=== PATIENT | male | born 1940 | race Caucasian/White ===

== ENCOUNTER 2019-03-25 17:59 | Inpatient (IN) | payer MEDICARE, SELFPAY ==
--- NOTE | ~2019-03-25 | XR_ITS ---
EXAMINATION: XR chest 2V DATE: 03/25/2019 19:14 INDICATION: Fever TECHNIQUE: PA and lateral views of the chest were obtained. COMPARISON: Chest radiograph dated 02/04/[address] dated 12/13/2018 FINDINGS: Right internal jugular central venous port catheter with distal tip at the caudal superior vena cava. Unchanged coarse peripheral reticular opacities at the lung bases consistent with chronic interstiti al lung disease with usual interstitial pneumonia UIP pattern on prior CT. Calcified nodule at the le ft lung base consistent with old granulomatous disease. No new airspace opacities, pleural effusion o r pneumothorax. The cardiomediastinal silhouette is normal. There are bridging osteophytes at multipl e levels in the spine, consistent with diffuse idiopathic skeletal hyperostosis (DISH). IMPRESSION: 1. Unchanged chronic interstitial fibrosis at the lung bases. Reviewed, dictated and finalized at location A. RAL MANAGER IN TRAINING
--- NOTE | ~2019-03-25 | CT_ITS ---
EXAMINATION: CT abdomen pelvis wo con DATE: 03/25/2019 20:29 INDICATION: Fever TECHNIQUE: Computed tomography (CT) of the abdomen and pelvis was performed without intravenous contr ast. Automated exposure control and iterative reconstruction technique were employed. The dose-length product was 498.65 mGy-cm. COMPARISON: 12/13/2018 FINDINGS: Peripheral reticular opacities with honeycombing at the bilateral lung bases consistent with usual in terstitial pneumonia (UIP) pattern chronic interstitial lung disease. Calcified nodule in the left lo wer lobe along with a few hepatic and splenic calcination is consistent with old granulomatous diseas e. Heart size is normal. Atherosclerotic coronary artery calcification. No pericardial or pleural eff usion. Small sliding-type hiatal hernia. Gallbladder, pancreas and bilateral adrenal glands are jose m l. Minimal change in mild to moderate bilateral perinephric stranding. 9 mm low-attenuation right john al cyst. Bilateral ureters extend to a right abdominal ileocolic conduit. No inflammatory stranding i n the fat at the bilateral renal falguni to suggest ascending urinary tract infection. Interval cystecto my and prostatectomy. There is mild scattered colonic diverticulosis without adjacent inflammatory ch kristopher to suggest diverticulitis. Air-fluid levels throughout the colon consistent with diarrhea. No jane wel obstruction. Postoperative scarring versus trace amount of ascites in the deep pelvis. No free in traperitoneal gas. There is calcified atherosclerosis of the aorta and many of the other arteries. No pathologically enlarged abdominal or pelvic lymphadenopathy. There are bridging osteophytes at multi ple levels in the spine, consistent with diffuse idiopathic skeletal hyperostosis (DISH). IMPRESSION: 1. Fluid throughout the colon consistent with diarrhea. Correlate clinically for gastroenteritis. 2. Status post cystectomy and prostatectomy with right abdominal ileal conduit. 3. Chronic UIP pattern interstitial lung disease at the lung bases. Reviewed, dictated and finalized at location A. E DRESSER IMPRESSION: 1. Fluid throughout the colon consistent with diarrhea. Correlate clinically fo r gastroenteritis. 2. Status post cystectomy and prostatectomy with right abdominal ileal conduit. 3. Chronic UIP pattern interstitial lung disease at the lung bases.
[2019-03-25 18:06] VITALS: BP 101/58; PULSE 124; RESP 18; TEMP 37.2; O2SAT 99
--- NOTE | 2019-03-25 18:10 | ED.FEVER ---
HPI - Fever General Chief Complaint: Fever Stated Complaint: fever Time Seen by Provider: 03/25/19 18:05 Source: patient Mode of arrival: ambulatory Limitations: no limitations History of Present Illness HPI Narrative: A 78 y/o male presents to the ED with c/o fever. Pt states that the fever started 3 days ago and has been constant since. He notes that the highest the fever has been at home was 102F. Pt adds that Tylenol alleviates the fever for awhile, but the fever quickly returns. His last does of Tylenol was at 1530 today. He reports chills, sweats, and trouble sleeping, but denies wheezing, N/V/D, SOB, CHRISTINA, weakness, changes in food and liquid intake, CP, ABD pain, back pain, and hematuria. Pt states that he had his bladder and prostate removed on 02/09/[address] Palomo. He has a PMHx of HTN and is currently on a beta wilder. Pt had his flu shot this year and Dr. Jung is his PCP. MD elicited complaint: fever Onset (ago): day(s) (3) Context: recent procedure (Bladder and prostate removal 02/09/19) Relieving factors: acetaminophen Associated symptoms: chills and other (Trouble sleeping, sweats) Treatments prior to arrival fever: acetaminophen Related Data Home Medications Medication Instructions Recorded Confirmed quinapril [Accupril] 20 mg PO DAILY 01/31/19 02/09/19 allopurinol 300 mg tablet 300 mg PO DAILY 03/13/19 Allergies Allergy/AdvReac Type Severity Reaction Status Date / Time No Known Allergies Allergy Unverified 02/09/19 07:33 Review of Systems Review of Systems: All systems reviewed & are unremarkable except as noted in HPI and below Constitutional: Constitutional: Reports chills, Reports difficulty sleeping, Reports fever(s) and Denies other (Changes in food and liquid intake) Cardiovascular: Cardiovascular: Denies chest pain and Reports other (Sweats) Respiratory: Respiratory: Denies dyspnea and Denies wheezing Gastrointestinal: Gastrointestinal: Denies abdominal pain, Denies diarrhea, Denies nausea and Denies vomiting Genitourinary: Genitourinary: Denies hematuria Musculoskeletal: Musculoskeletal: Denies back pain Neurologic: Denies headache(s) and Denies weakness REPLACED BY [facility] Family History Family History Father Family history of lung cancer Other Family history of cardiovascular disease Social History Social History Social History: Patient quit smoking in 1979. He smoked about a pack a cigarettes a day for 20 years. Patient occasionally drinks a beer. He has 2 children. A boy and a girl. Power of knife cutter is Carla Lam. He is a full code. He lives alone. He is retired from [employer]. Smoking packs per day: 1 Smoking cigarettes per day: 20.0 Years smoked: 10 Smoking pack-years: 10.00 Smoking status: Former smoker Tobacco type: cigarettes Alcohol intake: current Drinks per week: 5 Substance use: never Gender identity (if verbalized by the patient): Male Spiritual care concerns: No Agree to blood products: Yes Exam Const: General: healthy appearing and no acute distress Nutritional Appearance: well nourished HENMT: Mouth: Yes lip normal and Yes moist mucous membranes Eyes: Conjunctivae: conjunctivae normal Pupils: Equal, round and reactive pupils present Resp: Effort & Inspection: normal respiratory effort Auscultation: crackles (Velcro-like) bilateral at the base Cardio: Rate: tachycardic Rhythm: regular rhythm Heart sounds: no murmurs GI: GI Palp: Yes Soft to palpation and No Tenderness to palpation present (GI) Auscultation: normal bowel sounds Back/Spine/Pelvis: Back: other (Full ROM) Skin: General skin exam: normal color, dry skin and other (Warm) Neuro: General: patient oriented x3 (Alert) Speech: normal speech Extrem: Right upper extremity: full ROM Psych: Mental Status: mental status grossly normal Affect: normal affect Course Con
[2019-03-25 18:14] VITALS: BP 99/60; PULSE 115; RESP 29; O2SAT 98
--- NOTE | 2019-03-25 18:35 | ECG_ITS ---
Measurements Intervals [place] Rate: 103 P: 35 [place]: 151 QRS: -23 QRSD: 122 T: 7 QT: 344 QTc: 451 Interpretive Statements SINUS TACHYCARDIA RIGHT BUNDLE BRANCH BLOCK VOLTAGE CRITERIA FOR LVH ABNORMAL ECG Electronically Signed On 03-25-2019 19:54:16 PRODUCTION CORRUGATOR by Rajendra Parker D.O.
[2019-03-25 18:46] VITALS: BP 108/58; PULSE 103; RESP 30; O2SAT 98
[2019-03-25] MEDS: SODIUM CHLORIDE 0.9% IV 1,000 ML 999 ML IV CONT ×2 (19:00→20:04)
[2019-03-25 19:04] LABS: Hematocrit 32.9 % (42.0-52.0); Hemoglobin 11.4 g/dL (14.0-18.0); Mean Corpuscular HGB Conc 34.7 g/dl (32-36); Mean Corpuscular Hemoglobin 33.7 pg (26-34); Mean Corpuscular Volume 97.3 fl (80-100); Platelet Count Result 256 k/mm3 (150-375); Red Blood Count 3.38 M/mm3 (4.6-6.20); Red Cell Distribution Width 13.7 % (11.5-14.5); White Blood Count 25.6 K/mm3 (4.5-10.0)
--- NOTE | 2019-03-25 19:15 | PC.NURSE ---
Report taken from Pio MERRITT
[2019-03-25 19:18] LABS: Lactic Acid Reflex 1.1 mmol/L (0.7-2.1)
[2019-03-25 19:20] LABS: INR 1.1; Prothrombin Time 13.4 Seconds (11.1-14.7)
[2019-03-25 19:21] LABS: Partial Thromboplastin Time 34.7 SECONDS (22.3-36.8)
[2019-03-25 19:33] LABS: Band Neutrophils Percent 8 % (0-6); Lymphocytes Absolute Manual 1.28 K/mm3 (1.1-4.5); Monocytes Absolute Manual 1.28 K/mm3 (0.1-0.90); Monocytes Percent Manual 5 % (3-9); Neutrophils Absolute Manual 23.04 K/mm3 (1.3-6.7); Neutrophils Percent Manual 82 % (46-73); Platelet Estimate Adequate (Adequate); Total Cells Counted 100
[2019-03-25 19:34] LABS: Anisocytosis 1+ (NORMAL); Hypochromasia 1+ (NORMAL)
[2019-03-25 19:41] LABS: Alanine Aminotransferase 16 U/L (4-50); Alkaline Phosphatase 84 U/L (38-126); Aspartate Amino Transferase 22 U/L (17-59); Bilirubin,Total 0.6 mg/dL (0.2-1.3); Blood Urea Nitrogen 43 mg/dL (9-20); Calcium 9.2 mg/dL (8.4-10.2); Carbon Dioxide 17 mmol/L (22-30); Chloride 95 mmol/L (98-107); Estimated CRCL calculation 20 ml/min; Estimated Glomerular Filt Rate 25; Glucose 137 mg/dL (75-110); Potassium 3.9 mmol/L (3.4-5.0); Sodium 127 mmol/L (137-145)
[2019-03-25 19:49] LABS: Add Urine Microscopic? YES; Appearance Urine Cloudy (Clear); Bacteria Urine 2+ /hpf; Bilirubin Urine Negative (Negative); Blood Urine 1+ (Negative); Color Urine Yellow (Yellow); Glucose Urine UA Negative (Negative); Ketones Urine Negative (Negative); Leukocyte Esterase Ur 3+ LEU/UL (Negative); Mucus Urine Rare /lpf; Nitrate Urine Negative (Negative); Protein Urine 2+ mg/dL (Negative); Specific Grav Ur 1.015 (1.001-1.035); Squamous Epithelial Cell Urine Rare /hpf (Few); Urobilinogen Urine Negative mg/dL (<2.0); WBC Clumps Urine Present /HPF; WBC Urine 21-30 /hpf
[2019-03-25 20:05] LABS: CRP 26.1 mg/dL (<1.0)
[2019-03-25 21:46] VITALS: BP 111/60; PULSE 102; RESP 18; O2SAT 97
--- NOTE | 2019-03-25 21:48 | PM.IMHP ---
H&P: HPI History of Present Illness Chief complaint: Fever for 3 days Narrative: This is a pleasant 78-year-old male with known past medical history of bladder cancer status post radical cystoprostatectomy with pelvic lymphadenectomy and ileal-loop urinary diversion on February 10, 2019 who presented to the [facility] with a complaint of fever for the past 3 days. He reports a T-max of 102? F this afternoon. The patient has not noticed that his urine is darker in color or foul smelling. He has been taking acetaminophen for his fever. Associated symptoms include diaphoresis and generalized weakness. He denies any headache, neck stiffness, chest pain, cough, palpitations, sore throat, abdominal pain, back pain, hematuria, or open wounds. The patient is known to have had chronic diarrhea off and on since he started taking MiraLax about a month ago. He reports that his last dose of chemotherapy for his bladder cancer was back in May of this past year. He does have a right chest port in place which has not been bothering him. He is known to follow up with Dr. Dumont for his cancer and planning to start radiation therapy soon. Patient was evaluated emergency room this evening and [place] [id number], tachycardic, and tachypneic. Patient also was found to be in acute renal failure. We been asked to admit the patient to the hospital for his sepsis and likely urinary tract infection. He has no other complaints at this time. Review of Systems Review of Systems: All systems reviewed & are unremarkable except as noted in HPI and below PMFSH Past Medical History Medical History Atrial tachycardia Bladder cancer Cancer of overlapping sites of bladder Cellulitis Chronic renal failure, stage 3 (moderate) Contact dermatitis Essential (primary) hypertension Gout, unspecified Hypertension Malignant neoplasm of dome of urinary bladder Mixed hyperlipidemia Shingles Surgical History Surgical History History of cataract extraction History of ileal conduit History of inguinal hernia repair History of prostatectomy History of tonsillectomy History of transurethral resection of prostate Family History Family History Father Family history of lung cancer Other Family history of cardiovascular disease Social History Social History Social History: Patient quit smoking in 1979. He smoked about a pack a cigarettes a day for 20 years. Patient occasionally drinks a beer. He has 2 children. A boy and a girl. Power of civil rights attorney is Carla Lam. He is a full code. He lives alone. He is retired from [employer]. Smoking packs per day: 1 Smoking cigarettes per day: 20.0 Years smoked: 10 Smoking pack-years: 10.00 Smoking status: Former smoker Tobacco type: cigarettes Alcohol intake: unknown Drinks per week: 0 Substance use: current Substance use type: does not use Gender identity (if verbalized by the patient): Male Spiritual care concerns: No Agree to blood products: Yes Meds Home Medications and Allergies Home Medications Medication Instructions Recorded Confirmed Type quinapril [Accupril] 20 mg PO DAILY 01/31/19 03/25/19 History hydrochlorothiazide 25 mg tablet 25 mg PO DAILY #90 tablet 02/21/19 03/25/19 Rx metoprolol succinate 25 mg 25 mg PO DAILY #90 tablet 03/13/19 03/25/19 Rx tablet,extended release 24 hr Allergies Allergy/AdvReac Type Severity Reaction Status Date / Time No Known Allergies Allergy Unverified 02/09/19 07:33 Vital Signs Vital Signs - 24 hr 03/25/19 18:06 03/25/19 18:14 03/25/19 18:46 Temperature 37.2 C Pulse Rate 124 H 115 H 103 H Respiratory Rate 18 29 H 30 H Blood Pressure 101/58 L 99/60 L 108/58 L Pulse Oximetry 99
--- NOTE | 2019-03-25 21:59 | ADMGEN ---
This patient, Stu Raphael Jr., was admitted to Medical Room 253-01. Patient/family oriented to hospital policies and general routines including ID bracelet, bed and alarms, visiting hours, pain management, procedures, bathroom and other care routines, personal items, smoking policy, room service/diet, and visiting hours. Valuables list has been completed. Information on how to activate the Rapid Response Team has been discussed. Patient/Family are encouraged to report perceived risks to care and to ask questions if they do not understand what they are told or what they should do.
[2019-03-25 22:04] VITALS: PULSE 99
[2019-03-25 22:27] VITALS: BP 121/62; PULSE 99; RESP 18; TEMP 36.8; O2SAT 100; BMI 27.2
[2019-03-25] MEDS: LACTATED RINGERS 1,000 ML 125 ML IV CONT (23:14)
[2019-03-25 23:30] LABS: Sodium Urine Random 39 meq/L
[2019-03-26] VITALS (15 sets, daily range): BP systolic 129–145; BP diastolic 50–75; PULSE 94–125; RESP 16–20; TEMP 36.6–38.9; O2SAT 97–100
[2019-03-26] MEDS: LACTATED RINGERS 1,000 ML 125 ML IV CONT ×2 (06:03→13:47)
[2019-03-26 08:42] LABS: Hematocrit 28.2 % (42.0-52.0); Hemoglobin 9.7 g/dL (14.0-18.0); Mean Corpuscular HGB Conc 34.4 g/dl (32-36); Mean Corpuscular Hemoglobin 33.1 pg (26-34); Mean Corpuscular Volume 96.2 fl (80-100); Platelet Count Result 211 k/mm3 (150-375); Red Blood Count 2.93 M/mm3 (4.6-6.20); Red Cell Distribution Width 13.7 % (11.5-14.5); White Blood Count 16.6 K/mm3 (4.5-10.0)
[2019-03-26 08:55] LABS: Blood Urea Nitrogen 37 mg/dL (9-20); Calcium 8.6 mg/dL (8.4-10.2); Carbon Dioxide 19 mmol/L (22-30); Chloride 101 mmol/L (98-107); Estimated CRCL calculation 24 ml/min; Estimated Glomerular Filt Rate 31; Glucose 108 mg/dL (75-110); Potassium 3.9 mmol/L (3.4-5.0); Sodium 132 mmol/L (137-145)
--- NOTE | 2019-03-26 11:14 | PM.IMPN ---
Progress Note: A&P Assessment and Plan (1) Sepsis: Qualifiers: Acute renal failure type: unspecified Sepsis acute organ dysfunction status: with acute organ dysfunction Sepsis type: sepsis due to unspecified organism Severe sepsis acute organ dysfunction type: acute renal failure Severe sepsis shock status: without septic shock Qualified Code(s): A41.9 - Sepsis, unspecified organism; R65.20 - Severe sepsis without septic shock; N17.9 - Acute kidney failure, unspecified Code(s): A41.9 - Sepsis, unspecified organism Status: Acute Assessment and Plan: Criteria met on admission. Suspect urinary source. Blood cultures x2 now growing gram-negative bacilli. Urine culture still pending. Will continue IV fluids but decrease rate. Continue IV ceftriaxone while awaiting final culture results. Will adjust antibiotics as needed. Continue to monitor. WBC has decreased to 16.6 today. (2) Acute UTI: Code(s): N39.0 - Urinary tract infection, site not specified Status: Acute Assessment and Plan: UA very suspicious on admission. Blood cultures now positive urine culture still pending. Continue IV ceftriaxone now as noted. (3) Acute renal failure superimposed on stage 3 chronic kidney disease: Qualifiers: Acute renal failure type: unspecified Qualified Code(s): N17.9 - Acute kidney failure, unspecified; N18.3 - Chronic kidney disease, stage 3 (moderate) Code(s): N17.9 - Acute kidney failure, unspecified; N18.3 - Chronic kidney disease, stage 3 (moderate) Status: Acute Assessment and Plan: Baseline creatinine 1.50-1.70. Creatinine is improved to 2.10 today from 2.50 on admission. Continue to monitor. IV fluids remain in place. (4) Hyponatremia: Code(s): E87.1 - Hypo-osmolality and hyponatremia Status: Acute Assessment and Plan: May be secondary to hydrochlorothiazide use. HCTZ now on hold. Sodium is increased to 132 today. Will monitor. (5) Diarrhea: Qualifiers: Diarrhea type: unspecified type Qualified Code(s): R19.7 - Diarrhea, unspecified Code(s): R19.7 - Diarrhea, unspecified Status: Acute Assessment and Plan: CT abdomen/pelvis fluid throughout colon consistent with diarrhea. Still has loose stools today. Will monitor for now. (6) Essential (primary) hypertension: Code(s): I10 - Essential (primary) hypertension Status: Chronic Assessment and Plan: Blood pressure reviewed on 03/26/2019. Blood pressure was low normal on admission. Has improved today. Telemetry reviewed on 03/26/2019 with heart rate starting to increase. Will continue home metoprolol. Home HCTZ and quinapril held. Will continue to monitor. (7) Bladder cancer: Qualifiers: Bladder location: unspecified site Qualified Code(s): C67.9 - Malignant neoplasm of bladder, unspecified Code(s): C67.9 - Malignant neoplasm of bladder, unspecified Status: Chronic Assessment and Plan: Surgery in February 2019 consisting of robotic assisted, radical cystoprostatectomy with extended bilateral pelvic lymphadenectomy and ileal conduit urinary diversion. Continue to follow-up with urology as outpatient. (8) Chronic anemia: Code(s): D64.9 - Anemia, unspecified Status: Chronic Assessment and Plan: Likely anemia of chronic disease. No signs of acute blood loss. Hemoglobin 9.7 today which is within his normal range. Will continue to monitor H&H. (9) DVT prophylaxis: Code(s): Z29.9 - Encounter for prophylactic measures, unspecified Status: Acute Assessment and Plan: SCDs. Time Spent With Patient Time with patient: 15 - 25 minutes Subjective Date/time seen: 03/26/19 11:14 Interval history: Date of Service: 03/26/2019. Admitted with sepsis, acute renal failure, possible UTI. Feeling better today. Feels urine is clear. No headache or dizziness. No ches
[2019-03-26] MEDS: METOPROLOL SUCCINATE EXT REL 25 MG TABCR PO (12:28)
--- NOTE | 2019-03-26 14:33 | WPDURCON ---
Assessment and Plan Assessment and plan (1) Diarrhea: Qualifiers: Diarrhea type: unspecified type Qualified Code(s): R19.7 - Diarrhea, unspecified Code(s): R19.7 - Diarrhea, unspecified Status: Acute (2) Abnormal urinalysis: Code(s): R82.90 - Unspecified abnormal findings in urine Status: Acute (3) Acute renal failure: Qualifiers: Acute renal failure type: unspecified Qualified Code(s): N17.9 - Acute kidney failure, unspecified Code(s): N17.9 - Acute kidney failure, unspecified Status: Acute (4) Cancer of overlapping sites of bladder: Code(s): C67.8 - Malignant neoplasm of overlapping sites of bladder Status: Acute (5) History of ileal conduit: Code(s): Z98.890 - Other specified postprocedural states Status: Acute Assessment and Plan: From a perspective, everything appears normal Suggest waiting on cultures obtained Elevated creatinine appeared to be suggestive of prerenal azotemia (dehydration secondary to diarrhea) Continue with IVF and regular diet Urology Consult Note HPI Date Seen: 03/26/19 Requesting Physician: Ming Spain MD Primary Care Provider: Jeremy Jung MD Consult Narrative Narrative: Stu Raphael Jr. is a 78 year old male admitted thru ER with diarrhea and fever/chills. Patient underwent a radical cystoprostatectomy and ileal conduit formation with Dr Palomo on 02/2019. Patient denies any issues with conduit or urine output. WBC in ER was 26 but down to [address] of abdomen and pelvis noted no evidence of stones, abscess, or issues of obstruction in either kidney. Bowels had evidence of diverticulosis and diarrhea signs. Creatinine was elevated on admission at 2.5 but down to 2.1 by am. Review of Systems Review of Systems: All systems reviewed & are unremarkable except as noted in HPI and below (HPI) PMFSH Past Medical History Medical History Atrial tachycardia Bladder cancer Cancer of overlapping sites of bladder Cellulitis Chronic renal failure, stage 3 (moderate) Contact dermatitis Essential (primary) hypertension Gout, unspecified Hypertension Malignant neoplasm of dome of urinary bladder Mixed hyperlipidemia Shingles Surgical History Surgical History History of cataract extraction History of ileal conduit History of inguinal hernia repair History of prostatectomy History of tonsillectomy History of transurethral resection of prostate Family History Family History Father Family history of lung cancer Other Family history of cardiovascular disease Social History Social History Social History: Patient quit smoking in 1979. He smoked about a pack a cigarettes a day for 20 years. Patient occasionally drinks a beer. He has 2 children. A boy and a girl. Power of litigation attorney associate is Carla Lam. He is a full code. He lives alone. He is retired from [employer]. Smoking packs per day: 1 Smoking cigarettes per day: 20.0 Years smoked: 10 Smoking pack-years: 10.00 Smoking status: Former smoker Tobacco type: cigarettes Alcohol intake: unknown Drinks per week: 0 Substance use: current Substance use type: does not use Gender identity (if verbalized by the patient): Male Spiritual care concerns: No Agree to blood products: Yes Meds Home Medications and Allergies Home Medications Medication Instructions Recorded Confirmed Type quinapril [Accupril] 20 mg PO DAILY 01/31/19 03/25/19 History hydrochlorothiazide 25 mg tablet 25 mg PO DAILY #90 tablet 02/21/19 03/25/19 Rx metoprolol succinate 25 mg 25 mg PO DAILY #90 tablet 03/13/19 03/25/19 Rx tablet,extended release 24 hr Allergies Allergy/AdvR
--- NOTE | 2019-03-26 18:16 | PC.NURSE ---
Dr. Gerard notified of sepsis risk screening.
[2019-03-27] VITALS (7 sets, daily range): BP systolic 135–164; BP diastolic 66–75; PULSE 90–136; RESP 16–20; TEMP 36.4–39.3; O2SAT 98–100
[2019-03-27] MEDS: LACTATED RINGERS 1,000 ML 75 ML IV CONT
[2019-03-27 05:43] LABS: Hematocrit 31.2 % (42.0-52.0); Hemoglobin 10.5 g/dL (14.0-18.0); Mean Corpuscular HGB Conc 33.7 g/dl (32-36); Mean Corpuscular Hemoglobin 32.6 pg (26-34); Mean Corpuscular Volume 96.9 fl (80-100); Mean Platelet Volume 10.7 fl (7.4-10.4); Platelet Count Result 202 k/mm3 (150-375); Red Blood Count 3.22 M/mm3 (4.6-6.20); Red Cell Distribution Width 13.6 % (11.5-14.5); White Blood Count 8.3 K/mm3 (4.5-10.0)
[2019-03-27 05:52] LABS: Blood Urea Nitrogen 27 mg/dL (9-20); Carbon Dioxide 20 mmol/L (22-30); Chloride 101 mmol/L (98-107); Estimated CRCL calculation 34 ml/min; Estimated Glomerular Filt Rate 45; Glucose 125 mg/dL (75-110); Magnesium 1.5 mg/dL (1.6-2.3); Potassium 3.6 mmol/L (3.4-5.0); Sodium 132 mmol/L (137-145)
--- NOTE | 2019-03-27 08:34 | WPDUROPN2 ---
Progress Note: A&P Assessment and Plan (1) Diarrhea: Qualifiers: Diarrhea type: unspecified type Qualified Code(s): R19.7 - Diarrhea, unspecified Code(s): R19.7 - Diarrhea, unspecified Status: Acute (2) Abnormal urinalysis: Code(s): R82.90 - Unspecified abnormal findings in urine Status: Acute Assessment and Plan: Cultures are pending. It should be kept in mind that this patient is chronically colonized due to his ileal conduit. (3) Cancer of overlapping sites of bladder: Code(s): C67.8 - Malignant neoplasm of overlapping sites of bladder Status: Acute Subjective Subjective Date/Time Seen: 03/27/19 08:34 Feeling better. Labs are improved. Exam GI: Inspection: normal to inspection Other: Ostomy is pink and viable. Objective Data Vital Signs Vital Signs: Vital Signs - 24 hr 03/26/19 12:00 03/26/19 12:25 03/26/19 12:28 Temperature Pulse Rate 94 102 H 102 H Respiratory Rate Blood Pressure 132/61 Pulse Oximetry 03/26/19 13:46 03/26/19 14:00 03/26/19 14:16 Temperature 99.1 F 99.0 F 97.8 F Pulse Rate 111 H Respiratory Rate 16 Blood Pressure 145/75 H Pulse Oximetry 100 03/26/19 16:00 03/26/19 20:00 03/26/19 20:34 Temperature 102.1 F H 102.1 F H Pulse Rate 97 100 Respiratory Rate Blood Pressure Pulse Oximetry 03/26/19 21:00 03/26/19 21:53 03/27/19 00:00 Temperature 98.4 F 98.6 F Pulse Rate 100 93 Respiratory Rate 20 Blood Pressure 129/60 Pulse Oximetry 97 03/27/19 05:52 03/27/19 06:18 Temperature 102.7 F H Pulse Rate 115 H 104 H Respiratory Rate 20 Blood Pressure 164/72 H Pulse Oximetry 100 Intake/Output Intake/Output: Intake & Output 03/24/19 03/25/19 03/26/19 03/27/19 23:59 23:59 23:59 23:59 Intake Total 2150 5150 550 Output Total 1050 2200 Balance 2150 4100 -1650 Meds/Results Medications: Active Medications Generic Name Dose Route Start Last Admin Trade Name Freq PRN Reason Stop Dose Admin Acetaminophen 650 mg 03/27/19 03:22 Tylenol Tablet PO Q4H PRN Mild Pain (1-3) or Fever Lactated Ringer's 1,000 mls @ 75 mls/hr 03/25/19 21:00 03/27/19 00:00 Lr - Lactated Ringers Iv IV CONT 75 mls/hr .[id number] TANYA Administration Ceftriaxone Sodium/Dextrose 1 gm in 50 mls @ 100 mls/hr 03/27/19 20:00 Rocephin 1 Gm/D5w 50 Ml IVPB DAILY@1999 TANYA Metoprolol Succinate 25 mg 03/26/19 11:20 03/26/19 12:28 Toprol Xl PO 25 mg DAILY TANYA Administration Ondansetron HCl 4 mg 03/25/19 20:57 Zofran Inj IV PUSH Q4H PRN Nausea Radiology Results: ITS Impressions Chest X-Ray 03/25/19 19:29 IMPRESSION: 1. Unchanged chronic interstitial fibrosis at the lung bases. Abdomen/Pelvis CT 03/25/19 20:43 IMPRESSION: 1. Fluid throughout the colon consistent with diarrhea. Correlate clinically for gastroenteritis. 2. Status post cystectomy and prostatectomy with right abdominal ileal conduit. 3. Chronic UIP pattern interstitial lung disease at the lung bases. Labs Labs: Laboratory Results - last 24 hr 03/25/19 03/26/19 03/26/19 18:56 08:10 08:10 WBC 16.6 H RBC 2.93 L Hgb 9.7 L Hct 28.2 L MCV 96.2 MCH 33.1 MCHC 34.4 RDW 13.7 Plt Count 211 MPV 10.0 Sodium 127 L 132 L Potassium 3.9 3.9 Chloride 95 L 101 Carbon Dioxide 17 L 19 L BUN 43 H D 37 H Creatinine 2.50 H 2.10 H Estim Creat Clear Calc 20 24 Estimated GFR 25 L 31 L Glucose 137 H 108 Calcium 9.2 8.6 Magnesium Total Bilirubin 0.6 AST 22 ALT 16 Alkaline Phosphatase 84 C-Reactive Protein 26.1 H Total Protein 8.0 Albumin 4.0 03/27/19 03/27/19 05:13 05:13 WBC 8.3 RBC 3.22 L Hgb 10.5 L Hct 31.2 L MCV 96.9 MCH 32.6 MCHC 33.7 RDW 13.6 Plt Count 202 MPV 10.7 H Sodium 132 L Potassium 3.6 Chloride 101 Carbon Dioxide 20
[2019-03-27] MEDS: METOPROLOL SUCCINATE EXT REL 25 MG TABCR PO (09:10)
[2019-03-27] MEDS: MAGNESIUM SULF 2 GM/WATER 50ML 2 GM/50 ML BAG IVPB (09:11)
--- NOTE | 2019-03-27 11:21 | PM.IMPN ---
Progress Note: A&P Assessment and Plan (1) Sepsis: Qualifiers: Acute renal failure type: unspecified Sepsis acute organ dysfunction status: with acute organ dysfunction Sepsis type: sepsis due to unspecified organism Severe sepsis acute organ dysfunction type: acute renal failure Severe sepsis shock status: without septic shock Qualified Code(s): A41.9 - Sepsis, unspecified organism; R65.20 - Severe sepsis without septic shock; N17.9 - Acute kidney failure, unspecified Code(s): A41.9 - Sepsis, unspecified organism Status: Acute Assessment and Plan: Criteria met on admission. Result of UTI. Blood cultures x2 and urine culture now all growing Klebsiella pneumoniae. Will continue IV ceftriaxone while awaiting sensitivities. Clinically has been improving. WBC normal at 8.3 today. Will discontinue IV fluids. Telemetry reviewed on 03/27/2019 with sinus rhythm and will discontinue. Advised patient will need 5-7 days IV antibiotics with blood cultures now positive. (2) Acute UTI: Code(s): N39.0 - Urinary tract infection, site not specified Status: Acute Assessment and Plan: UA very suspicious on admission. Urine culture as noted above now growing Klebsiella pneumoniae. Continue IV ceftriaxone while awaiting sensitivities. (3) Acute renal failure superimposed on stage 3 chronic kidney disease: Qualifiers: Acute renal failure type: unspecified Qualified Code(s): N17.9 - Acute kidney failure, unspecified; N18.3 - Chronic kidney disease, stage 3 (moderate) Code(s): N17.9 - Acute kidney failure, unspecified; N18.3 - Chronic kidney disease, stage 3 (moderate) Status: Acute Assessment and Plan: Baseline creatinine 1.50-1.70. Creatinine back to baseline at 1.50 today. Discontinue IV fluids. Will monitor. (4) Hyponatremia: Code(s): E87.1 - Hypo-osmolality and hyponatremia Status: Acute Assessment and Plan: May be secondary to hydrochlorothiazide use. Continue to hold HCTZ. Sodium now stable at 132. Will monitor. (5) Diarrhea: Qualifiers: Diarrhea type: unspecified type Qualified Code(s): R19.7 - Diarrhea, unspecified Code(s): R19.7 - Diarrhea, unspecified Status: Acute Assessment and Plan: CT abdomen/pelvis fluid throughout colon consistent with diarrhea. Patient reports stools loose but not watery. Will continue to monitor. (6) Essential (primary) hypertension: Code(s): I10 - Essential (primary) hypertension Status: Chronic Assessment and Plan: Blood pressure reviewed on 03/27/2019. Blood pressure was low normal on admission but now with some elevated readings. Continue home metoprolol. Will continue to hold home quinapril and HCTZ today. May be able to restart home quinapril if kidney function remains stable and blood pressure consistently elevated. Could also use amlodipine if needed. (7) Bladder cancer: Qualifiers: Bladder location: unspecified site Qualified Code(s): C67.9 - Malignant neoplasm of bladder, unspecified Code(s): C67.9 - Malignant neoplasm of bladder, unspecified Status: Chronic Assessment and Plan: Surgery in February 2019 consisting of robotic assisted, radical cystoprostatectomy with extended bilateral pelvic lymphadenectomy and ileal conduit urinary diversion. Continue to follow-up with urology as an outpatient. (8) Chronic anemia: Code(s): D64.9 - Anemia, unspecified Status: Chronic Assessment and Plan: Likely anemia of chronic disease. No signs of acute blood loss. Hemoglobin 10.5 today and stable. Continue to monitor. (9) DVT prophylaxis: Code(s): Z29.9 - Encounter for prophylactic measures, unspecified Status: Acute Assessment and Plan: SCDs. Time Spent With Patient Time with patient: 15 - 25 minutes Subjective Date/time seen: 03/27/19 11:21 Interval history: Date
[2019-03-28] VITALS (7 sets, daily range): BP systolic 139–150; BP diastolic 65–91; PULSE 91–100; RESP 16–20; TEMP 36.5–38.2; O2SAT 99–100
[2019-03-28 08:38] LABS: Hematocrit 30.4 % (42.0-52.0); Hemoglobin 10.4 g/dL (14.0-18.0); Mean Corpuscular HGB Conc 34.2 g/dl (32-36); Mean Corpuscular Hemoglobin 32.9 pg (26-34); Mean Corpuscular Volume 96.2 fl (80-100); Mean Platelet Volume 10.3 fl (7.4-10.4); Platelet Count Result 194 k/mm3 (150-375); Red Blood Count 3.16 M/mm3 (4.6-6.20); Red Cell Distribution Width 13.5 % (11.5-14.5)
[2019-03-28 09:00] LABS: Blood Urea Nitrogen 20 mg/dL (9-20); Carbon Dioxide 21 mmol/L (22-30); Chloride 98 mmol/L (98-107); Estimated CRCL calculation 36 ml/min; Estimated Glomerular Filt Rate 49; Glucose 118 mg/dL (75-110); Magnesium 1.7 mg/dL (1.6-2.3); Potassium 3.3 mmol/L (3.4-5.0); Sodium 131 mmol/L (137-145)
[2019-03-28] MEDS: METOPROLOL SUCCINATE EXT REL 25 MG TABCR PO (09:18)
--- NOTE | 2019-03-28 11:11 | WPDUROPN2 ---
Progress Note: A&P Assessment and Plan (1) Acute UTI: Code(s): N39.0 - Urinary tract infection, site not specified Status: Acute Assessment and Plan: WBC is 5.0 down from 16.6, blood and urine cultures are positive growing Klebsiella, however sensitivities are pending. Although it seems that the antibiotics are responding to the infection well as he is clinically improved. Tailor antibiotics to culture sensitivity if needed. Creatinine has improved greatly as well. No further evaluation needed at this time. (2) Sepsis: Qualifiers: Sepsis type: sepsis due to unspecified organism Sepsis acute organ dysfunction status: with acute organ dysfunction Severe sepsis acute organ dysfunction type: acute renal failure Acute renal failure type: unspecified Severe sepsis shock status: without septic shock Qualified Code(s): A41.9 - Sepsis, unspecified organism; R65.20 - Severe sepsis without septic shock; N17.9 - Acute kidney failure, unspecified Code(s): A41.9 - Sepsis, unspecified organism Status: Acute (3) Diarrhea: Qualifiers: Diarrhea type: unspecified type Qualified Code(s): R19.7 - Diarrhea, unspecified Code(s): R19.7 - Diarrhea, unspecified Status: Acute Subjective Subjective Date/Time Seen: 03/28/19 11:11 Feeling better. Labs are improved. Review of Systems Cardiovascular: Cardiovascular: Denies chest pain Respiratory: Respiratory: Reports no additional respiratory complaints Gastrointestinal: Gastrointestinal: Denies abdominal pain, Denies nausea and Denies vomiting Genitourinary: Genitourinary: Denies hematuria and Reports other (has urostomy bag) Exam Resp: Effort & Inspection: normal respiratory effort Cardio: Rate: regular rate GI: GI Palp: No Tenderness to palpation present (GI) Rectal Exam: other (stoma is pink, clear yellow urine is draining into urostomy bag ) Urinary Catheter: Urinary Catheter: patent and draining and urine clear Objective Data Vital Signs Vital Signs: Vital Signs - 24 hr 03/27/19 14:00 03/27/19 21:49 03/28/19 02:50 Temperature 97.5 F L 100.4 F H 97.7 F Pulse Rate 98 93 Respiratory Rate 16 20 Blood Pressure 135/75 138/66 Pulse Oximetry 100 98 03/28/19 05:45 03/28/19 09:18 Temperature 100.8 F H Pulse Rate 91 100 Respiratory Rate 20 Blood Pressure 139/65 Pulse Oximetry 100 Intake/Output Intake/Output: Intake & Output 03/25/19 03/26/19 03/27/19 03/28/19 23:59 23:59 23:59 23:59 Intake Total 2150 5150 2895 440 Output Total 1050 3625 900 Balance 2150 6752 -663 -290 Meds/Results Medications: Active Medications Generic Name Dose Route Start Last Admin Trade Name Freq PRN Reason Stop Dose Admin Acetaminophen 650 mg 03/27/19 03:22 Tylenol Tablet PO Q4H PRN Mild Pain (1-3) or Fever Ceftriaxone Sodium/Dextrose 1 gm in 50 mls @ 100 mls/hr 03/27/19 20:00 03/28/19 00:12 Rocephin 1 Gm/D5w 50 Ml IVPB Infused DAILY@1999 TANYA Infusion Metoprolol Succinate 25 mg 03/26/19 11:20 03/28/19 09:18 Toprol Xl PO 25 mg DAILY TANYA Administration Ondansetron HCl 4 mg 03/25/19 20:57 Zofran Inj IV PUSH Q4H PRN Nausea Radiology Results: ITS Impressions Chest X-Ray 03/25/19 19:29 IMPRESSION: 1. Unchanged chronic interstitial fibrosis at the lung bases. Abdomen/Pelvis CT 03/25/19 20:43 IMPRESSION: 1. Fluid throughout the colon consistent with diarrhea. Correlate clinically for gastroenteritis. 2. Status post cystectomy and prostatectomy with right abdominal ileal conduit. 3. Chronic UIP pattern interstitial lung disease at the lung bases. Labs Labs: Laboratory Results - last 24 hr 03/28/19 03/28/19 08:24 08:24 WBC 5.0 RBC 3.16 L Hgb 10.4 L Hct 30.4 L MCV 96.2 MCH 32.9 MCHC 34.2 RDW 13.5 Plt Count 194 MPV 10.3 Sodium 131 L Potassium 3.3 L Chloride 98 Carbon Dioxide 21 L BU
--- NOTE | 2019-03-28 15:37 | PM.IMPN ---
Progress Note: A&P Assessment and Plan (1) Sepsis: Qualifiers: Acute renal failure type: unspecified Sepsis acute organ dysfunction status: with acute organ dysfunction Sepsis type: sepsis due to unspecified organism Severe sepsis acute organ dysfunction type: acute renal failure Severe sepsis shock status: without septic shock Qualified Code(s): A41.9 - Sepsis, unspecified organism; R65.20 - Severe sepsis without septic shock; N17.9 - Acute kidney failure, unspecified Code(s): A41.9 - Sepsis, unspecified organism Status: Acute Assessment and Plan: Criteria met on admission. Result of UTI and bacteremia. Blood cultures x2 and urine culture now all growing Klebsiella pneumoniae. Urine cx sensitive to Rocephin but BCx sensitivities pending. Clinically improving. WBC remains normal. Will continue IV ceftriaxone. (2) Acute UTI: Code(s): N39.0 - Urinary tract infection, site not specified Status: Acute Assessment and Plan: UA suspicious for UTI. Urine culture growing Klebsiella pneumoniae sensitive to Rocephin. Continue IV ceftriaxone. (3) Acute renal failure superimposed on stage 3 chronic kidney disease: Qualifiers: Acute renal failure type: unspecified Qualified Code(s): N17.9 - Acute kidney failure, unspecified; N18.3 - Chronic kidney disease, stage 3 (moderate) Code(s): N17.9 - Acute kidney failure, unspecified; N18.3 - Chronic kidney disease, stage 3 (moderate) Status: Acute Assessment and Plan: Acute on chronic stage III renal failure which appears to be pre renal. Baseline creatinine 1.50-1.70. Cr 1.4 today. Renally dose medications. Avoid nephrotoxic medications. Continue to monitor. (4) Hyponatremia: Code(s): E87.1 - Hypo-osmolality and hyponatremia Status: Acute Assessment and Plan: May be secondary to hydrochlorothiazide use. HCTZ on hold. Sodium low but stable. Continue to monitor. (5) Diarrhea: Qualifiers: Diarrhea type: unspecified type Qualified Code(s): R19.7 - Diarrhea, unspecified Code(s): R19.7 - Diarrhea, unspecified Status: Acute Assessment and Plan: Patient has ongoing diarrhea which he states he has had on and off for the past month. He was on stool softeners. CT abdomen/pelvis showing fluid throughout the colon consistent with diarrhea. No excessive number of BMs documented. Continue supportive care. (6) Essential (primary) hypertension: Code(s): I10 - Essential (primary) hypertension Status: Chronic Assessment and Plan: Blood pressure reviewed on 03/28/19. BP elevated at times but overall okay. Continue home metoprolol. HCTZ and Quinapril on hold. Resume when appropriate. (7) Bladder cancer: Qualifiers: Bladder location: unspecified site Qualified Code(s): C67.9 - Malignant neoplasm of bladder, unspecified Code(s): C67.9 - Malignant neoplasm of bladder, unspecified Status: Chronic Assessment and Plan: Surgery in February 2019 consisting of robotic assisted, radical cystoprostatectomy with extended bilateral pelvic lymphadenectomy and ileal conduit urinary diversion. Continue to follow-up with urology as an outpatient. Continue Heme/Onc recommendations. (8) Chronic anemia: Code(s): D64.9 - Anemia, unspecified Status: Chronic Assessment and Plan: Likely anemia of chronic disease. No signs of acute blood loss. HH stable. Continue to monitor and transfuse p.r.n.. Subjective Date/time seen: 03/28/19 15:37 Interval history: 78yo male admitted with sepsis, acute renal failure from UTI. Assuming care. Chart reviewed. Diarrhea better. No CP. No SOB. No n/v. Has been up walking bathroom. Still having fevers. Exam Narrative: Exam Narrative: Gen - NARD Chest - CTA bilaterally, nml RR CV - RRR S1/S2 Abd - Soft, NT/ND, Positive BS. Urostomy to
[2019-03-28] MEDS: ACETAMINOPHEN 325 MG TABLET 650 MG PO (20:35)
[2019-03-29] MEDS: ACETAMINOPHEN 325 MG TABLET 650 MG PO (04:54)
[2019-03-29 05:37] LABS: Hematocrit 31.6 % (42.0-52.0); Hemoglobin 10.6 g/dL (14.0-18.0); Mean Corpuscular HGB Conc 33.5 g/dl (32-36); Mean Corpuscular Hemoglobin 32.2 pg (26-34); Mean Platelet Volume 10.1 fl (7.4-10.4); Platelet Count Result 220 k/mm3 (150-375); Red Blood Count 3.29 M/mm3 (4.6-6.20); Red Cell Distribution Width 13.7 % (11.5-14.5); White Blood Count 6.5 K/mm3 (4.5-10.0)
[2019-03-29 05:56] LABS: Blood Urea Nitrogen 19 mg/dL (9-20); Calcium 9.4 mg/dL (8.4-10.2); Carbon Dioxide 26 mmol/L (22-30); Chloride 102 mmol/L (98-107); Estimated CRCL calculation 36 ml/min; Estimated Glomerular Filt Rate 49; Glucose 103 mg/dL (75-110); Magnesium 1.8 mg/dL (1.6-2.3); Potassium 3.4 mmol/L (3.4-5.0); Sodium 138 mmol/L (137-145)
[2019-03-29 06:06] VITALS: BP 144/71; PULSE 68; RESP 16; TEMP 36.8; O2SAT 99
[2019-03-29 06:39] LABS: Osmolality, Urine 294 mOsm/kg (50-1200)
[2019-03-29 09:04] VITALS: PULSE 84
[2019-03-29] MEDS: METOPROLOL SUCCINATE EXT REL 25 MG TABCR PO (09:04)
--- NOTE | 2019-03-29 10:58 | PM.IMPN ---
Progress Note: A&P Assessment and Plan (1) Sepsis: Qualifiers: Acute renal failure type: unspecified Sepsis acute organ dysfunction status: with acute organ dysfunction Sepsis type: sepsis due to unspecified organism Severe sepsis acute organ dysfunction type: acute renal failure Severe sepsis shock status: without septic shock Qualified Code(s): A41.9 - Sepsis, unspecified organism; R65.20 - Severe sepsis without septic shock; N17.9 - Acute kidney failure, unspecified Code(s): A41.9 - Sepsis, unspecified organism Status: Acute Assessment and Plan: Criteria met on admission. Result of UTI and bacteremia. Blood cultures x2 and urine culture now all growing Klebsiella pneumoniae sensitive to Rocephin. Urine culture now growing Enterococcus. Clinically improving. WBC remains normal. Will continue IV ceftriaxone. Add Ampicillin. (2) Acute UTI: Code(s): N39.0 - Urinary tract infection, site not specified Status: Acute Assessment and Plan: UA suspicious for UTI. Urine culture growing Klebsiella pneumoniae sensitive to Rocephin. Continue IV ceftriaxone. Enterocccus growing from Ucx today which could be a contaminate given that his WBC is normal and fever resolved. We will cover with Ampicillin. (3) Acute renal failure superimposed on stage 3 chronic kidney disease: Qualifiers: Acute renal failure type: unspecified Qualified Code(s): N17.9 - Acute kidney failure, unspecified; N18.3 - Chronic kidney disease, stage 3 (moderate) Code(s): N17.9 - Acute kidney failure, unspecified; N18.3 - Chronic kidney disease, stage 3 (moderate) Status: Acute Assessment and Plan: Acute on chronic stage III renal failure which appears to be pre renal. Baseline creatinine 1.50-1.70. Cr stable at 1.4 today. Renally dose medications. Avoid nephrotoxic medications. Continue to monitor. . (4) Hyponatremia: Code(s): E87.1 - Hypo-osmolality and hyponatremia Status: Acute Assessment and Plan: May be secondary to hydrochlorothiazide use. HCTZ on hold. Sodium normal now. Continue to monitor. (5) Diarrhea: Qualifiers: Diarrhea type: unspecified type Qualified Code(s): R19.7 - Diarrhea, unspecified Code(s): R19.7 - Diarrhea, unspecified Status: Acute Assessment and Plan: Patient was having ongoing diarrhea on and off for the past month. He was on stool softeners. CT abdomen/pelvis here showing fluid throughout the colon consistent with diarrhea. No excessive number of BMs documented and symptoms better. Continue to monitor. (6) Essential (primary) hypertension: Code(s): I10 - Essential (primary) hypertension Status: Chronic Assessment and Plan: Blood pressure reviewed on 03/29/19. BP reasonable. Continue home metoprolol. HCTZ and Quinapril remain on hold. Cr better. Will add Norvasc. (7) Bladder cancer: Qualifiers: Bladder location: unspecified site Qualified Code(s): C67.9 - Malignant neoplasm of bladder, unspecified Code(s): C67.9 - Malignant neoplasm of bladder, unspecified Status: Chronic Assessment and Plan: Surgery in February 2019 consisting of robotic assisted, radical cystoprostatectomy with extended bilateral pelvic lymphadenectomy and ileal conduit urinary diversion. Continue to follow-up with urology as an outpatient. Continue Heme/Onc recommendations. (8) Chronic anemia: Code(s): D64.9 - Anemia, unspecified Status: Chronic Assessment and Plan: Likely anemia of chronic disease. No signs of acute blood loss. HH stable at 10. Continue to monitor and transfuse p.r.n.. Subjective Date/time seen: 03/29/19 10:58 Interval history: 78yo male admitted with sepsis, acute renal failure from UTI. Still with night sweats. No fevers overnight. Up walking in the halls. Eating normally. Exam Tian
[2019-03-29] MEDS: AMLODIPINE BESYLATE 5 MG TABLET PO (11:54)
[2019-03-29] MEDS: AMPICILLIN TRIHYDRATE 500 MG CAPSULE PO ×3 (11:54→20:20)
[2019-03-29 14:00] VITALS: BP 120/70; PULSE 95; RESP 22; TEMP 36.6; O2SAT 100
[2019-03-29 20:00] VITALS: PULSE 95; RESP 22; O2SAT 100
[2019-03-29 21:56] VITALS: BP 131/69; PULSE 90; RESP 20; TEMP 36.6; O2SAT 99
[2019-03-30 06:00] VITALS: BP 132/70; PULSE 97; RESP 20; TEMP 36.6; O2SAT 96
[2019-03-30] MEDS: AMPICILLIN TRIHYDRATE 500 MG CAPSULE PO (06:07)
[2019-03-30 08:26] VITALS: PULSE 88
[2019-03-30] MEDS: METOPROLOL SUCCINATE EXT REL 25 MG TABCR PO (08:26)
[2019-03-30] MEDS: AMLODIPINE BESYLATE 5 MG TABLET PO (08:26)
--- NOTE | 2019-03-30 10:10 | PM.DS ---
DS: Diagnosis Admitting Diagnosis Admitting Diagnosis: Diarrhea, unspecified Discharge Diagnosis (1) Sepsis: Qualifiers: Sepsis type: sepsis due to unspecified organism Sepsis acute organ dysfunction status: with acute organ dysfunction Severe sepsis acute organ dysfunction type: acute renal failure Acute renal failure type: unspecified Severe sepsis shock status: without septic shock Qualified Code(s): A41.9 - Sepsis, unspecified organism; R65.20 - Severe sepsis without septic shock; N17.9 - Acute kidney failure, unspecified Code(s): A41.9 - Sepsis, unspecified organism Status: Acute Assessment and Plan: Criteria met on admission. Result of UTI and bacteremia. Blood cultures x2 and urine culture now all growing Klebsiella pneumoniae. Urine cx and BCx sensitive to Rocephin. Urine culture also growing Enterococcus. Clinically improving. WBC remains normal. Ampicillin added. (2) Acute UTI: Code(s): N39.0 - Urinary tract infection, site not specified Status: Acute Assessment and Plan: UA suspicious for UTI. Urine culture growing Klebsiella pneumoniae sensitive to Rocephin. We continued IV ceftriaxone. Enterocccus growing from Ucx which could be a contaminate given that his WBC is normal and fever resolved. Ampicillin however was started. (3) Acute renal failure superimposed on stage 3 chronic kidney disease: Qualifiers: Acute renal failure type: unspecified Qualified Code(s): N17.9 - Acute kidney failure, unspecified; N18.3 - Chronic kidney disease, stage 3 (moderate) Code(s): N17.9 - Acute kidney failure, unspecified; N18.3 - Chronic kidney disease, stage 3 (moderate) Status: Acute Assessment and Plan: Acute on chronic stage III renal failure which appears to be pre renal. Baseline creatinine 1.50-1.70. Cr dropped to 1.4. (4) Hyponatremia: Code(s): E87.1 - Hypo-osmolality and hyponatremia Status: Acute Assessment and Plan: May be secondary to hydrochlorothiazide use. HCTZ stopped. Sodium normal yesterday (5) Diarrhea: Qualifiers: Diarrhea type: unspecified type Qualified Code(s): R19.7 - Diarrhea, unspecified Code(s): R19.7 - Diarrhea, unspecified Status: Acute Assessment and Plan: Patient has ongoing diarrhea which he states he has had on and off for the past month. He was on stool softeners. CT abdomen/pelvis showing fluid throughout the colon consistent with diarrhea. Symptoms better. (6) Essential (primary) hypertension: Code(s): I10 - Essential (primary) hypertension Status: Chronic Assessment and Plan: Blood pressure reviewed. BP elevated at times but overall okay. Continue home metoprolol and Norvasc added. HCTZ and Quinapril on hold. (7) Bladder cancer: Qualifiers: Bladder location: unspecified site Qualified Code(s): C67.9 - Malignant neoplasm of bladder, unspecified Code(s): C67.9 - Malignant neoplasm of bladder, unspecified Status: Chronic Assessment and Plan: Surgery in February 2019 consisting of robotic assisted, radical cystoprostatectomy with extended bilateral pelvic lymphadenectomy and ileal conduit urinary diversion. Continue to follow-up with urology as an outpatient. Continue Heme/Onc recommendations. (8) Chronic anemia: Code(s): D64.9 - Anemia, unspecified Status: Chronic Assessment and Plan: Likely anemia of chronic disease. No signs of acute blood loss. HH stable. DS: Summary Hospital Course Reason for hospitalization: 78yo male here for sepsis from a urinary source. Please see H&P for details. Hospital Course: As above Status at Discharge Functional status at discharge: independent ambulation Overall status at discharge: patient is back to baseline Time Spent with Patient Time attestation: Total time spent providing and/or coordinating
== END 2019-03-30 11:23 | disposition home or self-care (01) | DRG 690 ==
LOC: ANHED 21:16 → ANH2MED 21:55
PROVIDERS: Hospitalist; Internal Medicine; Admitting Provider Family Medicine; Emergency Provider Emergency Medicine; PCP Internal Medicine; Visit Provider Family Medicine
DX: N39.0 Urinary tract infection, site not specified (principal); N17.9 Acute kidney failure, unspecified; E87.1 Hypo-osmolality and hyponatremia; Z93.6 Other artificial openings of urinary tract status; I12.9 Hypertensive chronic kidney disease with stage 1 through stage 4 chronic kidney disease, or unspecified chronic kidney disease; Z85.51 Personal history of malignant neoplasm of bladder; Z90.6 Acquired absence of other parts of urinary tract; Z90.79 Acquired absence of other genital organ(s); Z92.21 Personal history of antineoplastic chemotherapy; N18.3 Chronic kidney disease, stage 3 (moderate); E78.2 Mixed hyperlipidemia; Z98.49 Cataract extraction status, unspecified eye; Z87.891 Personal history of nicotine dependence; T50.2X5A Adverse effect of carbonic-anhydrase inhibitors, benzothiadiazides and other diuretics, initial encounter; R19.7 Diarrhea, unspecified; M1A.9XX0 Chronic gout, unspecified, without tophus (tophi); D63.8 Anemia in other chronic diseases classified elsewhere; E86.0 Dehydration
CPT/HCPCS: 36415; 71046; 74176; 80048; 80053; 81001; 83605; 83735; 83935; 84300; 85025; 85027; 85610; 85730; 86140; 87040; 87077; 87086; 87088; 87186; 87804; 93005; 96361; 96365; 99285; A9270; J0131; J0696; J3475; J7030; J7120

== ENCOUNTER 2019-07-04 20:20 | Inpatient (IN) | payer MEDICARE, SELFPAY ==
--- NOTE | ~2019-07-04 | XR_ITS ---
EXAMINATION: XR chest 2V EXAM DATE: 07/04/2019 21:01 INDICATION: Fever, weakness, UTI, history of hypertension. TECHNIQUE: Frontal and lateral projections of the chest obtained and reviewed. Comparison is made to prior examination from 03/25/2019. FINDINGS: Again there is prominent basilar reticulation, chronic fibrotic change. Right-sided Chemo- Port. The lungs are otherwise clear. There are no pleural effusions. The cardiomediastinal silhouet te is within normal limits. There is no pneumothorax suspected. Patient has diffuse idiopathic skel etal hyperostosis (DISH). There is no significant interval change. IMPRESSION: 1. No acute cardiopulmonary findings. 2. Chronic basilar fibrotic changes. Reviewed, dictated and finalized at location A.
[2019-07-04 20:25] VITALS: BP 111/54; PULSE 101; RESP 16; TEMP 38.1; O2SAT 99
[2019-07-04 20:27] VITALS: BP 120/71; PULSE 101; RESP 30; TEMP 38.1; O2SAT 99
[2019-07-04 20:30] VITALS: RESP 27
[2019-07-04 20:57] LABS: Basophils Absolute Auto 0.1 K/mm3 (0.0-0.1); Basophils Percent Auto 0.4 % (0.2-1.2); Eosinophils Percent Auto 0.1 % (0-4.4); Hematocrit 35.2 % (42.0-52.0); Hemoglobin 12.3 g/dL (14.0-18.0); Immature Granulocyte Absolute 0.15 K/mm3 (0.00-0.031); Immature Granulocyte Percent A 1.1 % (0-0.5); Lymphocytes Absolute Auto 0.38 K/mm3 (0.9-3.2); Lymphocytes Percent Auto 2.7 % (18.3-44.2); Mean Corpuscular HGB Conc 34.9 g/dl (32-36); Mean Corpuscular Hemoglobin 32.8 pg (26-34); Mean Corpuscular Volume 93.9 fl (80-100); Mean Platelet Volume 10.1 fl (7.4-10.4); Monocytes Absolute Auto 1.7 K/mm3 (0.1-0.6); Monocytes Percent Auto 12.2 % (2.6-8.5); Neutrophils Absolute Auto 11.8 K/mm3 (1.3-6.7); Neutrophils Percent Auto 83.5 % (45.5-73.1); Platelet Count Result 183 k/mm3 (150-375); Red Blood Count 3.75 M/mm3 (4.6-6.20); Red Cell Distribution Width 15.2 % (11.5-14.5); White Blood Count 14.1 K/mm3 (4.5-10.0)
--- NOTE | 2019-07-04 20:58 | ED.FEVER ---
HPI - Fever General Chief Complaint: Fever Stated Complaint: fever Time Seen by Provider: 07/04/19 20:23 Source: patient Mode of arrival: ambulatory Limitations: no limitations History of Present Illness HPI Narrative: Pt c/o fever, started 3 days ago, had a urinalysis done today by his pcp and was told he had a UTI. Pt has a h/o bladder CA and just finished radiation treatment 2 weeks ago. elicited complaint: fever Exacerbating factors: nothing Relieving factors: nothing Associated symptoms: denies other symptoms Treatments prior to arrival fever: none Related Data Home Medications Medication Instructions Recorded Confirmed allopurinol 300 mg PO DAILY 04/12/19 07/04/19 Allergies Allergy/AdvReac Type Severity Reaction Status Date / Time No Known Allergies Allergy Verified 07/04/19 20:32 Review of Systems Review of Systems: All systems reviewed & are unremarkable except as noted in HPI and below Constitutional: Constitutional: Denies body ache(s), Denies chills, Denies excessive sweating, Denies fatigue, Denies headache(s), Denies lethargy, Denies malaise, Denies weakness and Denies weight loss Eyes: Eyes: Denies blurry vision, Denies change in vision and Denies loss of vision ENT: Denies dizziness, Denies ear discharge, Denies headache(s), Denies lip swelling, Denies epistaxis, Denies nasal congestion, Denies neck pain, Denies throat swelling and Denies tongue swelling Cardiovascular: Cardiovascular: Denies chest pain, Denies chest pain at rest, Denies chest pain with activity, Denies diaphoresis, Denies rapid heart rate, Denies edema, Denies irregular heart rhythm, Denies lightheadedness, Denies palpitations, Denies dyspnea and Denies dyspnea on exertion Respiratory: Respiratory: Denies chest congestion, Denies cough, Denies hemoptysis, Denies dyspnea and Denies dyspnea on exertion Gastrointestinal: Gastrointestinal: Denies abdominal pain, Denies melena, Denies hematochezia, Denies diarrhea, Denies nausea, Denies vomiting and Denies hematemesis Musculoskeletal: Musculoskeletal: Denies abnormal gait, Denies deformity, Denies joint swelling, Denies limited range of motion, Denies neck pain and Denies numbness Neurologic: Denies Abnormal speech present, Denies abnormal gait, Denies confusion, Denies dizziness, Denies headache(s), Denies focal weakness, Denies loss of vision, Denies numbness, Denies Other visual disturbances, Denies Sensory deficit (Neuro) and Denies weakness Psychiatric: Psychiatric: Denies confusion, Denies depression, Denies auditory hallucinations, Denies homicidal ideation and Denies suicidal ideation Endocrine: Endocrine: Denies cold intolerance, Denies excessive sweating, Denies fatigue, Denies heat intolerance and Denies palpitations Hematologic/Lymphatic: Hematologic/Lymphatic: Denies easy bleeding and Denies easy bruising Allergic/Immunologic: Allergic/Immunologic: Denies lip swelling, Denies throat swelling and Denies tongue swelling PMFSH Past Medical History Medical History Atrial tachycardia Bladder cancer Cancer of overlapping sites of bladder Cellulitis Chronic renal failure, stage 3 (moderate) Contact dermatitis Essential (primary) hypertension Gout, unspecified Hypertension Malignant neoplasm of dome of urinary bladder Mixed hyperlipidemia Shingles Surgical History Surgical History History of cataract extraction History of ileal conduit History of inguinal hernia repair History of prostatectomy History of tonsillectomy History of transurethral resection of prostate Family History Family History Father Family history of lung cancer Other Family history of cardiovascular disease Social History Social History Social History: Patient quit smoking in 1979. He sm
[2019-07-04] MEDS: LACTATED RINGERS 1,000 ML 999 ML IV CONT (21:03)
[2019-07-04 21:05] LABS: Platelet Estimate Adequate (Adequate)
[2019-07-04] MEDS: ACETAMINOPHEN 325 MG TABLET 650 MG PO (21:05)
[2019-07-04 21:06] LABS: Ovalocytes 1+ (NORMAL)
[2019-07-04 21:08] LABS: INR 0.9
[2019-07-04 21:09] LABS: Partial Thromboplastin Time 35.3 SECONDS (22.3-36.8)
[2019-07-04 21:14] LABS: Add Urine Microscopic? YES; Appearance Urine Clear (Clear); Bacteria Urine Trace /hpf; Bilirubin Urine Negative (Negative); Blood Urine 1+ (Negative); Color Urine Yellow (Yellow); Glucose Urine UA Negative (Negative); Ketones Urine Negative (Negative); Leukocyte Esterase Ur 3+ LEU/UL (Negative); Mucus Urine Rare /lpf; Nitrate Urine Negative (Negative); Protein Urine 1+ mg/dL (Negative); RBC Urine 0-2 /hpf (0-2); Specific Grav Ur 1.009 (1.001-1.035); Squamous Epithelial Cell Urine Rare /hpf (Few); Urobilinogen Urine Negative mg/dL (<2.0)
[2019-07-04 21:15] VITALS: BP 105/59; PULSE 87; RESP 20; O2SAT 97
[2019-07-04 21:32] LABS: Lactic Acid Reflex 1.8 mmol/L (0.7-2.1)
[2019-07-04 21:50] LABS: Alanine Aminotransferase 11 U/L (4-50); Albumin Level 3.3 g/dL (3.5-5.1); Alkaline Phosphatase 67 U/L (38-126); Aspartate Amino Transferase 19 U/L (17-59); Bilirubin,Total 0.6 mg/dL (0.2-1.3); Blood Urea Nitrogen 24 mg/dL (9-20); Calcium 7.9 mg/dL (8.4-10.2); Carbon Dioxide 18 mmol/L (22-30); Chloride 92 mmol/L (98-107); Estimated CRCL calculation 32 ml/min; Estimated Glomerular Filt Rate 42; Glucose 178 mg/dL (75-110); Potassium 3.4 mmol/L (3.4-5.0); Sodium 120 mmol/L (137-145)
[2019-07-04 22:03] LABS: CRP 24.7 mg/dL (<1.0)
[2019-07-04 22:15] VITALS: BP 117/65; PULSE 84; RESP 28; O2SAT 94
--- NOTE | 2019-07-04 23:32 | ADMGEN ---
This patient, Stu Raphael Jr., was admitted to Medical Room 242-01. Patient/family oriented to hospital policies and general routines including ID bracelet, bed and alarms, visiting hours, pain management, procedures, bathroom and other care routines, personal items, smoking policy, room service/diet, and visiting hours. Valuables list has been completed. Information on how to activate the Rapid Response Team has been discussed. Patient/Family are encouraged to report perceived risks to care and to ask questions if they do not understand what they are told or what they should do.
[2019-07-05] VITALS (10 sets, daily range): BP systolic 109–129; BP diastolic 56–85; PULSE 81–99; RESP 15–20; TEMP 36–39.3; O2SAT 97–100; BMI 28.8
--- NOTE | 2019-07-05 00:57 | PM.IMHP ---
H&P: HPI History of Present Illness Chief complaint: Hyponatermia, Fever Narrative: This is a pleasant 78-year-old male with known past medical history of bladder cancer status post radical cystoprostatectomy with pelvic lymphadenectomy and ileal-loop urinary diversion on February 10, 2019 who just completed radiation therapy and presented to the hospital with a complaint of fever and diaphoresis over the past three days. The patient had a urinalysis done by his PCP who told him he had a UTI. The patient was evaluated in the ER [facility] and found to have a serum sodium of 120 mEq/dl. The patient had hyponatremia in the past when he was on HCTz but he currently is not on any diuretics. He does report that he has been drinking about 8 large glasses of water daily since he started to develop fever. The patient was also found to have a WBC of 14,100. Urinalysis today was unremarkable. He denies any abdominal discomfort, blood in his urine, chest pain, cough, shortness of breath, sore throat, headache, LE swelling or focal neurological symptoms. Review of Systems Review of Systems: All systems reviewed & are unremarkable except as noted in HPI and below PMFSH Past Medical History Medical History Atrial tachycardia Bladder cancer Cancer of overlapping sites of bladder Cellulitis Chronic renal failure, stage 3 (moderate) Contact dermatitis Essential (primary) hypertension Gout, unspecified Hypertension Malignant neoplasm of dome of urinary bladder Mixed hyperlipidemia Shingles Surgical History Surgical History History of cataract extraction History of ileal conduit History of inguinal hernia repair History of prostatectomy History of tonsillectomy History of transurethral resection of prostate Family History Family History Father Family history of lung cancer Other Family history of cardiovascular disease Social History Social History Social History: Patient quit smoking in 1979. He smoked about a pack a cigarettes a day for 20 years. Patient occasionally drinks a beer. He has 2 children. A boy and a girl. Power of traffic law attorney is Carla Lam. He is a full code. He lives alone. He is retired from [employer]. Smoking packs per day: 1 Smoking cigarettes per day: 20.0 Years smoked: 20 Smoking pack-years: 20.00 Smoking status: Former smoker Tobacco type: cigarettes Alcohol intake: never Drinks per week: 0 Substance use: never Substance use type: does not use Gender identity (if verbalized by the patient): Male Spiritual care concerns: No Agree to blood products: Yes Meds Home Medications and Allergies Home Medications Medication Instructions Recorded Confirmed Type allopurinol 300 mg PO DAILY 04/12/19 07/04/19 History amlodipine 5 mg tablet 5 mg PO QAM #90 tablet 04/13/19 07/04/19 Rx metoprolol succinate 100 mg 100 mg PO DAILY #90 tablet 06/05/19 07/04/19 Rx tablet,extended release 24 hr Allergies Allergy/AdvReac Type Severity Reaction Status Date / Time No Known Allergies Allergy Verified 07/04/19 20:32 Vital Signs Vital Signs - 24 hr 07/04/19 20:25 07/04/19 20:27 07/04/19 20:30 Temperature 38.1 C H 38.1 C H Pulse Rate 101 H 101 H Respiratory Rate 16 30 H 27 H Blood Pressure 111/54 L 120/71 Pulse Oximetry 99 99 07/04/19 21:15 07/04/19 22:15 07/05/19 00:08 Temperature 36.0 C L Pulse Rate 87 84 81 Respiratory Rate 20 28 H 16 Blood Pressure 105/59 L 117/65 109/56 L Pulse Oximetry 97 94 99 Exam Const: General: cooperative, alert, awake and other (diaphoretic++ ) Nutritional Appearance: well nourished Orientation/consciousness: patient oriented x3 HENMT: Head: normal to inspection General nose exam: Normal external nose present Fa
[2019-07-05 01:54] LABS: Blood Urea Nitrogen 25 mg/dL (9-20); Calcium 8.4 mg/dL (8.4-10.2); Carbon Dioxide 22 mmol/L (22-30); Chloride 95 mmol/L (98-107); Estimated CRCL calculation 30 ml/min; Estimated Glomerular Filt Rate 39; Glucose 126 mg/dL (75-110); Potassium 3.6 mmol/L (3.4-5.0); Sodium 125 mmol/L (137-145)
[2019-07-05 03:59] LABS: Sodium Urine Random 8 meq/L
--- NOTE | 2019-07-05 04:51 | PC.NURSE ---
patient has had hard chills x 30 minutes with no spike in temp. attempted to call dr. javier, but he is with a critical patient. will cont to monitor.
[2019-07-05] MEDS: ACETAMINOPHEN 325 MG TABLET 650 MG PO ×3 (05:12→23:32)
[2019-07-05 05:23] LABS: Blood Urea Nitrogen 23 mg/dL (9-20); Calcium 9.1 mg/dL (8.4-10.2); Carbon Dioxide 22 mmol/L (22-30); Chloride 95 mmol/L (98-107); Estimated CRCL calculation 30 ml/min; Estimated Glomerular Filt Rate 39; Glucose 111 mg/dL (75-110); Potassium 3.6 mmol/L (3.4-5.0); Sodium 128 mmol/L (137-145)
[2019-07-05 05:41] LABS: Basophils Percent Auto 0.3 % (0.2-1.2); Eosinophils Percent Auto 0.1 % (0-4.4); Hematocrit 33.4 % (42.0-52.0); Hemoglobin 11.5 g/dL (14.0-18.0); Immature Granulocyte Absolute 0.08 K/mm3 (0.00-0.031); Immature Granulocyte Percent A 0.6 % (0-0.5); Lymphocytes Absolute Auto 0.79 K/mm3 (0.9-3.2); Lymphocytes Percent Auto 6.2 % (18.3-44.2); Mean Corpuscular HGB Conc 34.4 g/dl (32-36); Mean Corpuscular Hemoglobin 32.6 pg (26-34); Mean Corpuscular Volume 94.6 fl (80-100); Mean Platelet Volume 10.6 fl (7.4-10.4); Monocytes Absolute Auto 1.4 K/mm3 (0.1-0.6); Monocytes Percent Auto 10.8 % (2.6-8.5); Neutrophils Absolute Auto 10.4 K/mm3 (1.3-6.7); Platelet Count Result 186 k/mm3 (150-375); Red Blood Count 3.53 M/mm3 (4.6-6.20); Red Cell Distribution Width 15.4 % (11.5-14.5); White Blood Count 12.7 K/mm3 (4.5-10.0)
[2019-07-05] MEDS: allopurinoL 300 MG TABLET PO (08:35)
[2019-07-05] MEDS: METOPROLOL SUCCINATE EXT REL 100 MG TABCR PO (08:35)
[2019-07-05] MEDS: AMLODIPINE BESYLATE 5 MG TABLET PO (08:35)
[2019-07-05 08:57] LABS: Blood Urea Nitrogen 23 mg/dL (9-20); Calcium 8.5 mg/dL (8.4-10.2); Carbon Dioxide 22 mmol/L (22-30); Chloride 97 mmol/L (98-107); Estimated CRCL calculation 32 ml/min; Estimated Glomerular Filt Rate 42; Glucose 150 mg/dL (75-110); Potassium 3.3 mmol/L (3.4-5.0); Sodium 128 mmol/L (137-145)
[2019-07-05] MEDS: POTASSIUM CHLORIDE 20 MEQ TABLET 40 MEQ PO (11:30)
--- NOTE | 2019-07-05 12:51 | PM.IMPN ---
Progress Note: A&P Assessment and Plan (1) Acute hyponatremia: Code(s): E87.1 - Hypo-osmolality and hyponatremia Status: Acute Assessment and Plan: Urine sodium was 8 with osmolality pending TSH WNL This appears to be acute and may be a combination volume depletion and SIADH due to acute illness Sodium improved from 07/03 [id number] with 1 L IV lactated Ringer's and fluid restriction As he is now eating adequately will continue with fluid restriction and follow-up serum sodium Add PO NaCl vs IV NS if he does not continue improving (2) Urinary tract infection: Qualifiers: Hematuria presence: without hematuria Urinary tract infection type: acute cystitis Qualified Code(s): N30.00 - Acute cystitis without hematuria Code(s): N39.0 - Urinary tract infection, site not specified Status: Acute Assessment and Plan: Cefepime day 1 (3) Sepsis: Qualifiers: Sepsis type: sepsis due to unspecified organism Sepsis acute organ dysfunction status: with acute organ dysfunction Severe sepsis acute organ dysfunction type: acute renal failure Acute renal failure type: unspecified Severe sepsis shock status: without septic shock Qualified Code(s): A41.9 - Sepsis, unspecified organism; R65.20 - Severe sepsis without septic shock; N17.9 - Acute kidney failure, unspecified Code(s): A41.9 - Sepsis, unspecified organism Status: Acute Assessment and Plan: w/ fever, leukocytosis, tachypnea Source of sepsis is likely urinary Urine culture, blood cultures pending. (4) Chronic renal failure, stage 3 (moderate): Code(s): N18.3 - Chronic kidney disease, stage 3 (moderate) Status: Chronic Assessment and Plan: Renal function appears to be close to baseline. Monitor renal function. Avoid nephrotoxic agents (5) History of ileal conduit: Code(s): Z98.890 - Other specified postprocedural states Status: Chronic Assessment and Plan: stable. (6) Hypertension: Qualifiers: Hypertension type: unspecified Qualified Code(s): I10 - Essential (primary) hypertension Code(s): I10 - Essential (primary) hypertension Status: Chronic Assessment and Plan: Stable. Monitor blood pressure. Continue amlodipine and metoprolol. (7) Chronic anemia: Code(s): D64.9 - Anemia, unspecified Status: Chronic Assessment and Plan: No signs of acute blood loss. Monitor H/H Subjective Date/time seen: 07/05/19 12:51 Interval history: 07/03. Admitted with fevers and chills. Urinary infection. Was seen at primary care office and appropriately diagnosed with antibiotic order. Culture obtained. Patient did not start antibiotic due to feeling progressively worse. He came to the emergency department prior to the antibiotic being delivered to his home. 07/04 complained of severe chills during the night. Generalized body aches. Denied chest pain or shortness of breath. Denied abdominal pain nausea vomiting. Denied abnormal bleeding. Urostomy functioning well. No diarrhea or constipation. Review of Systems Review of Systems: All systems reviewed & are unremarkable except as noted in HPI and below Exam Narrative: Exam Narrative: HEENT: EOMI, PERRL, sclera nonicteric, pharyngeal mucosa pink and intact NECK: No JVD CHEST: Clear to auscultation. Normal effort. HEART: NL S1/S2, regular, no murmur ABDOMEN: BS+, soft, nontender, no mass, no bruits. Urostomy bag right flank is functioning. EXTREMITIES: No cyanosis, edema, or clubbing NEUROLOGIC: CN intact and symmetric to inspection. MUSCULOSKELETAL: Tone and strength symmetric. PSYCH: Alert. Oriented to person, place, and time. Objective Data Vital Signs Vital Signs: Vital Signs - 24 hr 07/04/19 20:25 07/04/19 20:27 07/04/19 20:30 Temperature 100.6 F H 100.6 F H Pulse Rate 101 H 101 H Respiratory Rate 16 30 H 27 H Blood Pressure 111/54 L 120/
[2019-07-05 13:25] LABS: Blood Urea Nitrogen 24 mg/dL (9-20); Calcium 8.7 mg/dL (8.4-10.2); Carbon Dioxide 24 mmol/L (22-30); Chloride 96 mmol/L (98-107); Estimated CRCL calculation 32 ml/min; Estimated Glomerular Filt Rate 42; Glucose 118 mg/dL (75-110); Potassium 3.5 mmol/L (3.4-5.0); Sodium 129 mmol/L (137-145)
[2019-07-05 17:03] LABS: Blood Urea Nitrogen 24 mg/dL (9-20); Carbon Dioxide 23 mmol/L (22-30); Chloride 100 mmol/L (98-107); Estimated CRCL calculation 30 ml/min; Estimated Glomerular Filt Rate 39; Glucose 115 mg/dL (75-110); Magnesium 1.4 mg/dL (1.6-2.3); Sodium 131 mmol/L (137-145)
[2019-07-05 21:31] LABS: Blood Urea Nitrogen 26 mg/dL (9-20); Calcium 9.1 mg/dL (8.4-10.2); Carbon Dioxide 25 mmol/L (22-30); Chloride 100 mmol/L (98-107); Estimated CRCL calculation 34 ml/min; Estimated Glomerular Filt Rate 45; Glucose 103 mg/dL (75-110); Potassium 4.1 mmol/L (3.4-5.0); Sodium 133 mmol/L (137-145)
[2019-07-06] VITALS (8 sets, daily range): BP systolic 107–122; BP diastolic 60–67; PULSE 81–105; RESP 14–19; TEMP 36.3–37; O2SAT 98–100
[2019-07-06 05:26] LABS: Blood Urea Nitrogen 25 mg/dL (9-20); Calcium 9.2 mg/dL (8.4-10.2); Carbon Dioxide 23 mmol/L (22-30); Chloride 102 mmol/L (98-107); Estimated CRCL calculation 34 ml/min; Estimated Glomerular Filt Rate 45; Glucose 105 mg/dL (75-110); Potassium 3.8 mmol/L (3.4-5.0); Sodium 133 mmol/L (137-145)
[2019-07-06] MEDS: METOPROLOL SUCCINATE EXT REL 100 MG TABCR PO (09:02)
[2019-07-06] MEDS: allopurinoL 300 MG TABLET PO (09:03)
[2019-07-06] MEDS: AMLODIPINE BESYLATE 5 MG TABLET PO (09:03)
--- NOTE | 2019-07-06 11:53 | PM.IMPN ---
Progress Note: A&P Assessment and Plan (1) Urinary tract infection: Qualifiers: Hematuria presence: without hematuria Urinary tract infection type: acute cystitis Qualified Code(s): N30.00 - Acute cystitis without hematuria Code(s): N39.0 - Urinary tract infection, site not specified Status: Acute Assessment and Plan: 07/05 Day 2 Cefepime 07/05 Added Vancomycin due to enterococcus bacteremia 07/05 Urine C/s still pending Consider adding methenamine hippurate for prophylaxis (2) Acute hyponatremia: Code(s): E87.1 - Hypo-osmolality and hyponatremia Status: Acute Assessment and Plan: Urine sodium was 8 with osmolality pending TSH WNL This appears to be acute and may be a combination volume depletion and SIADH due to acute illness Sodium improved from 07/03 120 to 07/05 133 with 1 L IV lactated Ringer's and fluid restriction 07/05 liberalized fluids to 2000 ml/day F/u lab (3) Sepsis: Qualifiers: Sepsis type: sepsis due to unspecified organism Sepsis acute organ dysfunction status: with acute organ dysfunction Severe sepsis acute organ dysfunction type: acute renal failure Acute renal failure type: unspecified Severe sepsis shock status: without septic shock Qualified Code(s): A41.9 - Sepsis, unspecified organism; R65.20 - Severe sepsis without septic shock; N17.9 - Acute kidney failure, unspecified Code(s): A41.9 - Sepsis, unspecified organism Status: Acute Assessment and Plan: w/ fever, leukocytosis, tachypnea Source of sepsis is likely urinary Urine culture pending Blood cultures 1/2 POSITIVE for enterococcus (4) Chronic renal failure, stage 3 (moderate): Code(s): N18.3 - Chronic kidney disease, stage 3 (moderate) Status: Chronic Assessment and Plan: Renal function appears to be close to baseline. Monitor renal function. Avoid nephrotoxic agents (5) History of ileal conduit: Code(s): Z98.890 - Other specified postprocedural states Status: Chronic Assessment and Plan: stable. (6) Hypertension: Qualifiers: Hypertension type: unspecified Qualified Code(s): I10 - Essential (primary) hypertension Code(s): I10 - Essential (primary) hypertension Status: Chronic Assessment and Plan: Stable. Monitor blood pressure. Continue amlodipine and metoprolol. (7) Chronic anemia: Code(s): D64.9 - Anemia, unspecified Status: Chronic Assessment and Plan: No signs of acute blood loss. Monitor H/H Subjective Date/time seen: 07/06/19 11:53 Interval history: 07/03. Admitted with fevers and chills. Urinary infection. Was seen at primary care office and appropriately diagnosed with antibiotic order. Culture obtained. Patient did not start antibiotic due to feeling progressively worse. He came to the emergency department prior to the antibiotic being delivered to his home. 07/05: Feeling a little better. But had temp to 103 overnight. Denied chest pain or shortness of breath. Denied abdominal pain nausea vomiting. Denied abnormal bleeding. Urostomy functioning well. No diarrhea or constipation. Review of Systems Review of Systems: All systems reviewed & are unremarkable except as noted in HPI and below Exam Narrative: Exam Narrative: HEENT: EOMI, PERRL, sclera nonicteric, pharyngeal mucosa pink and intact NECK: No JVD CHEST: Clear to auscultation. Normal effort. HEART: NL S1/S2, regular, no murmur ABDOMEN: BS+, soft, nontender, no mass, no bruits. Urostomy bag right flank is functioning. EXTREMITIES: No cyanosis, edema, or clubbing NEUROLOGIC: CN intact and symmetric to inspection. MUSCULOSKELETAL: Tone and strength symmetric. PSYCH: Alert. Oriented to person, place, and time. Objective Data Vital Signs Vital Signs: Vital Signs - 24 hr 07/05/19 14:00 07/05/19 14:10 07/05/19 14:11 Temperature 102.7 F H 102.7 F H Pulse Rate 99 Res
[2019-07-06] MEDS: CENTRAL LINE FLUSH 10 ML IV PUSH (20:21)
[2019-07-07 05:31] VITALS: BP 114/70; PULSE 93; RESP 16; TEMP 37; O2SAT 97
[2019-07-07 06:04] LABS: Hematocrit 30.8 % (42.0-52.0); Hemoglobin 10.8 g/dL (14.0-18.0); Mean Corpuscular HGB Conc 35.1 g/dl (32-36); Mean Corpuscular Hemoglobin 33.1 pg (26-34); Mean Corpuscular Volume 94.5 fl (80-100); Mean Platelet Volume 9.4 fl (7.4-10.4); Platelet Count Result 182 k/mm3 (150-375); Red Blood Count 3.26 M/mm3 (4.6-6.20); Red Cell Distribution Width 15.6 % (11.5-14.5); White Blood Count 7.9 K/mm3 (4.5-10.0)
[2019-07-07 06:20] LABS: Blood Urea Nitrogen 19 mg/dL (9-20); Calcium 9.1 mg/dL (8.4-10.2); Carbon Dioxide 24 mmol/L (22-30); Chloride 104 mmol/L (98-107); Estimated CRCL calculation 36 ml/min; Estimated Glomerular Filt Rate 49; Glucose 110 mg/dL (75-110); Potassium 3.7 mmol/L (3.4-5.0); Sodium 134 mmol/L (137-145)
[2019-07-07 08:15] VITALS: PULSE 88
[2019-07-07] MEDS: METOPROLOL SUCCINATE EXT REL 100 MG TABCR PO (08:15)
[2019-07-07] MEDS: AMPICILLIN 1 GM/NS 50 ML 1 GM/50 ML BAG IVPB ×2 (08:15→13:22)
[2019-07-07] MEDS: allopurinoL 300 MG TABLET PO (08:15)
[2019-07-07] MEDS: AMLODIPINE BESYLATE 5 MG TABLET PO (08:15)
[2019-07-07] MEDS: MAGNESIUM SULF 1 GM/D5W 100 ML 1 GM/100 ML BAG IVPB (08:54)
--- NOTE | 2019-07-07 09:31 | PM.DS ---
DS: Diagnosis Admitting Diagnosis Admitting Diagnosis: Hypo-osmolality and hyponatremia Discharge Diagnosis (1) Urinary tract infection: Qualifiers: Hematuria presence: without hematuria Urinary tract infection type: acute cystitis Qualified Code(s): N30.00 - Acute cystitis without hematuria Code(s): N39.0 - Urinary tract infection, site not specified Status: Acute Assessment and Plan: 07/05 Day 2 Cefepime (d/c'ed) 07/05 Added Vancomycin due to enterococcus bacteremia, stopped 07/06 and began ampicillin 07/05 PM Urine C/s with enterococcus sensitive to ampicillin 07/06 blood C/s enterococcus sensitive to ampicillin 07/06 IV Ampicillin 1 gm q 6h for 50 additional doses after discharge (14 days total antibiotics) for enterococcus faecalils bacteremia due to UTI Consider after completion of ampicillin adding methenamine hippurate for prophylaxis 07/[address] Jung's office re: discharge plans (2) Acute hyponatremia: Code(s): E87.1 - Hypo-osmolality and hyponatremia Status: Acute Assessment and Plan: Urine sodium was 8 with osmolality pending TSH WNL This appears to be acute and may be a combination volume depletion and SIADH due to acute illness Sodium improved from 07/03 120 to 07/05 133 with 1 L IV lactated Ringer's and fluid restriction 07/05 liberalized fluids to 2000 ml/day 07/06 Na 134, so liberalized to 2500 ml/day at discharge (3) Sepsis: Qualifiers: Acute renal failure type: unspecified Sepsis acute organ dysfunction status: with acute organ dysfunction Sepsis type: sepsis due to unspecified organism Severe sepsis acute organ dysfunction type: acute renal failure Severe sepsis shock status: without septic shock Qualified Code(s): A41.9 - Sepsis, unspecified organism; R65.20 - Severe sepsis without septic shock; N17.9 - Acute kidney failure, unspecified Code(s): A41.9 - Sepsis, unspecified organism Status: Acute Assessment and Plan: w/ fever, leukocytosis, tachypnea Source of sepsis is likely urinary Urine culture positive for entercoccus Blood cultures 1/2 POSITIVE for enterococcus (4) Chronic renal failure, stage 3 (moderate): Code(s): N18.3 - Chronic kidney disease, stage 3 (moderate) Status: Chronic Assessment and Plan: Renal function appears to be close to baseline. Monitor renal function. Avoid nephrotoxic agents (5) History of ileal conduit: Code(s): Z98.890 - Other specified postprocedural states Status: Chronic Assessment and Plan: stable. (6) Hypertension: Qualifiers: Hypertension type: unspecified Qualified Code(s): I10 - Essential (primary) hypertension Code(s): I10 - Essential (primary) hypertension Status: Chronic Assessment and Plan: Stable. Monitor blood pressure. Continue amlodipine and metoprolol. (7) Chronic anemia: Code(s): D64.9 - Anemia, unspecified Status: Chronic Assessment and Plan: No signs of acute blood loss. (8) Port-A-Cath in place: Code(s): Z95.828 - Presence of other vascular implants and grafts Status: Acute Assessment and Plan: Low probability that this was seeded during the bacteremia Utilizing for IV Ampicillin DS: Summary Hospital Course Reason for hospitalization: Urinary tract infection Hospital Course: This gentleman who is post cystectomy with ileal conduit and urostomy has a history of recurrent UTIs. Previously had Klebsiella UTI. Was admitted and placed on cefepime for current UTI with fever and weakness and sepsis. However he grew enterococcus 1/2 blood cultures and in his urine. Sensitive to ampicillin. Day prior to discharge was switched to vancomycin IV. Then when sensitivities known to ampicillin IV on day of discharge. He was to complete 50 additional doses of IV ampicillin. He was afebrile for over 24 hours prior to discharge. Up and about
[2019-07-07 14:00] VITALS: BP 116/64; PULSE 86; RESP 18; TEMP 36.3; O2SAT 99
== END 2019-07-07 14:39 | disposition home health service (06) | DRG 872 ==
LOC: ANHED 22:38 → ANH2MED 22:55
PROVIDERS: Admitting Provider Family Medicine; Emergency Provider Emergency Medicine; PCP Internal Medicine; Visit Provider Internal Medicine
DX: A41.9 Sepsis, unspecified organism (principal); N39.0 Urinary tract infection, site not specified; N17.9 Acute kidney failure, unspecified; E87.1 Hypo-osmolality and hyponatremia; R65.20 Severe sepsis without septic shock; B95.2 Enterococcus as the cause of diseases classified elsewhere; I12.9 Hypertensive chronic kidney disease with stage 1 through stage 4 chronic kidney disease, or unspecified chronic kidney disease; N18.3 Chronic kidney disease, stage 3 (moderate); D64.9 Anemia, unspecified; E78.2 Mixed hyperlipidemia; Z85.51 Personal history of malignant neoplasm of bladder; Z98.42 Cataract extraction status, left eye; Z98.41 Cataract extraction status, right eye; Z87.891 Personal history of nicotine dependence
CPT/HCPCS: 36415; 71046; 80048; 80053; 81001; 83605; 83735; 83935; 84300; 84443; 85025; 85027; 85610; 85730; 86140; 87040; 87077; 87186; 87804; 96361; 96365; 99285; A9270; G0378; J0290; J0692; J1642; J3370; J3475; J7120

== ENCOUNTER 2019-08-10 08:38 | Outpatient (CLI) | payer MEDICARE, SELFPAY ==
--- NOTE | ~2019-08-10 | CT_ITS ---
EXAMINATION: CT abdomen pelvis wo con DATE: 08/10/2019 10:29 INDICATION: Malignant neoplasm of anterior wall of the urinary bladder TECHNIQUE: Computed tomography (CT) of the abdomen and pelvis was performed without intravenous contr ast. Automated exposure control and iterative reconstruction technique were employed. Exam dose: 465 .07 mGy-cm total exam DLP. COMPARISON: None. FINDINGS: Bilateral peripheral honeycombing and/or bronchiectasis. No pulmonary consolidation. Borderline heart size. No pericardial or pleural effusion. There are calcified hepatic and splenic granulomas. No hepatic, splenic, pancreatic, adrenal or renal space-occupying mass lesion is evident on this limited noncontrast examination. There is extensive calcification of the abdominal aorta and iliac and femoral arteries but no evidenc e of abdominal aortic aneurysm. No intraperitoneal or retroperitoneal or pelvic mass lesion or adenop athy or ascites. Normal appendix. There is diverticulosis of the colon; no CT evidence of diverticulitis. No bowel obstruction or intra peritoneal free air. There is a midline supraumbilical incisional ventral abdominal wall hernia containing nonobstructed n on strangulated small bowel. Status post cystectomy and ileostomy. Mild to moderate bilateral hydroureteronephrosis. There is a supraumbilical approximately 5 cm wide midline incisional ventral abdominal wall hernia co ntaining unobstructed small bowel. Diffuse idiopathic skeletal hyperostosis of the thoracic and lumbar spine. Prominent degenerative geo nge at the apophyseal joints of the lumbar and lumbosacral spine. No suspicious osteolytic or osteoblastic lesions are noted. IMPRESSION: Status post cystectomy and ileostomy Mild to moderate bilateral hydroureteronephrosis Diverticulosis of the colon; no CT evidence of diverticulitis Midline supraumbilical incisional ventral abdominal wall hernia containing nonobstructed none strangu late and small bowel Reviewed, dictated and finalized at [facility] Reviewed, dictated and finalized at [facility] IMPRESSION: Status post cystectomy and ileostomy Mild to moderate bilateral hydroureteronephrosis Diverticulosis of the colon; no CT evidence of diverticulitis Midline supraumbilical incisional ventral abdominal wall hernia containing nono bstructed none strangulate and small bowel
[2019-08-10 09:15] LABS: Estimated Glomerular Filt Rate 25
== END 2019-08-10 08:39 | disposition home or self-care (01) ==
PROVIDERS: PCP Internal Medicine; Visit Provider Internal Medicine Hematology & Oncology
DX: C67.3 Malignant neoplasm of anterior wall of bladder (principal); Z79.899 Other long term (current) drug therapy; N13.30 Unspecified hydronephrosis; K57.90 Diverticulosis of intestine, part unspecified, without perforation or abscess without bleeding; K43.9 Ventral hernia without obstruction or gangrene
CPT/HCPCS: 36415; 74176

== ENCOUNTER 2019-08-24 12:37 | Outpatient (CLI) | payer MEDICARE, SELFPAY ==
[2019-08-24 12:58] LABS: Hematocrit 35.1 % (42.0-52.0); Hemoglobin 11.3 g/dL (14.0-18.0); Mean Corpuscular HGB Conc 32.2 g/dl (32-36); Mean Corpuscular Hemoglobin 32.5 pg (26-34); Mean Corpuscular Volume 100.9 fl (80-100); Mean Platelet Volume 9.9 fl (7.4-10.4); Platelet Count Result 324 k/mm3 (150-375); Red Blood Count 3.48 M/mm3 (4.6-6.20); Red Cell Distribution Width 14.6 % (11.5-14.5); White Blood Count 8.2 K/mm3 (4.5-10.0)
[2019-08-24 16:31] LABS: Add Urine Microscopic? NO; Appearance Urine Clear (Clear); Bilirubin Urine Negative (Negative); Blood Urine Negative (Negative); Color Urine Straw (Yellow); Glucose Urine UA Negative (Negative); Ketones Urine Negative (Negative); Leukocyte Esterase Ur Negative LEU/UL (NEGATIVE); Nitrate Urine Negative (Negative); Protein Urine Negative (Negative); Urobilinogen Urine Negative mg/dL (<2.0)
[2019-08-24 16:50] LABS: Complement C3 141 mg/dL (88-165); Erythrocyte Sedimentation Rate 114 mm/hr (0-20)
[2019-08-24 17:33] LABS: Vitamin D 25 Hydroxy 43.3 ng/mL
[2019-08-24 18:21] LABS: Albumin Level 4.1 g/dL (3.5-5.1); Blood Urea Nitrogen 54 mg/dL (9-20); Calcium 9.3 mg/dL (8.4-10.2); Carbon Dioxide 18 mmol/L (22-30); Chloride 111 mmol/L (98-107); Estimated Glomerular Filt Rate 11; Glucose 114 mg/dL (75-110); Phosphorus 5.7 mg/dL (2.5-4.5); Potassium 5.2 mmol/L (3.4-5.0); Sodium 139 mmol/L (137-145)
[2019-08-24 18:33] LABS: Parathyroid Intact 102.4 pg/mL (7.5-53.5)
[2019-08-28 23:27] LABS: Kappa\\Lambda Light Chains 1.47 (0.26-1.65); Lambda Light Chain 47.7 mg/L (5.7-26.3)
== END 2019-08-24 12:38 | disposition home or self-care (01) ==
PROVIDERS: Internal Medicine Nephrology; PCP Internal Medicine; Visit Provider Internal Medicine Hematology & Oncology
DX: N18.4 Chronic kidney disease, stage 4 (severe) (principal)
CPT/HCPCS: 36415; 80069; 81003; 82306; 83883; 83970; 85027; 85652; 86038; 86160; 86334; 86335

== ENCOUNTER 2019-08-29 08:35 | Outpatient (CLI) | payer MEDICARE, SELFPAY ==
--- NOTE | ~2019-08-29 | XR_ITS ---
EXAMINATION: XR loopogram retrograde urogra DATE: 08/29/2019 09:45 INDICATION: Bladder cancer. Bilateral hydronephrosis post cystectomy and ileal conduit formation. TECHNIQUE: A catheter was inserted into the ostomy orifice of the patient's right lower quadrant ile al conduit. Omnipaque 240 contrast was injected into the catheter with a 60 mL syringe. 12 fluoroscop ic spot images were obtained. Fluoroscopy exposure time was 1.0 minutes. COMPARISON: CT dated 08/10/2019 FINDINGS: There is good contrast opacification of the ileal conduit. A small amount of contrast extends into an d appears diluted by urine within the mildly dilated left ureter. No definitive opacification of the right ureter. 5 repeat attempts were made at contrast injection without evident opacification of the right ureter or significant advancement of the contrast within the left ureter with leakage of contra st at the entrance to the ostomy with increasing injection pressures. There is a very small irregular linear extension of contrast near the expected anastomosis with the distal right ureter however the irregular contours and lack of dilution for the hydroureter evident on the prior CT suggests this may represent small amount of extraluminal extravasation. IMPRESSION: 1. Likely stricture/stenosis at the anastomosis of the bilateral ureters with the right lower quadran t ileal conduit which is more severe on the right where no definitive contrast is seen refluxing into the right ureter. 2. Tiny irregular linear extension of contrast near the expected location of the anastomosis with the distal right ureter which lacks the smooth contours and dilution toe be expected based upon the hydr oureter evident on the prior CT this may represent minimal extraluminal extravasation Reviewed, dictated and finalized at [facility] IMPRESSION: 1. Likely stricture/stenosis at the anastomosis of the bilateral ureters with t he right lower quadrant ileal conduit which is more severe on the right where n o definitive contrast is seen refluxing into the right ureter. 2. Tiny irregular linear extension of contrast near the expected location of th e anastomosis with the distal right ureter which lacks the smooth contours and dilution toe be expected based upon the hydroureter evident on the prior CT thi s may represent minimal extraluminal extravasation
== END 2019-08-29 08:36 | disposition home or self-care (01) ==
PROVIDERS: PCP Internal Medicine; Visit Provider Urology
DX: C67.9 Malignant neoplasm of bladder, unspecified (principal); R93.41 Abnormal radiologic findings on diagnostic imaging of renal pelvis, ureter, or bladder
CPT/HCPCS: 74420; Q9966

== ENCOUNTER 2019-09-05 00:14 | Outpatient (CLI) | payer MEDICARE, SELFPAY ==
[2019-09-05 19:45] LABS: SARS-CoV-2 RNA PCR Negative
== END 2019-09-05 00:15 | disposition home or self-care (01) ==
PROVIDERS: PCP Internal Medicine; Visit Provider Urology
DX: Z01.818 Encounter for other preprocedural examination (principal); Z11.59 Encounter for screening for other viral diseases
CPT/HCPCS: 87635; C9803; U0003

== ENCOUNTER 2019-09-07 03:31 | Day surgery (SDC) | payer MEDICARE, SELFPAY ==
[2019-09-01 13:46] VITALS: BMI 27.3
--- NOTE | 2019-09-06 08:31 | PM.HPGS ---
History of Present Illness History of Present Illness Consent: Risks, benefits, and alternatives have been discussed and questions answered. Patient agrees to proceed with procedure. Chief complaint: Ted Hydronephrosis Narrative: Stu Raphael is a 78 year old male s/p radical cystectomy 02/2019 with recent regression in renal function. Imaging reveals moderate bilateral hydronephrosis and loopogram fails to show reflux. Review of Systems Cardiovascular: Cardiovascular: Denies chest pain, Denies lightheadedness, Denies palpitations and Denies dyspnea Respiratory: Respiratory: Denies dyspnea Gastrointestinal: Gastrointestinal: Denies diarrhea, Denies nausea and Denies vomiting Genitourinary: Genitourinary: Denies hematuria and Denies dysuria Endocrine: Endocrine: Denies palpitations [facility] Past Medical History Medical History Atrial tachycardia Bladder cancer Cancer of overlapping sites of bladder Cellulitis Chronic renal failure, stage 3 (moderate) Contact dermatitis Essential (primary) hypertension Gout, unspecified Hypertension Malignant neoplasm of dome of urinary bladder Mixed hyperlipidemia Port-A-Cath in place Shingles Surgical History Surgical History History of cataract extraction History of ileal conduit History of inguinal hernia repair History of prostatectomy History of tonsillectomy History of transurethral resection of prostate Social History Social History Social History: Patient quit smoking in 1979. He smoked about a pack a cigarettes a day for 20 years. Patient occasionally drinks a beer. He has 2 children. A boy and a girl. Power of state attorney is Carla Lam. He is a full code. He lives alone. He is retired from [employer]. Smoking packs per day: 1 Smoking cigarettes per day: 20.0 Years smoked: 20 Smoking pack-years: 20.00 Smoking status: Former smoker Tobacco type: cigarettes Alcohol intake: never Drinks per week: 0 Substance use: never Substance use type: does not use Gender identity (if verbalized by the patient): Male Spiritual care concerns: No Agree to blood products: Yes Meds Home Medications and Allergies Home Medications Medication Instructions Recorded Confirmed Type allopurinol 300 mg PO DAILY 04/12/19 09/01/19 History amlodipine 5 mg tablet 5 mg PO QAM #90 tablet 04/13/19 09/01/19 Rx metoprolol succinate 100 mg 100 mg PO DAILY #90 tablet 06/05/19 09/01/19 Rx tablet,extended release 24 hr cephalexin 500 mg PO DAILY 09/01/19 09/01/19 History Allergies Allergy/AdvReac Type Severity Reaction Status Date / Time No Known Allergies Allergy Verified 09/01/19 13:42 Exam Const: General: no acute distress Resp: Effort & Inspection: normal respiratory effort GI: Inspection: non-distended GI Palp: No abdominal tenderness and No Guarding due to palpation present (GI) Auscultation: normal bowel sounds Assessment and Plan Assessment and plan (1) Acute renal failure superimposed on stage 3 chronic kidney disease: Qualifiers: Acute renal failure type: unspecified Qualified Code(s): N17.9 - Acute kidney failure, unspecified; N18.3 - Chronic kidney disease, stage 3 (moderate) Code(s): N17.9 - Acute kidney failure, unspecified; N18.3 - Chronic kidney disease, stage 3 (moderate) Status: Acute (2) Bladder cancer: Qualifiers: Bladder location: unspecified site Qualified Code(s): C67.9 - Malignant neoplasm of bladder, unspecified Code(s): C67.9 - Malignant neoplasm of bladder, unspecified Status: Chronic (3) Hydronephrosis: Code(s): N13.30 - Unspecified hydronephrosis Status: Acute Assessment and Plan: Cystoscopy with bilateral retrograde pyelogram and stent placement. Pt. aware we may not
[2019-09-07] VITALS (8 sets, daily range): BP systolic 124–144; BP diastolic 69–79; PULSE 70–83; RESP 12–20; TEMP 36–36.3; O2SAT 97–100
--- NOTE | ~2019-09-07 | XR_ITS ---
EXAMINATION: XR retrograde pyelo w/stent LT DATE: 09/07/2019 13:01 INDICATION: Left ureteral stent placement. TECHNIQUE: Fluoroscopic images from a left ureteral stent placement are submitted for review. 213 sec onds of fluoroscopy time. 5 fluoroscopic images. FINDINGS: There is a left double-J internal ureteral stent projecting in expected position, with proximal [place] loop at the level of the renal pelvis and distal loop in the neobladder in the right mid abdomen. Pat ient is status post cystectomy. IMPRESSION: 1. Left internal ureteral stent placement. Please refer to real-time procedural findings for detail s. Reviewed, dictated and finalized at location A. IMPRESSION: 1. Left internal ureteral stent placement. Please refer to real-time procedur al findings for details.
--- NOTE | 2019-09-07 07:00 | WPDHPUPDATE1 ---
History and Physical Update Update Date/Time: 09/07/19 07:00 History and Physical has been reviewed, including an updated exam of the patient. There are NO changes in the patient's condition. Risks, benefits, and alternatives have been discussed and questions answered. Patient agrees to proceed with procedure.
[2019-09-07] MEDS: LACTATED RINGERS 1,000 ML 30 ML IV CONT ×2 (09:45→13:05)
--- NOTE | 2019-09-07 10:27 | P.PNAN_ITS ---
Anes - Initial Pre Proc Eval Procedure: Operation Date: 09/07/19 11:00 Proposed Procedures p Cystoscopy, Ileal Looposcopy, Bilateral Retrograde Pyelogram, Bilateral Stent Placement - Khanh Palomo MD Date/Time: 09/07/19 10:27 Surgeon: Khanh Palomo MD Pre Op Diagnosis: Ted Hydronephrosis Patient Data Age: 78 Gender: M Height: 5 ft 6 in Weight: 76.8 kg Last Vital Signs Temp 97.3 F L 09/07/19 09:38 Pulse 76 09/07/19 09:38 Resp 18 09/07/19 09:38 BP 141/78 H 09/07/19 09:38 Pulse Ox 100 09/07/19 09:38 Allergies Allergy/AdvReac Type Severity Reaction Status Date / Time No Known Allergies Allergy Verified 09/07/19 09:49 Home Medications Medication Instructions Recorded Confirmed Type allopurinol 300 mg PO DAILY 04/12/19 09/07/19 History amlodipine 5 mg tablet 5 mg PO QAM #90 tablet 04/13/19 09/07/19 Rx metoprolol succinate 100 mg 100 mg PO DAILY #90 tablet 06/05/19 09/07/19 Rx tablet,extended release 24 hr cephalexin 500 mg PO DAILY 09/01/19 09/07/19 History Patient hx anesthesia problems: none Family hx anesthesia problems: none PMFSH Past Medical History Medical History Atrial tachycardia Bladder cancer Cancer of overlapping sites of bladder Cellulitis Chronic renal failure, stage 3 (moderate) Contact dermatitis Essential (primary) hypertension Gout, unspecified Hypertension Malignant neoplasm of dome of urinary bladder Mixed hyperlipidemia Port-A-Cath in place Shingles Surgical History Surgical History History of cataract extraction History of ileal conduit History of inguinal hernia repair History of prostatectomy History of tonsillectomy History of transurethral resection of prostate Social History Social History Social History: Patient quit smoking in 1979. He smoked about a pack a ci garettes a day for 20 years. Patient occasionally drinks a beer. He has 2 children. A boy and a girl. Power of restaurant front manager is Carla Lam. He is a full code. He lives alone. He is retired from [employer]. Smoking packs per day: 1 Smoking cigarettes per day: 20.0 Years smoked: 20 Smoking pack-years: 20.00 Smoking status: Former smoker Tobacco type: cigarettes Alcohol intake: never Drinks per week: 0 Substance use: never Substance use type: does not use Gender identity (if verbalized by the patient): Male Spiritual care concerns: No Agree to blood products: Yes Anes - Eval Final PreProcedure Day of Procedure 09/07/19 10:27 Patient weight: normal Heart: regular rate and rhythm Lungs: clear to auscultation Airway: Mallampati scale class II Neurological: alert and oriented Last oral intake: >/= 8 hours ASA classification: III Emergent: no Anesthetic plan: proceed Anesthesia type and monitoring: general LMA and standard monitoring Informed Consent: The patient's anesthetic plan and its attendant risks and benefits were discussed with the patient/family/POA. Questions were solicited and answers provided to the satisfaction of the patient/family/POA.
[2019-09-07] MEDS: ceFAZolin 2 GM/D5W 50 ML 2 GM/50 ML BAG IVPB (11:24)
--- NOTE | 2019-09-07 12:58 | PM.PROC ---
Procedure Note - Detailed Date of procedure: 09/07/19 Pre-op diagnosis: Ted Hydronephrosis Post-op diagnosis: same Procedure performed: 1. Fluoroscopy with left retrograde pyelography, left ureteral dilatation and left ureteral stent placement 2. Attempted right retrograde pyelography Description of procedure: patient is brought to the operative suite where he has prepped and draped in routine sterile fashion while in a supine position. Fluoroscopy was undertaken with a 16 F flexible cystoscope and a digital ureteral scope. With some considerable effort I was able to identify the left ureteral orifice. Retrograde pyelography showed hydronephrosis to the anastomosis of the left ureter to the ileal conduit. Dilated that with the 10 cm balloon for approximately 10 minutes at 16 atmospheres. I then placed a 7 F double-J ureteral stent with the proximal coil in the renal pelvis and distal coil and ileal conduit. Again with considerable effort I was able to identify the right ureteral orifice but, unfortunately, despite exhaustive efforts could not get a wire across what appeared to be a narrowing at the ureterovesical junction. Patient tolerated this procedure well was taken recovery in good con Surgeon: Khanh Palomo MD Estimated blood loss (mL): 0 Drains: Yes (7F left ureteral stent) Packing: No Pathology: none sent Complications: No immediate complications Condition: stable Disposition: PACU
== END 2019-09-07 15:08 | disposition home or self-care (01) ==
PROVIDERS: PCP Internal Medicine; Visit Provider Urology
PROC: (CPT 52352; principal; 2019-09-07 11:00)
DX: N13.30 Unspecified hydronephrosis (principal); I12.9 Hypertensive chronic kidney disease with stage 1 through stage 4 chronic kidney disease, or unspecified chronic kidney disease; N18.3 Chronic kidney disease, stage 3 (moderate); E78.2 Mixed hyperlipidemia; M10.9 Gout, unspecified; Z85.51 Personal history of malignant neoplasm of bladder; Z87.891 Personal history of nicotine dependence
CPT/HCPCS: 52332; 74420; 87635; A9270; C1726; C1769; C1887; C2617; C9803; J0690; J2370; J2405; J2704; J3010; J7120; Q9966; U0003

== ENCOUNTER 2019-09-12 00:46 | Outpatient (CLI) | payer MEDICARE, SELFPAY ==
[2019-09-12 19:16] LABS: SARS-CoV-2 RNA PCR Negative
== END 2019-09-12 00:47 | disposition home or self-care (01) ==
LOC: ANHCOVIDDT 00:47
PROVIDERS: PCP Internal Medicine; Visit Provider Urology
DX: Z01.812 Encounter for preprocedural laboratory examination (principal); Z11.59 Encounter for screening for other viral diseases
CPT/HCPCS: 87635; C9803; U0003

== ENCOUNTER 2019-09-14 05:38 | Day surgery (SDC) | payer MEDICARE, SELFPAY ==
[2019-09-12 14:56] VITALS: BMI 27.2
[2019-09-14] VITALS (9 sets, daily range): BP systolic 93–146; BP diastolic 51–84; PULSE 77–92; RESP 14–20; TEMP 36.1–36.4; O2SAT 99–100
--- NOTE | ~2019-09-14 | XR_ITS ---
EXAMINATION: XR retrograde pyelo w/stent RT DATE: 09/14/2019 14:32 INDICATION: Right ureteral stent placement TECHNIQUE: Fluoroscopic images from a right ureteral stent placement are submitted for review. 674 se conds of fluoroscopy time. 4 fluoroscopic images. FINDINGS: There is a right double-J internal ureteral stent projecting in expected position, with proximal [place] loop at the level of the renal pelvis and distal loop in the the left mid abdomen, presumably an ile al diversion. Clinically correlate. IMPRESSION: 1. Right internal ureteral stent placement. Please refer to real-time procedural findings for detai ls. Reviewed, dictated and finalized at location A. IMPRESSION: 1. Right internal ureteral stent placement. Please refer to real-time procedu ral findings for details.
--- NOTE | ~2019-09-14 | CT_ITS ---
EXAMINATION: CT guide nephro tube pl RT DATE: 09/14/2019 12:19 INDICATION: Right hydronephrosis. TECHNIQUE: The procedure including the risks, benefits, and alternatives was discussed with the patie nt. Risks discussed included bleeding and infection. The patient understood the risks and benefits an d agreed to proceed. The patient received 2 g Ancef IV. The skin overlying the right kidney was prep ped and draped in usual sterile fashion. Anesthetic was administered with 1% lidocaine subcutaneousl y. An 18 gauge trochar needle was inserted into a calyx of the kidney under CT guidance. The needle w as exchanged over a wire for 6 Icelandic, 8 Icelandic, and 9 Icelandic dilators and then for an 8.5 Icelandic pig tail catheter under CT guidance. The catheter was stitched to the skin. A dressing was applied. The m A was adjusted according to patient size. Iterative reconstruction technique was employed. The dose-l ength product was 249.03 mGy-cm. There were no immediate complications. FINDINGS: CT images demonstrate the nephrostomy tube in the renal pelvis. IMPRESSION: 1. Successful CT-guided right nephrostomy tube placement]. Reviewed, dictated and finalized at location A.
--- NOTE | 2019-09-14 07:07 | WPDHPUPDATE1 ---
History and Physical Update Update Date/Time: 09/14/19 07:07 History and Physical has been reviewed, including an updated exam of the patient. There are NO changes in the patient's condition. Risks, benefits, and alternatives have been discussed and questions answered. Patient agrees to proceed with procedure.
[2019-09-14] MEDS: LACTATED RINGERS 1,000 ML 30 ML IV CONT ×3 (09:45→14:34)
[2019-09-14 10:08] LABS: INR 1.1; Prothrombin Time 13.7 Seconds (11.1-14.7)
--- NOTE | 2019-09-14 12:18 | WPDANESEPPF ---
Anes - Initial Pre Proc Eval Procedure: Operation Date: 09/14/19 13:00 Proposed Procedures p Looposcopy With Stent Placement - Khanh Palomo MD Date/Time: 09/14/19 12:18 Surgeon: Khanh Palomo MD Pre Op Diagnosis: bladder cancer Patient Data Age: 78 Gender: M Height: 5 ft 6 in Weight: 72.2 kg Last Vital Signs Temp 36.4 C 09/14/19 09:30 Pulse 77 09/14/19 09:30 Resp 16 09/14/19 09:30 BP 129/68 09/14/19 09:30 Pulse Ox 100 09/14/19 09:30 Allergies Allergy/AdvReac Type Severity Reaction Status Date / Time No Known Allergies Allergy Verified 09/14/19 10:46 Home Medications Medication Instructions Recorded Confirmed Type allopurinol 300 mg PO DAILY 04/12/19 09/14/19 History amlodipine 5 mg tablet 5 mg PO QAM #90 tablet 04/13/19 09/14/19 Rx metoprolol succinate 100 mg 100 mg PO DAILY #90 tablet 06/05/19 09/14/19 Rx tablet,extended release 24 hr cephalexin 500 mg PO BID #10 cap 09/07/19 09/14/19 Rx hydrocodone-acetaminophen 1 tablet PO Q6H PRN #20 tablet 09/07/19 09/14/19 Rx Laboratory Tests 09/14/19 09:34 PT 13.7 Seconds Seconds (11.1-14.7) INR 1.1 Patient hx anesthesia problems: none Family hx anesthesia problems: none PMFSH Past Medical History Medical History Atrial tachycardia Bladder cancer Cancer of overlapping sites of bladder Cellulitis Chronic renal failure, stage 3 (moderate) Contact dermatitis Essential (primary) hypertension Gout, unspecified Hypertension Malignant neoplasm of dome of urinary bladder Mixed hyperlipidemia Port-A-Cath in place Shingles Surgical History Surgical History History of cataract extraction History of ileal conduit History of inguinal hernia repair History of prostatectomy History of tonsillectomy History of transurethral resection of prostate Family History Family History Father Family history of lung cancer Other Family history of cardiovascular disease Social History Social History Social History: Patient quit smoking in 1979. He smoked about a pack a cigarettes a day for 20 years. Patient occasionally drinks a beer. He has 2 children. A boy and a girl. Power of admitted attorneys is Carla Lam. He is a full code. He lives alone. He is retired from [employer]. Smoking packs per day: 1 Smoking cigarettes per day: 20.0 Years smoked: 15 Smoking pack-years: 15.00 Smoking status: Former smoker Tobacco type: cigarettes Additional smoking assessment comments: 1979 Alcohol intake: never Drinks per week: 0 Substance use: never Substance use type: does not use Gender identity (if verbalized by the patient): Male Spiritual care concerns: No Agree to blood products: Yes Anes - Eval Final PreProcedure Day of Procedure 09/14/19 12:18 Patient weight: overweight Heart: regular rate and rhythm Lungs: clear to auscultation Airway: Mallampati scale class II Neurological: alert and oriented Last oral intake: >/= 8 hours ASA classification: III Emergent: no Anesthetic plan: proceed Anesthesia type and monitoring: general GIVS and standard monitoring Informed Consent: The patient's anesthetic plan and its attendant risks and benefits were discussed with the patient/family/POA. Questions were solicited and answers provided to the satisfaction of the patient/family/POA.
[2019-09-14] MEDS: ceFAZolin 2 GM/D5W 50 ML 2 GM/50 ML BAG IVPB (13:07)
--- NOTE | 2019-09-14 14:39 | P.OP_ITS ---
Procedure Note - Detailed Date of procedure: 09/14/19 Pre-op diagnosis: bladder cancer Post-op diagnosis: same Procedure performed: 1. Right pyelogram (antegrade). 2. Right ureteral dilatation. 3. Right ureteral stent placement. Description of procedure: Patient is brought to the operative suite where he has prepped and draped in routine fashion while in the oblique position. He has recently had a right nephrostomy tube placed. I performed an antegrade pyelogram through nephrostomy tube outlined the collecting system and right ureter. I advanced a 0.035 in glidewire into the renal pelvis and down the right ureter. There is marked narrowing of the ureterovesical junction. I exchange the nephrostomy tube for any angiographic catheter. With further manipulation I was able to negotiate a wire across the ureterovesical junction and into the ileal conduit. Lupardus copy reveals normal small bowel mucosa without evidence of recurrence neoplasm. He previously has a left ureteral stent in place. I dilated the ureterovesical junction to 18 F at 16 atmospheres for 5 minutes. A 7 F double-J ureteral stent was in position with a renal with a coil in renal pelvis and another coil in the ileal conduit. [facility] which I plan to leave the least overnight. Anesthesia: GLMA Surgeon: Khanh Palomo MD Estimated blood loss (mL): 0 Drains: Yes (1. Right percutaneous nephrostomy tube 2. Bilateral 7F ureteral stents) Packing: No Pathology: none sent Complications: No immediate complications Condition: stable Disposition: PACU
== END 2019-09-14 16:20 | disposition home or self-care (01) ==
PROVIDERS: Radiology Diagnostic Radiology; PCP Internal Medicine; Visit Provider Urology
PROC: (CPT 52332; principal; 2019-09-14 13:00)
DX: C67.9 Malignant neoplasm of bladder, unspecified (principal); N13.30 Unspecified hydronephrosis; Z43.6 Encounter for attention to other artificial openings of urinary tract; I12.9 Hypertensive chronic kidney disease with stage 1 through stage 4 chronic kidney disease, or unspecified chronic kidney disease; N18.3 Chronic kidney disease, stage 3 (moderate); E78.2 Mixed hyperlipidemia; M10.9 Gout, unspecified; Z87.891 Personal history of nicotine dependence
CPT/HCPCS: 52332; 36415; 50432; 74420; 85610; C1726; C1769; C1887; C2617; J0690; J1100; J2405; J2704; J7120; Q9966

== ENCOUNTER 2019-09-28 08:31 | Outpatient (CLI) | payer MEDICARE, SELFPAY ==
[2019-09-28 09:50] LABS: Anion Gap 19.6 mmol/L (7-16); Blood Urea Nitrogen 56 mg/dL (9-20); Calcium 10.2 mg/dL (8.4-10.2); Carbon Dioxide 23 mmol/L (22-30); Chloride 97 mmol/L (98-107); Estimated Glomerular Filt Rate 9; Glucose 110 mg/dL (75-110); Potassium 5.6 mmol/L (3.4-5.0); Sodium 134 mmol/L (137-145)
== END 2019-09-28 08:32 | disposition home or self-care (01) ==
PROVIDERS: PCP Internal Medicine; Visit Provider Internal Medicine Hematology & Oncology
DX: C67.9 Malignant neoplasm of bladder, unspecified (principal)
CPT/HCPCS: 36415; 80048

== ENCOUNTER 2019-10-03 12:50 | Outpatient (CLI) | payer MEDICARE, SELFPAY ==
--- NOTE | ~2019-10-03 | XR_ITS ---
XR abdomen/kub 1V 10/03/2019 13:05 Indication: Hydronephrosis Procedure: KUB Comparison: 02/09/2019 Findings: There are bilateral internal ureteral stents with the distal coils in the right mid abdomen , likely within ileal diversion. Bowel gas pattern is nonobstructive. No abnormal calcifications. The re are degenerative changes of the lumbar spine and hips. No acute osseous abnormality. There is patc hy sclerosis of the right pelvis. Metastatic disease cannot be excluded. Consider correlation with jane ne scan. Impression: 1: No acute abdominal abnormality. 2: Patchy sclerosis of the right pelvis, suspicious for metastatic disease. Correlation with bone sc an recommended as clinically warranted. Reviewed, dictated and finalized at location A. Impression: 1: No acute abdominal abnormality. 2: Patchy sclerosis of the right pelvis, suspicious for metastatic disease. Co rrelation with bone scan recommended as clinically warranted.
== END 2019-10-03 12:51 | disposition home or self-care (01) ==
PROVIDERS: PCP Internal Medicine; Visit Provider Urology
DX: N13.30 Unspecified hydronephrosis (principal); R93.5 Abnormal findings on diagnostic imaging of other abdominal regions, including retroperitoneum
CPT/HCPCS: 74018

== ENCOUNTER 2019-10-05 16:21 | Inpatient (IN) | payer MEDICARE, SELFPAY ==
[2019-10-05] VITALS (8 sets, daily range): BP systolic 125–164; BP diastolic 78–88; PULSE 70–82; RESP 12–20; TEMP 36–37; O2SAT 97–100; BMI 24.5; BMI 24.7
--- NOTE | ~2019-10-05 | XR_ITS ---
XR chest 1V portable 10/05/2019 17:31 Indication: Dyspnea. High potassium levels. History of poor kidney function. Procedure: AP portable chest Comparison: Comparison to multiple prior studies sequentially, with oldest reviewed study dated 05/2014. Findings: Heart size normal. Port catheter tip in the SVC. Bibasilar airspace disease. No pleural eff usion or pneumothorax. No acute osseous abnormality. Impression: 1: Bibasilar airspace disease which may represent atelectasis, fibrosis and/or developing pneumonia. Reviewed, dictated and finalized at location A. Impression: 1: Bibasilar airspace disease which may represent atelectasis, fibrosis and/or developing pneumonia.
--- NOTE | ~2019-10-05 | US_ITS ---
EXAMINATION: US biopsy renal DATE: 10/09/2019 14:08 INDICATION: Hypertension. Acute renal insufficiency. TECHNIQUE: The procedure including the risks, benefits, and alternatives was discussed with the patie nt. Risks discussed included bleeding and infection. The patient understood the risks and agreed to p roceed. A timeout was performed to verify the patient's name, date of , and procedure to be p erformed. The skin overlying the left kidney was prepped and draped in usual sterile fashion. Anest hetic was administered with 1% lidocaine subcutaneously. An 18 gauge core biopsy needle was then use d to obtain 3 core biopsy specimens under continuous sonographic guidance. The entry site was cleaned and dressed. There were no immediate complications. FINDINGS: Ultrasound images demonstrate the needle in the left kidney. Mild left hydronephrosis with ureteral stent seen on real-time imaging at the left renal pelvis. IMPRESSION: 1. Ultrasound-guided random left kidney core needle biopsy. 2. Mild left hydronephrosis with left internal ureteral stent in the left renal pelvis. Reviewed, dictated and finalized at location A.
--- NOTE | ~2019-10-05 | US_ITS ---
US renal BI 10/06/2019 17:48 Procedure: Realtime transabdominal ultrasound of the kidneys and bladder. Indication: Acute renal failure Comparison: Ultrasound dated 02/11/2019 Findings: Renal echotexture is normal bilaterally without contour deforming mass or renal calculus. T here is bilateral hydronephrosis. Bilateral ureteral stents are identified. The right kidney measures 10 cm and left kidney measures 10.4 cm. Bladder is surgically absent with ileal diversion. Impression: 1: Bilateral hydronephrosis with bilateral internal ureteral stents present. Status post cystectomy. Reviewed, dictated and finalized at location A. Impression: 1: Bilateral hydronephrosis with bilateral internal ureteral stents present. St atus post cystectomy.
--- NOTE | 2019-10-05 16:22 | ECG_ITS ---
Measurements Intervals [place] Rate: 76 P: 34 MA: 164 QRS: -24 QRSD: 128 T: 10 QT: 378 QTc: 427 Interpretive Statements SINUS RHYTHM RIGHT BUNDLE BRANCH BLOCK VOLTAGE CRITERIA FOR LVH BASELINE WANDER- V5 ABNORMAL ECG Electronically Signed On 10-05-2019 20:24:22 CDT by Rajendra Parker D.O.
[2019-10-05 16:59] LABS: Basophils Percent Auto 0.5 % (0.2-1.2); Eosinophils Absolute Auto 0.2 K/mm3 (0-0.3); Eosinophils Percent Auto 2.6 % (0-4.4); Hematocrit 29.4 % (42.0-52.0); Hemoglobin 9.4 g/dL (14.0-18.0); Immature Granulocyte Absolute 0.05 K/mm3 (0.00-0.031); Immature Granulocyte Percent A 0.6 % (0-0.5); Lymphocytes Absolute Auto 0.78 K/mm3 (0.9-3.2); Lymphocytes Percent Auto 9.1 % (18.3-44.2); Mean Corpuscular Hemoglobin 30.9 pg (26-34); Mean Corpuscular Volume 96.7 fl (80-100); Mean Platelet Volume 9.2 fl (7.4-10.4); Monocytes Absolute Auto 0.9 K/mm3 (0.1-0.6); Monocytes Percent Auto 10.4 % (2.6-8.5); Neutrophils Absolute Auto 6.6 K/mm3 (1.3-6.7); Neutrophils Percent Auto 76.8 % (45.5-73.1); Platelet Count Result 526 k/mm3 (150-375); Red Blood Count 3.04 M/mm3 (4.6-6.20); Red Cell Distribution Width 13.8 % (11.5-14.5); White Blood Count 8.6 K/mm3 (4.5-10.0)
--- NOTE | 2019-10-05 17:09 | ED.RECABL ---
HPI - Recheck/Abnormal Lab/Rx General Chief Complaint: Recheck/Abnormal Lab/Rx Stated Complaint: HIGH POTASSIUM LEVEL Time Seen by Provider: 10/05/19 16:53 Source: RN notes reviewed History of Present Illness HPI narrative: Patient presents emergency department from home secondary hyperkalemia. Patient states he has a history of renal insufficiency secondary to previous chemotherapy treatment. States that he follows with Dr. Palomo as an outpatient and was seen in the office yesterday had blood work drawn was called today because his potassium was high. Per records the patient had a potassium of 6.8 at that time with a creatinine of 6.15. The patient states he has seen Dr. Lozoya as well before in the past he denies any fevers or chills chest pain shortness of breath abdominal pain nausea vomiting or any other symptoms Related Data Home Medications Medication Instructions Recorded Confirmed allopurinol 300 mg PO DAILY 04/12/19 09/14/19 Allergies Allergy/AdvReac Type Severity Reaction Status Date / Time No Known Allergies Allergy Verified 09/14/19 10:46 Review of Systems Review of Systems: Narrative: Gen.: Denies fevers or chills ENT: Denies congestion Respiratory: Denies shortness of breath or cough CV: Denies chest pain or palpitations GI: Denies abdominal pain nausea, emesis or diarrhea denies burning, urgency, frequency or hematuria Musculoskeletal: Denies back pain or muscle pain Neuro: Denies numbness, tingling, weakness or focal weakness Skin: Denies rash Except as documented, all other systems reviewed and negative PMFSH Past Medical History Medical History Atrial tachycardia Bladder cancer Cancer of overlapping sites of bladder Cellulitis Chronic renal failure, stage 3 (moderate) Contact dermatitis Essential (primary) hypertension Gout, unspecified Hypertension Malignant neoplasm of dome of urinary bladder Mixed hyperlipidemia Port-A-Cath in place Shingles Social History Social History Social History: Patient quit smoking in 1979. He smoked about a pack a cigarettes a day for 20 years. Patient occasionally drinks a beer. He has 2 children. A boy and a girl. Power of log check scaler is Carla Lam. He is a full code. He lives alone. He is retired from [employer]. Smoking packs per day: 1 Smoking cigarettes per day: 20.0 Years smoked: 15 Smoking pack-years: 15.00 Smoking status: Former smoker Tobacco type: cigarettes Additional smoking assessment comments: 1979 Alcohol intake: never Drinks per week: 0 Substance use: never Substance use type: does not use Gender identity (if verbalized by the patient): Male Spiritual care concerns: No Agree to blood products: Yes Exam Narrative: Exam Narrative: APPEARANCE: No acute distress, nontoxic, resting in bed EYES: EOMI HEENT: Normocephalic, atraumatic, OMM RESPIRATORY: No respiratory distress Clear to auscultation bilaterally with no rhonchi wheezing or rales. CARDIOVASCULAR: Regular rate and rhythm without murmurs rubs or gallops. ABDOMINAL: Soft, nontender, nondistended, no rebound or guarding right ileal conduit MUSCULOSKELETAl: Moves all extremities. No clubbing, cyanosis or edema. NEURO: Awake and alert. Following commands, speech normal, no focal deficits SKIN:: Warm, dry. No rashes lesions or abrasions PSYCHIATRIC: Normal affect/mood, Course Course Emergency Course: Reviewed chest x-ray patient's had no cough or fever suspect atelectasis at this time Discussed with Dr. Lozoya presentation work-up. Agrees with consult. Request patient receive Kayexalate at this time with no other medications. Agrees with fluid 0.9 normal saline at 80 mL an hour Discussed with Dr. Wolf presentation work-up agrees with plan for Rocephin Discussed with DAREK Bashir for Dr. Reeves presentation work-up he agrees with admi
[2019-10-05 17:13] LABS: Alanine Aminotransferase 20 U/L (4-50); Albumin Level 4.4 g/dL (3.5-5.1); Alkaline Phosphatase 167 U/L (38-126); Aspartate Amino Transferase 34 U/L (17-59); Bilirubin,Total 0.4 mg/dL (0.2-1.3); Blood Urea Nitrogen 101 mg/dL (9-20); Calcium 10.2 mg/dL (8.4-10.2); Carbon Dioxide 21 mmol/L (22-30); Chloride 103 mmol/L (98-107); Estimated CRCL calculation 9 ml/min; Estimated Glomerular Filt Rate 9; Glucose 152 mg/dL (75-110); Sodium 138 mmol/L (137-145)
[2019-10-05 17:37] LABS: Add Urine Microscopic? YES; Appearance Urine Cloudy (Clear); Bacteria Urine Trace /hpf; Bilirubin Urine Negative (Negative); Blood Urine 3+ (Negative); Color Urine Yellow (Yellow); Glucose Urine UA Negative (Negative); Ketones Urine Negative (Negative); Leukocyte Esterase Ur 3+ LEU/UL (Negative); Mucus Urine Rare /lpf; Nitrate Urine Negative (Negative); Protein Urine 2+ mg/dL (Negative); RBC Urine >75 /hpf (0-2); Specific Grav Ur 1.016 (1.001-1.035); Squamous Epithelial Cell Urine Rare /hpf (Few); Urobilinogen Urine Negative mg/dL (<2.0); WBC Urine 51-75 /hpf
[2019-10-05] MEDS: SODIUM POLYSTYRENE SULFONONATE 15 GM/60 ML BTL 30 GM PO (17:44)
--- NOTE | 2019-10-05 19:35 | PM.IMHP ---
H&P: HPI History of Present Illness Chief complaint: Acute renal failure/hyperkalemia/UTI Narrative: This is a pleasant 78-year-old male with known past medical history of bladder cancer status post radical cystoprostatectomy with pelvic lymphadenectomy and ileal-loop urinary diversion who just recently had bilateral ureteral stents placed by Urology and presented to the hospital after being found to incidentally have a potassium of 6.8 yesterday. The patient was referred to the hospital by his Urologist. The patient is thought to have developed renal failure secondary to chemotherapy and has seen Dr. Lozoya, Nephrology once before. He denies any exposure to contrast media recently and is making urine well. Tonight he denies any significant symptoms. He denies any flank pain, abdominal pain, chest pain, palpitations, dizziness, headache, nausea, vomiting, fever, chills, gross hematuria or worsening weakness. The patient was evaluated in the ER and found to have a Cr level of 6.1 and a potassium of 6.0. He was also found to have a grossly abnormal urinalysis which is not surprising since he has an ileal-loop diversion. He was treated with ceftriaxone and kayexalate in the ER. Both Urology and Nephrology have been consulted and we have been asked to admit the patient to the hospital for further care. No other complaints tonight. Review of Systems Review of Systems: All systems reviewed & are unremarkable except as noted in HPI and below PMFSH Past Medical History Medical History (Updated 10/05/19 @ 19:48 by Ming Spain MD) Atrial tachycardia Bladder cancer Cancer of overlapping sites of bladder Cellulitis Chronic renal failure, stage 3 (moderate) Contact dermatitis Essential (primary) hypertension Gout, unspecified Hypertension Malignant neoplasm of dome of urinary bladder Mixed hyperlipidemia Port-A-Cath in place Shingles Surgical History Surgical History History of cataract extraction History of ileal conduit History of inguinal hernia repair History of prostatectomy History of tonsillectomy History of transurethral resection of prostate Family History Family History (Updated 10/05/19 @ 21:04 by Ambika Bass RN) Father Family history of lung cancer Father Family history of cardiovascular disease Social History Social History Social History: Patient quit smoking in 1979. He smoked about a pack a cigarettes a day for 20 years. Patient occasionally drinks a beer. He has 2 children. A boy and a girl. Power of defense attorney is Carla Lam. He is a full code. He lives alone. He is retired from [employer]. Smoking packs per day: 1 Smoking cigarettes per day: 20.0 Years smoked: 15 Smoking pack-years: 15.00 Smoking status: Former smoker Tobacco type: cigarettes Smoking end date: 03/08/79 Additional smoking assessment comments: 1979 Alcohol intake: current Drinks per week: 3 Substance use: never Substance use type: does not use Gender identity (if verbalized by the patient): Male Spiritual care concerns: No Agree to blood products: Yes Meds Home Medications and Allergies Home Medications Medication Instructions Recorded Confirmed Type allopurinol 300 mg PO DAILY 04/12/19 10/05/19 History metoprolol succinate 100 mg 100 mg PO DAILY #90 tablet 06/05/19 10/05/19 Rx tablet,extended release 24 hr Allergies Allergy/AdvReac Type Severity Reaction Status Date / Time No Known Allergies Allergy Verified 09/14/19 10:46 Vital Signs Vital Signs - 24 hr 10/05/19 16:38 10/05/19 17:23 10/05/19 18:35 Temperature 37.0 C Pulse Rate 81 71 70 Respiratory Rate 16 19 12 Blood Pressure 125/78 140/87 140/81 Pulse Oximetry 100 97 99 Exam Const: General: cooperative, no acute distress, alert, awake and ill appearing chronically Nutritional Appearanc
--- NOTE | 2019-10-05 19:42 | PC.NURSE ---
report received at this time. pt resting on stretcher, RR even and unlabored. family member at bedside. awaiting to give report to floor, pt aware of poc.
--- NOTE | 2019-10-05 20:51 | ADMGEN ---
This patient, Stu Raphael, was admitted to IMU Room 214-01 on 10/05/2019 at 2020. Patient/family oriented to hospital policies and general routines including ID bracelet, bed and alarms, visiting hours, pain management, procedures, bathroom and other care routines, personal items, smoking policy, room service/diet, and visiting hours. Valuables list has been completed. Information on how to activate the Rapid Response Team has been discussed. Patient/Family are encouraged to report perceived risks to care and to ask questions if they do not understand what they are told or what they should do.
[2019-10-05 21:05] LABS: Anion Gap 19.2 mmol/L (7-16); Blood Urea Nitrogen 96 mg/dL (9-20); Calcium 9.8 mg/dL (8.4-10.2); Carbon Dioxide 19 mmol/L (22-30); Chloride 106 mmol/L (98-107); Estimated CRCL calculation 9 ml/min; Estimated Glomerular Filt Rate 9; Glucose 132 mg/dL (75-110); Potassium 5.2 mmol/L (3.4-5.0); Sodium 139 mmol/L (137-145)
[2019-10-05] MEDS: SODIUM CHLORIDE 0.9% IV 1,000 ML 80 ML IV CONT (22:44)
[2019-10-06] VITALS (11 sets, daily range): BP systolic 124–181; BP diastolic 64–103; PULSE 70–95; RESP 14–20; TEMP 36–37.1; O2SAT 100
[2019-10-06 04:34] LABS: Basophils Percent Auto 0.4 % (0.2-1.2); Eosinophils Absolute Auto 0.3 K/mm3 (0-0.3); Eosinophils Percent Auto 3.2 % (0-4.4); Hemoglobin 8.6 g/dL (14.0-18.0); Immature Granulocyte Absolute 0.09 K/mm3 (0.00-0.031); Immature Granulocyte Percent A 0.9 % (0-0.5); Lymphocytes Absolute Auto 0.72 K/mm3 (0.9-3.2); Lymphocytes Percent Auto 6.8 % (18.3-44.2); Mean Corpuscular HGB Conc 33.1 g/dl (32-36); Mean Corpuscular Hemoglobin 31.6 pg (26-34); Mean Corpuscular Volume 95.6 fl (80-100); Mean Platelet Volume 9.1 fl (7.4-10.4); Monocytes Absolute Auto 1.1 K/mm3 (0.1-0.6); Monocytes Percent Auto 10.1 % (2.6-8.5); Neutrophils Absolute Auto 8.3 K/mm3 (1.3-6.7); Neutrophils Percent Auto 78.6 % (45.5-73.1); Platelet Count Result 449 k/mm3 (150-375); Red Blood Count 2.72 M/mm3 (4.6-6.20); Red Cell Distribution Width 13.9 % (11.5-14.5); White Blood Count 10.6 K/mm3 (4.5-10.0)
[2019-10-06 04:58] LABS: Anion Gap 15.6 mmol/L (7-16); Blood Urea Nitrogen 91 mg/dL (9-20); Calcium 9.1 mg/dL (8.4-10.2); Carbon Dioxide 20 mmol/L (22-30); Chloride 105 mmol/L (98-107); Estimated CRCL calculation 9 ml/min; Estimated Glomerular Filt Rate 10; Glucose 97 mg/dL (75-110); Potassium 4.6 mmol/L (3.4-5.0); Sodium 136 mmol/L (137-145)
--- NOTE | 2019-10-06 07:17 | WPDURCON ---
Assessment and Plan Assessment and plan (1) Bladder cancer: Qualifiers: Bladder location: unspecified site Qualified Code(s): C67.9 - Malignant neoplasm of bladder, unspecified Code(s): C67.9 - Malignant neoplasm of bladder, unspecified Status: Chronic (2) Chronic renal failure, stage 3 (moderate): Code(s): N18.3 - Chronic kidney disease, stage 3 (moderate) Status: Chronic (3) Acute renal failure: Qualifiers: Acute renal failure type: unspecified Qualified Code(s): N17.9 - Acute kidney failure, unspecified Code(s): N17.9 - Acute kidney failure, unspecified Status: Acute Assessment and Plan: Regress of renal failure in the presence of chronic kidney disease. Initially, I believe there was some component of obstructive uropathy but recent placement of bilateral ureteral stents his failed to lead to significant improvement in his overall renal function. His stents appear to be in good position on KUB. Urinalysis ( showing leukocytosis and pyuria without nitrates) may be a result of indwelling ureteral stents and not fundraising sale representative of acute UTI. Urine culture is pending. Await input from Dr. Lozoya. Urology Consult Note HPI Date Seen: 10/06/19 Requesting Physician: Deya Bullard MD Primary Care Provider: Jeremy Jung MD Consult Narrative Narrative: Stu Raphael is a 78 year old male Who is very well known to me with a history of muscle invasive bladder cancer status-post radical cystectomy with ileal conduit urinary diversion in February 2019. Patient underwent adjuvant chemotherapy and around that time was noted to have some chronic kidney disease. 3-4 weeks ago he had regression in his renal function and renal ultrasonography demonstrated progressive bilateral hydronephrosis. Hydronephrosis in the presence of an ileal conduit can be a result of normal vesicoureteral reflux. In his case, however, a ileal loopogram failed to show reflux and a suspect he had some component of ureteral obstruction at the ureteral-conduit anastomosis. dear result, he has recently undergone endoscopic placement of bilateral ureteral stents. He had transient improvement in his renal function following stent placement but that was, unfortunately, short-lived. Recent outpatient lab work showed a rising creatinine with the onset of hyperkalemia. KUB earlier this week shows his ureteral stents to be in good position. Throughout all this the patient feels well without constitutional symptoms of fevers chills or hematuria Review of Systems Cardiovascular: Cardiovascular: Denies chest pain, Denies lightheadedness, Denies palpitations and Denies dyspnea Respiratory: Respiratory: Denies dyspnea Gastrointestinal: Gastrointestinal: Denies diarrhea, Denies nausea and Denies vomiting Genitourinary: Genitourinary: Denies hematuria and Denies dysuria Endocrine: Endocrine: Denies palpitations PMFSH Past Medical History Medical History Atrial tachycardia Bladder cancer Cancer of overlapping sites of bladder Cellulitis Chronic renal failure, stage 3 (moderate) Contact dermatitis Essential (primary) hypertension Gout, unspecified Hypertension Malignant neoplasm of dome of urinary bladder Mixed hyperlipidemia Port-A-Cath in place Shingles Surgical History Surgical History History of cataract extraction History of ileal conduit History of inguinal hernia repair History of prostatectomy History of tonsillectomy History of transurethral resection of prostate Family History Family History Father Family history of lung cancer Father Family history of cardiovascular disease Social History Social History Social History: Patient quit smoking in
--- NOTE | 2019-10-06 09:01 | PC.NURSE ---
Pt stated that he took his own medicine from home. Stated he took Metoprolol 100 mg ext release and 300 mg allupurinol.
[2019-10-06] MEDS: SODIUM CHLORIDE 0.9% IV 1,000 ML 80 ML IV CONT (11:14)
--- NOTE | 2019-10-06 13:09 | PM.CNNEP ---
Assessment and Plan Assessment and plan (1) Acute renal failure superimposed on stage 3 chronic kidney disease: Qualifiers: Acute renal failure type: unspecified Qualified Code(s): N17.9 - Acute kidney failure, unspecified; N18.3 - Chronic kidney disease, stage 3 (moderate) Code(s): N17.9 - Acute kidney failure, unspecified; N18.3 - Chronic kidney disease, stage 3 (moderate) Status: Acute Assessment and Plan: The patient has chronic kidney disease. His creatinine has gradually risen over the years. Looking back in the records it looks like his creatinine ranged between 1.2 and 1.7 in 2018 and early 2018, but laid in 2018 his creatinine jacobo to a baseline of around 1.8 and at 1 point was 3.1. Early in 2019 it varied from 1.4 to about 2. In August it was 2.4 early on but later in August was 5.1 which is when he was sent for kidney evaluation. He probably has underlying hypertensive nephrosclerosis. The patient wonders whether the Cisplatin might have affected his kidneys and it is hard to know whether this is the case. The Cisplatin was given about a year and half ago. His creatinine did not really start rising until less than a year ago. I can't say that it does not have some affect on the chronic nature of his kidney disease. the recent rise in creatinine is somewhat of a mystery. The patient is not obstructed anymore an usually when there is relief of obstruction the creatinine improves rapidly. Sometimes there is an element of ATN but this would resolve over a matter of a few days as well. Occasionally if the obstruction is on top of CKD there is less recovery. When I saw him in August I checked for inflammatory and infiltrated diseases. His GLENN, complements, and sed rate were okay. His immunofixation were normal. So I do not think any of that is causing his kidneys to do this. It does not look like he is on any medications that would do this. I suspect he just has hypertensive nephrosclerosis, may be some contribution from Cisplatin, and now we are seeing long-term affects of that plus some effect of the obstruction the kidneys were too sick to recover from that. We will check a renal ultrasound to see how big the kidneys are in see if there is any echogenicity. Consider biopsy ? I discussed with the patient that if things do not get better he is going to need dialysis at some point. We discussed the types of dialysis and that he needs to get some Education when he is out of the hospital. He does not have any uremic symptoms so I do not think we need to mahoney and dialysis now. He is getting some IV fluids and will see if this helps his creatinine. (2) Acute hyperkalemia: Code(s): E87.5 - Hyperkalemia Status: Acute Assessment and Plan: This was treated and is better. I do not think he needs telemetry anymore if this is the only reason he was on it. (3) Hypertension: Qualifiers: Hypertension type: unspecified Qualified Code(s): I10 - Essential (primary) hypertension Code(s): I10 - Essential (primary) hypertension Status: Chronic Assessment and Plan: His blood pressure is well controlled on just metoprolol. (4) Cancer of overlapping sites of bladder: Code(s): C67.8 - Malignant neoplasm of overlapping sites of bladder Status: Chronic Assessment and Plan: As above (5) Gout, unspecified: Qualifiers: Gout site: unspecified site Gout etiology: unspecified cause Chronicity: chronic Presence of tophus: without tophus Qualified Code(s): M1A.9XX0 - Chronic gout, unspecified, without tophus (tophi) Code(s): M10.9 - Gout, unspecified Status: Chronic Assessment and Plan: the patient has not had gout for many years. I told him that his allopurinol is on hold. He would rather just stop it. If he gets another gouty attack we can always restart this. He agrees with this parker
--- NOTE | 2019-10-06 15:20 | PM.IMPN ---
Progress Note: A&P Assessment and Plan (1) Acute renal failure superimposed on stage 3 chronic kidney disease: Qualifiers: Acute renal failure type: unspecified Qualified Code(s): N17.9 - Acute kidney failure, unspecified; N18.3 - Chronic kidney disease, stage 3 (moderate) Code(s): N17.9 - Acute kidney failure, unspecified; N18.3 - Chronic kidney disease, stage 3 (moderate) Status: Acute Assessment and Plan: Renal Ultrasound in am. Nephrology has been consulted. (2) Acute hyperkalemia: Code(s): E87.5 - Hyperkalemia Status: Acute Assessment and Plan: Recheck potassium. (3) Abnormal urinalysis: Code(s): R82.90 - Unspecified abnormal findings in urine Status: Acute Assessment and Plan: Abnormal urinalysis is expected as the patient has a diverting ileostomy. On antibiotics. Urine culture is pending. (4) Hypertension: Qualifiers: Hypertension type: unspecified Qualified Code(s): I10 - Essential (primary) hypertension Code(s): I10 - Essential (primary) hypertension Status: Chronic Assessment and Plan: Monitor blood pressure. Continue amlodipine and metoprolol PO. (5) Cancer of overlapping sites of bladder: Code(s): C67.8 - Malignant neoplasm of overlapping sites of bladder Status: Chronic Assessment and Plan: Continue Oncology and Urology recommendations. Subjective Date/time seen: 10/06/19 15:20 Interval history: 78-year-old male with known past medical history of bladder cancer status post radical cystoprostatectomy with pelvic lymphadenectomy and ileal-loop urinary diversion who just recently had bilateral ureteral stents placed by Urology. Seen by cardiology and urology. Review of Systems Review of Systems: All systems reviewed & are unremarkable except as noted in HPI and below Exam Const: General: cooperative and healthy appearing; No in distress Nutritional Appearance: overweight Orientation/consciousness: oriented to person HENMT: Head: normal to inspection Resp: Effort & Inspection: no respiratory distress Auscultation: no rhonchi and no wheezes Cardio: Rate: regular rate Rhythm: regular rhythm GI: Inspection: normal to inspection GI Palp: No abdominal tenderness, No Hepatomegaly present and Yes Other GI palpation findings present (ileostomy placement ) Auscultation: normal bowel sounds Neuro: General: oriented to person Objective Data Vital Signs Vital Signs: Vital Signs - 24 hr 10/05/19 16:38 10/05/19 17:23 10/05/19 18:35 Temperature 37.0 C Pulse Rate 81 71 70 Respiratory Rate 16 19 12 Blood Pressure 125/78 140/87 140/81 Pulse Oximetry 100 97 99 10/05/19 19:54 10/05/19 20:26 10/05/19 20:35 Temperature 36.0 C L Pulse Rate 74 79 77 Respiratory Rate 18 18 20 Blood Pressure 152/82 H 164/88 H Pulse Oximetry 99 100 10/05/19 20:38 10/05/19 22:00 10/06/19 00:00 Temperature 36.0 C L Pulse Rate 81 82 70 Respiratory Rate 14 Blood Pressure 144/98 H Pulse Oximetry 100 10/06/19 02:00 10/06/19 04:00 10/06/19 06:00 Temperature 37.1 C Pulse Rate 86 86 83 Respiratory Rate 16 Blood Pressure 124/64 Pulse Oximetry 100 10/06/19 08:00 10/06/19 10:00 10/06/19 12:00 Temperature 36.7 C 36.7 C Pulse Rate 83 87 84 Respiratory Rate 16 18 Blood Pressure 146/89 H 140/67 Pulse Oximetry 100 100 10/06/19 14:00 Temperature Pulse Rate 86 Respiratory Rate Blood Pressure Pulse Oximetry Intake/Output Intake/Output: Intake & Output 10/03/19 10/04/19 10/05/19 10/06/19 23:59 23:59 23:59 23:59 Intake Total 50 1620 Output Total 2100 Balance 50 -480 Meds/Results Medications: Active Medications Generic Name Dose Route Start Last Admin Trade Name Freq PRN Reason Stop Dose Admin Heparin Sodium (Porcine) 500 units 10/06/19 07:32 Heparin Sod Flush 100 Units/Ml IV PUSH PRN PRN see comments
--- NOTE | 2019-10-06 15:31 | PM.IMPN ---
Progress Note: A&P Assessment and Plan (1) Acute renal failure superimposed on stage 3 chronic kidney disease: Qualifiers: Acute renal failure type: unspecified Qualified Code(s): N17.9 - Acute kidney failure, unspecified; N18.3 - Chronic kidney disease, stage 3 (moderate) Code(s): N17.9 - Acute kidney failure, unspecified; N18.3 - Chronic kidney disease, stage 3 (moderate) Status: Acute Assessment and Plan: Renal Ultrasound in am. Nephrology has been consulted. Continue to hydrate over the weekend, creat is 5. (2) Acute hyperkalemia: Code(s): E87.5 - Hyperkalemia Status: Acute Assessment and Plan: Recheck potassium. (3) Abnormal urinalysis: Code(s): R82.90 - Unspecified abnormal findings in urine Status: Acute Assessment and Plan: Abnormal urinalysis is expected as the patient has a diverting ileostomy. On antibiotics. Urine culture is back. (4) Hypertension: Qualifiers: Hypertension type: unspecified Qualified Code(s): I10 - Essential (primary) hypertension Code(s): I10 - Essential (primary) hypertension Status: Chronic Assessment and Plan: Monitor blood pressure. Continue amlodipine and metoprolol PO. (5) Cancer of overlapping sites of bladder: Code(s): C67.8 - Malignant neoplasm of overlapping sites of bladder Status: Chronic Assessment and Plan: Continue Oncology and Urology recommendations. Subjective Date/time seen: DOS 10/07/2019 Interval history: 78-year-old male with known past medical history of bladder cancer status post radical cystoprostatectomy with pelvic lymphadenectomy and ileal-loop urinary diversion who just recently had bilateral ureteral stents placed by Urology presently creat is 5, potassium is 4.7. Pt to stay in hospital over the weekend for further hydration. Exam Const: General: cooperative, healthy appearing, no acute distress, alert, awake and ill appearing chronically; No in distress Nutritional Appearance: well nourished and overweight Orientation/consciousness: oriented to person and patient oriented x3 Chest: Other: right sided port a cath in place++ Resp: Effort & Inspection: normal respiratory effort and no respiratory distress Auscultation: clear to auscultation bilaterally, no rhonchi and no wheezes Cardio: Rate: regular rate Rhythm: regular rhythm Heart sounds: no murmurs GI: Inspection: normal to inspection and other (Ileostomy+ ) Auscultation: normal bowel sounds Skin: General skin exam: normal color and no rashes or lesions noted Neuro: General: oriented to person and patient oriented x3 Cranial nerves: Yes CN's II-XII intact bilaterally and Yes Equal, round and reactive pupils present Speech: normal speech Motor exam (neuro): 5/5 motor strength present throughout Sensory Exam: normal sensation Extrem: General: normal to inspection and no edema Psych: Mental Status: mental status grossly normal Affect: normal affect Objective Data Vital Signs Vital Signs: Vital Signs - 24 hr 10/05/19 16:38 10/05/19 17:23 10/05/19 18:35 Temperature 37.0 C Pulse Rate 81 71 70 Respiratory Rate 16 19 12 Blood Pressure 125/78 140/87 140/81 Pulse Oximetry 100 97 99 10/05/19 19:54 10/05/19 20:26 10/05/19 20:35 Temperature 36.0 C L Pulse Rate 74 79 77 Respiratory Rate 18 18 20 Blood Pressure 152/82 H 164/88 H Pulse Oximetry 99 100 10/05/19 20:38 10/05/19 22:00 10/06/19 00:00 Temperature 36.0 C L Pulse Rate 81 82 70 Respiratory Rate 14 Blood Pressure 144/98 H Pulse Oximetry 100 10/06/19 02:00 10/06/19 04:00 10/06/19 06:00 Temperature 37.1 C Pulse Rate 86 86 83 Respiratory Rate 16 Blood Pressure 124/64 Pulse Oximetry 100 10/06/19 08:00 10/06/19 10:00 10/06/19 12:00 Temperature 36.7 C 36.7 C Pulse Rate 83 87 84 Respiratory Rate 16 18 Blood Pressure 146/89 H 140/67 Pulse Oximetry 100 100 0
[2019-10-06 19:06] LABS: Creatinine Urine 29.5 mg/dL; Total Protein Urine Random 18 mg/dL
[2019-10-06 19:08] LABS: Sodium Urine Random 51 meq/L
[2019-10-06] MEDS: hydrALAZINE HCL 20 MG/ML VIAL 10 MG IV PUSH (20:45)
--- NOTE | 2019-10-06 21:01 | PC.NURSE ---
This patient, Stu Raphael, was transferred to [ [facility] ] on 10/06/19 at 2100. Personal belongings sent with patient. Belongings list checked and signed with receiving [ ]. Report given to [Sheridan ]. Appropriate documentation sent with patient.
[2019-10-06] MEDS: MELATONIN 3 MG TABLET PO (21:15)
[2019-10-07] MEDS: SODIUM CHLORIDE 0.9% IV 1,000 ML 80 ML IV CONT ×2 (01:35→14:14)
[2019-10-07] MEDS: CENTRAL LINE FLUSH 10 ML IV PUSH ×4 (05:14→14:14)
[2019-10-07 05:51] LABS: Albumin Level 3.6 g/dL (3.5-5.1); Anion Gap 15.7 mmol/L (7-16); Blood Urea Nitrogen 78 mg/dL (9-20); Calcium 9.4 mg/dL (8.4-10.2); Carbon Dioxide 20 mmol/L (22-30); Chloride 108 mmol/L (98-107); Estimated CRCL calculation 10 ml/min; Estimated Glomerular Filt Rate 11; Glucose 108 mg/dL (75-110); Phosphorus 5.5 mg/dL (2.5-4.5); Potassium 4.7 mmol/L (3.4-5.0); Sodium 139 mmol/L (137-145)
[2019-10-07 06:00] VITALS: BP 162/86; PULSE 90; RESP 18; TEMP 36.4; O2SAT 100
[2019-10-07 08:11] VITALS: PULSE 96
[2019-10-07] MEDS: METOPROLOL SUCCINATE EXT REL 100 MG TABCR PO (08:11)
[2019-10-07 08:28] LABS: Anion Gap 14.7 mmol/L (7-16); Blood Urea Nitrogen 75 mg/dL (9-20); Calcium 9.2 mg/dL (8.4-10.2); Carbon Dioxide 20 mmol/L (22-30); Chloride 109 mmol/L (98-107); Estimated CRCL calculation 10 ml/min; Estimated Glomerular Filt Rate 11; Glucose 114 mg/dL (75-110); Potassium 4.7 mmol/L (3.4-5.0); Sodium 139 mmol/L (137-145)
--- NOTE | 2019-10-07 08:52 | PM.PNNEP ---
Progress Note: A&P Assessment and Plan (1) Acute renal failure superimposed on stage 3 chronic kidney disease: Qualifiers: Acute renal failure type: unspecified Qualified Code(s): N17.9 - Acute kidney failure, unspecified; N18.3 - Chronic kidney disease, stage 3 (moderate) Code(s): N17.9 - Acute kidney failure, unspecified; N18.3 - Chronic kidney disease, stage 3 (moderate) Status: Acute Assessment and Plan: The patient has chronic kidney disease. His creatinine has gradually risen over the years To a level of 2.4 in August. This component of renal disease is most likely due to hypertensive nephrosclerosis. Since then his creatinine worsened to 5 or higher. Etiology for this may be multifactorial. Obstruction is a possibility but all this has been relieved and he has not improved. I wonder if he has something else going on. serology and immunofixation are negative. At this point I think we should continue IV fluids for another day. We can see how his creatinine looks tomorrow. If not much improvement then consider biopsy on Wednesday. He is not on any blood thinners. Long discussion with the patient. (2) Acute hyperkalemia: Code(s): E87.5 - Hyperkalemia Status: Acute Assessment and Plan: Resolved (3) Hypertension: Qualifiers: Hypertension type: unspecified Qualified Code(s): I10 - Essential (primary) hypertension Code(s): I10 - Essential (primary) hypertension Status: Chronic Assessment and Plan: His blood pressure is well controlled on just metoprolol. (4) Cancer of overlapping sites of bladder: Code(s): C67.8 - Malignant neoplasm of overlapping sites of bladder Status: Chronic Assessment and Plan: As above (5) Gout, unspecified: Qualifiers: Gout site: unspecified site Gout etiology: unspecified cause Chronicity: chronic Presence of tophus: without tophus Qualified Code(s): M1A.9XX0 - Chronic gout, unspecified, without tophus (tophi) Code(s): M10.9 - Gout, unspecified Status: Chronic Assessment and Plan: the patient has not had gout for many years. holding allopurinol for now. Subjective Date/time seen: 10/07/19 08:52 Interval history: The patient feels okay today. No chest pain or shortness of breath. Eating okay. He has been getting some IV fluids. Review of Systems Cardiovascular: Cardiovascular: Reports no additional cardiovascular complaints Respiratory: Respiratory: Reports no additional respiratory complaints Gastrointestinal: Gastrointestinal: Reports no additional gastrointestinal complaints Genitourinary: Genitourinary: Reports no additional male genitourinary complaints Exam Narrative: Exam Narrative: WDWN in NAD skin no rash head ncat lungs clear cor reg no rub abd BS+ nontender and soft ext no edema. Objective Data Vital Signs Vital Signs: Vital Signs - 24 hr 10/06/19 10:00 10/06/19 12:00 10/06/19 14:00 Temperature 36.7 C Pulse Rate 87 84 86 Respiratory Rate 18 Blood Pressure 140/67 Pulse Oximetry 100 10/06/19 16:00 10/06/19 20:00 10/06/19 21:00 Temperature 36.9 C 36.6 C 36.3 C L Pulse Rate 90 92 95 Respiratory Rate 20 18 18 Blood Pressure 176/74 H 181/103 H 144/72 H Pulse Oximetry 100 100 100 10/07/19 06:00 10/07/19 08:11 Temperature 36.4 C L Pulse Rate 90 96 Respiratory Rate 18 Blood Pressure 162/86 H Pulse Oximetry 100 Intake/Output Intake/Output: Intake & Output 10/04/19 10/05/19 10/06/19 10/07/19 23:59 23:59 23:59 23:59 Intake Total 50 3710 350 Output Total 3150 1250 Balance 50 560 -900 Meds/Results Medications: Active Medications Generic Name Dose Route Start Last Admin Trade Name Freq PRN Reason Stop Dose Admin Heparin Sodium (Porcine) 500 units 10/06/19 07:32 Heparin Sod Flush 100 Units/Ml IV PUSH PRN PRN see comme
[2019-10-07 14:00] VITALS: BP 157/88; PULSE 92; RESP 18; TEMP 36.5; O2SAT 100
[2019-10-07] MEDS: MELATONIN 3 MG TABLET PO (21:10)
[2019-10-07 22:00] VITALS: BP 158/86; PULSE 86; RESP 18; TEMP 36.8; O2SAT 100
[2019-10-08] MEDS: ONDANSETRON INJ 4 MG/2 ML VIAL IV PUSH (00:30)
[2019-10-08] MEDS: SODIUM CHLORIDE 0.9% IV 1,000 ML 80 ML IV CONT ×3 (02:43→23:48)
[2019-10-08 06:00] VITALS: BP 154/89; PULSE 93; RESP 18; TEMP 36.5; O2SAT 100
[2019-10-08] MEDS: CENTRAL LINE FLUSH 10 ML IV PUSH ×3 (06:05→13:51)
[2019-10-08 06:44] LABS: Albumin Level 3.5 g/dL (3.5-5.1); Anion Gap 13.1 mmol/L (7-16); Blood Urea Nitrogen 64 mg/dL (9-20); Calcium 9.3 mg/dL (8.4-10.2); Carbon Dioxide 20 mmol/L (22-30); Chloride 110 mmol/L (98-107); Estimated CRCL calculation 12 ml/min; Estimated Glomerular Filt Rate 13; Glucose 101 mg/dL (75-110); Phosphorus 4.3 mg/dL (2.5-4.5); Potassium 5.1 mmol/L (3.4-5.0); Sodium 138 mmol/L (137-145)
[2019-10-08 08:39] VITALS: PULSE 88
[2019-10-08] MEDS: METOPROLOL SUCCINATE EXT REL 100 MG TABCR PO (08:39)
--- NOTE | 2019-10-08 09:54 | PM.PNNEP ---
Progress Note: A&P Assessment and Plan (1) Acute renal failure superimposed on stage 3 chronic kidney disease: Qualifiers: Acute renal failure type: unspecified Qualified Code(s): N17.9 - Acute kidney failure, unspecified; N18.3 - Chronic kidney disease, stage 3 (moderate) Code(s): N17.9 - Acute kidney failure, unspecified; N18.3 - Chronic kidney disease, stage 3 (moderate) Status: Acute Assessment and Plan: The patient has chronic kidney disease. His creatinine has gradually risen over the years To a level of 2.4 in August. This component of renal disease is most likely due to hypertensive nephrosclerosis. Since then his creatinine worsened to 5 or higher. Etiology for this may be multifactorial. Obstruction is a possibility but all this has been relieved and he has not improved. I wonder if he has something else going on. he is getting IV fluids and his creatinine is a little better today. Will recheck it again tomorrow. If it is substantially better tomorrow then we could hold off but I think we ought to do a kidney biopsy to figure out what is going on. We discussed the risks benefits alternatives and process of the biopsy and the patient agrees. (2) Acute hyperkalemia: Code(s): E87.5 - Hyperkalemia Status: Acute Assessment and Plan: Resolved (3) Hypertension: Qualifiers: Hypertension type: unspecified Qualified Code(s): I10 - Essential (primary) hypertension Code(s): I10 - Essential (primary) hypertension Status: Chronic Assessment and Plan: His blood pressure is A bit higher today on the metoprolol. Will start amlodipine again. He was on this in the past. (4) Cancer of overlapping sites of bladder: Code(s): C67.8 - Malignant neoplasm of overlapping sites of bladder Status: Chronic Assessment and Plan: As above (5) Gout, unspecified: Qualifiers: Gout site: unspecified site Gout etiology: unspecified cause Chronicity: chronic Presence of tophus: without tophus Qualified Code(s): M1A.9XX0 - Chronic gout, unspecified, without tophus (tophi) Code(s): M10.9 - Gout, unspecified Status: Chronic Assessment and Plan: the patient has not had gout for many years. holding allopurinol for now. Subjective Date/time seen: 10/08/19 09:54 Interval history: The patient feels okay today. No chest pain or shortness of breath. Eating okay. he did not sleep last night. He is going to ask hospitalist for something for sleep. Review of Systems Cardiovascular: Cardiovascular: Reports no additional cardiovascular complaints Respiratory: Respiratory: Reports no additional respiratory complaints Gastrointestinal: Gastrointestinal: Reports no additional gastrointestinal complaints Genitourinary: Genitourinary: Reports no additional male genitourinary complaints Exam Narrative: Exam Narrative: WDWN in NAD skin no rash or subcu nodules head ncat lungs clear Bilaterally cor reg no rub abd BS+ nontender and soft ext no edema. Objective Data Vital Signs Vital Signs: Vital Signs - 24 hr 10/07/19 14:00 10/07/19 22:00 10/08/19 06:00 Temperature 36.5 C 36.8 C 36.5 C Pulse Rate 92 86 93 Respiratory Rate 18 18 18 Blood Pressure 157/88 H 158/86 H 154/89 H Pulse Oximetry 100 100 100 10/08/19 08:39 Temperature Pulse Rate 88 Respiratory Rate Blood Pressure Pulse Oximetry Intake/Output Intake/Output: Intake & Output 10/05/19 10/06/19 10/07/19 10/08/19 23:59 23:59 23:59 23:59 Intake Total 50 3710 1910 1440 Output Total 3150 2400 1725 Balance 50 379 -795 -179 Meds/Results Medications: Active Medications Generic Name Dose Route Start Last Admin Trade Name Freq PRN Reason Stop Dose Admin Amlodipine Besylate 5 mg 10/08/19 09:10 Norvasc PO QAM [facility] Heparin Sodium (Porcine) 500 units 10/06/19 07:32
[2019-10-08] MEDS: amLODIPine BESYLATE 5 MG TABLET PO (10:47)
--- NOTE | 2019-10-08 11:00 | WPDUROPN2 ---
Progress Note: A&P Assessment and Plan (1) Acute renal failure: Qualifiers: Acute renal failure type: unspecified Qualified Code(s): N17.9 - Acute kidney failure, unspecified Code(s): N17.9 - Acute kidney failure, unspecified Status: Acute Assessment and Plan: Anatomically seems to be maximized. No further recommendations from urology at this time. Creat improving down to near baseline. Stressed importance of hydration. Subjective Subjective Date/Time Seen: 10/08/19 11:00 Interval history: KUB and US shows stents are in place. Mild hydro probably from reflux. About 3L UOP over the last 24h. Creat has improved 6 days in a row, now down to 4.3. Feels well. Review of Systems Review of Systems: All systems reviewed & are unremarkable except as noted in HPI and below Exam Const: General: comfortable and no acute distress Eyes: General: appearance normal, both eyes and all related structures Resp: Effort & Inspection: normal respiratory effort Auscultation: no wheezes : Other: stoma pink, draining clear urine, one of the stents able to be visualized just at the entrance Skin: General skin exam: normal color and no rashes or lesions noted Neuro: General: gait normal Cognition (Neuro): normal cognition Psych: Mental Status: mental status grossly normal Affect: normal affect Objective Data Vital Signs Vital Signs: Vital Signs - 24 hr 10/07/19 14:00 10/07/19 22:00 10/08/19 06:00 Temperature 36.5 C 36.8 C 36.5 C Pulse Rate 92 86 93 Respiratory Rate 18 18 18 Blood Pressure 157/88 H 158/86 H 154/89 H Pulse Oximetry 100 100 100 10/08/19 08:39 Temperature Pulse Rate 88 Respiratory Rate Blood Pressure Pulse Oximetry Intake/Output Intake/Output: Intake & Output 10/05/19 10/06/19 10/07/19 10/08/19 23:59 23:59 23:59 23:59 Intake Total 50 3710 1910 1440 Output Total 3150 2400 1725 Balance 50 757 -805 -458 Meds/Results Medications: Active Medications Generic Name Dose Route Start Last Admin Trade Name Freq PRN Reason Stop Dose Admin Amlodipine Besylate 5 mg 10/08/19 09:10 10/08/19 10:47 Norvasc PO 5 mg QAM TANYA Administration Heparin Sodium (Porcine) 500 units 10/06/19 07:32 Heparin Sod Flush 100 Units/Ml IV PUSH PRN PRN see comments below Sodium Chloride 1,000 mls @ 80 mls/hr 10/05/19 18:10 10/08/19 02:43 Normal Saline Iv IV CONT 80 mls/hr .[id number] TANYA Administration Ceftriaxone Sodium/Dextrose 1 gm in 50 mls @ 100 mls/hr 10/06/19 18:00 10/07/19 18:19 Rocephin 1 Gm/D5w 50 Ml IVPB 100 mls/hr QPM TANYA Administration Melatonin 3 mg 10/06/19 21:00 10/07/19 21:10 Melatonin PO 3 mg HS TANYA Administration Metoprolol Succinate 100 mg 10/06/19 09:00 10/08/19 08:39 Toprol Xl PO 100 mg DAILY TANYA Administration Ondansetron HCl 4 mg 10/07/19 08:42 10/08/19 00:30 Zofran Inj IV PUSH 4 mg TID PRN Administration Nausea And Vomiting Sodium Chloride 10 ml 10/06/19 14:00 10/08/19 06:05 Central Line Flush IV PUSH 10 ml Q8HR TANYA Administration Sodium Chloride 10 ml 10/06/19 14:00 10/08/19 06:06 Central Line Flush IV PUSH 10 ml Q8HR TANYA Administration Sodium Chloride 10 ml 10/06/19 07:32 Central Line Flush IV PUSH PRN PRN before/after int. infusion Sodium Chloride 20 ml 10/06/19 07:32 Central Line Flush IV PUSH PRN PRN after blood draws Radiology Results: ITS Impressions Chest X-Ray 10/05/19 17:32 Impression: 1: Bibasilar airspace disease which may represent atelectasis, fibrosis and/or developing pneumonia. Renal Ultrasound 10/06/19 17:52 Impression: 1: Bilateral hydronephrosis with bilateral internal ureteral stents present. Status post cystectomy. Labs Labs: Laboratory Results - last 24 hr 10/08/19 05:54 Sodium 138 Potassium 5.1 H Chloride 110 H Carbon Dioxide 20 L Anion Gap 13.1
[2019-10-08 14:00] VITALS: BP 169/89; PULSE 87; RESP 18; TEMP 36.5; O2SAT 100
--- NOTE | 2019-10-08 15:42 | PM.IMPN ---
Progress Note: A&P Assessment and Plan (1) Acute renal failure superimposed on stage 3 chronic kidney disease: Qualifiers: Acute renal failure type: unspecified Qualified Code(s): N17.9 - Acute kidney failure, unspecified; N18.3 - Chronic kidney disease, stage 3 (moderate) Code(s): N17.9 - Acute kidney failure, unspecified; N18.3 - Chronic kidney disease, stage 3 (moderate) Status: Acute Assessment and Plan: Renal Ultrasound completed. Urology consulted. Nephrology has been consulted. Continue to hydrate over the weekend, creat is 4.Continue to continue electrolytes, hopegul DC wednesday (2) Acute hyperkalemia: Code(s): E87.5 - Hyperkalemia Status: Acute Assessment and Plan: Recheck potassium. (3) Abnormal urinalysis: Code(s): R82.90 - Unspecified abnormal findings in urine Status: Acute Assessment and Plan: Abnormal urinalysis is expected as the patient has a diverting ileostomy. On antibiotics. Urine culture is back. (4) Hypertension: Qualifiers: Hypertension type: unspecified Qualified Code(s): I10 - Essential (primary) hypertension Code(s): I10 - Essential (primary) hypertension Status: Chronic Assessment and Plan: Monitor blood pressure. Continue amlodipine and metoprolol PO. (5) Cancer of overlapping sites of bladder: Code(s): C67.8 - Malignant neoplasm of overlapping sites of bladder Status: Chronic Assessment and Plan: Continue Oncology and Urology recommendations. Additional Plan Subjective Date/time seen: 10/08/19 15:42 Interval history: 78-year-old male with known past medical history of bladder cancer status post radical cystoprostatectomy with pelvic lymphadenectomy and ileal-loop urinary diversion who just recently had bilateral ureteral stents placed by Urology presently creat is 4, potassium is 5.1. Pt to stay in hospital over the weekend for further hydration. Pt having difficulty sleeping in hospital asking for a sleepaid Review of Systems Review of Systems: All systems reviewed & are unremarkable except as noted in HPI and below Cardiovascular: Cardiovascular: Denies leg edema (NO sob ) Exam Const: General: cooperative, healthy appearing, no acute distress, alert, awake and ill appearing chronically; No in distress Nutritional Appearance: well nourished and overweight Orientation/consciousness: oriented to person and patient oriented x3 Chest: Other: right sided port a cath in place++ Resp: Effort & Inspection: normal respiratory effort and no respiratory distress Auscultation: clear to auscultation bilaterally, no rhonchi and no wheezes Cardio: Rate: regular rate Rhythm: regular rhythm Heart sounds: no murmurs GI: Inspection: normal to inspection and other (Ileostomy+ ) Auscultation: normal bowel sounds Skin: General skin exam: normal color and no rashes or lesions noted Neuro: General: oriented to person and patient oriented x3 Cranial nerves: Yes CN's II-XII intact bilaterally and Yes Equal, round and reactive pupils present Speech: normal speech Motor exam (neuro): 5/5 motor strength present throughout Sensory Exam: normal sensation Extrem: General: normal to inspection and no edema Psych: Mental Status: mental status grossly normal Affect: normal affect Objective Data Vital Signs Vital Signs: Vital Signs - 24 hr 10/07/19 22:00 10/08/19 06:00 10/08/19 08:39 Temperature 36.8 C 36.5 C Pulse Rate 86 93 88 Respiratory Rate 18 18 Blood Pressure 158/86 H 154/89 H Pulse Oximetry 100 100 10/08/19 14:00 Temperature 36.5 C Pulse Rate 87 Respiratory Rate 18 Blood Pressure 169/89 H Pulse Oximetry 100 Intake/Output Intake/Output: Intake & Output 10/05/19 10/06/19 10/07/19 10/08/19 23:59 23:59 23:59 23:59 Intake Total 50 3710 1910 2680 Output Total 3150 2400 1725 Balance 50 560 -255 955 Meds/Results Medications: Activ
[2019-10-08] MEDS: ALPRAZolam 0.25 MG TABLET PO ×2 (16:00→23:47)
[2019-10-08] MEDS: MELATONIN 5 MG TABLET 10 MG PO (21:25)
[2019-10-08] MEDS: ZOLPIDEM TARTRATE 5 MG TABLET PO (21:25)
[2019-10-08 22:00] VITALS: BP 144/78; PULSE 85; RESP 20; TEMP 37.1; O2SAT 100
[2019-10-09] MEDS: CENTRAL LINE FLUSH 10 ML IV PUSH ×3 (06:31→14:45)
[2019-10-09 07:01] LABS: Anion Gap 12.1 mmol/L (7-16); Blood Urea Nitrogen 51 mg/dL (9-20); Calcium 8.9 mg/dL (8.4-10.2); Carbon Dioxide 20 mmol/L (22-30); Chloride 112 mmol/L (98-107); Estimated CRCL calculation 13 ml/min; Estimated Glomerular Filt Rate 14; Glucose 95 mg/dL (75-110); Potassium 5.1 mmol/L (3.4-5.0); Sodium 139 mmol/L (137-145)
[2019-10-09 08:40] VITALS: BP 141/84; PULSE 96; RESP 20; TEMP 36.4; O2SAT 100
[2019-10-09] MEDS: amLODIPine BESYLATE 5 MG TABLET PO (08:40)
[2019-10-09] MEDS: METOPROLOL SUCCINATE EXT REL 100 MG TABCR PO (08:40)
[2019-10-09] MEDS: ALPRAZolam 0.25 MG TABLET PO (10:51)
[2019-10-09 11:04] LABS: INR 1.1; Prothrombin Time 14.3 Seconds (11.1-14.7)
[2019-10-09 11:05] LABS: Partial Thromboplastin Time 35.8 SECONDS (22.3-36.8)
[2019-10-09] MEDS: SODIUM CHLORIDE 0.9% IV 1,000 ML 80 ML IV CONT (12:10)
[2019-10-09 14:00] VITALS: BP 133/80; PULSE 84; RESP 18; TEMP 36.7; O2SAT 100
[2019-10-09 14:06] VITALS: BP 142/89; PULSE 85; RESP 16; O2SAT 99
[2019-10-09 14:07] VITALS: BP 139/87; PULSE 92; RESP 16; O2SAT 99
--- NOTE | 2019-10-09 15:03 | PM.IMPN ---
Progress Note: A&P Assessment and Plan (1) Acute renal failure superimposed on stage 3 chronic kidney disease: Qualifiers: Acute renal failure type: unspecified Qualified Code(s): N17.9 - Acute kidney failure, unspecified; N18.3 - Chronic kidney disease, stage 3 (moderate) Code(s): N17.9 - Acute kidney failure, unspecified; N18.3 - Chronic kidney disease, stage 3 (moderate) Status: Acute Assessment and Plan: Cr around 1.6 in June but up to 6.1 on admisison. Renal Ultrasound showing bilateral hydronephrosis with bilateral internal ureteral stents present and status post cystectomy. Urology adn Nephrology following along. Cr has trended down to 4.1 today. Suspect a component of dehydration. Currently on NS. Renal Bx ordered. Continue to follow. (2) Acute hyperkalemia: Code(s): E87.5 - Hyperkalemia Status: Acute Assessment and Plan: Potasium 6.0 but treated and normallized. Potassium up slightly to 5.1 but stable. Continue to monitor. Low potassium diet (3) Abnormal urinalysis: Code(s): R82.90 - Unspecified abnormal findings in urine Status: Acute Assessment and Plan: Abnormal urinalysis is expected as the patient has a diverting ileostomy. UCx growing Coag Negative Staph at 100K colonies that is resistant to Rocephin. BCx NGTD. Pateitn asymptomatic and so doubt acute infection. Stop abx. (4) Hypertension: Qualifiers: Hypertension type: unspecified Qualified Code(s): I10 - Essential (primary) hypertension Code(s): I10 - Essential (primary) hypertension Status: Chronic Assessment and Plan: Patient's blood pressure was reviewed on 10/09/19. Blood pressure remains mostly well controlled. Monitor blood pressure. Continue amlodipine and metoprolol PO. (5) Cancer of overlapping sites of bladder: Code(s): C67.8 - Malignant neoplasm of overlapping sites of bladder Status: Chronic Assessment and Plan: Stable. Continue Urology recommendations. Subjective Date/time seen: 10/09/19 15:03 Interval history: 78yo male with history of bladder cancer status post radical cystoprostatectomy with pelvic lymphadenectomy and ileal-loop urinary diversion who just recently had bilateral ureteral stents placed by Urology here for hyperkalemia. assuming care. Chart reviewed. Patient was able to fall asleep last night with the treatment provided to him. No bowel movements for the past 3 days. No chest pain or shortness of breath. He is up walking in the room and to the bathroom without difficulty. Exam Narrative: Exam Narrative: AF 97.6 139/87 92 16 99% ra Gen - NARD Chest - CTA bilaterally, nml RR CV - RRR S1/S2 Abd - Soft. Nontender. Positive bowel sounds. Urostomy right abdomen with clear yellow urine in bag Ext - No pedal edema Neuro - Alert and oriented. Nonfocal exam. Psych - Nml mood and affect Skin - Warm and dry Objective Data Vital Signs Vital Signs: Vital Signs - 24 hr 10/08/19 22:00 10/09/19 08:40 10/09/19 14:06 Temperature 98.7 F 97.6 F Pulse Rate 85 96 85 Respiratory Rate 20 20 16 Blood Pressure 144/78 H 141/84 H 142/89 H Pulse Oximetry 100 100 99 10/09/19 14:07 Temperature Pulse Rate 92 Respiratory Rate 16 Blood Pressure 139/87 Pulse Oximetry 99 Intake/Output Intake/Output: Intake & Output 10/06/19 10/07/19 10/08/19 10/09/19 23:59 23:59 23:59 23:59 Intake Total 3710 1960 4680 2230 Output Total 3150 2400 2425 1950 Balance 560 -440 2255 280 Meds/Results Medications: Active Medications Generic Name Dose Route Start Last Admin Trade Name Freq PRN Reason Stop Dose Admin Alprazolam 0.25 mg 10/08/19 15:47 10/09/19 10:51 Xanax PO 0.25 mg TID PRN Administration Anxiety Amlodipine Besylate 5 mg 10/08/19 09:10 10/09/19 08:40 Norvasc PO 5 mg QAM TANYA Administration Heparin Sodium (Porcine) 500 units 10/06/19 07
--- NOTE | 2019-10-09 16:45 | PM.DS ---
DS: Admitting Diagnosis Admitting Diagnosis Admitting Diagnosis: Acute kidney failure, unspecified DS: Discharge Diagnosis Discharge Diagnosis (1) Acute renal failure superimposed on stage 3 chronic kidney disease: Qualifiers: Acute renal failure type: unspecified Qualified Code(s): N17.9 - Acute kidney failure, unspecified; N18.3 - Chronic kidney disease, stage 3 (moderate) Code(s): N17.9 - Acute kidney failure, unspecified; N18.3 - Chronic kidney disease, stage 3 (moderate) Status: Acute Assessment and Plan: Cr around 1.6 in June but up to 6.1 on admisison. Renal Ultrasound showing bilateral hydronephrosis with bilateral internal ureteral stents present and status post cystectomy. Urology adn Nephrology following along. Cr has trended down to 4.1 today. Suspect a component of dehydration. Currently on NS. Renal Bx performed on 10/09/19 with results pending (2) Acute hyperkalemia: Code(s): E87.5 - Hyperkalemia Status: Acute Assessment and Plan: Potasium 6.0 but treated and normallized. Potassium up slightly to 5.1 but stable. Low potassium diet (3) Abnormal urinalysis: Code(s): R82.90 - Unspecified abnormal findings in urine Status: Acute Assessment and Plan: Abnormal urinalysis is expected as the patient has a diverting ileostomy. UCx growing Coag Negative Staph at 100K colonies that is resistant to Rocephin. BCx NGTD. Pateitn asymptomatic and so doubt acute infection. Rocephin stopped (4) Hypertension: Qualifiers: Hypertension type: unspecified Qualified Code(s): I10 - Essential (primary) hypertension Code(s): I10 - Essential (primary) hypertension Status: Chronic Assessment and Plan: Patient's blood pressure was reviewed. Blood pressure remained mostly well controlled. We continued amlodipine and metoprolol PO. (5) Cancer of overlapping sites of bladder: Code(s): C67.8 - Malignant neoplasm of overlapping sites of bladder Status: Chronic Assessment and Plan: Stable. Continue Urology recommendations. DS: Summary Hospital Course Reason for hospitalization: 78yo male here for hyperkalemia. Please see H&P for details Hospital Course: As above Time Spent with Patient Time attestation: Total time spent providing and/or coordinating discharge services: Time spent: Greater than 30 minutes Exam Narrative: Exam Narrative: AF 97.6 139/87 92 16 99% ra Gen - NARD Chest - CTA bilaterally, nml RR CV - RRR S1/S2 Abd - Soft. Nontender. Positive bowel sounds. Urostomy right abdomen with clear yellow urine in bag Ext - No pedal edema Neuro - Alert and oriented. Nonfocal exam. Psych - Nml mood and affect Skin - Warm and dry DS: Data Data Completed and Pending Labs on day of discharge: Labs from last 24 hours 10/09/19 10/09/19 10:48 06:26 PT 14.3 INR 1.1 APTT 35.8 Sodium 139 Potassium 5.1 H Chloride 112 H Carbon Dioxide 20 L Anion Gap 12.1 BUN 51 H D Creatinine 4.10 H Estim Creat Clear Calc 13 Estimated GFR 14 L Glucose 95 Calcium 8.9 Preliminary micro results at discharge 10/05/19 21:20 Blood Culture - Preliminary Blood 10/05/19 21:54 Blood Culture - Preliminary Blood Discharge Plan Discharge Attending physician on discharge: Clarence Randhawa Consulting providers: Khurram Lozoya ; Khanh Palomo Discharging Clinician: Clarence Randhawa Anticipated Discharge Date/Time: 10/09/19 16:47 Patient Disposition: Home, Self-Care Activity: as tolerated Diet: renal Discharge Instructions: Please avoid large gathering, wear face coverings in public and practice social distance. Check blood pressure 1 to 2 times a day. Record and bring into doctor for review. Call your doctor if your blood pressure is greater than 180/110. Take precautions to avoid falls. Rise slowly from a lying or sitti
[2019-10-09] MEDS: HEPARIN SOD FLUSH 500 UNITS/5 ML SYRINGE IV PUSH (17:25)
--- NOTE | 2019-10-09 22:54 | PM.PNNEP ---
Progress Note: A&P Assessment and Plan (1) Acute renal failure superimposed on stage 3 chronic kidney disease: Qualifiers: Acute renal failure type: unspecified Qualified Code(s): N17.9 - Acute kidney failure, unspecified; N18.3 - Chronic kidney disease, stage 3 (moderate) Code(s): N17.9 - Acute kidney failure, unspecified; N18.3 - Chronic kidney disease, stage 3 (moderate) Status: Acute Assessment and Plan: The patient has chronic kidney disease. His creatinine has gradually risen over the years To a level of 2.4 in August. This component of renal disease is most likely due to hypertensive nephrosclerosis. Since then his creatinine worsened to 5 or higher. Etiology for this rise is unclear. Obstruction has been relieved without improvement in creatinine. We have given some IV fluids in the creatinine improved slightly to 4.0 but not very much. We again discussed renal biopsy over the phone earlier Just after 11:00 a.m.. I think we should proceed. We discussed risks benefits alternatives and the procedure and the patient was willing to proceed I saw the patient physically after the dialysis at around 4:00 p.m.. He is doing well. He is eager for discharge if he can go home. (2) Acute hyperkalemia: Code(s): E87.5 - Hyperkalemia Status: Acute Assessment and Plan: Resolved (3) Hypertension: Qualifiers: Hypertension type: unspecified Qualified Code(s): I10 - Essential (primary) hypertension Code(s): I10 - Essential (primary) hypertension Status: Chronic Assessment and Plan: His blood pressure is A bit higher today on the metoprolol. Will start amlodipine again. He was on this in the past. (4) Cancer of overlapping sites of bladder: Code(s): C67.8 - Malignant neoplasm of overlapping sites of bladder Status: Chronic Assessment and Plan: As above (5) Gout, unspecified: Qualifiers: Chronicity: chronic Gout etiology: unspecified cause Gout site: unspecified site Presence of tophus: without tophus Qualified Code(s): M1A.9XX0 - Chronic gout, unspecified, without tophus (tophi) Code(s): M10.9 - Gout, unspecified Status: Chronic Assessment and Plan: the patient has not had gout for many years. holding allopurinol. Subjective Date/time seen: 10/09/19 4 p.m. Interval history: The patient feels okay today. No chest pain or shortness of breath. Eating okay. Review of Systems Cardiovascular: Cardiovascular: Reports no additional cardiovascular complaints Respiratory: Respiratory: Reports no additional respiratory complaints Gastrointestinal: Gastrointestinal: Reports no additional gastrointestinal complaints Genitourinary: Genitourinary: Reports no additional male genitourinary complaints Exam Narrative: Exam Narrative: WDWN in NAD skin no rash or subcu nodules head ncat lungs clear Bilaterally cor reg no rub abd BS+ nontender and soft ext no edema. Objective Data Vital Signs Vital Signs: Vital Signs - 24 hr 10/09/19 08:40 10/09/19 14:00 10/09/19 14:06 Temperature 36.4 C 36.7 C Pulse Rate 96 84 85 Respiratory Rate 20 18 16 Blood Pressure 141/84 H 133/80 142/89 H Pulse Oximetry 100 100 99 10/09/19 14:07 Temperature Pulse Rate 92 Respiratory Rate 16 Blood Pressure 139/87 Pulse Oximetry 99 Intake/Output Intake/Output: Intake & Output 10/06/19 10/07/19 10/08/19 10/09/19 23:59 23:59 23:59 23:59 Intake Total 3710 1960 4680 3830 Output Total 3150 2400 2425 3500 Balance 560 -440 2255 330 Meds/Results Radiology Results: ITS Impressions Chest X-Ray 10/05/19 17:32 Impression: 1: Bibasilar airspace disease which may represent atelectasis, fibrosis and/or developing pneumonia. Renal Ultrasound 10/06/19 17:52 Impression: 1: Bilateral hydronephrosis with bilateral internal ureteral stents present. Status
--- NOTE | 2019-10-17 10:56 | PC.NURSE ---
Renal biopsy report results called to Dr. Lozoya per pathologist on 10/10/2019at 4:12 pm.
== END 2019-10-09 17:35 | disposition home or self-care (01) | DRG 684 ==
LOC: ANHED 18:21 → ANHIMU 18:46 → ANH3MEDSUR 10-09 06:47 → ANHIMU 10-11 09:28
PROVIDERS: Internal Medicine Nephrology; Radiology Diagnostic Radiology; Admitting Provider Family Medicine; Emergency Provider Emergency Medicine; PCP Internal Medicine; Visit Provider Internal Medicine
DX: N17.9 Acute kidney failure, unspecified (principal); C67.8 Malignant neoplasm of overlapping sites of bladder; I12.9 Hypertensive chronic kidney disease with stage 1 through stage 4 chronic kidney disease, or unspecified chronic kidney disease; N18.3 Chronic kidney disease, stage 3 (moderate); N13.30 Unspecified hydronephrosis; E87.5 Hyperkalemia; R82.90 Unspecified abnormal findings in urine; E78.2 Mixed hyperlipidemia; M1A.9XX0 Chronic gout, unspecified, without tophus (tophi); Z87.891 Personal history of nicotine dependence; Z90.6 Acquired absence of other parts of urinary tract; Z90.79 Acquired absence of other genital organ(s); Z93.2 Ileostomy status; Z96.0 Presence of urogenital implants
CPT/HCPCS: 36415; 50200; 71045; 74018; 76775; 76942; 80048; 80053; 80069; 81001; 82570; 84156; 84300; 85025; 85610; 85730; 87040; 87077; 87086; 87088; 87186; 88300; 88305; 88313; 88329; 88346; 88348; 88350; 93005; 96361; 96365; 96375; 99285; A9270; G0378; J0360; J0696; J2405; J7030

== ENCOUNTER 2019-10-16 09:04 | Outpatient (CLI) | payer MEDICARE, SELFPAY ==
[2019-10-16 13:07] LABS: Albumin Level 4.1 g/dL (3.5-5.1); Anion Gap 13 mmol/L (8-16); Blood Urea Nitrogen 47 mg/dL (9-20); Calcium 9.5 mg/dL (8.4-10.2); Carbon Dioxide 20 mmol/L (22-30); Chloride 101 mmol/L (98-107); Estimated Glomerular Filt Rate 15; Glucose 104 mg/dL (75-110); Phosphorus 5.8 mg/dL (2.5-4.5); Potassium 6.2 mmol/L (3.4-5.0); Sodium 134 mmol/L (137-145)
--- NOTE | 2019-10-16 13:58 | PC.NURSE ---
Received call from lab with critical potassium of 6.2. Faxed K+ to Dr. Jung's office.
== END 2019-10-16 09:05 | disposition home or self-care (01) ==
PROVIDERS: PCP Internal Medicine; Visit Provider Internal Medicine
DX: N18.3 Chronic kidney disease, stage 3 (moderate) (principal)
CPT/HCPCS: 36415; 80069

== ENCOUNTER 2019-10-17 21:36 | Emergency (ER) | payer MEDICARE, SELFPAY ==
[2019-10-17 21:39] VITALS: BP 154/82; PULSE 95; RESP 20; TEMP 36.7; O2SAT 100
--- NOTE | 2019-10-17 21:46 | ED.RECABL ---
HPI - Recheck/Abnormal Lab/Rx General Chief Complaint: Recheck/Abnormal Lab/Rx Stated Complaint: high potassium Time Seen by Provider: 10/17/19 21:39 History of Present Illness HPI narrative: Recent admission to the hospital for renal failure. Had follow-up labs drawn yesterday morning and they called him tonight to tell him his potassium was high and he needed to be seen. He denies any symptoms. He reports good urine output. Related Data Allergies Allergy/AdvReac Type Severity Reaction Status Date / Time No Known Allergies Allergy Verified 10/17/19 22:59 Review of Systems Review of Systems: All systems reviewed & are unremarkable except as noted in HPI and below Constitutional: Constitutional: Denies fever(s) and Denies weakness Cardiovascular: Cardiovascular: Denies chest pain, Denies rapid heart rate and Denies slow heart rate Respiratory: Respiratory: Denies dyspnea Gastrointestinal: Gastrointestinal: Denies abdominal pain and Denies nausea Genitourinary: Genitourinary: Denies hematuria and Denies oliguria Neurologic: Denies syncope, Denies numbness and Denies weakness [facility] Past Medical History Medical History Atrial tachycardia Bladder cancer Cancer of overlapping sites of bladder Cellulitis Chronic renal failure, stage 3 (moderate) Contact dermatitis Essential (primary) hypertension Gout, unspecified Hypertension Malignant neoplasm of dome of urinary bladder Mixed hyperlipidemia Port-A-Cath in place Shingles Surgical History Surgical History History of cataract extraction History of ileal conduit History of inguinal hernia repair History of prostatectomy History of tonsillectomy History of transurethral resection of prostate Family History Family History Father Family history of lung cancer Father Family history of cardiovascular disease Social History Social History Social History: Patient quit smoking in 1979. He smoked about a pack a cigarettes a day for 20 years. Patient occasionally drinks a beer. He has 2 children. A boy and a girl. Power of assistant district attorney is Carla Lam. He is a full code. He lives alone. He is retired from [employer]. Smoking packs per day: 1 Smoking cigarettes per day: 20.0 Years smoked: 15 Smoking pack-years: 15.00 Smoking status: Former smoker Tobacco type: cigarettes Smoking end date: 03/08/79 Additional smoking assessment comments: 1979 Alcohol intake: current Drinks per week: 3 Substance use: never Substance use type: does not use Gender identity (if verbalized by the patient): Male Spiritual care concerns: No Agree to blood products: Yes Exam Const: General: healthy appearing, no acute distress and alert Orientation/consciousness: patient oriented x3 HENMT: Head: normal to inspection Neck: Neck: normal visual inspection and no lymphadenopathy Chest: Chest palpation & inspection: no tenderness Resp: Effort & Inspection: normal respiratory effort Auscultation: clear to auscultation bilaterally, no rales, no rhonchi and no wheezes Cardio: Jugular venous distension: no JVD Rate: regular rate Rhythm: regular rhythm Heart sounds: no murmurs GI: Inspection: non-distended GI Palp: Yes Soft to palpation and No Tenderness to palpation present (GI) Skin: General skin exam: normal color Neuro: General: patient oriented x3 and moves all extremities Speech: normal speech Extrem: General: no edema Psych: Appearance: well kempt Affect: normal affect Course Course Emergency Course: I discussed the case with Dr. Lozoya. Potassium. Normal. No action needed. He can follow-up as an outpatient. Vital Signs Vital signs: Vital Signs Temperature 36.7 C 10/17/19 21:39 Pulse Rate 95
--- NOTE | 2019-10-17 21:50 | ECG_ITS ---
Measurements Intervals [place] Rate: 85 P: -17 DE: 125 QRS: -29 QRSD: 126 T: -5 QT: 387 QTc: 462 Interpretive Statements SINUS RHYTHM POSSIBLE LEFT ATRIAL ENLARGEMENT RIGHT BUNDLE BRANCH BLOCK POSSIBLE LEFT VENTRICULAR HYPERTROPHY ABNORMAL ECG Electronically Signed On 10-18-2019 7:15:23 CDT by Rajendra Parker D.O.
[2019-10-17 22:03] LABS: Basophils Percent Auto 0.4 % (0.2-1.2); Eosinophils Absolute Auto 0.2 K/mm3 (0-0.3); Hematocrit 28.7 % (42.0-52.0); Hemoglobin 9.3 g/dL (14.0-18.0); Immature Granulocyte Absolute 0.07 K/mm3 (0.00-0.031); Immature Granulocyte Percent A 0.7 % (0-0.5); Lymphocytes Absolute Auto 1.05 K/mm3 (0.9-3.2); Lymphocytes Percent Auto 10.8 % (18.3-44.2); Mean Corpuscular HGB Conc 32.4 g/dl (32-36); Mean Corpuscular Hemoglobin 31.3 pg (26-34); Mean Corpuscular Volume 96.6 fl (80-100); Mean Platelet Volume 9.8 fl (7.4-10.4); Monocytes Absolute Auto 1.1 K/mm3 (0.1-0.6); Monocytes Percent Auto 11.4 % (2.6-8.5); Neutrophils Absolute Auto 7.3 K/mm3 (1.3-6.7); Neutrophils Percent Auto 74.7 % (45.5-73.1); Platelet Count Result 464 k/mm3 (150-375); Red Blood Count 2.97 M/mm3 (4.6-6.20); Red Cell Distribution Width 15.1 % (11.5-14.5); White Blood Count 9.7 K/mm3 (4.5-10.0)
[2019-10-17 22:12] LABS: Anion Gap 13 mmol/L (8-16); Blood Urea Nitrogen 48 mg/dL (9-20); Calcium 9.2 mg/dL (8.4-10.2); Carbon Dioxide 21 mmol/L (22-30); Chloride 100 mmol/L (98-107); Estimated CRCL calculation 12 ml/min; Estimated Glomerular Filt Rate 14; Glucose 130 mg/dL (75-110); Potassium 4.4 mmol/L (3.4-5.0); Sodium 134 mmol/L (137-145)
[2019-10-17 22:23] VITALS: BP 111/65; PULSE 87; RESP 18; O2SAT 99
[2019-10-17 22:59] VITALS: BP 120/65; PULSE 87; RESP 18; O2SAT 98
== END 2019-10-17 23:01 | disposition home or self-care (01) ==
PROVIDERS: Emergency Provider Emergency Medicine; PCP Internal Medicine
DX: I12.9 Hypertensive chronic kidney disease with stage 1 through stage 4 chronic kidney disease, or unspecified chronic kidney disease (principal); N18.3 Chronic kidney disease, stage 3 (moderate); Z87.891 Personal history of nicotine dependence; Z85.51 Personal history of malignant neoplasm of bladder; M10.9 Gout, unspecified; E78.2 Mixed hyperlipidemia; Z90.79 Acquired absence of other genital organ(s); Z98.49 Cataract extraction status, unspecified eye; I45.10 Unspecified right bundle-branch block; R94.31 Abnormal electrocardiogram [ECG] [EKG]
CPT/HCPCS: 36415; 80048; 85025; 93005; 99283

== ENCOUNTER 2019-10-26 09:10 | Outpatient (CLI) | payer MEDICARE, SELFPAY ==
[2019-10-26 12:08] LABS: Albumin Level 4.2 g/dL (3.5-5.1); Anion Gap 16 mmol/L (8-16); Blood Urea Nitrogen 60 mg/dL (9-20); Calcium 9.3 mg/dL (8.4-10.2); Carbon Dioxide 15 mmol/L (22-30); Chloride 98 mmol/L (98-107); Estimated Glomerular Filt Rate 14; Glucose 107 mg/dL (75-110); Phosphorus 4.2 mg/dL (2.5-4.5); Potassium 5.1 mmol/L (3.4-5.0); Sodium 129 mmol/L (137-145)
== END 2019-10-26 09:11 | disposition home or self-care (01) ==
PROVIDERS: PCP Internal Medicine; Visit Provider Internal Medicine
DX: N18.3 Chronic kidney disease, stage 3 (moderate) (principal)
CPT/HCPCS: 36415; 80069

== ENCOUNTER 2019-11-04 11:50 | Inpatient (IN) | payer MEDICARE, SELFPAY ==
[2019-11-04] VITALS (9 sets, daily range): BP systolic 101–136; BP diastolic 60–84; PULSE 77–92; RESP 17–25; TEMP 36.3–36.9; O2SAT 96–100; BMI 25.4
--- NOTE | ~2019-11-04 | XR_ITS ---
EXAMINATION: XR chest 1V portable INDICATION: COVID pneumonia, shortness of breath TECHNIQUE: Portable AP chest at 0537 hours COMPARISON: 11/04/2019 FINDINGS: A right internal jugular Port-A-Cath ends with its tip in the distal superior vena cava. rspace opacities of the mid and lower lung zones persist with slight interval improvement. There is n o pleural effusion or pneumothorax. The heart size is normal. IMPRESSION: 1. Airspace opacities of the mid and lower lung zones with slight improvement, consistent with pulmon mendez edema versus pneumonia versus atelectasis. Reviewed, dictated and finalized at location A. IMPRESSION: 1. Airspace opacities of the mid and lower lung zones with slight improvement, consistent with pulmonary edema versus pneumonia versus atelectasis.
--- NOTE | ~2019-11-04 | US_ITS ---
EXAMINATION: US venous doppler [facility] DATE: 11/07/2019 09:56 INDICATION: Shortness of breath TECHNIQUE: Ortiz scale images without and with compression and Doppler images of the bilateral lower e xtremity veins were obtained. COMPARISON: None FINDINGS: The right common femoral vein, profunda femoral vein, femoral vein, popliteal vein, peroneal trunk, p osterior tibial veins, and greater saphenous vein are patent. The left common femoral vein, profunda femoral vein, femoral vein, popliteal vein, peroneal trunk, po sterior tibial veins, and greater saphenous vein are patent. IMPRESSION: 1. Patent bilateral lower extremity veins. No evidence of deep venous thrombosis. Reviewed, dictated and finalized at location A. IMPRESSION: 1. Patent bilateral lower extremity veins. No evidence of deep venous thrombosi s.
--- NOTE | ~2019-11-04 | NM_ITS ---
NM pulmonary perfusion INDICATION: Shortness of breath. Elevated d-dimer. TECHNIQUE: Following ventilation scan, 5.2 mCi Tc 99m MAA was injected intravenously for perfusion im ages. Multiple images were then acquired. COMPARISON: Chest x-ray dated 11/04/2019 FINDINGS: The comparison chest radiograph demonstrates mild interstitial edema. Perfusion scan demons trates mild blunting of the left costophrenic recess posteriorly, likely from small effusion. No sign ificant parenchymal perfusion abnormality is seen. IMPRESSION: 1: Small posterior perfusion abnormality left lower lobe posteriorly, likely secondary to effusion. O therwise, unremarkable perfusion scan. Reviewed, dictated and finalized at location A. IMPRESSION: 1: Small posterior perfusion abnormality left lower lobe posteriorly, likely se condary to effusion. Otherwise, unremarkable perfusion scan.
--- NOTE | ~2019-11-04 | XR_ITS ---
EXAMINATION: XR abdomen/kub 1V DATE: 11/06/2019 16:34 INDICATION: Check ureteral stents TECHNIQUE: A supine view of the abdomen was obtained. COMPARISON: 10/03/2019 and 09/07/2019 FINDINGS: No interval change in position with a pair of retrograde ureteral stents likely originated a right lo wer quadrant loop ileostomy with proximal coiled ends of the catheters project over the expected loca tion of the right renal pelvis and an upper pole calyx of the left kidney. There are couple nonspecif ic gas-filled but not frankly dilated loops of small bowel in the left abdomen. Mild reticular opacit ies at the bilateral lower lung zones which could represent atelectasis, pulmonary edema or pneumonia . There are bridging osteophytes at multiple levels in the spine, consistent with diffuse idiopathic skeletal hyperostosis (DISH). IMPRESSION: 1. Unchanged bilateral retrograde ureteral stents with loops in expected positions. 2. Nonspecific bowel gas pattern with couple gas-filled but not frankly dilated loops of small bowel in the left abdomen which could be seen with ileus. 3. Mild bibasilar lung disease which could represent atelectasis, mild pulmonary edema or pneumonia. Reviewed, dictated and finalized at location B. IMPRESSION: 1. Unchanged bilateral retrograde ureteral stents with loops in expected positi ons. 2. Nonspecific bowel gas pattern with couple gas-filled but not frankly dilated loops of small bowel in the left abdomen which could be seen with ileus. 3. Mild bibasilar lung disease which could represent atelectasis, mild pulmonar y edema or pneumonia.
--- NOTE | ~2019-11-04 | CT_ITS ---
EXAMINATION:CT chest wo con DATE: 11/06/2019 13:57 INDICATION: Shortness of breath. Fever. TECHNIQUE: Computed tomography (CT) of the chest was performed without intravenous contrast. Automate d exposure control and iterative reconstruction technique were employed. The dose-length product (DLP ) was 200.91 mGy-cm. COMPARISON: Chest single view 11/04/2019, CT abdomen and pelvis 08/10/2019, PET/CT 01/26/2019 FINDINGS: There are widespread chronic peripheral reticular opacities in the lungs. There are areas o f new groundglass opacity involving all lobes with a peripheral and lower lung predominance. Calcifie d bilateral lung nodules and calcified left hilar and subcarinal lymph nodes are consistent with old granulomatous disease. There are a few scattered nodules in the lungs measuring up to 7 mm in right u pper lobe. There is a 9 mm nodule in right upper lobe in an area of groundglass opacity. There is mil d bronchiectasis in the lungs with a lower lung predominance. There are areas of peripheral honeycomb ing in the lungs bilaterally. No pleural effusion. The heart size is normal. There are coronary arter y calcifications. No pericardial effusion. There is a right internal jugular port with tip in proxima l right atrium. Calcifications in the liver and spleen are consistent with old granulomatous disease. Partially visualized is a left internal ureteral stent. There are bridging endplate osteophytes at m ultiple levels in the spine, consistent with diffuse idiopathic skeletal hyperostosis (DISH). IMPRESSION: 1. Worsened diffuse lung disease, likely mild pulmonary edema superimposed on chronic interstitial freddy ng disease in a pattern of usual interstitial pneumonia (UIP). 2. Pulmonary nodules, new from 01/26/2019, consistent with infection versus metastatic disease. Reviewed, dictated and finalized at location A. IMPRESSION: 1. Worsened diffuse lung disease, likely mild pulmonary edema superimposed on c hronic interstitial lung disease in a pattern of usual interstitial pneumonia ( UIP). 2. Pulmonary nodules, new from 01/26/2019, consistent with infection versus met astatic disease.
--- NOTE | ~2019-11-04 | XR_ITS ---
EXAMINATION: XR chest 1V portable DATE: 11/04/2019 13:16 INDICATION: Shortness of breath TECHNIQUE: frontal view of the chest was obtained. COMPARISON: Chest radiograph dated 10/05/2019 FINDINGS: Right internal jugular central venous port catheter with distal tip in the midsuperior vena cava. No significant interval change accounting for differences in technique in the chronic coarse reticular o pacities with basilar predominance consistent with usual interstitial pneumonia (UIP) pattern chronic interstitial lung disease which is better appreciated on prior CT studies. No pleural effusion or pn eumothorax. Cardiomediastinal silhouette is within normal limits for AP technique. IMPRESSION: 1. Bilateral chronic coarse reticular opacities with basilar predominance consistent with chronic int erstitial lung disease. Cannot exclude superimposed mild pulmonary edema or pneumonia. Reviewed, dictated and finalized at location A. IMPRESSION: 1. Bilateral chronic coarse reticular opacities with basilar predominance consi stent with chronic interstitial lung disease. Cannot exclude superimposed mild pulmonary edema or pneumonia.
[2019-11-04 13:41] LABS: Basophils Percent Auto 0.1 % (0.2-1.2); Hematocrit 21.4 % (42.0-52.0); Hemoglobin 7.5 g/dL (14.0-18.0); Immature Granulocyte Absolute 0.07 K/mm3 (0.00-0.031); Immature Granulocyte Percent A 0.6 % (0-0.5); Lymphocytes Absolute Auto 0.14 K/mm3 (0.9-3.2); Lymphocytes Percent Auto 1.2 % (18.3-44.2); Mean Corpuscular Hemoglobin 31.5 pg (26-34); Mean Corpuscular Volume 89.9 fl (80-100); Mean Platelet Volume 9.9 fl (7.4-10.4); Monocytes Absolute Auto 0.4 K/mm3 (0.1-0.6); Monocytes Percent Auto 3.9 % (2.6-8.5); Neutrophils Absolute Auto 10.6 K/mm3 (1.3-6.7); Neutrophils Percent Auto 94.2 % (45.5-73.1); Platelet Count Result 273 k/mm3 (150-375); Red Blood Count 2.38 M/mm3 (4.6-6.20); Red Cell Distribution Width 14.2 % (11.5-14.5); White Blood Count 11.3 K/mm3 (4.5-10.0)
[2019-11-04] MEDS: SODIUM CHLORIDE 0.9% IV 1,000 ML 150 ML IV CONT (13:45)
[2019-11-04 13:53] LABS: INR 1.1; Prothrombin Time 13.4 Seconds (11.1-14.7)
[2019-11-04 13:57] LABS: Alanine Aminotransferase 22 U/L (4-50); Albumin Level 3.8 g/dL (3.5-5.1); Alkaline Phosphatase 307 U/L (38-126); Anion Gap 14 mmol/L (8-16); Aspartate Amino Transferase 44 U/L (17-59); Bilirubin,Total 0.3 mg/dL (0.2-1.3); Blood Urea Nitrogen 58 mg/dL (9-20); Calcium 8.4 mg/dL (8.4-10.2); Carbon Dioxide 13 mmol/L (22-30); Chloride 96 mmol/L (98-107); Estimated CRCL calculation 11 ml/min; Estimated Glomerular Filt Rate 12; Glucose 123 mg/dL (75-110); Potassium 5.4 mmol/L (3.4-5.0); Sodium 123 mmol/L (137-145)
[2019-11-04 14:05] LABS: NT Pro B Type Natriuretic Pept 5330 PG/ML (5-100)
--- NOTE | 2019-11-04 15:05 | PC.NURSE ---
Report given to RENÉ Kramer
--- NOTE | 2019-11-04 15:06 | PC.NURSE ---
Urostomy noted to right abdomen. Ostomy has good color and is not painful. There is no pain reported around the ostomy as well. Patient does have a stent in place. It is noted to be hanging out of the ostomy. Patient is aware, reports that this happens and that his urologist (Dewey) told him to just push it back in . He reports that urostomy bag was last changed on 11/04/2019.
[2019-11-04 15:24] LABS: Add Urine Microscopic? YES; Appearance Urine Cloudy (Clear); Bacteria Urine Trace /hpf; Bilirubin Urine Negative (Negative); Blood Urine 3+ (Negative); Color Urine Yellow (Yellow); Glucose Urine UA Negative (Negative); Ketones Urine Negative (Negative); Leukocyte Esterase Ur 3+ LEU/UL (Negative); Nitrate Urine Negative (Negative); Protein Urine 1+ mg/dL (Negative); RBC Urine 51-75 /hpf (0-2); Urobilinogen Urine Negative mg/dL (<2.0); WBC Urine 31-50 /hpf
--- NOTE | 2019-11-04 15:45 | PM.IMHP ---
H&P: HPI History of Present Illness Date/Time: 11/04/19 15:45 Chief complaint: Hyponatremia, CKD Narrative: Stu Raphael is a 78 year old maleWho has a history of chronic renal failure stage 3 to 4. The patient was just discharged from here on 10/09/2019. His been seen by Dr. Lozoya. Patient stated that he had some kidney stents placed Last month. He had bilateral hydro nephrosis with bilateral internal stents that were placed. His a history of post cystectomy and ileal conduit. His creatinine will back down to 4.1 upon discharge that day. He had a renal biopsy on 10/09/2019. He has been on a low-potassium diet because his potassium is been high. At that time the patient had a urine culture growing coag-negative staph that was resistant to Rocephin. Patient was asymptomatic so was felt that maybe this was colonized. The patient has been more weak than normal. He has a history of bladder cancer status post radical cystoprostatectomy with pelvic lymphadenopathy and ileal loop urinary diversion. He has had a poor appetite but no nausea vomiting no diarrhea. He has not had any Fever or chills. I did consult Nephrology due to his sodium now being 123. Nine days ago was 129. His potassium is now 5.4. His creatinine is now 4.6 with BUN 58. GFR is 12. There was some talk about dialysis in the past but he is currently not on dialysis. His ileostomy bag is draining cloudy yellow urine. BNP is 5330. Chest x-ray was read as bilateral chronic coarse reticular opacities with basilar predominance consistent with chronic interstitial lung disease cannot exclude superimposed mild pulmonary edema or pneumonia. Patient's last radiation he believes was in July and he has completed his course. Patient's last chemotherapy was about a year and half ago. It is believed that his bladder cancer is not detectable at this time. Patient was started on normal saline. The patient is also short of breath with exertion. No complaints of chest pain. A V/Q scan has been ordered. Date of service 11/04/2019 Review of Systems Review of Systems: All systems reviewed & are unremarkable except as noted in HPI and below Constitutional: Constitutional: Reports as per HPI and Reports no additional constitutional complaints Eyes: Eyes: Reports as per HPI and Reports no additional eye complaints ENT: Reports system reviewed and no additional complaints, except as documented and Reports Normal hearing present Cardiovascular: Cardiovascular: Reports no additional cardiovascular complaints Respiratory: Respiratory: Reports no additional respiratory complaints and Reports no additional respiratory complaints Gastrointestinal: Gastrointestinal: Reports as per HPI and Reports no additional gastrointestinal complaints Musculoskeletal: Musculoskeletal: Reports no additional musculoskeletal complaints Integumentary/Breasts: Skin/Breast: Reports system reviewed and no additional complaints, except as docu and Reports as per HPI Neurologic: Reports system reviewed and no additional complaints, except as documented, Reports as per HPI and Reports Normal hearing present Psychiatric: Psychiatric: Reports no additional psychiatric complaints and Reports as per HPI Endocrine: Endocrine: Reports no additional endocrine complaints Hematologic/Lymphatic: Hematologic/Lymphatic: Reports no additional hematologic/lymphatic complaints Allergic/Immunologic: Allergic/Immunologic: Reports no additional allergic/immunologic complaints [facility] Past Medical History Medical History (Updated 11/04/19 @ 16:03 by Krysten Colon NP) Atrial tachycardia Bladder cancer history of chemotherapy approximately year and half ago with radiation treatment last time about July of 2019 Cancer of overlapping sites of bladder Cellulitis Chronic renal failure, stage 3 (moderate) Contact dermatitis Essential (primary) hypertension Gout, unspecified Hypertension Malignant neoplasm of dome of u
--- NOTE | 2019-11-04 17:17 | PC.NURSE ---
Patient to nuclear medicine at this time.
--- NOTE | 2019-11-04 17:46 | ED.WEAKNESS ---
HPI - Weakness General Chief complaint: Weakness Stated complaint: weakness, recent UTI Time Seen by Provider: 11/04/19 12:37 Source: patient and family Mode of arrival: ambulatory Limitations: no limitations History of Present Illness HPI Narrative: 78-year-old with a history of bladder cancer s/p cystoprostatectomy, CKD, hypertension, gout,, hyperlipidemia here with complaints of marked weakness, shortness of breath for past few weeks. Patient states that he has seen Dr. Wells in his office few days ago had a urine culture done with pending results. He states that his weakness is progressively getting worse. He denies any chest pain. No history of nausea or vomiting. He states that he with minimal ambulation he gets exhausted. Patient also states that he had a recent stents in the ureter. Complaint: generalized weakness Onset (ago): week(s) (1) Duration: constant Location: generalized Migration: none Severity: moderate Relieving factors: none Exacerbating factors: none Related Data Home Medications Medication Instructions Recorded Confirmed cephalexin 500 mg PO DAILY 11/04/19 metoprolol succinate 50 mg PO DAILY 11/04/19 Allergies Allergy/AdvReac Type Severity Reaction Status Date / Time No Known Allergies Allergy Verified 11/04/19 12:33 Review of Systems Review of Systems: All systems reviewed & are unremarkable except as noted in HPI and below Constitutional: Constitutional: Reports no additional constitutional complaints PMF[facility] Past Medical History Medical History Atrial tachycardia Bladder cancer history of chemotherapy approximately year and half ago with radiation treatment last time about July of 2019 Cancer of overlapping sites of bladder Cellulitis Chronic renal failure, stage 3 (moderate) Contact dermatitis Essential (primary) hypertension Gout, unspecified Hypertension Malignant neoplasm of dome of urinary bladder Mixed hyperlipidemia Port-A-Cath in place right chest Shingles Surgical History Surgical History History of cataract extraction History of ileal conduit History of inguinal hernia repair History of prostatectomy History of renal stent bilaterally History of tonsillectomy History of transurethral resection of prostate Family History Family History Father Family history of lung cancer Father Family history of cardiovascular disease Mother due to natural causes Social History Social History Social History: Patient quit smoking in 1979. He smoked about a pack a cigarettes a day for 20 years. Patient occasionally drinks a beer. He has 2 children. A boy and a girl. Power of staff attorney is Carla Lam. He is a full code. He lives alone. He is retired from [employer]. he is . He denies any marijuana or illicit drugs. Smoking packs per day: 1 Smoking cigarettes per day: 20.0 Years smoked: 15 Smoking pack-years: 15.00 Smoking status: Former smoker Tobacco type: cigarettes Smoking end date: 03/08/79 Additional smoking assessment comments: 1979 Alcohol intake: current Drinks per week: 3 Substance use: never Substance use type: does not use Gender identity (if verbalized by the patient): Male Spiritual care concerns: No Agree to blood products: Yes Exam Narrative: Exam Narrative: GENERAL: Ill-appearing, thin, and in no acute distress. HEAD: Normocephalic, atraumatic. EYES: PERRLA and EOMI. ENT: Nares clear, no rhinorrhea or epistaxis. Mucous membranes moist. NECK: Supple. CHEST: Clear to auscultation. No respiratory distress. has a port on the rt side of the chest HEART: Regular rate and rhythm. No murmur heard. Normal peripheral pulses. ABDOMEN: Soft, nontender, nondistended, normal active bowel sounds. hill
[2019-11-04 17:54] LABS: Anion Gap 14 mmol/L (8-16); Blood Urea Nitrogen 61 mg/dL (9-20); Calcium 8.2 mg/dL (8.4-10.2); Carbon Dioxide 13 mmol/L (22-30); Chloride 97 mmol/L (98-107); Estimated CRCL calculation 11 ml/min; Estimated Glomerular Filt Rate 12; Glucose 110 mg/dL (75-110); Sodium 124 mmol/L (137-145)
--- NOTE | 2019-11-04 18:11 | PM.CNNEP ---
Assessment and Plan Assessment and plan (1) Acute renal failure: Qualifiers: Acute renal failure type: unspecified Qualified Code(s): N17.9 - Acute kidney failure, unspecified Code(s): N17.9 - Acute kidney failure, unspecified Status: Acute (2) CKD (chronic kidney disease) stage 3, GFR 30-59 ml/min: Code(s): N18.3 - Chronic kidney disease, stage 3 (moderate) Status: Acute (3) Hyponatremia: Code(s): E87.1 - Hypo-osmolality and hyponatremia Status: Acute (4) Acute hyperkalemia: Code(s): E87.5 - Hyperkalemia Status: Acute (5) Essential (primary) hypertension: Code(s): I10 - Essential (primary) hypertension Status: Chronic (6) Bladder cancer: Qualifiers: Bladder location: unspecified site Qualified Code(s): C67.9 - Malignant neoplasm of bladder, unspecified Code(s): C67.9 - Malignant neoplasm of bladder, unspecified Status: Chronic (7) Generalized weakness: Code(s): R53.1 - Weakness Status: Acute (8) Anemia: Code(s): D64.9 - Anemia, unspecified Status: Acute Assessment and Plan: . Additional Plan Stu has chronic kidney disease in association with a acute kidney injury (has not recovered since last hospitalization), acute hyponatremia, and mildly elevated K+ level and worsening acidosis. His acute kidney injury/ acute renal failure was biopsy proven to be secondary to acute tubular injury/acute tubular necrosis although it is it would seem clear that it has failed to improve the overall kidney function. His generalized weakness could be secondary to his worsened kidney function in comparison to baseline and of course the bigger concern would be that if this is perhaps his new baseline kidney function/creatinine in general despite the fact that his renal biopsy showed evidence of acute tubular necrosis which usually recovers. Other factors that may be playing a role with regard to his generalized weakness include his anemia, possible urinary tract infection, hyponatremia, and failure of his kidney function to return back to baseline. There is not much to be done about his kidney function given the aforementioned renal biopsy results but I will add sodium bicarbonate to help to try andcompensate for his metabolic acidosis which is likely related to his renal dysfunction. His hyponatremia is likely multifactorial duct that done he admits to drinking almost 3 L of water a day as he was told that he should to avoid dehydration given his renal dysfunction. I suspect that excessive free water intake coupled with his renal defer dysfunction as is probably led to his sodium level as is. I will follow the trend of serial sodium levels to ensure that over correction does not occur and also check a TSH, cortisol level, SPEP, UPEP, and serum and urine osmolality to ensure no other etiology is present. I will continue follow patient with you while remains hospitalized and make further recommendations during his hospital course. Thank you for allowing me to participate in care this patient. History of Present Illness Reason for Consult Consult date: 11/04/19 Reason for consult: chronic renal failure and hyponatremia Chief Complaint Chief complaint: Hyponatremia, CKD History of Present Illness Narrative: The patient is a 78-year-old male with a past medical history as outlined below who presents to [facility] ER with complaints of generalized weakness and shortness of breath. The patient states that these symptoms have been going on for the past few weeks. He does mention that he has followed up with Dr. Palomo in his office with regard to his complex history regarding his bladder cancer status post cystoprostatectomy with creation of an ileal conduit and recent ureteral stent placement for bilateral hydronephrosis. He had a recent urine testing done but he is unclear what results of these
--- NOTE | 2019-11-04 18:12 | ADMGEN ---
This patient, Stu Raphael, was admitted to 2 Medical Room 240-01. Patient/family oriented to hospital policies and general routines including ID bracelet, bed and alarms, visiting hours, pain management, procedures, bathroom and other care routines, personal items, smoking policy, room service/diet, and visiting hours. Valuables list has been completed. Information on how to activate the Rapid Response Team has been discussed. Patient/Family are encouraged to report perceived risks to care and to ask questions if they do not understand what they are told or what they should do.
[2019-11-04] MEDS: SODIUM CHLORIDE 0.9% IV 1,000 ML 75 ML IV CONT (18:39)
[2019-11-04 20:14] LABS: Creatinine Urine 74.3 mg/dL
[2019-11-04 20:16] LABS: Sodium Urine Random 28 meq/L
[2019-11-04 21:41] LABS: Sodium 124 mmol/L (137-145)
--- NOTE | 2019-11-04 22:43 | PC.NURSE ---
2199, called Dr. Killian on cell phone with 2100 Na results with no answer. Called exchange for a call back. 2239 called cell phone again with no answer
[2019-11-05] VITALS (12 sets, daily range): BP systolic 99–137; BP diastolic 50–68; PULSE 84–110; RESP 15–20; TEMP 36.4–38.3; O2SAT 95–97
[2019-11-05] MEDS: diphenhydrAMINE HCl CAP 25 MG CAPSULE PO (00:36)
[2019-11-05 06:14] LABS: Hematocrit 25.9 % (42.0-52.0); Immature Granulocyte Absolute 0.05 K/mm3 (0.00-0.031); Immature Granulocyte Percent A 0.6 % (0-0.5); Lymphocytes Absolute Auto 0.15 K/mm3 (0.9-3.2); Lymphocytes Percent Auto 1.9 % (18.3-44.2); Mean Corpuscular HGB Conc 34.7 g/dl (32-36); Mean Corpuscular Hemoglobin 30.7 pg (26-34); Mean Corpuscular Volume 88.4 fl (80-100); Mean Platelet Volume 9.6 fl (7.4-10.4); Monocytes Absolute Auto 0.3 K/mm3 (0.1-0.6); Monocytes Percent Auto 3.7 % (2.6-8.5); Neutrophils Absolute Auto 7.3 K/mm3 (1.3-6.7); Neutrophils Percent Auto 93.8 % (45.5-73.1); Platelet Count Result 254 k/mm3 (150-375); Red Blood Count 2.93 M/mm3 (4.6-6.20); Red Cell Distribution Width 13.9 % (11.5-14.5); White Blood Count 7.8 K/mm3 (4.5-10.0)
[2019-11-05 06:35] LABS: Alanine Aminotransferase 21 U/L (4-50); Albumin Level 3.4 g/dL (3.5-5.1); Alkaline Phosphatase 283 U/L (38-126); Anion Gap 14 mmol/L (8-16); Aspartate Amino Transferase 41 U/L (17-59); Bilirubin,Total 0.3 mg/dL (0.2-1.3); Blood Urea Nitrogen 63 mg/dL (9-20); Calcium 8.5 mg/dL (8.4-10.2); Carbon Dioxide 13 mmol/L (22-30); Chloride 102 mmol/L (98-107); Estimated CRCL calculation 10 ml/min; Estimated Glomerular Filt Rate 11; Glucose 98 mg/dL (75-110); Magnesium 1.3 mg/dL (1.6-2.3); Potassium 4.8 mmol/L (3.4-5.0); Sodium 129 mmol/L (137-145)
--- NOTE | 2019-11-05 06:56 | PC.NURSE ---
left message for Dr. Killian regarding am Na results
[2019-11-05] MEDS: ACETAMINOPHEN 500 MG TABLET 1000 MG PO ×2 (09:09→21:06)
[2019-11-05] MEDS: SODIUM BICARBONATE TAB 650 MG TABLET 1300 MG PO ×2 (09:10→16:40)
[2019-11-05] MEDS: CEPHALEXIN 500 MG CAPSULE PO (09:10)
[2019-11-05] MEDS: SODIUM CHLORIDE 0.9% IV 1,000 ML 50 ML IV CONT (09:12)
[2019-11-05] MEDS: MAGNESIUM SULF 2 GM/WATER 50ML 2 GM/50 ML BAG IVPB (09:17)
--- NOTE | 2019-11-05 10:22 | P.PNIM_ITS ---
Progress Note: A&P Assessment and Plan (1) Acute renal failure superimposed on stage 3 chronic kidney disease: Qualifiers: Acute renal failure type: unspecified Qualified Code(s): N17.9 - Acute kidney failure, unspecified; N18.3 - Chronic kidney disease, stage 3 (moderate) Code(s): N17.9 - Acute kidney failure, unspecified; N18.3 - Chronic kidney disease, stage 3 (moderate) Status: Chronic Assessment and Plan: * Patient was recently admitted for acute on chronic renal failure. Cr 4.2 day of discharge; 4.1 ten days ago now up to 5.1 today. * Recent renal biopsy from last admission 10/09/19 demonstrated ATN; etiology unclear at this time. * Appreciate nephrology recommendations. (2) Hyponatremia: Code(s): E87.1 - Hypo-osmolality and hyponatremia Status: Acute Assessment and Plan: * Improving. He was drinking about 3 L daily and this may be due to excess free water. * Difficult balance as he also has the acute renal failure. Appreciate nephrology recommendations. Remains on IV NS today. Monitor BMP. (3) Essential (primary) hypertension: Code(s): I10 - Essential (primary) hypertension Status: Chronic Assessment and Plan: * Norvasc and metoprolol are on hold secondary to hypotension. (4) Acute UTI: Code(s): N39.0 - Urinary tract infection, site not specified Status: Acute Assessment and Plan: * Recently seen in Dr Palomo' office 11/01/19 and was prescribed Cipro at that time for acute UTI. Continued on prophylactic Keflex. * Appreciate urology input. (5) Chronic anemia: Code(s): D64.9 - Anemia, unspecified Status: Chronic Assessment and Plan: * Suspect may be in part related to the renal failure. No evidence of acute bleeding. Monitor CBC. (6) Acute hyperkalemia: Code(s): E87.5 - Hyperkalemia Status: Inactive Assessment and Plan: * K is stable today. Continue a low potassium diet. (7) Bladder cancer: Qualifiers: Bladder location: unspecified site Qualified Code(s): C67.9 - Malignant neoplasm of bladder, unspecified Code(s): C67.9 - Malignant neoplasm of bladder, unspecified Status: Chronic Assessment and Plan: * Patient is s/p cystoprostatectomy with ileal conduit for treatment of bladder and prostate cancer February 2019. He wears a urostomy bag which he hooks up to a larger [place] bag at nighttime. * Recently underwent placement of bilateral ureteral stents, unfortunately with not much improvement in overall renal function. * Urology following. (8) Generalized weakness: Code(s): R53.1 - Weakness Status: Acute Assessment and Plan: * Suspect multifactorial and may be related to electrolyte abnormalities, renal failure, possible UTI, recent hospitalization. * PT/OT evaluations appreciated. (9) Abnormal x-ray: Code(s): R93.89 - Abnormal findings on diagnostic imaging of other specified body structu res Status: Acute Assessment and Plan: * Patient has chronic changes noted to bilateral lung bases. These appear stable compared to previous images. * V/Q scan shows a small area of decreased perfusion that may be related to a small left pleur
--- NOTE | 2019-11-05 10:22 | PM.IMPN ---
Progress Note: A&P Assessment and Plan (1) Acute renal failure superimposed on stage 3 chronic kidney disease: Qualifiers: Acute renal failure type: unspecified Qualified Code(s): N17.9 - Acute kidney failure, unspecified; N18.3 - Chronic kidney disease, stage 3 (moderate) Code(s): N17.9 - Acute kidney failure, unspecified; N18.3 - Chronic kidney disease, stage 3 (moderate) Status: Chronic Assessment and Plan: Patient was recently admitted for acute on chronic renal failure. Cr 4.2 day of discharge; 4.1 ten days ago now up to 5.1 today. Recent renal biopsy from last admission 10/09/19 demonstrated ATN; etiology unclear at this time. Appreciate nephrology recommendations. (2) Hyponatremia: Code(s): E87.1 - Hypo-osmolality and hyponatremia Status: Acute Assessment and Plan: Improving. He was drinking about 3 L daily and this may be due to excess free water. Difficult balance as he also has the acute renal failure. Appreciate nephrology recommendations. Remains on IV NS today. Monitor BMP. (3) Essential (primary) hypertension: Code(s): I10 - Essential (primary) hypertension Status: Chronic Assessment and Plan: Norvasc and metoprolol are on hold secondary to hypotension. (4) Acute UTI: Code(s): N39.0 - Urinary tract infection, site not specified Status: Acute Assessment and Plan: Recently seen in Dr Palomo' office 11/01/19 and was prescribed Cipro at that time for acute UTI. Continued on prophylactic Keflex. Appreciate urology input. (5) Chronic anemia: Code(s): D64.9 - Anemia, unspecified Status: Chronic Assessment and Plan: Suspect may be in part related to the renal failure. No evidence of acute bleeding. Monitor CBC. (6) Acute hyperkalemia: Code(s): E87.5 - Hyperkalemia Status: Inactive Assessment and Plan: K is stable today. Continue a low potassium diet. (7) Bladder cancer: Qualifiers: Bladder location: unspecified site Qualified Code(s): C67.9 - Malignant neoplasm of bladder, unspecified Code(s): C67.9 - Malignant neoplasm of bladder, unspecified Status: Chronic Assessment and Plan: Patient is s/p cystoprostatectomy with ileal conduit for treatment of bladder and prostate cancer February 2019. He wears a urostomy bag which he hooks up to a larger [place] bag at nighttime. Recently underwent placement of bilateral ureteral stents, unfortunately with not much improvement in overall renal function. Urology following. (8) Generalized weakness: Code(s): R53.1 - Weakness Status: Acute Assessment and Plan: Suspect multifactorial and may be related to electrolyte abnormalities, renal failure, possible UTI, recent hospitalization. PT/OT evaluations appreciated. (9) Abnormal x-ray: Code(s): R93.89 - Abnormal findings on diagnostic imaging of other specified body structures Status: Acute Assessment and Plan: Patient has chronic changes noted to bilateral lung bases. These appear stable compared to previous images. V/Q scan shows a small area of decreased perfusion that may be related to a small left pleural effusion. Patient is hemodynamically stable, will monitor for clinical symptoms. Subjective Date/time seen: 11/05/19 0945 Interval history: Mr. Raphael is a 78yo M admitted for generalized weakness and acute on chronic renal failure. He reports feeling a bit better today but has not really been up out of bed yet. He described that when he would
--- NOTE | 2019-11-05 13:20 | WPDURCON ---
Assessment and Plan Assessment and plan (1) Urinary tract infection: Qualifiers: Hematuria presence: without hematuria Urinary tract infection type: acute cystitis Qualified Code(s): N30.00 - Acute cystitis without hematuria Code(s): N39.0 - Urinary tract infection, site not specified Status: Acute (2) Acute renal failure superimposed on stage 3 chronic kidney disease: Qualifiers: Acute renal failure type: unspecified Qualified Code(s): N17.9 - Acute kidney failure, unspecified; N18.3 - Chronic kidney disease, stage 3 (moderate) Code(s): N17.9 - Acute kidney failure, unspecified; N18.3 - Chronic kidney disease, stage 3 (moderate) Status: Chronic (3) Cancer of overlapping sites of bladder: Code(s): C67.8 - Malignant neoplasm of overlapping sites of bladder Status: Chronic (4) History of ileal conduit: Code(s): Z98.890 - Other specified postprocedural states Status: Chronic (5) Bladder cancer: Qualifiers: Bladder location: unspecified site Qualified Code(s): C67.9 - Malignant neoplasm of bladder, unspecified Code(s): C67.9 - Malignant neoplasm of bladder, unspecified Status: Chronic Assessment and Plan: Nothing from a perspective at this time except to track down urine culture results from 4 days ago Urology Consult Note HPI Date Seen: 11/05/19 Requesting Physician: Brianna Limon MD Primary Care Provider: Jeremy Jung MD Consult Narrative Narrative: Stu Raphael is a 78 year old male presented to ER with SOB. PE workup was negative. Urology consulted due to hematuria in ileal conduit ostomy and renal failure. REview of records noted renal biopsy proven renal insufficiency. He as given Cipro on Wed by INTERNAL MEDICINE PHYSICIAN ASSISTANT in office for presumed UTI due to hematuria (which has resolved). Review of Systems Review of Systems: All systems reviewed & are unremarkable except as noted in HPI and below (as per HPI (SOB, hematuria)) [facility] Past Medical History Medical History Atrial tachycardia Bladder cancer history of chemotherapy approximately year and half ago with radiation treatment last time about July of 2019 Cancer of overlapping sites of bladder Cellulitis Chronic renal failure, stage 3 (moderate) Contact dermatitis Essential (primary) hypertension Gout, unspecified Hypertension Malignant neoplasm of dome of urinary bladder Mixed hyperlipidemia Port-A-Cath in place right chest Shingles Surgical History Surgical History History of cataract extraction History of ileal conduit History of inguinal hernia repair History of prostatectomy History of renal stent bilaterally History of tonsillectomy History of transurethral resection of prostate Family History Family History Father Family history of lung cancer Father Family history of cardiovascular disease Mother due to natural causes Social History Social History Social History: Patient quit smoking in 1979. He smoked about a pack a cigarettes a day for 20 years. Patient occasionally drinks a beer. He has 2 children. A boy and a girl. Power of defense attorney is Carla Lam. He is a full code. He lives alone. He is retired from [employer]. he is . He denies any marijuana or illicit drugs. Smoking packs per day: 1 Smoking cigarettes per day: 20.0 Years smoked: 15 Smoking pack-years: 15.00 Smoking status: Former smoker Tobacco type: cigarettes Smoking end date: 03/08/79 Additional smoking assessment comments: 1979 Alcohol intake: former Substance use: never Gender identity (if verbalized by the patient): Male Spiritual care concerns: No Agree to blood products: Yes Meds Home Medications and Al
[2019-11-05 13:45] LABS: Sodium 128 mmol/L (137-145)
--- NOTE | 2019-11-05 14:29 | P.PNNP_ITS ---
Progress Note: A&P Assessment and Plan (1) Acute renal failure: Qualifiers: Acute renal failure type: unspecified Qualified Code(s): N17.9 - Acute kidney failure, unspecified Code(s): N17.9 - Acute kidney failure, unspecified Status: Inactive Assessment and Plan: * renal biopsy on last hospitalization indicates etiology to be ATN - not entirely clear what caused ATN * more concerning that creatinine rising again since this admission - due to relative hypotension -- BP was 140 - 160s during most of his last hosptialization and now he is in the 90s - 100s systolic range... * will try a fluid bolus and increase fluid rate being mindful of #3 * follow trend of repeat labs and UOP (2) CKD (chronic kidney disease) stage 3, GFR 30-59 ml/min: Code(s): N18.3 - Chronic kidney disease, stage 3 (moderate) Status: Chronic Assessment and Plan: * baseline creatinine in 02/2019 - 07/2019 was around 1.4-1.5 mg/dL * acutely jacobo to 2.4 mg/dL in August of 2019 * admitted on last hospitalization with a creatinine of 6.1mg/dl - by the time of discharge, creatinine had leveled off to 4.1mg/dl * outpatient evaluation and renal biopsy confirmed this is due to hypertension and vascular disease (3) Hyponatremia: Code(s): E87.1 - Hypo-osmolality and hyponatremia Status: Acute Assessment and Plan: * multifactorial: - volume depletion/dehydration (prerenal urine lytes) - excessive free water intake (admitted to about 3L water intake per day) - worsend by renal dysfunction * TSH and cortisol okay; SPE/UPE/serum + urine osmolality pending * goal of therapy is change in sodium of no more that 6 - 9mmol/L in a 24 hours * improvement noted with a combination of fluid restriction and normal saline IVFs * watch sodium closely with ongoing IVFs for his hypotension (4) Essential (primary) hypertension: Code(s): I10 - Essential (primary) hypertension Status: Chronic Assessment and Plan: * despite history, running low on last part of last hospitalization and on this admission * BP medication on hold * relative hypotension cause of NICANOR/ARF(?) (5) Anemia: Code(s): D64.9 - Anemia, unspecified Status: Acute Assessment and Plan: * doing better * admission H/H incorrect(?) * follow trend of Hgb/Hct (6) Bladder cancer: Qualifiers: Bladder location: unspecified site Qualified Code(s): C67.9 - Malignant neoplasm of bladder, unspecified Code(s): C67.9 - Malignant neoplasm of bladder, unspecified Status: Chronic Assessment and Plan: * Urology following * was empirically on Cipro for presumed UTI (7) Generalized weakness: Code(s): R53.1 - Weakness Status: Acute Assessment and Plan: * suspect numerous issues playing a role: - NICANOR/ARF - fluctuating hemodynamics - anemia - UTI(?) - cancer treatments * PT/OT as tolerated Will continue to follow. Subjective Date/time seen: 11/05/19 14:29 Making reasonable amount of urine but BUN and creatinine still rising; no acute distress noted at the time of my visit; no apparent distress voiced. Exam Narrative: Exam Narrative: General: WD/WN male iin NAD Heart: normal S1 and S2; no rub Lungs: clear to auscultation Abdomen: soft, nontender, nondistended, positive bowel sounds Extremities: no cyanosis or clubbing; no edema Skin: warm and d
--- NOTE | 2019-11-05 14:29 | PM.PNNEP ---
Progress Note: A&P Assessment and Plan (1) Acute renal failure: Qualifiers: Acute renal failure type: unspecified Qualified Code(s): N17.9 - Acute kidney failure, unspecified Code(s): N17.9 - Acute kidney failure, unspecified Status: Inactive Assessment and Plan: renal biopsy on last hospitalization indicates etiology to be ATN - not entirely clear what caused ATN more concerning that creatinine rising again since this admission - due to relative hypotension -- BP was 140 - 160s during most of his last hosptialization and now he is in the 90s - 100s systolic range... will try a fluid bolus and increase fluid rate being mindful of #3 follow trend of repeat labs and UOP (2) CKD (chronic kidney disease) stage 3, GFR 30-59 ml/min: Code(s): N18.3 - Chronic kidney disease, stage 3 (moderate) Status: Chronic Assessment and Plan: baseline creatinine in 02/2019 - 07/2019 was around 1.4-1.5 mg/dL acutely jacobo to 2.4 mg/dL in August of 2019 admitted on last hospitalization with a creatinine of 6.1mg/dl - by the time of discharge, creatinine had leveled off to 4.1mg/dl outpatient evaluation and renal biopsy confirmed this is due to hypertension and vascular disease (3) Hyponatremia: Code(s): E87.1 - Hypo-osmolality and hyponatremia Status: Acute Assessment and Plan: multifactorial: - volume depletion/dehydration (prerenal urine lytes) - excessive free water intake (admitted to about 3L water intake per day) - worsend by renal dysfunction TSH and cortisol okay; SPE/UPE/serum + urine osmolality pending goal of therapy is change in sodium of no more that 6 - 9mmol/L in a 24 hours improvement noted with a combination of fluid restriction and normal saline IVFs watch sodium closely with ongoing IVFs for his hypotension (4) Essential (primary) hypertension: Code(s): I10 - Essential (primary) hypertension Status: Chronic Assessment and Plan: despite history, running low on last part of last hospitalization and on this admission BP medication on hold relative hypotension cause of NICANOR/ARF(?) (5) Anemia: Code(s): D64.9 - Anemia, unspecified Status: Acute Assessment and Plan: doing better admission H/H incorrect(?) follow trend of Hgb/Hct (6) Bladder cancer: Qualifiers: Bladder location: unspecified site Qualified Code(s): C67.9 - Malignant neoplasm of bladder, unspecified Code(s): C67.9 - Malignant neoplasm of bladder, unspecified Status: Chronic Assessment and Plan: Urology following was empirically on Cipro for presumed UTI (7) Generalized weakness: Code(s): R53.1 - Weakness Status: Acute Assessment and Plan: suspect numerous issues playing a role: - NICANOR/ARF - fluctuating hemodynamics - anemia - UTI(?) - cancer treatments PT/OT as tolerated Will continue to follow. Subjective Date/time seen: 11/05/19 14:29 Making reasonable amount of urine but BUN and creatinine still rising; no acute distress noted at the time of my visit; no apparent distress voiced. Exam Narrative: Exam Narrative: General: WD/WN male iin NAD Heart: normal S1 and S2; no rub Lungs: clear to auscultation Abdomen: soft, nontender, nondistended, positive bowel sounds Extremities: no cyanosis or clubbing; no edema Skin: warm and dry Objective Data Vital Signs Vital Signs: Vital Signs Temp Pulse Resp BP Pulse Ox 11/05/19 14:00 36.4 C 84 15 100/64 97 11/05/19 08:00 96 11/05/19 05:58 37.3 C 98 18 99/50 L 97 11/05/19 04:00 97 11/05/19 00:00 86 11/04/19 22:00 36.9 C 84 18 121/61 97 11/04/19 20:00 80 11/04/19 18:14 36.9 C 84 17 130/64 100 11/04/19 16:55 81 20 136/72 99 11/04/19 16:01 36.4 C 79 25 H 128/68 98 11/04/19 15:02 36.3 C L
[2019-11-05] MEDS: SODIUM CHLORIDE 0.9% IV 1,000 ML 999 ML IV CONT (16:29)
[2019-11-05 19:16] LABS: Sodium 129 mmol/L (137-145)
[2019-11-06] VITALS (12 sets, daily range): BP systolic 146–147; BP diastolic 69–78; PULSE 88–115; RESP 18–20; TEMP 36.8–38.1; O2SAT 94–97; BMI 25.4
[2019-11-06] MEDS: SODIUM CHLORIDE 0.9% IV 1,000 ML 50 ML IV CONT ×2 (01:49→15:01)
[2019-11-06] MEDS: ACETAMINOPHEN 500 MG TABLET 1000 MG PO ×3 (04:48→23:09)
--- NOTE | 2019-11-06 08:10 | P.PNNP_ITS ---
Progress Note: A&P Assessment and Plan (1) Acute renal failure: Qualifiers: Acute renal failure type: unspecified Qualified Code(s): N17.9 - Acute kidney failure, unspecified Code(s): N17.9 - Acute kidney failure, unspecified Status: Inactive Assessment and Plan: * renal biopsy on last hospitalization showed three major issues. * The patient did have some evidence of ATN With nuclear activation in the tubules and flattened tubular epithelium. * He also had significant chronic kidney disease with 40% interstitial fibrosis. * He had substantial arteriolar fibrosis, most likely from hypertension. 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 * There is no evidence of allergic interstitial nephritis or other treatable disorders. There was negative immunofluorescence and electron microscopy. * The suspicion is that the patient has ATN from her current obstruction. However he has such severe chronic kidney disease, and so it is unclear whether his kidney function will improve. * more concerning that creatinine rising again since this admission - due to relative hypotension -- BP was 140 - 160s during most of his last hosptialization and now he is in the 90s - 100s systolic range... * The patient is getting some IV fluids. * Unfortunately the creatinine continues to rise. (2) CKD (chronic kidney disease) stage 3, GFR 30-59 ml/min: Code(s): N18.3 - Chronic kidney disease, stage 3 (moderate) Status: Chronic Assessment and Plan: * baseline creatinine in 02/2019 - 07/2019 was around 1.4-1.5 mg/dL * acutely jacobo to 2.4 mg/dL in August of 2019 * admitted on last hospitalization with a creatinine of 6.1mg/dl - by the time of discharge, creatinine had leveled off to 4.1mg/dl * outpatient evaluation and renal biopsy confirmed this is due to hypertension and vascular disease (3) Hyponatremia: Code(s): E87.1 - Hypo-osmolality and hyponatremia Status: Acute Assessment and Plan: * multifactorial: - volume depletion/dehydration (prerenal urine lytes) - excessive free water intake (admitted to about 3L water intake per day) - worsend by renal dysfunction * TSH and cortisol okay; SPE/UPE/serum + urine osmolality pending . These were all okay earlier this year. * goal of therapy is change in sodium of no more that 6 - 9mmol/L in a 24 hours * Sodium has improved. Fluid restriction was discontinued. I advised patient that he should just drink if he is thirsty but not if he is not. * Will keep a close eye on the sodium levels. (4) Essential (primary) hypertension: Code(s): I10 - Essential (primary) hypertension Status: Chronic Assessment and Plan: * Blood pressure readings have improved over the last few hours. * We will keep an eye on this and fold blood pressure meds in as needed. (5) Anemia: Code(s): D64.9 - Anemia, unspecified Status: Acute Assessment and Plan: * doing better * admission H/H incorrect(?) * follow trend of Hgb/Hct (6) Bladder cancer: Qualifiers: Bladder location: unspecified site Qualified Code(s): C67.9 - Malignant neoplasm of bladder, unspecified Code(s): C67.9 - Malignant neoplasm of bladder, unspecified Status: Chronic Assessment and Plan: * Urology following * was empirically on Cipro for presumed UTI * Will get culture results from Dr. Rubalcava' office. * He is getting antibiotics now. * Urine culture pending (7) Generalized weakness:
--- NOTE | 2019-11-06 08:10 | PM.PNNEP ---
Progress Note: A&P Assessment and Plan (1) Acute renal failure: Qualifiers: Acute renal failure type: unspecified Qualified Code(s): N17.9 - Acute kidney failure, unspecified Code(s): N17.9 - Acute kidney failure, unspecified Status: Inactive Assessment and Plan: renal biopsy on last hospitalization showed three major issues. The patient did have some evidence of ATN With nuclear activation in the tubules and flattened tubular epithelium. He also had significant chronic kidney disease with 40% interstitial fibrosis. He had substantial arteriolar fibrosis, most likely from hypertension. Most likely the ATN is from recurrent obstruction. There is no evidence of allergic interstitial nephritis or other treatable disorders. There was negative immunofluorescence and electron microscopy. The suspicion is that the patient has ATN from her current obstruction. However he has such severe chronic kidney disease, and so it is unclear whether his kidney function will improve. more concerning that creatinine rising again since this admission - due to relative hypotension -- BP was 140 - 160s during most of his last hosptialization and now he is in the 90s - 100s systolic range... The patient is getting some IV fluids. Unfortunately the creatinine continues to rise. (2) CKD (chronic kidney disease) stage 3, GFR 30-59 ml/min: Code(s): N18.3 - Chronic kidney disease, stage 3 (moderate) Status: Chronic Assessment and Plan: baseline creatinine in 02/2019 - 07/2019 was around 1.4-1.5 mg/dL acutely jacobo to 2.4 mg/dL in August of 2019 admitted on last hospitalization with a creatinine of 6.1mg/dl - by the time of discharge, creatinine had leveled off to 4.1mg/dl outpatient evaluation and renal biopsy confirmed this is due to hypertension and vascular disease (3) Hyponatremia: Code(s): E87.1 - Hypo-osmolality and hyponatremia Status: Acute Assessment and Plan: multifactorial: - volume depletion/dehydration (prerenal urine lytes) - excessive free water intake (admitted to about 3L water intake per day) - worsend by renal dysfunction TSH and cortisol okay; SPE/UPE/serum + urine osmolality pending . These were all okay earlier this year. goal of therapy is change in sodium of no more that 6 - 9mmol/L in a 24 hours Sodium has improved. Fluid restriction was discontinued. I advised patient that he should just drink if he is thirsty but not if he is not. Will keep a close eye on the sodium levels. (4) Essential (primary) hypertension: Code(s): I10 - Essential (primary) hypertension Status: Chronic Assessment and Plan: Blood pressure readings have improved over the last few hours. We will keep an eye on this and fold blood pressure meds in as needed. (5) Anemia: Code(s): D64.9 - Anemia, unspecified Status: Acute Assessment and Plan: doing better admission H/H incorrect(?) follow trend of Hgb/Hct (6) Bladder cancer: Qualifiers: Bladder location: unspecified site Qualified Code(s): C67.9 - Malignant neoplasm of bladder, unspecified Code(s): C67.9 - Malignant neoplasm of bladder, unspecified Status: Chronic Assessment and Plan: Urology following was empirically on Cipro for presumed UTI Will get culture results from Dr. Rubalcava' office. He is getting antibiotics now. Urine culture pending (7) Generalized weakness: Code(s): R53.1 - Weakness Status: Acute Assessment and Plan: suspect numerous issues playing a role: - NICANOR/ARF - fluctuating hemodynamics - anemia - UTI(?) - cancer treatments PT/OT as tolerated Will continue to follow. Additional Plan Subjective Date/time seen: 11/06/19 08:10 Interval history: Patient is thirsty. he slept okay last ni
[2019-11-06] MEDS: SODIUM BICARBONATE TAB 650 MG TABLET 1300 MG PO ×2 (10:07→17:37)
[2019-11-06] MEDS: CEPHALEXIN 500 MG CAPSULE PO (10:07)
[2019-11-06 10:39] LABS: Basophils Percent Auto 0.1 % (0.2-1.2); Hematocrit 23.3 % (42.0-52.0); Immature Granulocyte Absolute 0.09 K/mm3 (0.00-0.031); Immature Granulocyte Percent A 0.9 % (0-0.5); Lymphocytes Absolute Auto 0.11 K/mm3 (0.9-3.2); Lymphocytes Percent Auto 1.1 % (18.3-44.2); Mean Corpuscular HGB Conc 34.3 g/dl (32-36); Mean Corpuscular Hemoglobin 30.4 pg (26-34); Mean Corpuscular Volume 88.6 fl (80-100); Mean Platelet Volume 9.7 fl (7.4-10.4); Monocytes Absolute Auto 0.2 K/mm3 (0.1-0.6); Monocytes Percent Auto 2.3 % (2.6-8.5); Neutrophils Absolute Auto 9.7 K/mm3 (1.3-6.7); Neutrophils Percent Auto 95.6 % (45.5-73.1); Platelet Count Result 264 k/mm3 (150-375); Red Blood Count 2.63 M/mm3 (4.6-6.20); Red Cell Distribution Width 14.3 % (11.5-14.5); White Blood Count 10.1 K/mm3 (4.5-10.0)
[2019-11-06 10:40] LABS: Anion Gap 9 mmol/L (8-16); Blood Urea Nitrogen 57 mg/dL (9-20); Calcium 7.9 mg/dL (8.4-10.2); Carbon Dioxide 14 mmol/L (22-30); Chloride 107 mmol/L (98-107); Estimated CRCL calculation 11 ml/min; Estimated Glomerular Filt Rate 13; Glucose 145 mg/dL (75-110); Magnesium 1.7 mg/dL (1.6-2.3); Phosphorus 3.3 mg/dL (2.5-4.5); Potassium 4.6 mmol/L (3.4-5.0); Sodium 130 mmol/L (137-145)
--- NOTE | 2019-11-06 12:15 | P.PNIM_ITS ---
Progress Note: A&P Assessment and Plan (1) Acute renal failure superimposed on stage 3 chronic kidney disease: Qualifiers: Acute renal failure type: unspecified Qualified Code(s): N17.9 - Acute kidney failure, unspecified; N18.3 - Chronic kidney disease, stage 3 (moderate) Code(s): N17.9 - Acute kidney failure, unspecified; N18.3 - Chronic kidney disease, stage 3 (moderate) Status: Chronic Assessment and Plan: * Patient was recently admitted a few weeks ago for acute on chronic renal failure. * Cr is down to 4.5 today from 5.1. * Recent renal biopsy from last admission 10/09/19 demonstrated ATN. Hypotension on arrival may have been causing some hypoperfusion contributing to NICANOR. * Appreciate nephrology recommendations. (2) Hyponatremia: Code(s): E87.1 - Hypo-osmolality and hyponatremia Status: Acute Assessment and Plan: * Improving. May have been related to excess free water as patient was drinking 3L/day. * Appreciate nephrology recommendations. Remains on IV NS today. Monitor BMP. (3) Essential (primary) hypertension: Code(s): I10 - Essential (primary) hypertension Status: Chronic Assessment and Plan: * Norvasc and metoprolol are on hold secondary to hypotension. (4) Acute UTI: Code(s): N39.0 - Urinary tract infection, site not specified Status: Acute Assessment and Plan: * Recently seen in Dr Palomo' office 11/01/19 and was prescribed Cipro at that time for a suspected acute UTI. Continued on his prophylactic Keflex. * Appreciate urology input. Edit: UA from office visit 10/31 is abnormal but urine culture grew multiple urogenital misael 10-25,000 colonies. * Repeat urine culture here is now growing coag negative staph. Will add L evaquin and await urine sensitivities. Obtain blood cultures. (5) Chronic anemia: Code(s): D64.9 - Anemia, unspecified Status: Chronic Assessment and Plan: * Suspect may be in part related to the renal failure. No evidence of acute bleeding. Monitor CBC. (6) Bladder cancer: Qualifiers: Bladder location: unspecified site Qualified Code(s): C67.9 - Malignant neoplasm of bladder, unspecified Code(s): C67.9 - Malignant neoplasm of bladder, unspecified Status: Chronic Assessment and Plan: * Patient is s/p cystoprostatectomy with ileal conduit for treatment of bladder and prostate cancer February 2019. He wears a urostomy bag which he hooks up to a larger [place] bag at nighttime. * Recently underwent placement of bilateral ureteral stents by Dr Palomo for a possible urinary obstruction contributing to NICANOR, unfortunately with not much improvement in overall renal function so far. * Urology following. (7) Generalized weakness: Code(s): R53.1 - Weakness Status: Acute Assessment and Plan: * Suspect multifactorial and may be related to electrolyte abnormalities, renal failure, possible UTI, recent hospitalization. * PT/OT evaluations appreciated. (8) Abnormal x-ray: Code(s): R93.89 - Abnormal findings on diagnostic imaging of other specified body stru ctures Status: Acute Assessment and Plan: * Patient has chronic changes noted to bilateral lung bases ?UIP. ?Pulmonary edema. Fluid status difficu
--- NOTE | 2019-11-06 12:15 | PM.IMPN ---
Progress Note: A&P Assessment and Plan (1) Acute renal failure superimposed on stage 3 chronic kidney disease: Qualifiers: Acute renal failure type: unspecified Qualified Code(s): N17.9 - Acute kidney failure, unspecified; N18.3 - Chronic kidney disease, stage 3 (moderate) Code(s): N17.9 - Acute kidney failure, unspecified; N18.3 - Chronic kidney disease, stage 3 (moderate) Status: Chronic Assessment and Plan: Patient was recently admitted a few weeks ago for acute on chronic renal failure. Cr is down to 4.5 today from 5.1. Recent renal biopsy from last admission 10/09/19 demonstrated ATN. Hypotension on arrival may have been causing some hypoperfusion contributing to NICANOR. Appreciate nephrology recommendations. (2) Hyponatremia: Code(s): E87.1 - Hypo-osmolality and hyponatremia Status: Acute Assessment and Plan: Improving. May have been related to excess free water as patient was drinking 3L/day. Appreciate nephrology recommendations. Remains on IV NS today. Monitor BMP. (3) Essential (primary) hypertension: Code(s): I10 - Essential (primary) hypertension Status: Chronic Assessment and Plan: Norvasc and metoprolol are on hold secondary to hypotension. (4) Acute UTI: Code(s): N39.0 - Urinary tract infection, site not specified Status: Acute Assessment and Plan: Recently seen in Dr Palomo' office 11/01/19 and was prescribed Cipro at that time for a suspected acute UTI. Continued on his prophylactic Keflex. Appreciate urology input. Edit: UA from office visit 10/31 is abnormal but urine culture grew multiple urogenital misael 10-25,000 colonies. Repeat urine culture here is now growing coag negative staph. Will add Levaquin and await urine sensitivities. Obtain blood cultures. (5) Chronic anemia: Code(s): D64.9 - Anemia, unspecified Status: Chronic Assessment and Plan: Suspect may be in part related to the renal failure. No evidence of acute bleeding. Monitor CBC. (6) Bladder cancer: Qualifiers: Bladder location: unspecified site Qualified Code(s): C67.9 - Malignant neoplasm of bladder, unspecified Code(s): C67.9 - Malignant neoplasm of bladder, unspecified Status: Chronic Assessment and Plan: Patient is s/p cystoprostatectomy with ileal conduit for treatment of bladder and prostate cancer February 2019. He wears a urostomy bag which he hooks up to a larger [place] bag at nighttime. Recently underwent placement of bilateral ureteral stents by Dr Palomo for a possible urinary obstruction contributing to NICANOR, unfortunately with not much improvement in overall renal function so far. Urology following. (7) Generalized weakness: Code(s): R53.1 - Weakness Status: Acute Assessment and Plan: Suspect multifactorial and may be related to electrolyte abnormalities, renal failure, possible UTI, recent hospitalization. PT/OT evaluations appreciated. (8) Abnormal x-ray: Code(s): R93.89 - Abnormal findings on diagnostic imaging of other specified body structures Status: Acute Assessment and Plan: Patient has chronic changes noted to bilateral lung bases ?UIP. ?Pulmonary edema. Fluid status difficult given his significant renal failure so monitor fluid status closely. CT this afternoon now showing pulmonary nodules. Appreciate pulmonology consult in this setting given the chronic changes and new nodules in this complex patient. V/Q scan shows a small area of decreased perfusion that may be related to a small left pleural effusion. Patient is hemodynamically stable, will
[2019-11-06] MEDS: CIPROFLOXACIN 250 MG TABLET PO (14:08)
[2019-11-06] MEDS: CENTRAL LINE FLUSH 10 ML IV PUSH ×2 (14:09→23:10)
--- NOTE | 2019-11-06 15:18 | WPDUROPN2 ---
Progress Note: A&P Assessment and Plan (1) CKD (chronic kidney disease) stage 3, GFR 30-59 ml/min: Code(s): N18.3 - Chronic kidney disease, stage 3 (moderate) Status: Chronic Assessment and Plan: I will get a KUB to make sure both stents are in his kidneys. His creatinine has improved some. Will discuss with Dr. Palomo who is back tomorrow. (2) History of ileal conduit: Code(s): Z98.890 - Other specified postprocedural states Status: Chronic (3) Malignant neoplasm of dome of urinary bladder: Code(s): C67.1 - Malignant neoplasm of dome of bladder Status: Acute Subjective Subjective Date/Time Seen: 11/06/19 15:18 his urine culture from the office yesterday was without significant growth. his creatinine has improved some overnight. He has a large amount of urine in his ostomy bag. I can visualize 1 of the stents. the other is likely in the loop. Exam Const: General: no acute distress HENMT: Mouth: Yes moist mucous membranes Eyes: General: appearance normal, both eyes and all related structures Neck: Neck: supple Resp: Effort & Inspection: normal respiratory effort GI: Other: Ostomy is pink. One stent is visualized. Copious amount of urine in his ostomy bag. Skin: General skin exam: normal color Neuro: Speech: normal speech Extrem: General: normal to inspection Objective Data Vital Signs Vital Signs: Vital Signs - 24 hr 11/05/19 16:00 11/05/19 17:40 11/05/19 20:00 Temperature 99.0 F Pulse Rate 92 103 H Respiratory Rate Blood Pressure Pulse Oximetry 11/05/19 21:01 11/05/19 21:06 11/05/19 22:00 Temperature 101.0 F H 101 F H 99.4 F Pulse Rate 110 H Respiratory Rate 20 Blood Pressure 137/68 Pulse Oximetry 95 11/05/19 22:06 11/06/19 00:00 11/06/19 04:00 Temperature 99.4 F Pulse Rate 88 104 H Respiratory Rate Blood Pressure Pulse Oximetry 11/06/19 04:48 11/06/19 05:45 11/06/19 05:46 Temperature 100 F H 98.2 F 100 F H Pulse Rate 115 H Respiratory Rate 20 Blood Pressure 147/69 H Pulse Oximetry 94 11/06/19 06:42 11/06/19 08:00 11/06/19 13:47 Temperature 98.2 F 99.1 F Pulse Rate 114 H 107 H Respiratory Rate 18 Blood Pressure 146/78 H Pulse Oximetry 97 11/06/19 14:57 Temperature 100.5 F H Pulse Rate Respiratory Rate Blood Pressure Pulse Oximetry Intake/Output Intake/Output: Intake & Output 11/03/19 11/04/19 11/05/19 11/06/19 23:59 23:59 23:59 23:59 Intake Total 3400 2740 Output Total 2350 2400 Balance 1050 340 Meds/Results Medications: Active Medications Generic Name Dose Route Start Last Admin Trade Name Freq PRN Reason Stop Dose Admin Acetaminophen 1,000 mg 11/05/19 08:50 11/06/19 15:00 Tylenol Tablet PO 1,000 mg Q6H PRN Administration Pain or Fever Albuterol 2 puff 11/05/19 15:46 Proventil Hfa INHALATION QIDRT PRN Shortness Of Breath Cephalexin HCl 500 mg 11/05/19 09:00 11/06/19 10:07 Keflex Capsule PO 500 mg DAILY TANYA Administration Ciprofloxacin 250 mg 11/06/19 10:30 11/06/19 14:08 Cipro Po PO 250 mg Q12HR TANYA Administration Heparin Sodium (Beef Lung) 50 units 11/06/19 09:00 11/06/19 10:08 Heparin Flush 50 Units/5 Ml IV PUSH Not Given QAM TANYA Heparin Sodium (Beef Lung) 50 units 11/06/19 08:05 Heparin Flush 50 Units/5 Ml IV PUSH PRN PRN after intermittent infusion Heparin Sodium (Beef Lung) 50 units 11/06/19 08:05 11/06/19 10:08 Heparin Flush 50 Units/5 Ml IV PUSH 50 units PRN PRN Administration after blood draws Heparin Sodium (Porcine) 500 units 11/06/19 08:05 Heparin Sod Flush 100 Units/Ml IV PUSH PRN PRN see comments below Sodium Chloride 1,000 mls @ 75 mls/hr 11/04/19 16:15 11/06/19 15:01 Normal Saline Iv IV CONT 50 mls/hr .[id number] TANYA Administration Ondansetron HCl 4 mg 11/04/19 16:11 Zofran In
[2019-11-06] MEDS: levoFLOXacin 500 MG/D5W 100 ML 500 MG/100 ML BAG 100 MG IVPB (17:37)
[2019-11-07] VITALS (7 sets, daily range): BP systolic 115–149; BP diastolic 62–79; PULSE 73–130; RESP 20–24; TEMP 36.3–38.4; O2SAT 90–98
--- NOTE | 2019-11-07 | ECHO_ITS ---
Patient Info Name: Stu Raphael Age: 78 years : 1940 Gender: Male Ht: 66 in Wt: 157 lbs BSA: 1.83 m2 HR: 113 bpm BP: 115 / 62 mmHg Technical Quality: Fair Exam Date: 11/07/2019 2:05 PM Exam Location: [facility] Patient Status: Inpatient Admit Date: 11/04/2019 Staff Ordering Physician: Satya Andrade MD Bottling Supervisor: Nimco Garnica RDCS Attending Provider: Devora Padilla PA-C Referring Physician: Lupe WOOD; Exam Type: CA echo doppler color flow Study Info Indications R00.0 - Tachycardia, unspecified R06.00 - Dyspnea, unspecified Complete two-dimensional, color flow and Doppler transthoracic echocardiogram is performed. Summary 1. Complete two-dimensional, color flow and Doppler transthoracic echocardiogram is performed. 2. Left ventricular chamber dimension is normal. 3. Left ventricular systolic function is normal, estimated at 60-65%. 4. The left ventricular diastolic function is grade I diastolic dysfunction. 5. E/e' 14 is mildly elevated. 6. Global longitudinal strain is normal at -17.8%. 7. Left atrial chamber dimension is mildly enlarged. 8. There is trace aortic valve regurgitation. 9. There is mild mitral valve regurgitation. 10. No pulmonary hypertension, estimated pulmonary arterial systolic pressure is 29 mmHg. Left Ventricle E/e' 14 is mildly elevated. Global longitudinal strain is normal at -17.8%. Left ventricular chamber dimension is normal. Left ventricular systolic function is normal, estimated at 60-65%. The left ventricular diastolic function is grade I diastolic dysfunction. Right Ventricle Right ventricular chamber dimension is normal. Right ventricular systolic function is normal. Left Atria Left atrial chamber dimension is mildly enlarged. Right Atria Right atrial chamber dimension is normal. Aortic Valve The aortic valve is trileaflet. There is no aortic valve stenosis. There is trace aortic valve regurgitation. Pulmonic Valve There is no pulmonic regurgitation. Mitral Valve There is no mitral valve stenosis. There is mild mitral valve regurgitation. Tricuspid Valve There is no tricuspid valve regurgitation. No pulmonary hypertension, estimated pulmonary arterial systolic pressure is 29 mmHg. Pericardium/Pleural There is no pericardial effusion. Inferior Vena Cava Normal inferior vena cava with >50% collapse upon inspiration consistent with normal right atrial pressure, 5 mmHg. Aorta The aortic root size at the sinus of Valsalva is normal. Left Ventricular Outflow Tract Name Value Normal LVOT 2D LVOT Diameter 1.9 cm LVOT Doppler LVOT Peak Gradient 4 mmHg LVOT Mean Gradient 3 mmHg LVOT VTI 19 cm LVOT VTI/AV VTI Ratio 1.2 LVOT Stroke Volume 54 ml LVOT CO 6.0 l/min LVOT CI 3.3 l/min/m2 Pulmonic Valve Name
[2019-11-07] MEDS: SODIUM CHLORIDE 0.9% IV 1,000 ML 75 ML IV CONT (05:08)
[2019-11-07] MEDS: CENTRAL LINE FLUSH 10 ML IV PUSH ×3 (06:36→21:20)
[2019-11-07 07:08] LABS: Basophils Percent Auto 0.1 % (0.2-1.2); Hematocrit 22.5 % (42.0-52.0); Hemoglobin 7.8 g/dL (14.0-18.0); Immature Granulocyte Absolute 0.04 K/mm3 (0.00-0.031); Immature Granulocyte Percent A 0.4 % (0-0.5); Lymphocytes Absolute Auto 0.19 K/mm3 (0.9-3.2); Lymphocytes Percent Auto 2.1 % (18.3-44.2); Mean Corpuscular HGB Conc 34.7 g/dl (32-36); Mean Corpuscular Hemoglobin 30.8 pg (26-34); Mean Corpuscular Volume 88.9 fl (80-100); Mean Platelet Volume 9.6 fl (7.4-10.4); Monocytes Absolute Auto 0.1 K/mm3 (0.1-0.6); Monocytes Percent Auto 1.5 % (2.6-8.5); Neutrophils Absolute Auto 8.7 K/mm3 (1.3-6.7); Neutrophils Percent Auto 95.9 % (45.5-73.1); Platelet Count Result 252 k/mm3 (150-375); Red Blood Count 2.53 M/mm3 (4.6-6.20); Red Cell Distribution Width 14.6 % (11.5-14.5); White Blood Count 9.1 K/mm3 (4.5-10.0)
[2019-11-07 07:17] LABS: Albumin Level 2.8 g/dL (3.5-5.1); Anion Gap 10 mmol/L (8-16); Blood Urea Nitrogen 52 mg/dL (9-20); Carbon Dioxide 14 mmol/L (22-30); Chloride 106 mmol/L (98-107); Estimated CRCL calculation 12 ml/min; Estimated Glomerular Filt Rate 13; Glucose 93 mg/dL (75-110); Phosphorus 3.6 mg/dL (2.5-4.5); Potassium 4.5 mmol/L (3.4-5.0); Sodium 130 mmol/L (137-145)
--- NOTE | 2019-11-07 07:26 | WPDUROPN2 ---
Progress Note: A&P Assessment and Plan (1) Bladder cancer: Qualifiers: Bladder location: unspecified site Qualified Code(s): C67.9 - Malignant neoplasm of bladder, unspecified Code(s): C67.9 - Malignant neoplasm of bladder, unspecified Status: Chronic (2) Chronic renal failure, stage 3 (moderate): Code(s): N18.3 - Chronic kidney disease, stage 3 (moderate) Status: Chronic (3) History of ileal conduit: Code(s): Z98.890 - Other specified postprocedural states Status: Chronic (4) Acute renal failure superimposed on stage 3 chronic kidney disease: Qualifiers: Acute renal failure type: unspecified Qualified Code(s): N17.9 - Acute kidney failure, unspecified; N18.3 - Chronic kidney disease, stage 3 (moderate) Code(s): N17.9 - Acute kidney failure, unspecified; N18.3 - Chronic kidney disease, stage 3 (moderate) Status: Chronic Assessment and Plan: Renal function slightly improved but, overall, has been generally unchanged over last 4-6 weeks. Recent renal bx. suggest ATN and nephrosclerosis. Given normal position of recently placed stents (without much potential for encrustation at this early stage) and good urine output I don't believe there's much potential for ongoing obstruction. Subjective Subjective Date/Time Seen: 11/07/19 07:26 Continues to report shortness of breath Review of Systems Cardiovascular: Cardiovascular: Denies chest pain, Denies lightheadedness, Denies palpitations and Denies dyspnea Respiratory: Respiratory: Reports dyspnea Gastrointestinal: Gastrointestinal: Denies diarrhea, Denies nausea and Denies vomiting Genitourinary: Genitourinary: Denies hematuria and Denies dysuria Endocrine: Endocrine: Denies palpitations Exam Const: General: no acute distress Resp: Effort & Inspection: normal respiratory effort GI: Inspection: non-distended GI Palp: No abdominal tenderness and No Guarding due to palpation present (GI) Auscultation: normal bowel sounds Objective Data Vital Signs Vital Signs: Vital Signs - 24 hr 11/06/19 08:00 11/06/19 13:47 11/06/19 14:57 Temperature 99.1 F 100.5 F H Pulse Rate 114 H 107 H Respiratory Rate 18 Blood Pressure 146/78 H Pulse Oximetry 97 11/06/19 16:00 08/31/20 23:04 11/06/19 23:09 Temperature 99.5 F 99.1 F 99.1 F Pulse Rate Respiratory Rate Blood Pressure Pulse Oximetry 11/07/19 00:00 11/07/19 00:09 Temperature 98.3 F 98.3 F Pulse Rate Respiratory Rate Blood Pressure Pulse Oximetry Intake/Output Intake/Output: Intake & Output 11/04/19 11/05/19 11/06/19 11/07/19 23:59 23:59 23:59 23:59 Intake Total 3400 4220 1000 Output Total 2350 3150 Balance 1050 1070 1000 Meds/Results Medications: Active Medications Generic Name Dose Route Start Last Admin Trade Name Freq PRN Reason Stop Dose Admin Acetaminophen 1,000 mg 11/05/19 08:50 11/06/19 23:09 Tylenol Tablet PO 1,000 mg Q6H PRN Administration Pain or Fever Albuterol 2 puff 11/05/19 15:46 Proventil Hfa INHALATION QIDRT PRN Shortness Of Breath Heparin Sodium (Beef Lung) 50 units 11/06/19 09:00 11/06/19 10:08 Heparin Flush 50 Units/5 Ml IV PUSH Not Given QAM TANYA Heparin Sodium (Beef Lung) 50 units 11/06/19 08:05 Heparin Flush 50 Units/5 Ml IV PUSH PRN PRN after intermittent infusion Heparin Sodium (Beef Lung) 50 units 11/06/19 08:05 11/06/19 10:08 Heparin Flush 50 Units/5 Ml IV PUSH 50 units PRN PRN Administration after blood draws Heparin Sodium (Porcine) 500 units 11/06/19 08:05 Heparin Sod Flush 100 Units/Ml IV PUSH PRN PRN see comments below Sodium Chloride 1,000 mls @ 75 mls/hr 11/04/19 16:15 11/07/19 05:08 Normal Saline Iv IV CONT 75 mls/hr .[id number] TANYA Administration Levofloxacin/Dextrose 250 mg in 50 mls @ 50 mls/hr 11/08/19 09:00 Levaquin 250 Mg
[2019-11-07 07:43] LABS: Platelet Estimate Adequate (Adequate)
[2019-11-07 07:44] LABS: Burr Cells 1+ (NORMAL); Ovalocytes 1+ (NORMAL)
[2019-11-07] MEDS: SODIUM BICARBONATE TAB 650 MG TABLET 1300 MG PO ×2 (09:28→16:52)
--- NOTE | 2019-11-07 11:01 | P.PNNP_ITS ---
Progress Note: A&P Assessment and Plan (1) Acute renal failure: Qualifiers: Acute renal failure type: unspecified Qualified Code(s): N17.9 - Acute kidney failure, unspecified Code(s): N17.9 - Acute kidney failure, unspecified Status: Inactive Assessment and Plan: * renal biopsy on last hospitalization showed three major issues: * The patient did have some evidence of ATN With nuclear activation in the tubules and flattened tubular epithelium. * He also had significant chronic kidney disease with 40% interstitial fibrosis. * He had substantial arteriolar fibrosis, most likely from hypertension. 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 * There is no evidence of allergic interstitial nephritis or other treatable disorders. There was negative immunofluorescence and electron microscopy. * The suspicion is that the patient has ATN from the current obstruction. However he has such severe chronic kidney disease, and so it is unclear whether his kidney function will improve. * His creatinine was high when he got here and jacobo a bit. * This improved with hydration and letting his blood pressure right a little higher. He is almost back to his baseline. * It is still unclear whether the ATN seen on the biopsy is going to improve or not. The longer we go the less likely it is to improved. (2) CKD (chronic kidney disease) stage 3, GFR 30-59 ml/min: Code(s): N18.3 - Chronic kidney disease, stage 3 (moderate) Status: Chronic Assessment and Plan: * baseline creatinine in 02/2019 - 07/2019 was around 1.4-1.5 mg/dL * I suspect that is creatinine of 4 is going to be was long-term baseline. (3) Hyponatremia: Code(s): E87.1 - Hypo-osmolality and hyponatremia Status: Acute Assessment and Plan: * multifactorial: - volume depletion/dehydration (prerenal urine lytes) - excessive free water intake (admitted to about 3L water intake per day) - worsend by renal dysfunction * TSH and cortisol okay; SPE/UPE/serum + urine osmolality pending . These were all okay earlier this year. * His sodium has improved. At this point he is just drinking if thirsty and not if he is not. (4) Essential (primary) hypertension: Code(s): I10 - Essential (primary) hypertension Status: Chronic Assessment and Plan: * Blood pressure readings Are doing pretty well. Will continue to follow. (5) Anemia: Code(s): D64.9 - Anemia, unspecified Status: Acute Assessment and Plan: * doing better * Hemoglobin seems to wander around a bit. I suspect that that 9.0 on the 30th was wrong. Otherwise things are fairly stable. * Check any (6) Bladder cancer: Qualifiers: Bladder location: unspecified site Qualified Code(s): C67.9 - Malignant neoplasm of bladder, unspecified Code(s): C67.9 - Malignant neoplasm of bladder, unspecified Status: Chronic Assessment and Plan: * Urology following * was empirically on Cipro for presumed UTI * Will get culture results from Dr. Rubalcava' office. * He is getting antibiotics now. * Urine culture pending (7) Generalized weakness: Code(s): R53.1 - Weakness Status: Acute Assessment and Plan: * suspect numerous issues playing a role: - NICANOR/ARF - fluctuating hemodynamics - anemia - UTI(?) - cancer treatments * PT/OT as tolerated * he had a positive urine culture. However it is unclear whether this is
--- NOTE | 2019-11-07 11:01 | PM.PNNEP ---
Progress Note: A&P Assessment and Plan (1) Acute renal failure: Qualifiers: Acute renal failure type: unspecified Qualified Code(s): N17.9 - Acute kidney failure, unspecified Code(s): N17.9 - Acute kidney failure, unspecified Status: Inactive Assessment and Plan: renal biopsy on last hospitalization showed three major issues: The patient did have some evidence of ATN With nuclear activation in the tubules and flattened tubular epithelium. He also had significant chronic kidney disease with 40% interstitial fibrosis. He had substantial arteriolar fibrosis, most likely from hypertension. Most likely the ATN is from recurrent obstruction. There is no evidence of allergic interstitial nephritis or other treatable disorders. There was negative immunofluorescence and electron microscopy. The suspicion is that the patient has ATN from the current obstruction. However he has such severe chronic kidney disease, and so it is unclear whether his kidney function will improve. His creatinine was high when he got here and jacobo a bit. This improved with hydration and letting his blood pressure right a little higher. He is almost back to his baseline. It is still unclear whether the ATN seen on the biopsy is going to improve or not. The longer we go the less likely it is to improved. (2) CKD (chronic kidney disease) stage 3, GFR 30-59 ml/min: Code(s): N18.3 - Chronic kidney disease, stage 3 (moderate) Status: Chronic Assessment and Plan: baseline creatinine in 02/2019 - 07/2019 was around 1.4-1.5 mg/dL I suspect that is creatinine of 4 is going to be was long-term baseline. (3) Hyponatremia: Code(s): E87.1 - Hypo-osmolality and hyponatremia Status: Acute Assessment and Plan: multifactorial: - volume depletion/dehydration (prerenal urine lytes) - excessive free water intake (admitted to about 3L water intake per day) - worsend by renal dysfunction TSH and cortisol okay; SPE/UPE/serum + urine osmolality pending . These were all okay earlier this year. His sodium has improved. At this point he is just drinking if thirsty and not if he is not. (4) Essential (primary) hypertension: Code(s): I10 - Essential (primary) hypertension Status: Chronic Assessment and Plan: Blood pressure readings Are doing pretty well. Will continue to follow. (5) Anemia: Code(s): D64.9 - Anemia, unspecified Status: Acute Assessment and Plan: doing better Hemoglobin seems to wander around a bit. I suspect that that 9.0 on the 30th was wrong. Otherwise things are fairly stable. Check any (6) Bladder cancer: Qualifiers: Bladder location: unspecified site Qualified Code(s): C67.9 - Malignant neoplasm of bladder, unspecified Code(s): C67.9 - Malignant neoplasm of bladder, unspecified Status: Chronic Assessment and Plan: Urology following was empirically on Cipro for presumed UTI Will get culture results from Dr. Rubalcava' office. He is getting antibiotics now. Urine culture pending (7) Generalized weakness: Code(s): R53.1 - Weakness Status: Acute Assessment and Plan: suspect numerous issues playing a role: - NICANOR/ARF - fluctuating hemodynamics - anemia - UTI(?) - cancer treatments PT/OT as tolerated he had a positive urine culture. However it is unclear whether this is significant or not since this is from an ostomy and there always be something growing out of this. He did have a fever day before yesterday. He is on a quinolone now. He does not look toxic. Additional Plan Subjective Date/time seen: 11/07/19 11:01 Interval history: Mr. Raphael is a 78yo M admitted for generalized weakness and acute on chronic renal failure. he is more short of breath today. He ate pretty well
--- NOTE | 2019-11-07 11:57 | PM.CNPUL ---
Assessment and Plan Assessment and plan (1) ILD (interstitial lung disease): Code(s): J84.9 - Interstitial pulmonary disease, unspecified Status: Acute Assessment and Plan: CT pattern seems to show IPF/UIP but this admission there's more inflammation in that area. This could be due to an acute atypical pneumonia or nosocomial pneumonia or septic emboli to lungs to lungs. IPF exaerbation is unlikely due to normal oxygenation at rest. - Would recommend adding Vancomycin to cover MRSA pneumonia for 7-10 days - Will also add Cefipime for double pseudmonal coverage - 2D echo to r/o endocarditis History of Present Illness History of Present Illness Consult date: 11/07/19 Chief complaint: Hyponatremia, CKD Narrative: 78 y/o male with 20 pack year smoking yesterday, bladder and prostate CA s/p resection, chemo and radiation therapy presents with dyspnea on exertion that began about 1 week ago along with chills and sweats but no cough, no lost of taste or smell, no rhinorrhea, no nasal congestion or sore throat and no diarrhea. SARS-CoV-2 testing has been negative twice, CT scan shows subpleuaral fibrosis with traction bronchiectasis in August 2019 and this admission there appears to be inflammation in those subpleural areas with ground glass opacities. It also showed some new pulmonary emboli measuring 7-9 mm in size Since admissmission his chills have improved with starting Levaquin but dyspnea on exertion persists. V/Q scan was ordered but this is not very accurate in this case. He denies chest pain Review of Systems Review of Systems: All systems reviewed & are unremarkable except as noted in HPI and below PMFSH Past Medical History Medical History (Updated 11/07/19 @ 12:07 by Satya Andrade MD) Acute hyperkalemia Anemia Atrial tachycardia Bladder cancer history of chemotherapy approximately year and half ago with radiation treatment last time about July of 2019 Cancer of overlapping sites of bladder Cellulitis Chronic renal failure, stage 3 (moderate) Contact dermatitis Essential (primary) hypertension Gout, unspecified Hydronephrosis Hypertension Malignant neoplasm of dome of urinary bladder Mixed hyperlipidemia Port-A-Cath in place right chest Shingles Surgical History Surgical History History of cataract extraction History of ileal conduit History of inguinal hernia repair History of prostatectomy History of renal stent bilaterally History of tonsillectomy History of transurethral resection of prostate Family History Family History Father Family history of lung cancer Father Family history of cardiovascular disease Mother due to natural causes Social History Social History Social History: Patient quit smoking in 1979. He smoked about a pack a cigarettes a day for 20 years. Patient occasionally drinks a beer. He has 2 children. A boy and a girl. Power of contracts attorney is Carla Lam. He is a full code. He lives alone. He is retired from [employer]. he is . He denies any marijuana or illicit drugs. Smoking packs per day: 1 Smoking cigarettes per day: 20.0 Years smoked: 15 Smoking pack-years: 15.00 Smoking status: Former smoker Tobacco type: cigarettes Smoking end date: 03/08/79 Additional smoking assessment comments: 1979 Alcohol intake: former Substance use: never Gender identity (if verbalized by the patient): Male Spiritual care concerns: No Agree to blood products: Yes Meds Home Medications and Allergies Home Medications Medication Instructions Recorded Confirmed Type amlodipine [Norvasc] 5 mg PO QAM #30 tablet 10/09/19 11/04/19 Rx cephalexin 500 mg PO DAILY 11/04/19 11/04/19 History metoprolol succinate 50 mg PO DAILY 11/04/19 11/04/19 History Allergies Allergy/AdvReac Ty
--- NOTE | 2019-11-07 16:58 | PM.IMPN ---
Progress Note: A&P Assessment and Plan (1) Acute renal failure superimposed on stage 3 chronic kidney disease: Qualifiers: Acute renal failure type: unspecified Qualified Code(s): N17.9 - Acute kidney failure, unspecified; N18.3 - Chronic kidney disease, stage 3 (moderate) Code(s): N17.9 - Acute kidney failure, unspecified; N18.3 - Chronic kidney disease, stage 3 (moderate) Status: Chronic Assessment and Plan: -----Last creatinine 4.3 and was 5.1 on admission. CO2 still 14, bicarb has been given. Recent renal biopsy from last admission 10/09/19 demonstrated ATN. Hypotension on arrival may have been causing some hypoperfusion contributing to NICANOR. He also has UTI which I am unsure is causing any issue. Continue with Nephrology's recommendations. This will likely be his baseline and he is high risk for dialysis in the future. (2) Hyponatremia: Code(s): E87.1 - Hypo-osmolality and hyponatremia Status: Acute Assessment and Plan: -------130 today. Likely due to excessive fluid intake and abnormal kidney function. No neurological deficits. Monitor (3) Essential (primary) hypertension: Code(s): I10 - Essential (primary) hypertension Status: Chronic Assessment and Plan: ------last blood pressure 137/67. Norvasc and metoprolol are on hold secondary to hypotension. Depending on his pattern, may consider adding back soon. (4) Acute UTI: Code(s): N39.0 - Urinary tract infection, site not specified Status: Acute Assessment and Plan: ------cultures growing coag-negative staph, vancomycin added for pulmonary illness but should cover. Could be a contaminant. Recently seen in Dr Palomo' office 11/01/19 and was prescribed Cipro at that time for a suspected acute UTI. Continued on his prophylactic Keflex. (5) Chronic anemia: Code(s): D64.9 - Anemia, unspecified Status: Chronic Assessment and Plan: -----Suspect may be in part related to the renal failure. No evidence of acute bleeding. Monitor CBC. (6) Bladder cancer: Qualifiers: Bladder location: unspecified site Qualified Code(s): C67.9 - Malignant neoplasm of bladder, unspecified Code(s): C67.9 - Malignant neoplasm of bladder, unspecified Status: Chronic Assessment and Plan: ------Patient is s/p cystoprostatectomy with ileal conduit for treatment of bladder and prostate cancer February 2019. He wears a urostomy bag which he hooks up to a larger [place] bag at nighttime. Recently underwent placement of bilateral ureteral stents by Dr Palomo for a possible urinary obstruction contributing to NICANOR, unfortunately with not much improvement in overall renal function so far. Urology following (7) Generalized weakness: Code(s): R53.1 - Weakness Status: Acute Assessment and Plan: -----Suspect multifactorial and may be related to electrolyte abnormalities, renal failure, possible UTI, recent hospitalization. Continue PT and OT (8) Abnormal x-ray: Code(s): R93.89 - Abnormal findings on diagnostic imaging of other specified body structures Status: Acute Assessment and Plan: -----patient CT of the chest. It shows worsening diffuse lung disease likely mild pulmonary edema superimposed on chronic interstitial lung disease possibly UIP. He also has pulmonary nodules new from last year, either infection or metastatic disease. This should be followed up with imaging since he has a known history of cancer. At this time, pulmonology was consulted and he is currently on Levaquin, vancomycin and cefepime. His last fever was yesterday 11/05. D-dimer high, could be d/t infection but a marker for covid. CT does show bilateral infiltrates. Because of that and the fever I will test for covid although seems less likely. Will monitor for diarrhea. V/Q scan shows a small area of decreased perfusion that may be relat
[2019-11-07] MEDS: FUROSEMIDE INJ 100 MG/10 ML VIAL 80 MG IV PUSH (18:53)
--- NOTE | 2019-11-07 19:45 | ADMGEN ---
This patient, Stu Raphael, was admitted to [facility] Surg Room 325-02. Patient/family oriented to hospital policies and general routines including ID bracelet, bed and alarms, visiting hours, pain management, procedures, bathroom and other care routines, personal items, smoking policy, room service/diet, and visiting hours. Valuables list has been completed. Information on how to activate the Rapid Response Team has been discussed. Patient/Family are encouraged to report perceived risks to care and to ask questions if they do not understand what they are told or what they should do.
--- NOTE | 2019-11-07 19:45 | PC.NURSE ---
patient transferred to [address] [place] [address].
[2019-11-07] MEDS: ACETAMINOPHEN 500 MG TABLET 1000 MG PO (20:17)
[2019-11-07] MEDS: MELATONIN 5 MG TABLET PO ×2 (20:17→21:44)
[2019-11-08] VITALS (7 sets, daily range): BP systolic 104–122; BP diastolic 49–66; PULSE 106–120; RESP 16–20; TEMP 36.4–36.6; O2SAT 91–94
--- NOTE | 2019-11-08 00:03 | ECG_ITS ---
Measurements Intervals [place] Rate: 111 P: 34 MD: 124 QRS: -27 QRSD: 122 T: -8 QT: 350 QTc: 478 Interpretive Statements SINUS TACHYCARDIA RIGHT BUNDLE BRANCH BLOCK VOLTAGE CRITERIA FOR LVH ABNORMAL ECG Electronically Signed On 11-08-2019 7:09:58 CDT by Rajendra Parker D.O.
[2019-11-08] MEDS: traZODone HCL 50 MG TABLET PO ×2 (00:21→21:57)
[2019-11-08] MEDS: METOPROLOL TARTRATE INJ 5 MG/5 ML VIAL 2.5 MG IV PUSH (01:16)
[2019-11-08 06:01] LABS: Osmolality, Urine 229 mOsm/kg (50-1200)
[2019-11-08] MEDS: CENTRAL LINE FLUSH 10 ML IV PUSH ×3 (06:01→21:58)
[2019-11-08 07:03] LABS: Hematocrit 24.7 % (42.0-52.0); Hemoglobin 8.7 g/dL (14.0-18.0); Mean Corpuscular HGB Conc 35.2 g/dl (32-36); Mean Corpuscular Hemoglobin 31.1 pg (26-34); Mean Corpuscular Volume 88.2 fl (80-100); Mean Platelet Volume 9.9 fl (7.4-10.4); Platelet Count Result 281 k/mm3 (150-375); Red Cell Distribution Width 14.6 % (11.5-14.5); White Blood Count 12.1 K/mm3 (4.5-10.0)
[2019-11-08 07:20] LABS: Potassium 4.7 mmol/L (3.4-5.0)
[2019-11-08 07:34] LABS: Alanine Aminotransferase 21 U/L (4-50); Albumin Level 3.1 g/dL (3.5-5.1); Alkaline Phosphatase 284 U/L (38-126); Anion Gap 11 mmol/L (8-16); Aspartate Amino Transferase 42 U/L (17-59); Bilirubin,Total 0.3 mg/dL (0.2-1.3); Blood Urea Nitrogen 55 mg/dL (9-20); Calcium 8.6 mg/dL (8.4-10.2); Carbon Dioxide 19 mmol/L (22-30); Chloride 102 mmol/L (98-107); Estimated CRCL calculation 12 ml/min; Estimated Glomerular Filt Rate 13; Glucose 114 mg/dL (75-110); Lactate Dehydrogenase 873 U/L (313-618); Magnesium 1.3 mg/dL (1.6-2.3); Phosphorus 3.5 mg/dL (2.5-4.5); Sodium 132 mmol/L (137-145)
[2019-11-08 07:47] LABS: D Dimer 15.48 ug/mL (<0.48)
[2019-11-08] MEDS: SODIUM BICARBONATE TAB 650 MG TABLET 1300 MG PO ×2 (08:22→16:52)
[2019-11-08 08:38] LABS: CRP 26.6 mg/dL (<1.0)
[2019-11-08] MEDS: METOPROLOL SUCCINATE EXT REL 50 MG TABCR PO (11:40)
[2019-11-08] MEDS: levoFLOXacin 250 MG/D5W 50 ML 250 MG/50 ML BAG 50 MG IVPB (11:41)
[2019-11-08 13:13] LABS: SARS-CoV-2 RNA PCR Positive
[2019-11-08] MEDS: DEXAMETHASONE 2 MG TABLET 6 MG PO (14:41)
--- NOTE | 2019-11-08 15:39 | PM.IMPN ---
Progress Note: A&P Assessment and Plan (1) COVID-19: Code(s): U07.1 - COVID-19 Status: Acute Assessment and Plan: -----COVID positive with elevated inflammatory markers now utilizing oxygen. Remdesivir not recommended for patients GFR less than 30 so we will continue with just the dexamethasone. I have let the patient and daughter know. Plan to discontinue antibiotics once the blood cultures are negative (2) Acute renal failure superimposed on stage 3 chronic kidney disease: Qualifiers: Acute renal failure type: unspecified Qualified Code(s): N17.9 - Acute kidney failure, unspecified; N18.3 - Chronic kidney disease, stage 3 (moderate) Code(s): N17.9 - Acute kidney failure, unspecified; N18.3 - Chronic kidney disease, stage 3 (moderate) Status: Chronic Assessment and Plan: -----Last creatinine 4.3 and was 5.1 on admission. CO2 improved to 19. bicarb has been given. Recent renal biopsy from last admission 10/09/19 demonstrated ATN. Hypotension on arrival may have been causing some hypoperfusion contributing to NICANOR. He also has UTI which I am unsure is causing any issue. Continue with Nephrology's recommendations. This will likely be his baseline and he is high risk for dialysis in the future. (3) Hyponatremia: Code(s): E87.1 - Hypo-osmolality and hyponatremia Status: Acute Assessment and Plan: -------132 today. Likely due to excessive fluid intake and abnormal kidney function. No neurological deficits. Monitor (4) Essential (primary) hypertension: Code(s): I10 - Essential (primary) hypertension Status: Chronic Assessment and Plan: ------last blood pressure 115/58. Continue metoprolol (5) Acute UTI: Code(s): N39.0 - Urinary tract infection, site not specified Status: Acute Assessment and Plan: ------cultures growing coag-negative staph, vancomycin added for pulmonary illness but should cover. Could be a contaminant. Recently seen in Dr Palomo' office 11/01/19 and was prescribed Cipro at that time for a suspected acute UTI. Continued on his prophylactic Keflex. (6) Chronic anemia: Code(s): D64.9 - Anemia, unspecified Status: Chronic Assessment and Plan: -----Suspect may be in part related to the renal failure. No evidence of acute bleeding. Monitor CBC. 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 He wears a urostomy bag which he hooks up to a larger [place] bag at nighttime. Recently underwent placement of bilateral ureteral stents by Dr Palomo for a possible urinary obstruction contributing to NICANOR, unfortunately with not much improvement in overall renal function so far. Urology following (8) Generalized weakness: Code(s): R53.1 - Weakness Status: Acute Assessment and Plan: -----Suspect multifactorial and may be related to electrolyte abnormalities, renal failure, possible UTI, recent hospitalization. Continue PT and OT (9) Abnormal x-ray: Code(s): R93.89 - Abnormal findings on diagnostic imaging of other specified body structures Status: Acute Assessment and Plan: -----Likely due to COVID-19. CT shows worsening diffuse lung disease likely mild pulmonary edema superimposed on chronic interstitial lung disease possibly UIP. He also has pulmonary nodules new from last year, either infection or metastatic disease. This should be followed up with imaging since he has a known history of cancer. At this time, pulmonology was consulted and he is currently on Levaquin, vancomycin and cefepime. Plan t
[2019-11-08] MEDS: MAGNESIUM SULFATE 3GM/D5W100ML 3 GM/100 ML BAG IVPB (15:50)
--- NOTE | 2019-11-08 17:30 | P.PNNP_ITS ---
Progress Note: A&P Assessment and Plan (1) Acute renal failure: Qualifiers: Acute renal failure type: unspecified Qualified Code(s): N17.9 - Acute kidney failure, unspecified Code(s): N17.9 - Acute kidney failure, unspecified Status: Inactive Assessment and Plan: * renal biopsy on last hospitalization showed three major issues: * The patient did have some evidence of ATN With nuclear activation in the tubules and flattened tubular epithelium. * He also had significant chronic kidney disease with 40% interstitial fibrosis. * He had substantial arteriolar fibrosis, most likely from hypertension. 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 * Upon arrival his creatinine was higher. This improved with hydration. * He is back to his former baseline. (2) CKD (chronic kidney disease) stage 3, GFR 30-59 ml/min: Code(s): N18.3 - Chronic kidney disease, stage 3 (moderate) Status: Chronic Assessment and Plan: He is at a new baseline reflecting CKD stage 4. (3) Hyponatremia: Code(s): E87.1 - Hypo-osmolality and hyponatremia Status: Acute Assessment and Plan: * Sodium level is gradually better. He is on voluntary fluid restriction. (4) Essential (primary) hypertension: Code(s): I10 - Essential (primary) hypertension Status: Chronic Assessment and Plan: * Blood pressure readings Are doing pretty well. Will continue to follow. (5) Anemia: Code(s): D64.9 - Anemia, unspecified Status: Acute Assessment and Plan: * doing better * Hemoglobin is up to 8.7. (6) Bladder cancer: Qualifiers: Bladder location: unspecified site Qualified Code(s): C67.9 - Malignant neoplasm of bladder, unspecified Code(s): C67.9 - Malignant neoplasm of bladder, unspecified Status: Chronic Assessment and Plan: * Urology following * was empirically on Cipro for presumed UTI * Will get culture results from Dr. Rubalcava' office. * He is getting antibiotics now. * Urine culture pending (7) Generalized weakness: Code(s): R53.1 - Weakness Status: Acute Assessment and Plan: * suspect numerous issues playing a role: - NICANOR/ARF - fluctuating hemodynamics - anemia - UTI(?) - cancer treatments * PT/OT as tolerated (8) COVID-19: Code(s): U07.1 - COVID-19 Status: Acute Assessment and Plan: Getting symptomatic care now. On some oxygen. Watch closely for in need of diuretics Additional Plan Subjective Date/time seen: 11/08/19 17:30 Interval history: Mr. Raphael is a 78yo M admitted for generalized weakness and acute on chronic renal failure. the patient feels a little better today. He had the COVID test and it is positive. He is on some oxygen and feels better. Review of Systems Cardiovascular: Cardiovascular: Reports no additional cardiovascular complaints Respiratory: Respiratory: Reports no additional respiratory complaints Gastrointestinal: Gastrointestinal: Reports no additional gastrointestinal complaints Genitourinary: Genitourinary: Reports no additional male genitourinary complaints Exam Narrative: Exam Narrative: Well developed well-nourished gentleman lying in hospital bed. Skin is warm and dry. Head normocephalic atraumatic. Lungs are symmetric and clear He
--- NOTE | 2019-11-08 17:30 | PM.PNNEP ---
Progress Note: A&P Assessment and Plan (1) Acute renal failure: Qualifiers: Acute renal failure type: unspecified Qualified Code(s): N17.9 - Acute kidney failure, unspecified Code(s): N17.9 - Acute kidney failure, unspecified Status: Inactive Assessment and Plan: renal biopsy on last hospitalization showed three major issues: The patient did have some evidence of ATN With nuclear activation in the tubules and flattened tubular epithelium. He also had significant chronic kidney disease with 40% interstitial fibrosis. He had substantial arteriolar fibrosis, most likely from hypertension. Most likely the ATN is from recurrent obstruction. Upon arrival his creatinine was higher. This improved with hydration. He is back to his former baseline. (2) CKD (chronic kidney disease) stage 3, GFR 30-59 ml/min: Code(s): N18.3 - Chronic kidney disease, stage 3 (moderate) Status: Chronic Assessment and Plan: He is at a new baseline reflecting CKD stage 4. (3) Hyponatremia: Code(s): E87.1 - Hypo-osmolality and hyponatremia Status: Acute Assessment and Plan: Sodium level is gradually better. He is on voluntary fluid restriction. (4) Essential (primary) hypertension: Code(s): I10 - Essential (primary) hypertension Status: Chronic Assessment and Plan: Blood pressure readings Are doing pretty well. Will continue to follow. (5) Anemia: Code(s): D64.9 - Anemia, unspecified Status: Acute Assessment and Plan: doing better Hemoglobin is up to 8.7. (6) Bladder cancer: Qualifiers: Bladder location: unspecified site Qualified Code(s): C67.9 - Malignant neoplasm of bladder, unspecified Code(s): C67.9 - Malignant neoplasm of bladder, unspecified Status: Chronic Assessment and Plan: Urology following was empirically on Cipro for presumed UTI Will get culture results from Dr. Rubalcava' office. He is getting antibiotics now. Urine culture pending (7) Generalized weakness: Code(s): R53.1 - Weakness Status: Acute Assessment and Plan: suspect numerous issues playing a role: - NICANOR/ARF - fluctuating hemodynamics - anemia - UTI(?) - cancer treatments PT/OT as tolerated (8) COVID-19: Code(s): U07.1 - COVID-19 Status: Acute Assessment and Plan: Getting symptomatic care now. On some oxygen. Watch closely for in need of diuretics Additional Plan Subjective Date/time seen: 11/08/19 17:30 Interval history: Mr. Raphael is a 78yo M admitted for generalized weakness and acute on chronic renal failure. the patient feels a little better today. He had the COVID test and it is positive. He is on some oxygen and feels better. Review of Systems Cardiovascular: Cardiovascular: Reports no additional cardiovascular complaints Respiratory: Respiratory: Reports no additional respiratory complaints Gastrointestinal: Gastrointestinal: Reports no additional gastrointestinal complaints Genitourinary: Genitourinary: Reports no additional male genitourinary complaints Exam Narrative: Exam Narrative: Well developed well-nourished gentleman lying in hospital bed. Skin is warm and dry. Head normocephalic atraumatic. Lungs are symmetric and clear Heart regular without rub Abdomen bowel sounds positive soft nontender Extremities no edema. Objective Data Vital Signs Vital Signs: Vital Signs - 24 hr 11/07/19 20:00 11/07/19 20:17 11/07/19 21:17 Temperature 38.4 C H 38.4 C H 37.3 C Pulse Rate 130 H Respiratory Rate 20 Blood Pressure 149/79 H Pulse Oximetry 90 11/08/19 00:00 11/08/19 04:00 11/08/19 08:00 Temperature 36.5 C 36.6 C 36.4 C L Pulse Rate 120 H 106 H 109 H Respiratory Rate 18 16 18 Blood Pressure 122/65 119/65 115/66 Pulse Oximetry 92
--- NOTE | 2019-11-08 18:59 | PM.PNPUL ---
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 Now we know he has COVID, and perhaps some of these areas represent COVID superimposed on ILD. His presentation may be due to COVID with secondary pneumonia and mild pulmonary edema; no septic emboli as his echo is negative for vegetations, and blood cultures are pending. IPF exacerbation is unlikely due to normal oxygenation at rest. - Continue Vancomycin to cover MRSA pneumonia for 7-10 days total - Continue Cefepime for double pseudomonal coverage in addition to Levaquin. - echo does not show evidence of endocarditis (2) COVID-19: Code(s): U07.1 - COVID-19 Status: Acute Assessment and Plan: He is COVID19 ( (+) on his Nov 06 test, was tested after his CT of the chest showed suspicious findings. May not have ILD, and many of these these changes that look like ILD can be attributed to COVID with mild pulmonary edema. He has many typical labs including high WBC, LDH, ferritin, transaminases, CRP. renal function is not normal at baseline, staying stable. He is on IV dexamethasone 6 mg x 10 days, no with renal issues. Subjective Date/time seen: 11/08/19 18:59 This 78 yo man is seen in follow up for suspected ILD on chest CT. He is COVID (+) now on his Nov 06 test. He was tested for COVID in August and September, so this 3rd test is not his third test recently. His blood cultures are pending, Antibiotics will continue with Levaquin, Cefepime and Vancomycin until the BC are negative, maybe tomorrow. There is no evidence of vegetations on the echo. His WBC is higher, high D-dimer, high ferrtiin, LDH. Now on 3 L/min sat 93%. He is feeling better, less short of breath, less coughing. *11/[address] : subpleural fibrosis with traction bronchiectasis in August 2019 and this admission there appears to be inflammation in those subpleural areas with ground glass opacities. It also showed some new pulmonary emboli measuring 7-9 mm in size *Echo 11/07/19 shows 1. Complete two-dimensional, color flow and Doppler transthoracic echocardiogram is performed. 2. Left ventricular chamber dimension is normal. 3. Left ventricular systolic function is normal, estimated at 60-65%. 4. The left ventricular diastolic function is grade I diastolic dysfunction. 5. E/e' 14 is mildly elevated. 6. Global longitudinal strain is normal at -17.8%. 7. Left atrial chamber dimension is mildly enlarged. 8. There is trace aortic valve regurgitation. 9. There is mild mitral valve regurgitation. 10. No pulmonary hypertension, estimated pulmonary arterial systolic pressure is 29 mmHg. Review of Systems Review of Systems: All systems reviewed & are unremarkable except as noted in HPI and below Exam Const: General: comfortable and no acute distress Eyes: General: appearance normal, both eyes and all related structures Neck: Neck: supple and no JVD Resp: Auscultation: rales (fine inspiratory crackles ) bilateral Cardio: Rate: tachycardic Rhythm: regular rhythm Heart sounds: no murmurs GI: Auscultation: normal bowel sounds Skin: General skin exam: normal color and no rashes or lesions noted Extrem: General: normal to inspection, no edema and no pedal edema Psych: Mental Status: mental status grossly normal Affect: normal affect Objective Data Vital Signs Vital Signs: Vital Signs - 24 hr 11/07/19 20:00 11/07/19 20:17 11/07/19 21:17
[2019-11-08 21:33] LABS: Albumin 2.9 g/dL (3.8-4.8); Alpha 1 Globulin 0.6 g/dL (0.2-0.3); Alpha 2 Globulin 1.1 g/dL (0.5-0.9); Beta 1 Globulin 0.4 g/dL (0.4-0.6); Gamma Globulin 0.9 g/dL (0.8-1.7); Protein, Total 6.1 g/dL (6.1-8.1)
[2019-11-08] MEDS: MELATONIN 5 MG TABLET PO (21:58)
[2019-11-08] MEDS: HEPARIN SODIUM 5,000 UNITS/ML VIAL 5000 UNITS SUB-Q (21:58)
[2019-11-09] VITALS (8 sets, daily range): BP systolic 113–135; BP diastolic 56–89; PULSE 92–105; RESP 18–21; TEMP 36.4–36.8; O2SAT 90–98
[2019-11-09] MEDS: CENTRAL LINE FLUSH 10 ML IV PUSH ×3 (06:11→21:04)
[2019-11-09 06:53] LABS: Hematocrit 22.6 % (42.0-52.0); Mean Corpuscular HGB Conc 35.4 g/dl (32-36); Mean Corpuscular Hemoglobin 30.7 pg (26-34); Mean Corpuscular Volume 86.6 fl (80-100); Mean Platelet Volume 9.8 fl (7.4-10.4); Platelet Count Result 223 k/mm3 (150-375); Red Blood Count 2.61 M/mm3 (4.6-6.20); Red Cell Distribution Width 14.7 % (11.5-14.5); White Blood Count 9.5 K/mm3 (4.5-10.0)
[2019-11-09 07:06] LABS: Albumin Level 2.9 g/dL (3.5-5.1); Anion Gap 8 mmol/L (8-16); Blood Urea Nitrogen 59 mg/dL (9-20); Calcium 8.6 mg/dL (8.4-10.2); Carbon Dioxide 20 mmol/L (22-30); Chloride 104 mmol/L (98-107); Estimated CRCL calculation 14 ml/min; Estimated Glomerular Filt Rate 16; Glucose 161 mg/dL (75-110); Phosphorus 3.6 mg/dL (2.5-4.5); Sodium 132 mmol/L (137-145)
[2019-11-09 07:13] LABS: Potassium 4.6 mmol/L (3.4-5.0)
--- NOTE | 2019-11-09 07:32 | WPDUROPN2 ---
Progress Note: A&P Assessment and Plan (1) Bladder cancer: Qualifiers: Bladder location: unspecified site Qualified Code(s): C67.9 - Malignant neoplasm of bladder, unspecified Code(s): C67.9 - Malignant neoplasm of bladder, unspecified Status: Chronic (2) Chronic renal failure, stage 3 (moderate): Code(s): N18.3 - Chronic kidney disease, stage 3 (moderate) Status: Chronic Assessment and Plan: Events noted - pt. feeling better. Renal function continues to slowly improve with supportive care. No plans for intervention from our standpoint. Subjective Subjective Date/Time Seen: 11/09/19 07:32 Comfortable, less SOB Review of Systems Cardiovascular: Cardiovascular: Denies chest pain, Denies lightheadedness, Denies palpitations and Denies dyspnea Respiratory: Respiratory: Denies dyspnea Gastrointestinal: Gastrointestinal: Denies diarrhea, Denies nausea and Denies vomiting Genitourinary: Genitourinary: Denies hematuria and Denies dysuria Endocrine: Endocrine: Denies palpitations Exam Const: General: no acute distress Resp: Effort & Inspection: normal respiratory effort GI: Inspection: non-distended GI Palp: No abdominal tenderness and No Guarding due to palpation present (GI) Auscultation: normal bowel sounds Objective Data Vital Signs Vital Signs: Vital Signs - 24 hr 11/08/19 08:00 11/08/19 11:40 11/08/19 12:00 Temperature 97.5 F L 97.7 F Pulse Rate 109 H 109 H 110 H Respiratory Rate 18 18 Blood Pressure 115/66 115/58 L Pulse Oximetry 92 94 11/08/19 16:00 11/08/19 20:00 11/09/19 00:00 Temperature 97.8 F 97.7 F 97.7 F Pulse Rate 108 H 110 H 96 Respiratory Rate 20 20 18 Blood Pressure 104/49 L 122/64 113/89 Pulse Oximetry 93 91 92 11/09/19 04:00 Temperature 97.5 F L Pulse Rate 105 H Respiratory Rate 18 Blood Pressure 123/61 Pulse Oximetry 90 Intake/Output Intake/Output: Intake & Output 11/06/19 11/07/19 11/08/19 11/09/19 23:59 23:59 23:59 23:59 Intake Total 4220 2650 1340 450 Output Total 3150 2325 1650 1900 Balance 1070 325 -[phone] -1450 Meds/Results Medications: Active Medications Generic Name Dose Route Start Last Admin Trade Name Freq PRN Reason Stop Dose Admin Acetaminophen 1,000 mg 11/05/19 08:50 11/07/19 20:17 Tylenol Tablet PO 1,000 mg Q6H PRN Administration Pain or Fever Albuterol 2 puff 11/05/19 15:46 Proventil Hfa INHALATION QIDRT PRN Shortness Of Breath Dexamethasone 6 mg 11/08/19 13:50 11/08/19 14:41 Dexamethasone Po PO 11/17/19 08:01 6 mg DAILY@0800 TANYA Administration Heparin Sodium (Beef Lung) 50 units 11/06/19 09:00 11/08/19 08:21 Heparin Flush 50 Units/5 Ml IV PUSH 50 units QAM TANYA Administration Heparin Sodium (Beef Lung) 50 units 11/06/19 08:05 Heparin Flush 50 Units/5 Ml IV PUSH PRN PRN after intermittent infusion Heparin Sodium (Beef Lung) 50 units 11/06/19 08:05 11/09/19 06:12 Heparin Flush 50 Units/5 Ml IV PUSH 50 units PRN PRN Administration after blood draws Heparin Sodium (Porcine) 500 units 11/06/19 08:05 Heparin Sod Flush 100 Units/Ml IV PUSH PRN PRN see comments below Heparin Sodium (Porcine) 5,000 units 11/08/19 21:00 11/08/19 21:58 Heparin Sodium SUB-Q 5,000 units Q12HR TANYA Administration Levofloxacin/Dextrose 250 mg in 50 mls @ 50 mls/hr 11/08/19 09:00 11/08/19 12:41 Levaquin 250 Mg/D5w 50 Ml IVPB Infused Q48HR TANYA Infusion Cefepime HCl 2 gm in 50 mls @ 100 mls/hr 11/07/19 13:00 11/08/19 15:11 Maxipime 2 Gm/D5w 50 Ml IVPB Infused Q24H TANYA Infusion Vancomycin HCl 1,250 mg in 250 mls @ 200 mls/hr 11/07/19 13:00 11/07/19 17:45 Vancomycin 1,250 Mg/D5w 250 Ml IVPB 11/14/19 23:59 Infused Q48H TANYA Infusion Lorazepam 0.5 mg 11/07/19 17:24 11/08/19 00:21 Ativan Inj IV PUSH 0.5 mg Q6H PRN Administration Anxiety Melatonin 5 mg
[2019-11-09] MEDS: HEPARIN SODIUM 5,000 UNITS/ML VIAL 5000 UNITS SUB-Q ×2 (10:04→20:23)
[2019-11-09] MEDS: DEXAMETHASONE 2 MG TABLET 6 MG PO (10:05)
[2019-11-09] MEDS: SODIUM BICARBONATE TAB 650 MG TABLET 1300 MG PO ×2 (10:05→18:02)
[2019-11-09] MEDS: METOPROLOL SUCCINATE EXT REL 50 MG TABCR PO (10:06)
--- NOTE | 2019-11-09 14:08 | PCDIET ---
Nutrition Follow-Up Complete: Nutrition Diagnosis: Intake oral intake related to cancer as evidenced by weight loss of 20 pounds in the past 3 months. Nutrition Goal: Adequate intake of at least 75% of meals Goal in progress. Patient has consumed average of 60% of meals recorded since last review on low potassium diet. Spoke with patient via phone due to COVID-19 diagnosis. Patient previously refused Ensure, but reports he has since spoken with [facility] who told him it would be acceptable. Patient now reports taking Ensure Compact supplement (being sent BID). Last recorded weight is 71.5 kg. Recommend obtaining new weight. Bowel Motility: No documented BM; however, patient denies GI c/o; normal bowel sounds, per MD notes. Labs Reviewed: Hgb (8.0), Hct (22.6), Glu (161), BUN (59), Cr (3.7), Na (132), Alb (2.9) Meds Noted: Albuterol, Cefepime, Dexamethasone, Levaquin, Sodium Bicarbonate, Vancomycin Additional Notes: No documented skin breakdown. Discussed with patient that we may need to taper supplements as intakes continue to improve but must balance renal restrictions with adequate nutrition at this time. Nutrition Monitoring and Evaluation: Follow up every 5 days.
--- NOTE | 2019-11-09 16:09 | PM.IMPN ---
Progress Note: A&P Assessment and Plan (1) COVID-19: Code(s): U07.1 - COVID-19 Status: Acute Assessment and Plan: -----patient was working with physical therapy today and his oxygen requirement increased. He is now on 9 L high-flow by suspect that he will improve with rest. I put him on continuous pulse ox on the telemetry box so we can assess him routinely. If he continues to need more oxygen, he will be moved to the ICU but for now, he appears stable. He is in no distress and feels just fine. Will order a chest x-ray and inflammatory markers tomorrow morning. Continued dexamethasone. Remdesivir not recommended for patients GFR less than 30 so we will continue with just the dexamethasone. Antibiotics discontinued (2) Acute renal failure superimposed on stage 3 chronic kidney disease: Qualifiers: Acute renal failure type: unspecified Qualified Code(s): N17.9 - Acute kidney failure, unspecified; N18.3 - Chronic kidney disease, stage 3 (moderate) Code(s): N17.9 - Acute kidney failure, unspecified; N18.3 - Chronic kidney disease, stage 3 (moderate) Status: Chronic Assessment and Plan: -----Last creatinine 43.7 and was 5.1 on admission. CO2 improved to 20. bicarb has been given. Recent renal biopsy from last admission 10/09/19 demonstrated ATN. Hypotension on arrival may have been causing some hypoperfusion contributing to NICANOR. He also has UTI which I am unsure is causing any issue. Continue with Nephrology's recommendations. This will likely be his baseline and he is high risk for dialysis in the future. (3) Hyponatremia: Code(s): E87.1 - Hypo-osmolality and hyponatremia Status: Acute Assessment and Plan: -------132 today. Likely due to excessive fluid intake and abnormal kidney function. No neurological deficits. Monitor (4) Essential (primary) hypertension: Code(s): I10 - Essential (primary) hypertension Status: Chronic Assessment and Plan: ------last blood pressure 120/56 Continue metoprolol (5) Acute UTI: Code(s): N39.0 - Urinary tract infection, site not specified Status: Acute Assessment and Plan: ------cultures growing coag-negative staph, vancomycin added for pulmonary illness but should cover. Could be a contaminant. Recently seen in Dr Palomo' office 11/01/19 and was prescribed Cipro at that time for a suspected acute UTI. Continued on his prophylactic Keflex. (6) Chronic anemia: Code(s): D64.9 - Anemia, unspecified Status: Chronic Assessment and Plan: -----Suspect may be in part related to the renal failure. No evidence of acute bleeding. Monitor CBC. 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 He wears a urostomy bag which he hooks up to a larger [place] bag at nighttime. Recently underwent placement of bilateral ureteral stents by Dr Palomo for a possible urinary obstruction contributing to NICANOR, unfortunately with not much improvement in overall renal function so far. Urology following (8) Generalized weakness: Code(s): R53.1 - Weakness Status: Acute Assessment and Plan: -----Suspect multifactorial and may be related to electrolyte abnormalities, renal failure, possible UTI, recent hospitalization. Continue PT and OT (9) Abnormal x-ray: Code(s): R93.89 - Abnormal findings on diagnostic imaging of other specified body structures Status: Acute Assessment and Plan: -----Likely due to COVID-19. CT shows worsening diffuse lung disease likely mild pulmonary edema superimposed on chroni
--- NOTE | 2019-11-09 16:51 | PM.PNNEP ---
Progress Note: A&P Assessment and Plan (1) Acute renal failure: Qualifiers: Acute renal failure type: unspecified Qualified Code(s): N17.9 - Acute kidney failure, unspecified Code(s): N17.9 - Acute kidney failure, unspecified Status: Inactive Assessment and Plan: renal biopsy on last hospitalization showed three major issues: The patient did have some evidence of ATN With nuclear activation in the tubules and flattened tubular epithelium. He also had significant chronic kidney disease with 40% interstitial fibrosis. He is back to his former baseline. (2) CKD (chronic kidney disease) stage 3, GFR 30-59 ml/min: Code(s): N18.3 - Chronic kidney disease, stage 3 (moderate) Status: Chronic Assessment and Plan: He is at a new baseline reflecting CKD stage 4. (3) Hyponatremia: Code(s): E87.1 - Hypo-osmolality and hyponatremia Status: Acute Assessment and Plan: Sodium level is gradually better. He is on voluntary fluid restriction. (4) Essential (primary) hypertension: Code(s): I10 - Essential (primary) hypertension Status: Chronic Assessment and Plan: Blood pressure readings Are doing pretty well. Will continue to follow. (5) Anemia: Code(s): D64.9 - Anemia, unspecified Status: Acute Assessment and Plan: doing better Hemoglobin is up to 8.7. (6) Bladder cancer: Qualifiers: Bladder location: unspecified site Qualified Code(s): C67.9 - Malignant neoplasm of bladder, unspecified Code(s): C67.9 - Malignant neoplasm of bladder, unspecified Status: Chronic Assessment and Plan: Urology following was empirically on Cipro for presumed UTI Will get culture results from Dr. Rubalcava' office. He is getting antibiotics now. Urine culture pending (7) Generalized weakness: Code(s): R53.1 - Weakness Status: Acute Assessment and Plan: suspect numerous issues playing a role: - NICANOR/ARF - fluctuating hemodynamics - anemia - UTI(?) - cancer treatments PT/OT as tolerated (8) COVID-19: Code(s): U07.1 - COVID-19 Status: Acute Assessment and Plan: Getting symptomatic care now. On some oxygen. Watch closely for in need of diuretics Additional Plan Subjective Date/time seen: 11/09/19 16:51 Interval history: alert. feels better. less sob Review of Systems Cardiovascular: Cardiovascular: Reports no additional cardiovascular complaints Respiratory: Respiratory: Reports no additional respiratory complaints Gastrointestinal: Gastrointestinal: Reports no additional gastrointestinal complaints Genitourinary: Genitourinary: Reports no additional male genitourinary complaints Exam Narrative: Exam Narrative: Well developed well-nourished gentleman lying in hospital bed. Skin is warm and dry. no rash Head normocephalic atraumatic. Lungs are symmetric and clear Heart regular without rub Abdomen bowel sounds positive soft nontender Extremities no edema or cyansos Objective Data Vital Signs Vital Signs: Vital Signs - 24 hr 11/08/19 20:00 11/09/19 00:00 11/09/19 04:00 Temperature 36.5 C 36.5 C 36.4 C L Pulse Rate 110 H 96 105 H Respiratory Rate 20 18 18 Blood Pressure 122/64 113/89 123/61 Pulse Oximetry 91 92 90 11/09/19 08:00 11/09/19 10:06 11/09/19 12:00 Temperature 36.8 C 36.8 C Pulse Rate 96 94 93 Respiratory Rate 20 20 Blood Pressure 120/65 120/56 L Pulse Oximetry 90 90 11/09/19 16:25 Temperature Pulse Rate 97 Respiratory Rate 21 H Blood Pressure Pulse Oximetry 93 Intake/Output Intake/Output: Intake & Output 11/06/19 11/07/19 11/08/19 11/09/19 23:59 23:59 23:59 23:59 Intake Total 4220 2650 1340 690 Output Total 3150 2325 1650 1900 Balance 1074 334 [phone] Meds/Results Medications: Active Medications G
--- NOTE | 2019-11-09 17:01 | PC.NURSE ---
Patient O2 saturation dropped to 80% when moving from the bed to the chair. The patient was slightly short of breath but otherwise un-symptomatic. I, the nurse, and the PA, Devora, were in the room when this happened. The PA gave orders for high flow oxygen, telemetry, and continuous pulse ox to be started. Patient was put on 8L of high flow oxygen and returned to O2 saturation of 96%.
--- NOTE | 2019-11-09 17:37 | PM.PNPUL ---
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 Now we know he has COVID, and perhaps some of these areas represent COVID superimposed on ILD. His presentation may be due to COVID with secondary pneumonia and mild pulmonary edema; no septic emboli as his echo is negative for vegetations, and blood cultures are pending. IPF exacerbation is unlikely due to normal oxygenation at rest. - Continue Vancomycin to cover MRSA pneumonia for 7-10 days total - Continue Cefepime for double pseudomonal coverage in addition to Levaquin. - echo does not show evidence of endocarditis (2) COVID-19: Code(s): U07.1 - COVID-19 Status: Acute Assessment and Plan: He is COVID19 ( (+) on his Nov 06 test, was tested after his CT of the chest showed suspicious findings. May not have ILD, and many of these these changes that look like ILD can be attributed to COVID with mild pulmonary edema. He has many typical labs including high WBC, LDH, ferritin, transaminases, CRP. renal function is not normal at baseline, staying stable. He is on IV dexamethasone 6 mg x 10 days. with renal issues. Subjective Date/time seen: 11/09/19 17:37 This 78 yo man is seen in follow up for suspected ILD on chest CT. He required an increase in his O2 to 9 L/min today after Physical Therapy with a long workout. He says that his saturation was in the 70% range when he was finished with exercise. He is now down to 6 L/min. Will need walk study before discharge. He is COVID (+) Sept 1 test, negative in August and September. His blood cultures are negative to date. Antibiotics will continue with Levaquin, Cefepime and Vancomycin until the BC are negative, maybe tomorrow. There is no evidence of vegetations on the echo. His WBC is higher, high D-dimer, high ferritin, LDH. Now on 3 L/min sat 93%. He is feeling better, less short of breath, less coughing. *11/[address] : subpleural fibrosis with traction bronchiectasis in August 2019 and this admission there appears to be inflammation in those subpleural areas with ground glass opacities. It also showed some new pulmonary emboli measuring 7-9 mm in size Review of Systems Review of Systems: All systems reviewed & are unremarkable except as noted in HPI and below Exam Const: General: comfortable and no acute distress Eyes: General: appearance normal, both eyes and all related structures Neck: Neck: supple and no JVD Resp: Auscultation: rales (fine inspiratory crackles ) bilateral Cardio: Rate: tachycardic Rhythm: regular rhythm Heart sounds: no murmurs GI: Auscultation: normal bowel sounds Skin: General skin exam: normal color and no rashes or lesions noted Extrem: General: normal to inspection, no edema and no pedal edema Psych: Mental Status: mental status grossly normal Affect: normal affect Objective Data Vital Signs Vital Signs: Vital Signs - 24 hr 11/08/19 20:00 11/09/19 00:00 11/09/19 04:00 Temperature 36.5 C 36.5 C 36.4 C L Pulse Rate 110 H 96 105 H Respiratory Rate 20 18 18 Blood Pressure 122/64 113/89 123/61 Pulse Oximetry 91 92 90 11/09/19 08:00 11/09/19 10:06 11/09/19 12:00 Temperature 36.8 C 36.8 C Pulse Rate 96 94 93 Respiratory Rate 20 20 Blood Pressure 120/65 120/56 L Pulse Oximetry 90 90 11/09/19 16:25 Temperature Pulse Rate 97 Respiratory Rate 21 H Blood Pressure Pulse Oximetry 93 Intake/Output Intake/Output: I
[2019-11-09 19:11] LABS: Chloride Rand Ur 24 mmol/L (32-290); Chloride/Creatinine Rand Ur 31 (23-275); Creatinine Random Urine 77 mg/dL (20-320)
[2019-11-09] MEDS: traZODone HCL 50 MG TABLET PO (20:23)
[2019-11-09] MEDS: MELATONIN 5 MG TABLET PO (20:23)
[2019-11-10] VITALS (9 sets, daily range): BP systolic 114–136; BP diastolic 64–75; PULSE 83–103; RESP 18–22; TEMP 36.1–36.6; O2SAT 88–100
[2019-11-10] MEDS: CENTRAL LINE FLUSH 10 ML IV PUSH ×3 (05:47→20:56)
[2019-11-10 05:54] LABS: Hematocrit 23.3 % (42.0-52.0); Hemoglobin 8.2 g/dL (14.0-18.0); Mean Corpuscular HGB Conc 35.2 g/dl (32-36); Mean Corpuscular Hemoglobin 31.1 pg (26-34); Mean Corpuscular Volume 88.3 fl (80-100); Mean Platelet Volume 9.9 fl (7.4-10.4); Platelet Count Result 245 k/mm3 (150-375); Red Blood Count 2.64 M/mm3 (4.6-6.20); Red Cell Distribution Width 14.7 % (11.5-14.5); White Blood Count 11.3 K/mm3 (4.5-10.0)
[2019-11-10 06:17] LABS: Alanine Aminotransferase 38 U/L (4-50); Alkaline Phosphatase 298 U/L (38-126); Anion Gap 10 mmol/L (8-16); Aspartate Amino Transferase 53 U/L (17-59); Bilirubin,Total 0.4 mg/dL (0.2-1.3); Blood Urea Nitrogen 71 mg/dL (9-20); CRP 8.5 mg/dL (<1.0); Calcium 8.9 mg/dL (8.4-10.2); Carbon Dioxide 19 mmol/L (22-30); Chloride 103 mmol/L (98-107); Estimated CRCL calculation 15 ml/min; Estimated Glomerular Filt Rate 18; Glucose 157 mg/dL (75-110); Potassium 4.5 mmol/L (3.4-5.0); Sodium 132 mmol/L (137-145)
[2019-11-10] MEDS: HEPARIN SODIUM 5,000 UNITS/ML VIAL 5000 UNITS SUB-Q ×2 (09:46→20:56)
[2019-11-10] MEDS: DEXAMETHASONE 2 MG TABLET 6 MG PO (09:47)
[2019-11-10] MEDS: SODIUM BICARBONATE TAB 650 MG TABLET 1300 MG PO ×2 (09:48→17:33)
[2019-11-10] MEDS: METOPROLOL SUCCINATE EXT REL 50 MG TABCR PO (09:48)
--- NOTE | 2019-11-10 14:33 | PM.IMPN ---
Progress Note: A&P Assessment and Plan (1) COVID-19: Code(s): U07.1 - COVID-19 Status: Acute Assessment and Plan: -----Improving on CXR and clinically. Will try and wean o2. He has not had a fever since 11/06. He is in no distress and feels just fine. Continue dexamethasone. Remdesivir not recommended for patients GFR less than 30 so we will continue with just the dexamethasone. Antibiotics discontinued (2) Acute renal failure superimposed on stage 3 chronic kidney disease: Qualifiers: Acute renal failure type: unspecified Qualified Code(s): N17.9 - Acute kidney failure, unspecified; N18.3 - Chronic kidney disease, stage 3 (moderate) Code(s): N17.9 - Acute kidney failure, unspecified; N18.3 - Chronic kidney disease, stage 3 (moderate) Status: Chronic Assessment and Plan: -----Last creatinine 3.4 and was 5.1 on admission. CO2 improved to 19. bicarb has been given. Recent renal biopsy from last admission 10/09/19 demonstrated ATN. Hypotension on arrival may have been causing some hypoperfusion contributing to NICANOR. He also has UTI which I am unsure is causing any issue. Continue with Nephrology's recommendations. This will likely be his baseline and he is high risk for dialysis in the future. (3) Hyponatremia: Code(s): E87.1 - Hypo-osmolality and hyponatremia Status: Acute Assessment and Plan: -------132 today. Likely due to excessive fluid intake and abnormal kidney function. No neurological deficits. Monitor (4) Essential (primary) hypertension: Code(s): I10 - Essential (primary) hypertension Status: Chronic Assessment and Plan: ------last blood pressure 114/68 Continue metoprolol (5) Acute UTI: Code(s): N39.0 - Urinary tract infection, site not specified Status: Acute Assessment and Plan: ------cultures growing coag-negative staph, continue short coursre of vancomycin. Could be a contaminant. Recently seen in Dr Palomo' office 11/01/19 and was prescribed Cipro at that time for a suspected acute UTI. Continued on his prophylactic Keflex. (6) Chronic anemia: Code(s): D64.9 - Anemia, unspecified Status: Chronic Assessment and Plan: -----Suspect may be in part related to the renal failure. No evidence of acute bleeding. Monitor CBC. 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 He wears a urostomy bag which he hooks up to a larger [place] bag at nighttime. Recently underwent placement of bilateral ureteral stents by Dr Palomo for a possible urinary obstruction contributing to NICANOR, unfortunately with not much improvement in overall renal function so far. Urology following (8) Generalized weakness: Code(s): R53.1 - Weakness Status: Acute Assessment and Plan: -----Suspect multifactorial and may be related to electrolyte abnormalities, renal failure, possible UTI, recent hospitalization. Continue PT and OT (9) Abnormal x-ray: Code(s): R93.89 - Abnormal findings on diagnostic imaging of other specified body structures Status: Acute Assessment and Plan: -----Likely due to COVID-19. CT shows worsening diffuse lung disease likely mild pulmonary edema superimposed on chronic interstitial lung disease possibly UIP. He also has pulmonary nodules new from last year, either infection or metastatic disease. This should be followed up with imaging since he has a known history of cancer. At this time, pulmonology was consulted and antibiotics stopped. His last fever was yesterday 11/06. V/Q scan shows a small area
--- NOTE | 2019-11-10 16:20 | PM.PNNEP ---
Progress Note: A&P Assessment and Plan (1) Acute renal failure: Qualifiers: Acute renal failure type: unspecified Qualified Code(s): N17.9 - Acute kidney failure, unspecified Code(s): N17.9 - Acute kidney failure, unspecified Status: Inactive Assessment and Plan: renal biopsy on last hospitalization showed three major issues: The patient did have some evidence of ATN With nuclear activation in the tubules and flattened tubular epithelium. He also had significant chronic kidney disease with 40% interstitial fibrosis. his creatinine is actually lower than his usual baseline. This may be due to decreased creatinine production from decreased muscle turn over in his sedentary state Since he is on isolation right now. (2) CKD (chronic kidney disease) stage 3, GFR 30-59 ml/min: Code(s): N18.3 - Chronic kidney disease, stage 3 (moderate) Status: Chronic Assessment and Plan: He is at a new baseline reflecting CKD stage 4. (3) Hyponatremia: Code(s): E87.1 - Hypo-osmolality and hyponatremia Status: Acute Assessment and Plan: Sodium level is gradually better. He is on voluntary fluid restriction. sodium level 132 today (4) Essential (primary) hypertension: Code(s): I10 - Essential (primary) hypertension Status: Chronic Assessment and Plan: Blood pressure readings Are doing pretty well. Will continue to follow. (5) Anemia: Code(s): D64.9 - Anemia, unspecified Status: Acute Assessment and Plan: doing better hemoglobin is up and down in the 8s.. (6) Bladder cancer: Qualifiers: Bladder location: unspecified site Qualified Code(s): C67.9 - Malignant neoplasm of bladder, unspecified Code(s): C67.9 - Malignant neoplasm of bladder, unspecified Status: Chronic Assessment and Plan: Urology following was empirically on Cipro for presumed UTI Will get culture results from Dr. Rubalcava' office. He is getting antibiotics now. (7) Generalized weakness: Code(s): R53.1 - Weakness Status: Acute Assessment and Plan: suspect numerous issues playing a role: - NICANOR/ARF - fluctuating hemodynamics - anemia - UTI(?) - cancer treatments PT/OT as tolerated (8) COVID-19: Code(s): U07.1 - COVID-19 Status: Acute Assessment and Plan: Getting symptomatic care now. On some oxygen. He looks euvolemic Watch closely for need of diuretics Additional Plan Subjective Date/time seen: 11/10/19 16:20 Interval history: still in isolation for COVID-19 alert. feels better. less sob eating well he said Review of Systems Cardiovascular: Cardiovascular: Reports no additional cardiovascular complaints Respiratory: Respiratory: Reports no additional respiratory complaints Gastrointestinal: Gastrointestinal: Reports no additional gastrointestinal complaints Genitourinary: Genitourinary: Reports no additional male genitourinary complaints Exam Narrative: Exam Narrative: well developed well-nourished gentleman lying in hospital bed in no acute distress Lungs are clear Heart regular rate rhythm no rub or gallop Abdomen bowel sounds positive soft nontender Extremities show no cyanosis clubbing or edema skin no rash Objective Data Vital Signs Vital Signs: Vital Signs - 24 hr 11/09/19 16:25 11/09/19 20:00 11/10/19 00:00 Temperature 36.4 C 36.6 C Pulse Rate 97 97 90 Respiratory Rate 21 H 18 18 Blood Pressure 135/66 135/71 Pulse Oximetry 93 93 94 Pulse Oximetry [With Activity During Therapy Session] 11/10/19 04:00 11/10/19 08:00 11/10/19 09:48 Temperature 36.4 C 36.4 C Pulse Rate 94 93 102 H Respiratory Rate 18 22 H Blood Pressure 120/64 123/67 Pulse Oximetry 90 89 L Pulse Oximetry [With Activity During Therapy Session] 11/10/19 11:01 11/10/19 1
--- NOTE | 2019-11-10 18:56 | PM.PNPUL ---
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 Now we know he has COVID, and perhaps some of these areas represent COVID superimposed on ILD. His presentation may be due to COVID with secondary pneumonia and mild pulmonary edema; no septic emboli as his echo is negative for vegetations, and blood cultures are pending. IPF exacerbation is unlikely due to normal oxygenation at rest. - Continue Vancomycin to cover MRSA pneumonia for 7-10 days total - Continue Cefepime for double pseudomonal coverage in addition to Levaquin. - echo does not show evidence of endocarditis (2) COVID-19: Code(s): U07.1 - COVID-19 Status: Acute Assessment and Plan: He is COVID19 ( (+) on his Nov 06 test, was tested after his CT of the chest showed suspicious findings. May not have ILD, and many of these these changes that look like ILD can be attributed to COVID with mild pulmonary edema. He has many typical labs including high WBC, LDH, ferritin, transaminases, CRP. renal function is not normal at baseline, staying stable. He is on IV dexamethasone 6 mg x 10 days. with renal issues. Subjective Date/time seen: 11/10/19 18:56 Review of Systems Review of Systems: All systems reviewed & are unremarkable except as noted in HPI and below Exam Const: General: comfortable and no acute distress Eyes: General: appearance normal, both eyes and all related structures Neck: Neck: supple and no JVD Resp: Auscultation: rales (fine inspiratory crackles ) bilateral Cardio: Rate: tachycardic Rhythm: regular rhythm Heart sounds: no murmurs GI: Auscultation: normal bowel sounds Skin: General skin exam: normal color and no rashes or lesions noted Extrem: General: normal to inspection, no edema and no pedal edema Psych: Mental Status: mental status grossly normal Affect: normal affect Objective Data Vital Signs Vital Signs: Vital Signs - 24 hr 11/09/19 20:00 11/10/19 00:00 11/10/19 04:00 Temperature 36.4 C 36.6 C 36.4 C Pulse Rate 97 90 94 Respiratory Rate 18 18 18 Blood Pressure 135/66 135/71 120/64 Pulse Oximetry 93 94 90 Pulse Oximetry [With Activity During Therapy Session] 11/10/19 08:00 11/10/19 09:48 11/10/19 11:01 Temperature 36.4 C Pulse Rate 93 102 H Respiratory Rate 22 H Blood Pressure 123/67 Pulse Oximetry 89 L 93 Pulse Oximetry [With Activity During Therapy Session] 11/10/19 12:00 11/10/19 15:08 11/10/19 16:00 Temperature 36.4 C 36.6 C Pulse Rate 85 102 H Respiratory Rate 20 18 Blood Pressure 114/68 124/66 Pulse Oximetry 96 95 Pulse Oximetry [With Activity During Therapy Session] 88 L Intake/Output Intake/Output: Intake & Output 11/07/19 11/08/19 11/09/19 11/10/19 23:59 23:59 23:59 23:59 Intake Total 2650 8490 232 6662 Output Total 2325 1650 1900 2800 Balance 901 -243 -963 -358 Meds/Results Medications: Active Medications Generic Name Dose Route Start Last Admin Trade Name Freq PRN Reason Stop Dose Admin Acetaminophen 1,000 mg 11/05/19 08:50 11/07/19 20:17 Tylenol Tablet PO 1,000 mg Q6H PRN Administration Pain or Fever Albuterol 2 puff 11/05/19 15:46 Proventil Hfa INHALATION QIDRT PRN Shortness Of Breath Dexamethasone 6 mg 11/08/19 13:50 11/10/19 09:47 Dexamethasone Po PO 11/17/19 08:01 6 mg DAILY@0800 [facility] Administration Heparin Sodium (Beef Lung) 50 units 11/05/
[2019-11-10 20:23] LABS: Creatinine, Random Urine 75 mg/dL (20-320); Total Protein/Creatinine Ratio 1040 mg/g creat (22-128)
[2019-11-10] MEDS: MELATONIN 5 MG TABLET PO (20:56)
[2019-11-11] VITALS (16 sets, daily range): BP systolic 122–157; BP diastolic 63–88; PULSE 61–100; RESP 16–22; TEMP 36.3–36.7; O2SAT 69–98
[2019-11-11] MEDS: CENTRAL LINE FLUSH 10 ML IV PUSH ×3 (04:58→22:22)
[2019-11-11 05:28] LABS: Hematocrit 22.1 % (42.0-52.0); Hemoglobin 7.7 g/dL (14.0-18.0); Mean Corpuscular HGB Conc 34.8 g/dl (32-36); Mean Corpuscular Hemoglobin 30.3 pg (26-34); Mean Platelet Volume 10.7 fl (7.4-10.4); Platelet Count Result 255 k/mm3 (150-375); Red Blood Count 2.54 M/mm3 (4.6-6.20); Red Cell Distribution Width 14.3 % (11.5-14.5); White Blood Count 9.5 K/mm3 (4.5-10.0)
[2019-11-11 05:53] LABS: Anion Gap 8 mmol/L (8-16); Blood Urea Nitrogen 80 mg/dL (9-20); Calcium 8.5 mg/dL (8.4-10.2); Carbon Dioxide 22 mmol/L (22-30); Chloride 105 mmol/L (98-107); Estimated CRCL calculation 16 ml/min; Estimated Glomerular Filt Rate 19; Glucose 121 mg/dL (75-110); Magnesium 1.9 mg/dL (1.6-2.3); Potassium 4.6 mmol/L (3.4-5.0); Sodium 135 mmol/L (137-145)
[2019-11-11] MEDS: DEXAMETHASONE 2 MG TABLET 6 MG PO (09:06)
[2019-11-11] MEDS: HEPARIN SODIUM 5,000 UNITS/ML VIAL 5000 UNITS SUB-Q ×2 (09:07→20:28)
[2019-11-11] MEDS: METOPROLOL SUCCINATE EXT REL 50 MG TABCR PO (09:07)
--- NOTE | 2019-11-11 10:20 | PM.PNNEP ---
Progress Note: A&P Assessment and Plan (1) Acute renal failure: Qualifiers: Acute renal failure type: unspecified Qualified Code(s): N17.9 - Acute kidney failure, unspecified Code(s): N17.9 - Acute kidney failure, unspecified Status: Inactive Assessment and Plan: renal biopsy on last hospitalization showed three major issues: The patient did have some evidence of ATN With nuclear activation in the tubules and flattened tubular epithelium. He also had significant chronic kidney disease with 40% interstitial fibrosis. his creatinine is stable. (2) CKD (chronic kidney disease) stage 3, GFR 30-59 ml/min: Code(s): N18.3 - Chronic kidney disease, stage 3 (moderate) Status: Chronic Assessment and Plan: He is at a new baseline reflecting CKD stage 4. (3) Hyponatremia: Code(s): E87.1 - Hypo-osmolality and hyponatremia Status: Acute Assessment and Plan: Sodium level is gradually better. He is on voluntary fluid restriction. Drink if you thirsty not if you are not sodium level 135 today (4) Essential (primary) hypertension: Code(s): I10 - Essential (primary) hypertension Status: Chronic Assessment and Plan: Blood pressure readings Are doing pretty well. Will continue to follow. (5) Anemia: Code(s): D64.9 - Anemia, unspecified Status: Acute Assessment and Plan: doing better hemoglobin is up and down anywhere from 7.7-9.4. Will give a couple of doses of EPO. (6) Bladder cancer: Qualifiers: Bladder location: unspecified site Qualified Code(s): C67.9 - Malignant neoplasm of bladder, unspecified Code(s): C67.9 - Malignant neoplasm of bladder, unspecified Status: Chronic Assessment and Plan: Urology following was empirically on Cipro for presumed UTI Will get culture results from Dr. Rubalcava' office. He is getting antibiotics now. (7) Generalized weakness: Code(s): R53.1 - Weakness Status: Acute Assessment and Plan: suspect numerous issues playing a role: - NICANOR/ARF - fluctuating hemodynamics - anemia - UTI(?) , COVID-19 - cancer treatments PT/OT as tolerated (8) COVID-19: Code(s): U07.1 - COVID-19 Status: Acute Assessment and Plan: Getting symptomatic care now. On some oxygen. He looks euvolemic breathing is okay and he has no swelling. Additional Plan Subjective Date/time seen: 11/11/19 10:20 Interval history: still in isolation for COVID-19 alert. feels better. he warm self out yesterday. Today he plans to pace himself better. Still on the same amount of oxygen Exam Narrative: Exam Narrative: well developed well-nourished gentleman lying in hospital bed in no acute distress Lungs are clear Heart regular rate rhythm no rub or gallop Abdomen bowel sounds positive soft nontender Extremities show no cyanosis clubbing or edema Skin no rash Objective Data Vital Signs Vital Signs: Vital Signs - 24 hr 11/10/19 11:01 11/10/19 12:00 11/10/19 15:08 Temperature 36.4 C Pulse Rate 85 Respiratory Rate 20 Blood Pressure 114/68 Pulse Oximetry 93 96 Pulse Oximetry [With Activity During Therapy Session] 88 L 11/10/19 16:00 11/10/19 20:00 11/11/19 00:00 Temperature 36.6 C 36.1 C L 36.6 C Pulse Rate 102 H 90 96 Respiratory Rate 18 20 20 Blood Pressure 124/66 136/75 127/71 Pulse Oximetry 95 93 94 Pulse Oximetry [With Activity During Therapy Session] 11/11/19 04:00 11/11/19 08:00 11/11/19 09:07 Temperature 36.4 C 36.6 C Pulse Rate 61 88 94 Respiratory Rate 20 18 Blood Pressure 132/77 132/71 Pulse Oximetry 93 93 Pulse Oximetry [With Activity During Therapy Session] 11/11/19 09:30 Temperature Pulse Rate 99 Respiratory Rate 18 Blood Pressure Pulse Oximetry 93 Pulse Oximetry [With Activi
--- NOTE | 2019-11-11 11:41 | PC.NURSE ---
Patient to bathroom in wheel chair, transferred to toilet well with a standby assist. His breathing got heavy, oxygen saturation dropped to 69. Took him in the wheelchair back to bed. Patient encouraged to take deep breaths. Oxygen raised to 6L high flow. After 30 minutes of deep breathing and rest patients oxygen saturation is now 97 percent. Devora Padilla notified.
[2019-11-11] MEDS: EPOETIN ALFA-EPBX 10,000 UNITS/ML VIAL 10000 UNITS SUB-Q (12:39)
--- NOTE | 2019-11-11 13:26 | PM.IMPN ---
Progress Note: A&P Assessment and Plan (1) COVID-19: Code(s): U07.1 - COVID-19 Status: Acute Assessment and Plan: -----Improving on CXR and clinically. He still has no reserving gets significantly hypoxic with any movement. He has not had a fever since 11/06. He is in no distress and feels just fine. Continue dexamethasone. Remdesivir not recommended for patients GFR less than 30 so we will continue with just the dexamethasone. Antibiotics discontinued (2) Acute renal failure superimposed on stage 3 chronic kidney disease: Qualifiers: Acute renal failure type: unspecified Qualified Code(s): N17.9 - Acute kidney failure, unspecified; N18.3 - Chronic kidney disease, stage 3 (moderate) Code(s): N17.9 - Acute kidney failure, unspecified; N18.3 - Chronic kidney disease, stage 3 (moderate) Status: Chronic Assessment and Plan: -----Last creatinine 3.2 and was 5.1 on admission. CO2 22, bicarb stopped. Recent renal biopsy from last admission 10/09/19 demonstrated ATN. Hypotension on arrival may have been causing some hypoperfusion contributing to NICANOR. He also has UTI which I am unsure is causing any issue. Continue with Nephrology's recommendations. This will likely be his baseline and he is high risk for dialysis in the future. (3) Hyponatremia: Code(s): E87.1 - Hypo-osmolality and hyponatremia Status: Acute Assessment and Plan: -------135 today. Likely due to excessive fluid intake and abnormal kidney function. No neurological deficits. Monitor (4) Essential (primary) hypertension: Code(s): I10 - Essential (primary) hypertension Status: Chronic Assessment and Plan: ------last blood pressure 122/63.Continue metoprolol (5) Acute UTI: Code(s): N39.0 - Urinary tract infection, site not specified Status: Acute Assessment and Plan: ------cultures growing coag-negative staph, continue short course of vancomycin. Could be a contaminant. Recently seen in Dr Palomo' office 11/01/19 and was prescribed Cipro at that time for a suspected acute UTI. Vancomycin started 11/06 and has received 2 doses due to his renal dysfunction. Will likely discontinue soon (6) Chronic anemia: Code(s): D64.9 - Anemia, unspecified Status: Chronic Assessment and Plan: -----Suspect may be in part related to the renal failure. No evidence of acute bleeding. Monitor CBC. 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 He wears a urostomy bag which he hooks up to a larger [place] bag at nighttime. Recently underwent placement of bilateral ureteral stents by Dr Palomo for a possible urinary obstruction contributing to NICANOR, unfortunately with not much improvement in overall renal function so far. Urology following. He has a very small amount of blood in the bag today, likely from bed change. (8) Generalized weakness: Code(s): R53.1 - Weakness Status: Acute Assessment and Plan: -----Suspect multifactorial and may be related to electrolyte abnormalities, renal failure, possible UTI, recent hospitalization. Continue PT and OT (9) Abnormal x-ray: Code(s): R93.89 - Abnormal findings on diagnostic imaging of other specified body structures Status: Acute Assessment and Plan: -----Likely due to COVID-19. CT shows worsening diffuse lung disease likely mild pulmonary edema superimposed on chronic interstitial lung disease possibly UIP. He also has pulmonary nodules new from last year, either infection or metastatic disease. This should be followed up
[2019-11-11 13:48] LABS: Vancomycin Trough 11.6 ug/mL (10.0-20.0)
--- NOTE | 2019-11-11 14:04 | PCPTNOTE ---
Patient refused treatment this session due to, stating he needs a vacation day, and he is just tired today.
--- NOTE | 2019-11-11 14:07 | PCOTNOTE ---
Patient refused OT this PM. I'm babying my lungs. Will continue plan of care tomorrow, 11/12/2019.
[2019-11-11] MEDS: MELATONIN 5 MG TABLET PO (20:28)
[2019-11-11] MEDS: traZODone HCL 50 MG TABLET PO (22:22)
--- NOTE | 2019-11-11 22:41 | PM.PNPUL ---
Progress Note: A&P Assessment and Plan (1) COVID-19: Code(s): U07.1 - COVID-19 Status: Acute Assessment and Plan: - seems to stable to slight improving with Dexamethasone clinically - can be discharged home in 1-2 days if oxygenation remains stable - needs outpatient f/u CT chest in 4-6 weeks and f/u in our pulmonary clinic if able (2) ILD (interstitial lung disease): Code(s): J84.9 - Interstitial pulmonary disease, unspecified Status: Acute Subjective Date/time seen: 11/11/19 22:41 Interval history: Feeling slightlhy better. His sats are in low 90's on 5 liters today. Fever has subsided. All blood cultures have been negative to date and antibiotics have been discontinued. He is being treated with Dexamethasone 6 mg IV daily for COVID-19. Cr is slowly improving and NICANOR may also due to COVID-19 at least in part. Review of Systems Review of Systems: All systems reviewed & are unremarkable except as noted in HPI and below Exam Const: General: comfortable and no acute distress Eyes: General: appearance normal, both eyes and all related structures Neck: Neck: supple and no JVD Resp: Auscultation: rales (fine inspiratory crackles ) bilateral Cardio: Rate: tachycardic Rhythm: regular rhythm Heart sounds: no murmurs GI: Auscultation: normal bowel sounds Skin: General skin exam: normal color and no rashes or lesions noted Extrem: General: normal to inspection, no edema and no pedal edema Psych: Mental Status: mental status grossly normal Affect: normal affect Objective Data Vital Signs Vital Signs: Vital Signs - 24 hr 11/11/19 00:00 11/11/19 04:00 11/11/19 08:00 Temperature 36.6 C 36.4 C 36.6 C Pulse Rate 96 61 88 Respiratory Rate 20 20 18 Blood Pressure 127/71 132/77 132/71 Pulse Oximetry 94 93 93 11/11/19 09:07 11/11/19 09:30 11/11/19 10:29 Temperature Pulse Rate 94 99 Respiratory Rate 18 Blood Pressure Pulse Oximetry 93 94 11/11/19 11:00 11/11/19 11:21 11/11/19 11:40 Temperature 36.3 C L Pulse Rate 99 Respiratory Rate 22 H Blood Pressure 122/63 Pulse Oximetry 69 L 93 93 11/11/19 12:00 11/11/19 15:56 11/11/19 16:00 Temperature 36.7 C Pulse Rate 94 85 76 Respiratory Rate 16 Blood Pressure 131/88 Pulse Oximetry 98 11/11/19 20:00 Temperature 36.7 C Pulse Rate 81 Respiratory Rate 20 Blood Pressure 157/84 H Pulse Oximetry 94 Intake/Output Intake/Output: Intake & Output 11/08/19 11/09/19 11/10/19 11/11/19 23:59 23:59 23:59 23:59 Intake Total 8180 080 9395 1770 Output Total 1650 1900 2800 2049 [facility] -310 -960 -750 -280 Meds/Results Medications: Active Medications Generic Name Dose Route Start Last Admin Trade Name Freq PRN Reason Stop Dose Admin Acetaminophen 1,000 mg 11/05/19 08:50 11/07/19 20:17 Tylenol Tablet PO 1,000 mg Q6H PRN Administration Pain or Fever Albuterol 2 puff 11/05/19 15:46 Proventil Hfa INHALATION QIDRT PRN Shortness Of Breath Dexamethasone 6 mg 11/08/19 13:50 11/11/19 09:06 Dexamethasone Po PO 11/17/19 08:01 6 mg DAILY@0800 [facility] Administration Epoetin Brennan-epbx 10,000 units 11/11/19 10:25 11/11/19 12:39 Retacrit SUB-Q 10,000 units TuThSa@0900 [facility] Administration Heparin Sodium (Beef Lung) 50 units 11/06/19 09:00 11/11/19 09:07 Heparin Flush 50 Units/5 Ml IV PUSH 50 units QAM [facility] Administration Heparin Sodium (Beef Lung) 50 units 11/06/19 08:05 Heparin Flush 50 Units/5 Ml IV PUSH PRN PRN after intermittent infusion Heparin Sodium (Beef Lung) 50 units 11/06/19 08:05 11/09/19 06:12 Heparin Flush 50 Units/5 Ml IV PUSH 50 units PRN PRN Administration after blood draws Heparin Sodium (Porcine) 500 units 11/06/19 08:05 Heparin Sod Flush 100 Units/Ml IV PUSH PRN PRN see comments below Heparin Sodium (Porcine) 5,000 units 11/08/19 21:00 11/11/19 20:28 Heparin Sodium
[2019-11-12] VITALS (10 sets, daily range): BP systolic 133–161; BP diastolic 69–91; PULSE 65–95; RESP 18–20; TEMP 36.6–36.7; O2SAT 90–100
[2019-11-12] MEDS: CENTRAL LINE FLUSH 10 ML IV PUSH ×3 (04:30→21:16)
[2019-11-12 05:13] LABS: Hematocrit 24.9 % (42.0-52.0); Hemoglobin 8.5 g/dL (14.0-18.0); Mean Corpuscular HGB Conc 34.1 g/dl (32-36); Mean Platelet Volume 10.4 fl (7.4-10.4); Platelet Count Result 278 k/mm3 (150-375); Red Blood Count 2.83 M/mm3 (4.6-6.20); Red Cell Distribution Width 14.6 % (11.5-14.5); White Blood Count 11.9 K/mm3 (4.5-10.0)
[2019-11-12 05:27] LABS: Anion Gap 9 mmol/L (8-16); Blood Urea Nitrogen 81 mg/dL (9-20); CRP 3.3 mg/dL (<1.0); Calcium 8.9 mg/dL (8.4-10.2); Carbon Dioxide 21 mmol/L (22-30); Chloride 104 mmol/L (98-107); Estimated CRCL calculation 16 ml/min; Estimated Glomerular Filt Rate 19; Glucose 105 mg/dL (75-110); Lactate Dehydrogenase 670 U/L (313-618); Magnesium 1.8 mg/dL (1.6-2.3); Potassium 4.7 mmol/L (3.4-5.0); Sodium 134 mmol/L (137-145)
[2019-11-12] MEDS: HEPARIN SODIUM 5,000 UNITS/ML VIAL 5000 UNITS SUB-Q ×2 (09:26→21:16)
[2019-11-12] MEDS: SODIUM BICARBONATE TAB 650 MG TABLET PO ×2 (09:27→16:57)
[2019-11-12] MEDS: METOPROLOL SUCCINATE EXT REL 50 MG TABCR PO (09:27)
[2019-11-12] MEDS: DEXAMETHASONE 2 MG TABLET 6 MG PO (09:27)
--- NOTE | 2019-11-12 10:55 | PM.IMPN ---
Progress Note: A&P Assessment and Plan (1) COVID-19: Code(s): U07.1 - COVID-19 Status: Acute Assessment and Plan: -----Improving on CXR but has clinically plateaued. He has no shortness of breath at rest but any type of movement makes it worse. He has not had a fever since 11/06. He is in no distress and feels just fine. Continue dexamethasone. Remdesivir not recommended for patients GFR less than 30 so we will continue with just the dexamethasone. Antibiotics discontinued (2) Acute renal failure superimposed on stage 3 chronic kidney disease: Qualifiers: Acute renal failure type: unspecified Qualified Code(s): N17.9 - Acute kidney failure, unspecified; N18.3 - Chronic kidney disease, stage 3 (moderate) Code(s): N17.9 - Acute kidney failure, unspecified; N18.3 - Chronic kidney disease, stage 3 (moderate) Status: Chronic Assessment and Plan: -----Last creatinine 3.2 and was 5.1 on admission. CO2 21, bicarb restarted at a lower dose. Recent renal biopsy from last admission 10/09/19 demonstrated ATN. Hypotension on arrival may have been causing some hypoperfusion contributing to NICANOR. He also had UTI which I am unsure is causing any issue. Continue with Nephrology's recommendations. This will likely be his baseline and he is high risk for dialysis in the future. (3) Hyponatremia: Code(s): E87.1 - Hypo-osmolality and hyponatremia Status: Acute Assessment and Plan: -------134 today. Likely due to excessive fluid intake and abnormal kidney function. No neurological deficits. Monitor (4) Essential (primary) hypertension: Code(s): I10 - Essential (primary) hypertension Status: Chronic Assessment and Plan: ------last blood pressure 137/69. Continue metoprolol (5) Acute UTI: Code(s): N39.0 - Urinary tract infection, site not specified Status: Acute Assessment and Plan: ------cultures growing coag-negative staph, finished short course of vancomycin. Recently seen in Dr Palomo' office 11/01/19 and was prescribed Cipro at that time for a suspected acute UTI. (6) Chronic anemia: Code(s): D64.9 - Anemia, unspecified Status: Chronic Assessment and Plan: -----Suspect may be in part related to the renal failure. No evidence of acute bleeding. Monitor CBC. 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 He wears a urostomy bag which he hooks up to a larger [place] bag at nighttime. Recently underwent placement of bilateral ureteral stents by Dr Palomo for a possible urinary obstruction contributing to NICANOR, unfortunately with not much improvement in overall renal function so far. Urology following. No blood today. (8) Generalized weakness: Code(s): R53.1 - Weakness Status: Acute Assessment and Plan: -----Suspect multifactorial and may be related to electrolyte abnormalities, renal failure, possible UTI, recent hospitalization. Continue PT and OT (9) Abnormal x-ray: Code(s): R93.89 - Abnormal findings on diagnostic imaging of other specified body structures Status: Acute Assessment and Plan: -----Likely due to COVID-19. CT shows worsening diffuse lung disease likely mild pulmonary edema superimposed on chronic interstitial lung disease possibly UIP. He also has pulmonary nodules new from last year, either infection or metastatic disease. This should be followed up outpt with imaging since he has a known history of cancer. At this time, pulmonology was consulted and antibiotics stopped. V/Q scan shows a small area of d
--- NOTE | 2019-11-12 13:42 | P.PNNP_ITS ---
Progress Note: A&P Assessment and Plan (1) Acute renal failure: Qualifiers: Acute renal failure type: unspecified Qualified Code(s): N17.9 - Acute kidney failure, unspecified Code(s): N17.9 - Acute kidney failure, unspecified Status: Inactive Assessment and Plan: * renal biopsy on last hospitalization showed three major issues: * The patient did have some evidence of ATN With nuclear activation in the tubules and flattened tubular epithelium. * He also had significant chronic kidney disease with 40% interstitial fibrosis. * his creatinine is stable at 3.2. * Bicarbonate level is okay. He is on sodium bicarbonate (2) CKD (chronic kidney disease) stage 3, GFR 30-59 ml/min: Code(s): N18.3 - Chronic kidney disease, stage 3 (moderate) Status: Chronic Assessment and Plan: He is at a new baseline reflecting CKD stage 4. (3) Hyponatremia: Code(s): E87.1 - Hypo-osmolality and hyponatremia Status: Acute Assessment and Plan: * Due to renal insufficiency. * Sodium level is stable (4) Essential (primary) hypertension: Code(s): I10 - Essential (primary) hypertension Status: Chronic Assessment and Plan: * Blood pressure readings Are doing pretty well. Will continue to follow. * on metoprolol (5) Anemia: Code(s): D64.9 - Anemia, unspecified Status: Acute Assessment and Plan: * doing better * hemoglobin is up and down anywhere from 7.7-9.4. * Will give a couple of doses of EPO. (6) Bladder cancer: Qualifiers: Bladder location: unspecified site Qualified Code(s): C67.9 - Malignant neoplasm of bladder, unspecified Code(s): C67.9 - Malignant neoplasm of bladder, unspecified Status: Chronic Assessment and Plan: * Urology following * was empirically on Cipro for presumed UTI * Will get culture results from Dr. Rubalcava' office. * He is finished with antibiotics. (7) Generalized weakness: Code(s): R53.1 - Weakness Status: Acute Assessment and Plan: * suspect numerous issues playing a role: - NICANOR/ARF - fluctuating hemodynamics - anemia - UTI(?) , COVID-19 - cancer treatments * PT/OT as tolerated (8) COVID-19: Code(s): U07.1 - COVID-19 Status: Acute Assessment and Plan: Getting symptomatic care now. On some oxygen. He looks euvolemic breathing is okay and he has no swelling. Additional Plan Subjective Date/time seen: 11/12/19 13:42 Interval history: still in isolation for COVID-19 alert. feels better. On 4L of oxygen by nasal cannula. No chest pain or shortness of breath Review of Systems Cardiovascular: Cardiovascular: Reports no additional cardiovascular complaints Respiratory: Respiratory: Reports no additional respiratory complaints Gastrointestinal: Gastrointestinal: Reports no additional gastrointestinal complaints Genitourinary: Genitourinary: Reports no additional male genitourinary comp laints Exam Narrative: Exam Narrative: WDWN in NAD skin no rash head ncat lungs clear cor reg no rub abd BS+ nontender and soft ext no edema. Objective Data Vital Signs Vital Signs: Vital Signs - 24 hr 11/11/19 15:56 11/11/19 16:00 11/11/19 20:00 Tem
--- NOTE | 2019-11-12 13:42 | PM.PNNEP ---
Progress Note: A&P Assessment and Plan (1) Acute renal failure: Qualifiers: Acute renal failure type: unspecified Qualified Code(s): N17.9 - Acute kidney failure, unspecified Code(s): N17.9 - Acute kidney failure, unspecified Status: Inactive Assessment and Plan: renal biopsy on last hospitalization showed three major issues: The patient did have some evidence of ATN With nuclear activation in the tubules and flattened tubular epithelium. He also had significant chronic kidney disease with 40% interstitial fibrosis. his creatinine is stable at 3.2. Bicarbonate level is okay. He is on sodium bicarbonate (2) CKD (chronic kidney disease) stage 3, GFR 30-59 ml/min: Code(s): N18.3 - Chronic kidney disease, stage 3 (moderate) Status: Chronic Assessment and Plan: He is at a new baseline reflecting CKD stage 4. (3) Hyponatremia: Code(s): E87.1 - Hypo-osmolality and hyponatremia Status: Acute Assessment and Plan: Due to renal insufficiency. Sodium level is stable (4) Essential (primary) hypertension: Code(s): I10 - Essential (primary) hypertension Status: Chronic Assessment and Plan: Blood pressure readings Are doing pretty well. Will continue to follow. on metoprolol (5) Anemia: Code(s): D64.9 - Anemia, unspecified Status: Acute Assessment and Plan: doing better hemoglobin is up and down anywhere from 7.7-9.4. Will give a couple of doses of EPO. (6) Bladder cancer: Qualifiers: Bladder location: unspecified site Qualified Code(s): C67.9 - Malignant neoplasm of bladder, unspecified Code(s): C67.9 - Malignant neoplasm of bladder, unspecified Status: Chronic Assessment and Plan: Urology following was empirically on Cipro for presumed UTI Will get culture results from Dr. Rubalcava' office. He is finished with antibiotics. (7) Generalized weakness: Code(s): R53.1 - Weakness Status: Acute Assessment and Plan: suspect numerous issues playing a role: - NICANOR/ARF - fluctuating hemodynamics - anemia - UTI(?) , COVID-19 - cancer treatments PT/OT as tolerated (8) COVID-19: Code(s): U07.1 - COVID-19 Status: Acute Assessment and Plan: Getting symptomatic care now. On some oxygen. He looks euvolemic breathing is okay and he has no swelling. Additional Plan Subjective Date/time seen: 11/12/19 13:42 Interval history: still in isolation for COVID-19 alert. feels better. On 4L of oxygen by nasal cannula. No chest pain or shortness of breath Review of Systems Cardiovascular: Cardiovascular: Reports no additional cardiovascular complaints Respiratory: Respiratory: Reports no additional respiratory complaints Gastrointestinal: Gastrointestinal: Reports no additional gastrointestinal complaints Genitourinary: Genitourinary: Reports no additional male genitourinary complaints Exam Narrative: Exam Narrative: WDWN in NAD skin no rash head ncat lungs clear cor reg no rub abd BS+ nontender and soft ext no edema. Objective Data Vital Signs Vital Signs: Vital Signs - 24 hr 11/11/19 15:56 11/11/19 16:00 11/11/19 20:00 Temperature 36.7 C 36.7 C Pulse Rate 85 76 81 Respiratory Rate 16 20 Blood Pressure 131/88 157/84 H Pulse Oximetry 98 94 11/11/19 20:03 11/11/19 21:24 11/11/19 23:59 Temperature 36.4 C Pulse Rate 95 88 77 Respiratory Rate 20 20 Blood Pressure 142/87 H Pulse Oximetry 94 96 11/12/19 00:00 11/12/19 04:00 11/12/19 08:00 Temperature 36.7 C 36.6 C Pulse Rate 82 83 89 Respiratory Rate 20 18 Blood Pressure 133/90 137/69 Pulse Oximetry 98 95 11/12/19 09:27 11/12/19 12:00 Temperature Pulse Rate 79 77 Respiratory Rate Blood Pressure Pulse Oximetry Intake/Output Intake/Output:
--- NOTE | 2019-11-12 15:10 | PCOTNOTE ---
Attempted to see patient for skilled OT, however, patient refused. Patient verbalized he just got done with PT and was washed (too tired). Therapist attempted to encourage patient to complete UB exercises in bed, but patient reported those exercises just are too difficult for his lungs to recover from. Patient not seen this date. Will continue plan of care.
--- NOTE | 2019-11-12 15:23 | PM.PNPUL ---
Progress Note: A&P Assessment and Plan (1) COVID-19: Code(s): U07.1 - COVID-19 Status: Acute Assessment and Plan: - seems to stable to slight improving with Dexamethasone clinically - can be discharged home in 1-2 days if oxygenation remains stable. Can be discharged home on 3-4 liters of oxygen by nasal cannula - needs outpatient f/u CT chest in 4-6 weeks and f/u in our pulmonary clinic if able (2) ILD (interstitial lung disease): Code(s): J84.9 - Interstitial pulmonary disease, unspecified Status: Acute Subjective Date/time seen: 11/12/19 15:23 Interval history: No significant change in symptoms Review of Systems Review of Systems: All systems reviewed & are unremarkable except as noted in HPI and below Exam Const: General: comfortable and no acute distress Eyes: General: appearance normal, both eyes and all related structures Neck: Neck: supple and no JVD Resp: Auscultation: rales (fine inspiratory crackles ) bilateral Cardio: Rate: tachycardic Rhythm: regular rhythm Heart sounds: no murmurs GI: Auscultation: normal bowel sounds Skin: General skin exam: normal color and no rashes or lesions noted Extrem: General: normal to inspection, no edema and no pedal edema Psych: Mental Status: mental status grossly normal Affect: normal affect Objective Data Vital Signs Vital Signs: Vital Signs - 24 hr 11/11/19 15:56 11/11/19 16:00 11/11/19 20:00 Temperature 36.7 C 36.7 C Pulse Rate 85 76 81 Respiratory Rate 16 20 Blood Pressure 131/88 157/84 H Pulse Oximetry 98 94 11/11/19 20:03 11/11/19 21:24 11/11/19 23:59 Temperature 36.4 C Pulse Rate 95 88 77 Respiratory Rate 20 20 Blood Pressure 142/87 H Pulse Oximetry 94 96 11/12/19 00:00 11/12/19 04:00 11/12/19 08:00 Temperature 36.7 C 36.6 C Pulse Rate 82 83 89 Respiratory Rate 20 18 Blood Pressure 133/90 137/69 Pulse Oximetry 98 95 11/12/19 09:27 11/12/19 12:00 11/12/19 14:02 Temperature 36.7 C Pulse Rate 79 76 95 Respiratory Rate 18 Blood Pressure 142/72 H Pulse Oximetry 100 90 Intake/Output Intake/Output: Intake & Output 11/09/19 11/10/19 11/11/19 11/12/19 23:59 23:59 23:59 23:59 Intake Total 940 2050 1770 1120 Output Total 1900 2800 2050 1050 Balance -960 -750 -280 70 Meds/Results Medications: Active Medications Generic Name Dose Route Start Last Admin Trade Name Freq PRN Reason Stop Dose Admin Acetaminophen 1,000 mg 11/05/19 08:50 11/07/19 20:17 Tylenol Tablet PO 1,000 mg Q6H PRN Administration Pain or Fever Albuterol 2 puff 11/05/19 15:46 Proventil Hfa INHALATION QIDRT PRN Shortness Of Breath Dexamethasone 6 mg 11/08/19 13:50 11/12/19 09:27 Dexamethasone Po PO 11/17/19 08:01 6 mg DAILY@0800 [facility] Administration Epoetin Brennan-epbx 10,000 units 11/11/19 10:25 11/11/19 12:39 Retacrit SUB-Q 10,000 units TuThSa@0900 [facility] Administration Heparin Sodium (Beef Lung) 50 units 11/06/19 09:00 11/12/19 09:27 Heparin Flush 50 Units/5 Ml IV PUSH 50 units QAM TANYA Administration Heparin Sodium (Beef Lung) 50 units 11/06/19 08:05 Heparin Flush 50 Units/5 Ml IV PUSH PRN PRN after intermittent infusion Heparin Sodium (Beef Lung) 50 units 11/06/19 08:05 11/09/19 06:12 Heparin Flush 50 Units/5 Ml IV PUSH 50 units PRN PRN Administration after blood draws Heparin Sodium (Porcine) 500 units 11/06/19 08:05 Heparin Sod Flush 100 Units/Ml IV PUSH PRN PRN see comments below Heparin Sodium (Porcine) 5,000 units 11/08/19 21:00 11/12/19 09:26 Heparin Sodium SUB-Q 5,000 units Q12HR TANYA Administration Lorazepam 1 mg 11/12/19 10:55 Ativan Inj IV PUSH Q6H PRN Anxiety Melatonin 5 mg 11/07/19 21:00 11/11/19 20:28 Melatonin PO 5 mg HS TANYA Administration Metoprolol Succinate 50 mg 11/08/19 09:00 09/06/20 09:27 Toprol Xl PO 50 mg
[2019-11-12] MEDS: CALCIUM CARBONATE (TUMS) 500 MG (200 MG ELEMENTAL) PO (18:55)
[2019-11-12] MEDS: MELATONIN 5 MG TABLET PO (21:15)
[2019-11-13] VITALS (10 sets, daily range): BP systolic 117–160; BP diastolic 67–97; PULSE 68–96; RESP 18–22; TEMP 36.4–37; O2SAT 92–99
[2019-11-13] MEDS: OLANZapine 10 MG INJ VIAL 5 MG IM (04:11)
[2019-11-13 06:38] LABS: Hematocrit 26.2 % (42.0-52.0); Hemoglobin 8.9 g/dL (14.0-18.0); Mean Corpuscular Hemoglobin 30.7 pg (26-34); Mean Corpuscular Volume 90.3 fl (80-100); Mean Platelet Volume 10.8 fl (7.4-10.4); Platelet Count Result 259 k/mm3 (150-375); Red Cell Distribution Width 14.6 % (11.5-14.5); White Blood Count 11.7 K/mm3 (4.5-10.0)
[2019-11-13] MEDS: CENTRAL LINE FLUSH 10 ML IV PUSH ×2 (06:40→16:01)
[2019-11-13 06:52] LABS: Albumin Level 3.2 g/dL (3.5-5.1); Anion Gap 8 mmol/L (8-16); Blood Urea Nitrogen 82 mg/dL (9-20); Carbon Dioxide 22 mmol/L (22-30); Chloride 103 mmol/L (98-107); Estimated CRCL calculation 16 ml/min; Estimated Glomerular Filt Rate 19; Glucose 101 mg/dL (75-110); Phosphorus 3.3 mg/dL (2.5-4.5); Potassium 4.5 mmol/L (3.4-5.0); Sodium 133 mmol/L (137-145)
[2019-11-13] MEDS: HEPARIN SODIUM 5,000 UNITS/ML VIAL 5000 UNITS SUB-Q ×2 (08:47→20:34)
[2019-11-13] MEDS: DEXAMETHASONE 2 MG TABLET 6 MG PO (08:47)
[2019-11-13] MEDS: SODIUM BICARBONATE TAB 650 MG TABLET PO ×2 (08:48→16:01)
[2019-11-13] MEDS: METOPROLOL SUCCINATE EXT REL 50 MG TABCR PO (08:48)
--- NOTE | 2019-11-13 14:28 | PM.IMPN ---
Progress Note: A&P Assessment and Plan (1) Hallucinations: Code(s): R44.3 - Hallucinations, unspecified Status: Acute Assessment and Plan: ----- new in the last few days and worse last night. I do believe this is a combination of hospital delirium and medications. He has not been sleeping very much and tried Ambien, trazodone and Ativan on different occasions. He liked the trazodone for while but then started having hallucinations. He was given Ativan yesterday which seemed to make it worse. At this time, it is recommended that he not take anything before bed and try to stay active /awake during the day so he can be tired. He agrees to this plan and we will see how he does. He had to get Zyprexa overnight which is unlike him. Neuro exam today completely normal. could also be the dexamethasone. If pt continues to not need o2 overnight (weaning trial today), then I would discontinue this. (2) COVID-19: Code(s): U07.1 - COVID-19 Status: Acute Assessment and Plan: -----Improving on CXR and clinically. He is off o2 at rest but needs it with activity. He is now afraid to get up and move because of this. We talked about the importance of getting out of bed and moving. He has not had a fever since 11/06. He is in no distress and feels just fine. Continue dexamethasone. Remdesivir not recommended for patients GFR less than 30 so we will continue with just the dexamethasone. Antibiotics discontinued. Likely home in 1-2 days (3) Acute renal failure superimposed on stage 3 chronic kidney disease: Qualifiers: Acute renal failure type: unspecified Qualified Code(s): N17.9 - Acute kidney failure, unspecified; N18.3 - Chronic kidney disease, stage 3 (moderate) Code(s): N17.9 - Acute kidney failure, unspecified; N18.3 - Chronic kidney disease, stage 3 (moderate) Status: Chronic Assessment and Plan: -----Last creatinine 3.2 and was 5.1 on admission. CO2 22, continue bicarb. Recent renal biopsy from last admission 10/09/19 demonstrated ATN. Hypotension on arrival may have been causing some hypoperfusion contributing to NICANOR. He also had UTI which I am unsure is causing any issue. Continue with Nephrology's recommendations. This will likely be his baseline and he is high risk for dialysis in the future. (4) Hyponatremia: Code(s): E87.1 - Hypo-osmolality and hyponatremia Status: Acute Assessment and Plan: -------133 today. Likely due to excessive fluid intake and abnormal kidney function. No neurological deficits. Monitor (5) Essential (primary) hypertension: Code(s): I10 - Essential (primary) hypertension Status: Chronic Assessment and Plan: ------last blood pressure 134/69. Continue metoprolol (6) Acute UTI: Code(s): N39.0 - Urinary tract infection, site not specified Status: Acute Assessment and Plan: ------cultures growing coag-negative staph, finished short course of vancomycin. Recently seen in Dr Palomo' office 11/01/19 and was prescribed Cipro at that time for a suspected acute UTI. (7) Chronic anemia: Code(s): D64.9 - Anemia, unspecified Status: Chronic Assessment and Plan: -----Suspect may be in part related to the renal failure. No evidence of acute bleeding. Monitor CBC. (8) Bladder cancer: Qualifiers: Bladder location: unspecified site Qualified Code(s): C67.9 - Malignant neoplasm of bladder, unspecified Code(s): C67.9 - Malignant neoplasm of bladder, unspecified Status: Chronic Assessment and Plan: ------Patient is s/p cystoprostatectomy with ileal conduit for treatment of bladder and prostate cancer February 2019. He wears a urostomy bag which he hooks up to a larger [place] bag at nighttime. Recently underwent placement of bilateral ureteral stents by Dr Palomo for a possible urinary obstruction contributing to NICANOR, unfortunat
--- NOTE | 2019-11-13 14:57 | P.PNNP_ITS ---
Progress Note: A&P Assessment and Plan (1) Acute renal failure: Qualifiers: Acute renal failure type: unspecified Qualified Code(s): N17.9 - Acute kidney failure, unspecified Code(s): N17.9 - Acute kidney failure, unspecified Status: Inactive Assessment and Plan: * renal biopsy on last hospitalization demonstrated: - ATN - chronic kidney disease with 40% interstitial fibrosis * his current creatinine likely represents a new baseline * no critical electrolytes and volume status stable * on sodium bicarbonate for acidosis * contineu supportive therapy (2) CKD (chronic kidney disease) stage 3, GFR 30-59 ml/min: Code(s): N18.3 - Chronic kidney disease, stage 3 (moderate) Status: Chronic Assessment and Plan: * new baseline creatinine noted * he has likely progressed to CKD Stage IV (3) Hyponatremia: Code(s): E87.1 - Hypo-osmolality and hyponatremia Status: Acute Assessment and Plan: * due to CKD and excessive free water intake * sodium stable (4) Essential (primary) hypertension: Code(s): I10 - Essential (primary) hypertension Status: Chronic Assessment and Plan: * BP relatiely stable * follow trend of hemodynamics (5) Anemia: Code(s): D64.9 - Anemia, unspecified Status: Acute Assessment and Plan: * stable if not better * follow H/H * on Epogen (6) Bladder cancer: Qualifiers: Bladder location: unspecified site Qualified Code(s): C67.9 - Malignant neoplasm of bladder, unspecified Code(s): C67.9 - Malignant neoplasm of bladder, unspecified Status: Chronic Assessment and Plan: * Urology following * completed course of antibiotics (7) Generalized weakness: Code(s): R53.1 - Weakness Status: Acute Assessment and Plan: * suspect numerous issues playing a role: - NICANOR/ARF - fluctuating hemodynamics - anemia - UTI(?) + COVID-19 - cancer treatments * PT/OT as tolerated (8) COVID-19: Code(s): U07.1 - COVID-19 Status: Acute Assessment and Plan: * getting symptomatic/supportive care * continue current therapy Will continue to follow. Subjective Date/time seen: 11/13/19 14:57 Chart reviewed since last seen -- kidney function better and appears to have a new baseline; COVID-19+ and getting appropriate treatment; no apparent distress voiced on my visit aside the issue related to hallucinations Exam Narrative: Exam Narrative: General: WD/WN male in NAD Heart: normal S1 and S2; no rub Lungs: clear to auscultation Abdomen: soft, nontender, nondistended, positive bowel sounds Extremities: no cyanosis or clubbing; no edema Skin: warm and dry Objective Data Vital Signs Vital Signs: Vital Signs Temp Pulse Resp BP Pulse Ox 11/13/19 12:00 36.4 C L 91 18 134/69 93 11/13/19 11:00 99 11/13/19 09:09 73 18 93 11/13/19 08:48 93 11/13/19 08:00 36.5 C 76 20 117/67 93 11/13/19 04:17 68 11/13/19 04:00 36.4 C 86 20 160/83 H 94 11/13/19 00:00 36.4 C 95 22 H 135/97 H 92 11/12/19 20:58 97 11/12/19 20:00 36.6 C 73 18 161/91 H 95 11/12/19 17:30 99 11/12/19 16:00 36.7 C 69 18 149/82 H 100
--- NOTE | 2019-11-13 14:57 | PM.PNNEP ---
Progress Note: A&P Assessment and Plan (1) Acute renal failure: Qualifiers: Acute renal failure type: unspecified Qualified Code(s): N17.9 - Acute kidney failure, unspecified Code(s): N17.9 - Acute kidney failure, unspecified Status: Inactive Assessment and Plan: renal biopsy on last hospitalization demonstrated: - ATN - chronic kidney disease with 40% interstitial fibrosis his current creatinine likely represents a new baseline no critical electrolytes and volume status stable on sodium bicarbonate for acidosis contineu supportive therapy (2) CKD (chronic kidney disease) stage 3, GFR 30-59 ml/min: Code(s): N18.3 - Chronic kidney disease, stage 3 (moderate) Status: Chronic Assessment and Plan: new baseline creatinine noted he has likely progressed to CKD Stage IV (3) Hyponatremia: Code(s): E87.1 - Hypo-osmolality and hyponatremia Status: Acute Assessment and Plan: due to CKD and excessive free water intake sodium stable (4) Essential (primary) hypertension: Code(s): I10 - Essential (primary) hypertension Status: Chronic Assessment and Plan: BP relatiely stable follow trend of hemodynamics (5) Anemia: Code(s): D64.9 - Anemia, unspecified Status: Acute Assessment and Plan: stable if not better follow H/H on Epogen (6) Bladder cancer: Qualifiers: Bladder location: unspecified site Qualified Code(s): C67.9 - Malignant neoplasm of bladder, unspecified Code(s): C67.9 - Malignant neoplasm of bladder, unspecified Status: Chronic Assessment and Plan: Urology following completed course of antibiotics (7) Generalized weakness: Code(s): R53.1 - Weakness Status: Acute Assessment and Plan: suspect numerous issues playing a role: - NICANOR/ARF - fluctuating hemodynamics - anemia - UTI(?) + COVID-19 - cancer treatments PT/OT as tolerated (8) COVID-19: Code(s): U07.1 - COVID-19 Status: Acute Assessment and Plan: getting symptomatic/supportive care continue current therapy Will continue to follow. Subjective Date/time seen: 11/13/19 14:57 Chart reviewed since last seen -- kidney function better and appears to have a new baseline; COVID-19+ and getting appropriate treatment; no apparent distress voiced on my visit aside the issue related to hallucinations Exam Narrative: Exam Narrative: General: WD/WN male in NAD Heart: normal S1 and S2; no rub Lungs: clear to auscultation Abdomen: soft, nontender, nondistended, positive bowel sounds Extremities: no cyanosis or clubbing; no edema Skin: warm and dry Objective Data Vital Signs Vital Signs: Vital Signs Temp Pulse Resp BP Pulse Ox 11/13/19 12:00 36.4 C L 91 18 134/69 93 11/13/19 11:00 99 11/13/19 09:09 73 18 93 11/13/19 08:48 93 11/13/19 08:00 36.5 C 76 20 117/67 93 11/13/19 04:17 68 11/13/19 04:00 36.4 C 86 20 160/83 H 94 11/13/19 00:00 36.4 C 95 22 H 135/97 H 92 11/12/19 20:58 97 11/12/19 20:00 36.6 C 73 18 161/91 H 95 11/12/19 17:30 99 11/12/19 16:00 36.7 C 69 18 149/82 H 100 Intake/Output Intake/Output: Intake & Output 11/10/19 11/11/19 11/12/19 11/13/19 23:59 23:59 23:59 23:59 Intake Total 2049 1769 2270 320 Output Total 2799 2049 2049 700 Balance -750 -280 220 -380 Meds/Results Medications: Active Medications Generic Name Dose Route Start Last Admin Trade Name Freq PRN Reason Stop Dose Admin Acetaminophen 1,000 mg 11/05/19 08:50 11/07/19 20:17 Tylenol Tablet PO 1,000 mg Q6H PRN Administration Pain or Fever Albuterol 2 puff 11/05/19 15:46 Proventil Hfa INHALATION QIDRT PRN Shortness Of Breath Calcium Carbonate 200 mg 11/12/19 18:29 11/12/19 18
--- NOTE | 2019-11-13 15:55 | PM.PNPUL ---
Progress Note: A&P Assessment and Plan (1) COVID-19: Code(s): U07.1 - COVID-19 Status: Acute Assessment and Plan: - seems to be stable, now on room air. - close to discharge, and can be discharged soon, if oxygenation remains stable. He can have a walk study prior to discharge. - needs outpatient f/u CT chest in 4-6 weeks and f/u in our pulmonary clinic if able; this is for pulmonary nodules I will sign off. Please recall if needed. (2) ILD (interstitial lung disease): Code(s): J84.9 - Interstitial pulmonary disease, unspecified Status: Acute Subjective Date/time seen: 11/13/19 15:55 This 78 yo man is seen in follow up for COVID19 pneumonia and interstitial lung changes. He took something for sleep that made him have nightmares last night, and he says he was acting wild. He is planning to have more exercise tomorrow. Now on room air. Review of Systems Review of Systems: All systems reviewed & are unremarkable except as noted in HPI and below Exam Const: General: comfortable and no acute distress Eyes: General: appearance normal, both eyes and all related structures Neck: Neck: supple and no JVD Resp: Auscultation: rales (fine inspiratory crackles ) bilateral Cardio: Rate: tachycardic Rhythm: regular rhythm Heart sounds: no murmurs GI: Auscultation: normal bowel sounds Skin: General skin exam: normal color and no rashes or lesions noted Extrem: General: normal to inspection, no edema and no pedal edema Psych: Mental Status: mental status grossly normal Affect: normal affect Objective Data Vital Signs Vital Signs: Vital Signs - 24 hr 11/12/19 16:00 11/12/19 17:30 11/12/19 20:00 Temperature 36.7 C 36.6 C Pulse Rate 69 73 Respiratory Rate 18 18 Blood Pressure 149/82 H 161/91 H Pulse Oximetry 100 99 95 11/12/19 20:58 11/13/19 00:00 11/13/19 04:00 Temperature 36.4 C 36.4 C Pulse Rate 95 86 Respiratory Rate 22 H 20 Blood Pressure 135/97 H 160/83 H Pulse Oximetry 97 92 94 11/13/19 04:17 11/13/19 08:00 11/13/19 08:48 Temperature 36.5 C Pulse Rate 68 76 93 Respiratory Rate 20 Blood Pressure 117/67 Pulse Oximetry 93 11/13/19 09:09 11/13/19 11:00 11/13/19 12:00 Temperature 36.4 C L Pulse Rate 73 91 Respiratory Rate 18 18 Blood Pressure 134/69 Pulse Oximetry 93 99 93 Intake/Output Intake/Output: Intake & Output 11/10/19 11/11/19 11/12/19 11/13/19 23:59 23:59 23:59 23:59 Intake Total 2049 1769 227 320 Output Total 2799 2049 2049 700 Balance -750 -280 220 -380 Meds/Results Medications: Active Medications Generic Name Dose Route Start Last Admin Trade Name Freq PRN Reason Stop Dose Admin Acetaminophen 1,000 mg 11/05/19 08:50 11/07/19 20:17 Tylenol Tablet PO 1,000 mg Q6H PRN Administration Pain or Fever Albuterol 2 puff 11/05/19 15:46 Proventil Hfa INHALATION QIDRT PRN Shortness Of Breath Calcium Carbonate 200 mg 11/12/19 18:29 11/12/19 18:55 Tums PO 200 mg Q6H PRN Administration Indigestion Dexamethasone 6 mg 11/08/19 13:50 11/13/19 08:47 Dexamethasone Po PO 11/17/19 08:01 6 mg DAILY@0800 [facility] Administration Epoetin Brennan-epbx 10,000 units 11/11/19 10:25 11/11/19 12:39 Retacrit SUB-Q 10,000 units TuThSa@0900 [facility] Administration Heparin Sodium (Beef Lung) 50 units 11/06/19 09:00 11/13/19 08:47 Heparin Flush 50 Units/5 Ml IV PUSH 50 units QAM [facility] Administration Heparin Sodium (Beef Lung) 50 units 11/06/19 08:05 Heparin Flush 50 Units/5 Ml IV PUSH PRN PRN after intermittent infusion Heparin Sodium (Beef Lung) 50 units 11/06/19 08:05 11/09/19 06:12 Heparin Flush 50 Units/5 Ml IV PUSH 50 units PRN PRN Administration after blood draws Heparin Sodium (Porcine) 500 units 11/06/19 08:05 Heparin Sod Flush 100 Units/Ml IV PUSH PRN PRN see comments below Heparin Sodium (Porcine) 5,000 un
[2019-11-13] MEDS: MELATONIN 5 MG TABLET PO (20:34)
[2019-11-14] VITALS: BP 146/68; PULSE 76; PULSE 85; RESP 18; TEMP 36.6; O2SAT 95
[2019-11-14 04:00] VITALS: BP 153/93; PULSE 89; PULSE 94; RESP 18; TEMP 36.7; O2SAT 91
[2019-11-14 05:32] LABS: Hematocrit 26.8 % (42.0-52.0); Mean Corpuscular HGB Conc 33.6 g/dl (32-36); Mean Corpuscular Hemoglobin 30.4 pg (26-34); Mean Corpuscular Volume 90.5 fl (80-100); Mean Platelet Volume 11.2 fl (7.4-10.4); Platelet Count Result 257 k/mm3 (150-375); Red Blood Count 2.96 M/mm3 (4.6-6.20); Red Cell Distribution Width 14.6 % (11.5-14.5); White Blood Count 13.4 K/mm3 (4.5-10.0)
[2019-11-14 05:34] LABS: Albumin Level 3.2 g/dL (3.5-5.1); Anion Gap 9 mmol/L (8-16); Blood Urea Nitrogen 79 mg/dL (9-20); Calcium 8.9 mg/dL (8.4-10.2); Carbon Dioxide 23 mmol/L (22-30); Chloride 101 mmol/L (98-107); Estimated CRCL calculation 16 ml/min; Estimated Glomerular Filt Rate 19; Glucose 96 mg/dL (75-110); Phosphorus 3.2 mg/dL (2.5-4.5); Potassium 4.8 mmol/L (3.4-5.0); Sodium 133 mmol/L (137-145)
[2019-11-14 08:00] VITALS: BP 128/62; PULSE 88; PULSE 98; RESP 14; RESP 16; TEMP 36; O2SAT 89
[2019-11-14] MEDS: DEXAMETHASONE 2 MG TABLET 6 MG PO (08:12)
[2019-11-14] MEDS: METOPROLOL SUCCINATE EXT REL 50 MG TABCR PO (08:12)
[2019-11-14] MEDS: SODIUM BICARBONATE TAB 650 MG TABLET PO ×2 (08:13→17:19)
[2019-11-14] MEDS: HEPARIN SODIUM 5,000 UNITS/ML VIAL 5000 UNITS SUB-Q ×2 (08:13→20:31)
--- NOTE | 2019-11-14 09:57 | P.PNNP_ITS ---
Progress Note: A&P Assessment and Plan (1) CKD (chronic kidney disease) stage 3, GFR 30-59 ml/min: Code(s): N18.3 - Chronic kidney disease, stage 3 (moderate) Status: Chronic Assessment and Plan: * new baseline creatinine noted * he has likely progressed to CKD Stage IV (2) Hyponatremia: Code(s): E87.1 - Hypo-osmolality and hyponatremia Status: Acute Assessment and Plan: * due to CKD and excessive free water intake * sodium stable (3) Essential (primary) hypertension: Code(s): I10 - Essential (primary) hypertension Status: Chronic Assessment and Plan: * BP relatiely stable * follow trend of hemodynamics (4) Anemia: Code(s): D64.9 - Anemia, unspecified Status: Acute Assessment and Plan: * stable if not better * follow H/H * on Epogen (5) Bladder cancer: Qualifiers: Bladder location: unspecified site Qualified Code(s): C67.9 - Malignant neoplasm of bladder, unspecified Code(s): C67.9 - Malignant neoplasm of bladder, unspecified Status: Chronic Assessment and Plan: * Urology following * completed course of antibiotics (6) Generalized weakness: Code(s): R53.1 - Weakness Status: Acute Assessment and Plan: * suspect numerous issues playing a role: - NICANOR/ARF - fluctuating hemodynamics - anemia - UTI(?) + COVID-19 - cancer treatments * PT/OT as tolerated (7) COVID-19: Code(s): U07.1 - COVID-19 Status: Acute Assessment and Plan: * getting symptomatic/supportive care * continue current therapy Will continue to follow. Additional Plan Subjective Date/time seen: 11/14/19 09:57 Seems to be doing reasonably well; no apparent distress voiced; no other complaints to report. Exam Narrative: Exam Narrative: General: WD/WN male in NAD Heart: normal S1 and S2; no rub Lungs: clear to auscultation Abdomen: soft, nontender, nondistended, positive bowel sounds Extremities: no cyanosis or clubbing; no edema Skin: warm and intact Objective Data Vital Signs Vital Signs: Vital Signs Temp Pulse Resp BP Pulse Ox 11/14/19 08:00 36.0 C L 98 16 128/62 89 L 11/14/19 04:00 36.7 C 94 18 153/93 H 91 11/14/19 00:00 36.6 C 85 18 146/68 H 95 11/13/19 20:00 37.0 C 80 18 143/83 H 92 11/13/19 16:00 36.4 C L 91 20 134/74 95 11/13/19 12:00 36.4 C L 91 18 134/69 93 11/13/19 11:00 99 Intake/Output Intake/Output: Intake & Output 11/11/19 11/12/19 11/13/19 11/14/19 23:59 23:59 23:59 23:59 Intake Total 1770 2270 2180 500 Output Total 2049 2049 2250 1250 Balance -280 220 -70 -750 Meds/Results Medications: Active Medications Generic Name Dose Route Start Last Admin Trade Name Freq PRN Reason Stop Dose Admin Acetaminophen 1,000 mg 11/05/19 08:50 11/07/19 20:17 Tylenol Tablet PO 1,000 mg Q6H PRN Administration Pain or Fever Albuterol 2 puff 11/05/19 15:46 Proventil Hfa INHALATION QIDRT PRN Shortness Of Breath Calcium Carbonate 200 mg 11/12/19 18:29 11/12/19 18:55 Tums
--- NOTE | 2019-11-14 09:57 | PM.PNNEP ---
Progress Note: A&P Assessment and Plan (1) CKD (chronic kidney disease) stage 3, GFR 30-59 ml/min: Code(s): N18.3 - Chronic kidney disease, stage 3 (moderate) Status: Chronic Assessment and Plan: new baseline creatinine noted he has likely progressed to CKD Stage IV (2) Hyponatremia: Code(s): E87.1 - Hypo-osmolality and hyponatremia Status: Acute Assessment and Plan: due to CKD and excessive free water intake sodium stable (3) Essential (primary) hypertension: Code(s): I10 - Essential (primary) hypertension Status: Chronic Assessment and Plan: BP relatiely stable follow trend of hemodynamics (4) Anemia: Code(s): D64.9 - Anemia, unspecified Status: Acute Assessment and Plan: stable if not better follow H/H on Epogen (5) Bladder cancer: Qualifiers: Bladder location: unspecified site Qualified Code(s): C67.9 - Malignant neoplasm of bladder, unspecified Code(s): C67.9 - Malignant neoplasm of bladder, unspecified Status: Chronic Assessment and Plan: Urology following completed course of antibiotics (6) Generalized weakness: Code(s): R53.1 - Weakness Status: Acute Assessment and Plan: suspect numerous issues playing a role: - NICANOR/ARF - fluctuating hemodynamics - anemia - UTI(?) + COVID-19 - cancer treatments PT/OT as tolerated (7) COVID-19: Code(s): U07.1 - COVID-19 Status: Acute Assessment and Plan: getting symptomatic/supportive care continue current therapy Will continue to follow. Additional Plan Subjective Date/time seen: 11/14/19 09:57 Seems to be doing reasonably well; no apparent distress voiced; no other complaints to report. Exam Narrative: Exam Narrative: General: WD/WN male in NAD Heart: normal S1 and S2; no rub Lungs: clear to auscultation Abdomen: soft, nontender, nondistended, positive bowel sounds Extremities: no cyanosis or clubbing; no edema Skin: warm and intact Objective Data Vital Signs Vital Signs: Vital Signs Temp Pulse Resp BP Pulse Ox 11/14/19 08:00 36.0 C L 98 16 128/62 89 L 11/14/19 04:00 36.7 C 94 18 153/93 H 91 09/08/20 00:00 36.6 C 85 18 146/68 H 95 11/13/19 20:00 37.0 C 80 18 143/83 H 92 11/13/19 16:00 36.4 C L 91 20 134/74 95 11/13/19 12:00 36.4 C L 91 18 134/69 93 11/13/19 11:00 99 Intake/Output Intake/Output: Intake & Output 11/11/19 11/12/19 11/13/19 11/14/19 23:59 23:59 23:59 23:59 Intake Total 1770 2270 2180 500 Output Total 20490 1250 Balance -280 220 -70 -750 Meds/Results Medications: Active Medications Generic Name Dose Route Start Last Admin Trade Name Freq PRN Reason Stop Dose Admin Acetaminophen 1,000 mg 11/05/19 08:50 11/07/19 20:17 Tylenol Tablet PO 1,000 mg Q6H PRN Administration Pain or Fever Albuterol 2 puff 11/05/19 15:46 Proventil Hfa INHALATION QIDRT PRN Shortness Of Breath Calcium Carbonate 200 mg 11/12/19 18:29 11/12/19 18:55 Tums PO 200 mg Q6H PRN Administration Indigestion Dexamethasone 6 mg 11/08/19 13:50 11/14/19 08:12 Dexamethasone Po PO 11/17/19 08:01 6 mg DAILY@0800 [facility] Administration Epoetin Brennan-epbx 10,000 units 11/11/19 10:25 11/11/19 12:39 Retacrit SUB-Q 10,000 units TuThSa@0900 [facility] Administration Heparin Sodium (Beef Lung) 50 units 11/06/19 09:00 11/14/19 08:13 Heparin Flush 50 Units/5 Ml IV PUSH 50 units QAM [facility] Administration Heparin Sodium (Beef Lung) 50 units 11/06/19 08:05 Heparin Flush 50 Units/5 Ml IV PUSH PRN PRN after intermittent infusion Heparin Sodium (Beef Lung) 50 units 11/06/19 08:05 11/14/19 05:07 Heparin Flush 50 Units/5 Ml IV PUSH 50 units PRN PRN Administration after blood draws Heparin Sod
--- NOTE | 2019-11-14 11:41 | PM.IMPN ---
Progress Note: A&P Assessment and Plan (1) COVID-19: Code(s): U07.1 - COVID-19 Status: Acute Assessment and Plan: Improving. Discussed again the importance of activity. Afebrile since 11/06. Continue dexamethasone (day 7). Remdesivir not recommended for patients GFR less than 30 so we will continue with just the dexamethasone. Antibiotics discontinued. Hopeful for discharge tomorrow. (2) Hallucinations: Code(s): R44.3 - Hallucinations, unspecified Status: Resolved Assessment and Plan: Resolved; none last night. New in the last few days. He is not sleeping. Likely can be attributed to lack of sleep, hospital delirium, and medications. He was tried on Ambien, trazodone, and Ativan on different occasions. At this time, it is recommended that he not take anything before bed and try to stay active /awake during the day so he can be tired. Neuro exam today is normal. Could also be the dexamethasone contributing although it is a low dose. (3) Acute renal failure superimposed on stage 3 chronic kidney disease: Qualifiers: Acute renal failure type: unspecified Qualified Code(s): N17.9 - Acute kidney failure, unspecified; N18.3 - Chronic kidney disease, stage 3 (moderate) Code(s): N17.9 - Acute kidney failure, unspecified; N18.3 - Chronic kidney disease, stage 3 (moderate) Status: Chronic Assessment and Plan: Creatinine stable for a few days at 3.2; improved from 5.1 on arrival. Recent renal biopsy from last admission 10/09/19 demonstrated ATN. Hypotension on arrival may have been causing some hypoperfusion contributing to NICANOR. He also had UTI which I am unsure is causing any issue. Continue with Nephrology's recommendations. This may be his new baseline and could possibly require dialysis in the future. (4) Hyponatremia: Code(s): E87.1 - Hypo-osmolality and hyponatremia Status: Acute Assessment and Plan: 133 today. Likely due to excessive fluid intake and abnormal kidney function. No neurological deficits. Monitor BMP. (5) Essential (primary) hypertension: Code(s): I10 - Essential (primary) hypertension Status: Chronic Assessment and Plan: Stable, last 134/66. Continue metoprolol. (6) Acute UTI: Code(s): N39.0 - Urinary tract infection, site not specified Status: Acute Assessment and Plan: Urine culture 11/03 grew coag-negative staph, finished short course of vancomycin. Recently seen in Dr Palomo' office 11/01/19 and was prescribed Cipro at that time for a suspected acute UTI. (7) Chronic anemia: Code(s): D64.9 - Anemia, unspecified Status: Chronic Assessment and Plan: Suspect may be in part related to renal failure. No evidence of acute bleeding. He is getting Epo. Monitor CBC. (8) Bladder cancer: Qualifiers: Bladder location: unspecified site Qualified Code(s): C67.9 - Malignant neoplasm of bladder, unspecified Code(s): C67.9 - Malignant neoplasm of bladder, unspecified Status: Chronic Assessment and Plan: Patient is s/p cystoprostatectomy with ileal conduit for treatment of bladder and prostate cancer February 2019. He wears a urostomy bag which he hooks up to a larger [place] bag at nighttime. Recently underwent placement of bilateral ureteral stents by Dr Palomo for a possible urinary obstruction contributing to NICANOR. Follow up with urology. (9) Generalized weakness: Code(s): R53.1 - Weakness Status: Acute Assessment and Plan: Suspect multifactorial and may be related to COVID electrolyte abnormali
[2019-11-14 12:00] VITALS: BP 134/66; PULSE 69; PULSE 77; RESP 16; TEMP 36.8; O2SAT 94
--- NOTE | 2019-11-14 12:26 | PCOTNOTE ---
Attempted to see patient for OT, however, patient stated he just dozed off and refused. Will continue plan of care tomorrow.
[2019-11-14] MEDS: EPOETIN ALFA-EPBX 10,000 UNITS/ML VIAL 10000 UNITS SUB-Q (15:35)
[2019-11-14] MEDS: CENTRAL LINE FLUSH 10 ML IV PUSH (15:36)
[2019-11-14 16:00] VITALS: BP 158/85; PULSE 73; PULSE 87; RESP 16; TEMP 37; O2SAT 97
[2019-11-14 20:00] VITALS: BP 138/84; PULSE 91; PULSE 97; RESP 16; TEMP 36.6; O2SAT 90
[2019-11-14] MEDS: MELATONIN 5 MG TABLET PO (20:31)
[2019-11-15] VITALS (7 sets, daily range): BP systolic 121–141; BP diastolic 69–85; PULSE 65–102; RESP 16–92; TEMP 36.4–36.7; O2SAT 89–95
[2019-11-15] MEDS: CENTRAL LINE FLUSH 10 ML IV PUSH ×2 (04:52→15:14)
[2019-11-15 05:02] LABS: Basophils Percent Auto 0.1 % (0.2-1.2); Eosinophils Percent Auto 0.1 % (0-4.4); Hematocrit 28.3 % (42.0-52.0); Hemoglobin 9.5 g/dL (14.0-18.0); Immature Granulocyte Absolute 0.37 K/mm3 (0.00-0.031); Immature Granulocyte Percent A 2.4 % (0-0.5); Lymphocytes Absolute Auto 0.34 K/mm3 (0.9-3.2); Lymphocytes Percent Auto 2.2 % (18.3-44.2); Mean Corpuscular HGB Conc 33.6 g/dl (32-36); Mean Corpuscular Hemoglobin 30.7 pg (26-34); Mean Corpuscular Volume 91.6 fl (80-100); Mean Platelet Volume 11.3 fl (7.4-10.4); Monocytes Percent Auto 6.1 % (2.6-8.5); Neutrophils Absolute Auto 13.9 K/mm3 (1.3-6.7); Neutrophils Percent Auto 89.1 % (45.5-73.1); Nucleated Red Blood Cells Perc 0.1 % (0.0-0.2); Platelet Count Result 235 k/mm3 (150-375); Red Blood Count 3.09 M/mm3 (4.6-6.20); Red Cell Distribution Width 15.1 % (11.5-14.5); White Blood Count 15.6 K/mm3 (4.5-10.0)
[2019-11-15 05:15] LABS: Alanine Aminotransferase 57 U/L (4-50); Albumin Level 3.2 g/dL (3.5-5.1); Alkaline Phosphatase 302 U/L (38-126); Anion Gap 7 mmol/L (8-16); Aspartate Amino Transferase 37 U/L (17-59); Bilirubin,Total 0.4 mg/dL (0.2-1.3); Blood Urea Nitrogen 83 mg/dL (9-20); Calcium 8.8 mg/dL (8.4-10.2); Carbon Dioxide 24 mmol/L (22-30); Chloride 101 mmol/L (98-107); Estimated CRCL calculation 15 ml/min; Estimated Glomerular Filt Rate 18; Glucose 88 mg/dL (75-110); Magnesium 1.7 mg/dL (1.6-2.3); Potassium 4.9 mmol/L (3.4-5.0); Sodium 132 mmol/L (137-145)
[2019-11-15] MEDS: ACETAMINOPHEN 500 MG TABLET 1000 MG PO (05:45)
[2019-11-15] MEDS: DEXAMETHASONE 2 MG TABLET 6 MG PO (09:11)
[2019-11-15] MEDS: HEPARIN SODIUM 5,000 UNITS/ML VIAL 5000 UNITS SUB-Q (10:22)
[2019-11-15] MEDS: MAGNESIUM OXIDE 400 MG TABLET PO (10:22)
[2019-11-15] MEDS: amLODIPine BESYLATE 5 MG TABLET PO (10:22)
[2019-11-15] MEDS: METOPROLOL SUCCINATE EXT REL 50 MG TABCR PO (10:23)
--- NOTE | 2019-11-15 10:34 | HOMEO2EVAL ---
Home Oxygen Evaluation RC: Home Oxygen (O2) Evaluation Start: 11/15/19 08:07 Freq: ONCE Status: Active Protocol: RPE Activity Type Activity Date Activity User E-Sign Co-Sign Detail Recorded Client Recorded Date Recorded By Document 11/15/19 10:00 DJO [id number] 11/15/19 10:34 DJO Document 11/15/19 10:05 DJO [id number] 11/15/19 10:34 DJO Document 11/15/19 10:15 [email or web address] [email or web address] 11/15/19 10:34 DJO 11/15/19 11/15/19 11/15/19 10:00 10:05 10:15 Home O2 Evaluation Test Phase Resting Exercise Resting Oxygen Delivery Room Air Room Air Room Air Pulse Oximetry (90-100 %) 92 89 L 91 Pulse Rate (60-100 beats/min) 88 102 H 86 Activity Tolerance Good Ambulation Distance (feet) 75 Home Oxygen Evaluation Comments WALKED PT IN ROOM DUE TO COVID Treatment Charges O2 Evaluation
--- NOTE | 2019-11-15 10:34 | PCRCNOTE ---
HOME O2 EVAL COMPLETE, NO REQUIREMENTS
--- NOTE | 2019-11-15 12:58 | PCDIET ---
Nutrition Follow-Up Complete: Intake Oral Intake as related to Cancer as evidenced by weight loss of 20 ibs in the past 3 months Adequate Intake of at least 75% of meals Goal:Met Additional Notes: Pt d/c home today. Intake has been adequate, diet appropriate. No further nutrition intervention needed.
--- NOTE | 2019-11-15 13:42 | PCOTNOTE ---
Attempted to see patient this pm, however patient declined secondary to discharge.
--- NOTE | 2019-11-15 18:45 | PM.DS ---
DS: Admitting Diagnosis Admitting Diagnosis Admitting Diagnosis: Hyponatremia, CKD DS: Discharge Diagnosis Discharge Diagnosis (1) COVID-19: Code(s): U07.1 - COVID-19 Status: Acute Assessment and Plan: Date of Admission: 11/04/19 Date of Discharge: 11/15/19 Date of Service: 11/15/19 Mr. Raphael is a 78yo M with history of bladder and prostate cancer s/p cystoprostatectomy with ileal conduit (Feb 2019), chronic kidney disease, hypertension, and chronic anemia who presented to the ED for evaluation of weakness. He also described mild shortness of breath. It was noted that he was recently admitted to our facility earlier in the month for treatment of acute renal failure. He presented again with elevated creatinine as high as 5.1. During his previous admission, he underwent renal biopsy which demonstrated evidence of ATN. Current admission was found to have COVID-19 pneumonia and was treated with dexamethasone. His symptoms were improved and he was tolerating room air day of discharge, eager for discharge. His CT chest demonstrated pulmonary nodules. He was evaluated by pulmonology and instructed to get follow up CT chest in 1 month given his history of cancer, follow up with Dr Lozada. He was again evaluated by nephrology for acute on chronic renal failure. He was rehydrated and creatinine improved to 3.2, which may be his new baseline. He will follow up with nephrology also. Earlier in the stay he was noted to have a UTI; urine culture grew coagulase-negative staph for which he was treated with a short course of IV vancomycin. He follows with Dr Palomo for bladder/prostate CA. He was monitored on cardiac telemetry and had 2 isolated short runs of nonsustained V-tach with which he was asymptomatic. Recommend outpatient stress testing once he has recovered from coronavirus. Patient's biggest complaint during this admission was the fact he could not sleep. Multiple medications were trialed including melatonin, Ativan, Ambien. Patient experienced visual hallucinations one evening and these medications were discontinued. He was feeling well and hemodynamically stable for discharge 11/15/19 with instructions to follow up with PCP, pulmonology, nephrology, and urology. Improving. Discussed again the importance of activity. Afebrile since 11/06. Continue dexamethasone (day 8). Remdesivir not recommended for patients GFR less than 30. Antibiotics discontinued. (2) Hallucinations: Code(s): R44.3 - Hallucinations, unspecified Status: Resolved Assessment and Plan: Resolved; none last night. New in the last few days. He is not sleeping. Likely can be attributed to lack of sleep, hospital delirium, and medications. He was tried on Ambien, trazodone, and Ativan on different occasions. At this time, it is recommended that he not take anything before bed and try to stay active /awake during the day so he can be tired. Neuro exam today is normal. Could also be the dexamethasone contributing although it is a low dose. (3) Acute renal failure superimposed on stage 3 chronic kidney disease: Qualifiers: Acute renal failure type: unspecified Qualified Code(s): N17.9 - Acute kidney failure, unspecified; N18.3 - Chronic kidney disease, stage 3 (moderate) Code(s): N17.9 - Acute kidney failure, unspecified; N18.3 - Chronic kidney disease, stage 3 (moderate) Status: Chronic Assessment and Plan: Creatinine stable for a few days at 3.2; improved from 5.1 on arrival. Recent renal biopsy from last admission 10/09/19 demonstrated ATN. Hypotension on arrival may have been causing some hypoperfusion contributing to NICANOR. He also had UTI which I am unsure is causing any issue. Continue with Nephrology's recommendations. This may be his new baseline and could possibly require dialysis in the future.
== END 2019-11-15 16:15 | disposition home or self-care (01) | DRG 871 ==
LOC: ANHED 12:57 → ANH2MED 16:41 → ANH3MEDSUR 11-14 07:14 → ANH2MED 11-20 13:32 → ANH3MEDSUR 11-20 13:32
PROVIDERS: Internal Medicine Critical Care Medicine; Internal Medicine Nephrology; Nurse Practitioner; Physician Assistant; Admitting Provider Family Medicine; Emergency Provider Family Medicine; PCP Internal Medicine; Visit Provider Family Medicine
DX: A41.89 Other specified sepsis (principal); U07.1 COVID-19; J12.89 Other viral pneumonia; N17.0 Acute kidney failure with tubular necrosis; N39.0 Urinary tract infection, site not specified; R44.2 Other hallucinations; E87.1 Hypo-osmolality and hyponatremia; I47.2 Ventricular tachycardia; R65.20 Severe sepsis without septic shock; B95.7 Other staphylococcus as the cause of diseases classified elsewhere; I12.9 Hypertensive chronic kidney disease with stage 1 through stage 4 chronic kidney disease, or unspecified chronic kidney disease; D63.1 Anemia in chronic kidney disease; N18.3 Chronic kidney disease, stage 3 (moderate); R91.8 Other nonspecific abnormal finding of lung field; E87.5 Hyperkalemia; E86.0 Dehydration; Z85.46 Personal history of malignant neoplasm of prostate; Z85.51 Personal history of malignant neoplasm of bladder
CPT/HCPCS: 36415; 71045; 71250; 74018; 78580; 80048; 80053; 80069; 80076; 80202; 81001; 82436; 82533; 82570; 82728; 83520; 83615; 83735; 83880; 83883; 83930; 83935; 84100; 84155; 84156; 84165; 84166; 84295; 84300; 84443; 85025; 85027; 85380; 85610; 85999; 86140; 87040; 87077; 87086; 87088; 87186; 87635; 93005; 93306; 93970; 94618; 96360; 96361; 97110; 97116; 97161; 97164; 97165; 97530; 97535; 99285; A9270; A9540; C9803; J0692; J1642; J1644; J1940; J1956; J2060; J3370; J3475; J7030; J8540; Q5106; U0003

== ENCOUNTER 2019-12-03 09:54 | Inpatient (IN) | payer MEDICARE, SELFPAY ==
[2019-12-03] VITALS (39 sets, daily range): BP systolic 100–129; BP diastolic 56–76; PULSE 86–123; RESP 16–31; TEMP 36–37.1; O2SAT 86–100; BMI 22.6
--- NOTE | ~2019-12-03 | CT_ITS ---
EXAMINATION: CT abdomen pelvis wo con DATE: 12/03/2019 13:02 INDICATION: Upper abdominal pain. Liver mass. TECHNIQUE: Computed tomography (CT) of the abdomen and pelvis was performed without intravenous contr ast. The dose-length product was 347.59 mGy-cm. COMPARISON: Ultrasound dated 12/03/2019. FINDINGS: Coarse interstitial fibrosis of the lung bases. Ill-defined mass in the left hepatic lobe i s not well visualized due to lack of contrast. Calcified granulomas in the spleen. The pancreas, adre nal glands are unremarkable. There are bilateral internal ureteral stents with ileal diversion. There are surgical changes consistent with cystectomy. Small amount of free fluid in the pelvis. There is thickening of the rectum, suspicious for proctitis. There is bilateral hydronephrosis. There is ventr al hernia containing mildly dilated small bowel loops. Small bowel obstruction not excluded. IMPRESSION: 1. Abnormal thickening of the rectum, suspicious for proctitis. 2: Ventral abdominal wall hernia containing dilated small bowel loops, suspicious for obstruction. 3: Postoperative changes consistent with cystectomy with ileal diversion. There is bilateral hydronep hrosis with bilateral internal ureteral stents present. 4: Ill-defined mass left hepatic lobe, not well evaluated due to lack of contrast. Cannot exclude met astatic disease. Reviewed, dictated and finalized at location A. IMPRESSION: 1. Abnormal thickening of the rectum, suspicious for proctitis. 2: Ventral abdominal wall hernia containing dilated small bowel loops, suspicio us for obstruction. 3: Postoperative changes consistent with cystectomy with ileal diversion. There is bilateral hydronephrosis with bilateral internal ureteral stents present. 4: Ill-defined mass left hepatic lobe, not well evaluated due to lack of contra st. Cannot exclude metastatic disease.
--- NOTE | ~2019-12-03 | US_ITS ---
EXAMINATION: US biopsy liver DATE: 12/04/2019 10:12 INDICATION: Liver mass. TECHNIQUE: The procedure including the risks, benefits, and alternatives was discussed with the patie nt. Risks discussed included bleeding and infection. The patient understood the risks and agreed to p roceed. The skin overlying the left hepatic lobe was prepped and draped in usual sterile fashion. An esthetic was administered with 1% lidocaine subcutaneously. An 18 gauge core biopsy needle was then used to obtain 3 core biopsy specimens under continuous sonographic guidance. The entry site was amisha elizabet and dressed. There were no immediate complications. FINDINGS: Ultrasound images demonstrate the needle in a 4.7 cm hypoechoic mass in left hepatic lobe. IMPRESSION: 1. Ultrasound-guided core needle biopsy of a mass in left hepatic lobe. Reviewed, dictated and finalized at location A.
--- NOTE | ~2019-12-03 | US_ITS ---
EXAMINATION:US venous doppler LE BI INDICATION:Shortness of breath. History of bladder cancer. TECHNIQUE: Multiple grayscale, color flow and Doppler images of the right and left lower extremity de ep venous systems were obtained and reviewed. COMPARISON:11/07/2019 FINDINGS: The common femoral, superficial femoral and popliteal veins demonstrate normal respiratory variation, augmentation and compressibility. Color flow is also seen within the posterior tibial, pe roneal, greater saphenous and profunda veins. IMPRESSION: 1: No lower extremity deep venous thrombosis. Reviewed, dictated and finalized at location A.
--- NOTE | ~2019-12-03 | NM_ITS ---
EXAMINATION: NM pulmonary perfusion DATE: 12/04/2019 10:06 INDICATION: Shortness of breath. Pleuritic chest pain. TECHNIQUE: 5.5 mCi Tc-99m MAA was administered intravenously for perfusion images. Scintigraphic brigid ges of the chest were obtained. COMPARISON: Chest single view 12/03/2019, chest CT 11/06/2019, perfusion scintigraphy 11/04/2019 FINDINGS: Perfusion images show matched large defects in the right upper lobe and right middle lobe, small defe cts in right lower lobe, and small defects in left upper lobe and left lower lobe. ] IMPRESSION: 1. Nondiagnostic (intermediate probability). Reviewed, dictated and finalized at location A.
--- NOTE | ~2019-12-03 | US_ITS ---
US right upper quadrant INDICATION: Right upper quadrant pain. History of bladder cancer. PROCEDURE: Realtime right upper abdominal ultrasound. COMPARISON: No prior studies for comparison. FINDINGS: The pancreas is obscured secondary to bowel gas. In the left hepatic lobe there is a 5.9 x 4.3 x 3.3 cm heterogeneous mass with peripheral vascularity. There is diffusely heterogeneous thyroi d echotexture. There is normal directional flow in the portal vein. The gallbladder is normal without stones, gallbladder wall thickening or pericholecystic fluid. Comm on bile duct measures 6 mm. No sonographic Ordoñez's sign. There is right hydronephrosis. IMPRESSION: 1: Complex 5.9 cm mass of the left hepatic lobe. Correlation with dynamic contrast-enhanced CT or MRI recommended. 2: Right hydronephrosis. Reviewed, dictated and finalized at location A. IMPRESSION: 1: Complex 5.9 cm mass of the left hepatic lobe. Correlation with dynamic contr ast-enhanced CT or MRI recommended. 2: Right hydronephrosis.
--- NOTE | ~2019-12-03 | XR_ITS ---
XR chest 1V portable 12/03/2019 11:40 Indication: Shortness of breath. Procedure: AP portable chest Comparison: Comparison to multiple prior studies sequentially, with oldest reviewed study dated 07/03. Findings: Patchy bilateral airspace disease, compatible with pneumonia. Portacatheter tip in the cond yle aspect of the SVC. No pleural effusion or pneumothorax. No acute osseous abnormality. Impression: 1: Patchy bilateral airspace disease, consistent with pneumonia. Reviewed, dictated and finalized at location A. Impression: 1: Patchy bilateral airspace disease, consistent with pneumonia.
--- NOTE | ~2019-12-03 | XR_ITS ---
EXAMINATION: XR abdomen obstructive series EXAM DATE: 12/04/2019 06:10 INDICATION: Small bowel obstruction. Ventral hernia containing small bowel. TECHNIQUE: Frontal projection(s) of the abdomen for interpretation. Comparison is made to prior exami nation from 11/06/2019. FINDINGS: Bilateral ureteral stents, positions unchanged. Single loop of mildly dilated air-filled s mall bowel in the left upper quadrant, improvement compared to prior study, could be mild ileus. This is nonspecific bowel gas pattern. IMPRESSION: 1. Nonspecific but nonobstructive bowel gas pattern. Reviewed, dictated and finalized at location A.
--- NOTE | 2019-12-03 10:25 | ECG_ITS ---
Measurements Intervals [place] Rate: 123 P: 42 ID: [id number] QRS: -30 QRSD: 113 T: 59 QT: 317 QTc: 454 Interpretive Statements SINUS TACHYCARDIA INCOMPLETE RIGHT BUNDLE BRANCH BLOCK LEFT VENTRICULAR HYPERTROPHY AND ST-T CHANGE CANNOT RULE OUT SEPTAL INFARCT, AGE INDETERMINATE BORDERLINE T WAVE ABNORMALITY- INFERIOR LEADS BASELINE ARTIFACT- V3-V6 ABNORMAL ECG Electronically Signed On 12-03-2019 11:47:40 CDT by Rajendra Parker D.O.
--- NOTE | 2019-12-03 10:47 | ED.SOB ---
HPI - SOB/Dyspnea General Chief Complaint: Shortness of Breath/Dyspnea <Sheridan Muñoz PA-C - Last Filed: 12/03/19 10:52> Stated Complaint: SOB <SERENA Mayo Last Filed: 12/03/19 10:52> Time Seen by Provider: 12/03/19 10:14 <SERENA Mayo Last Filed: 12/03/19 10:52> Source: patient and family <SERENA Mayo Last Filed: 12/03/19 10:52> Mode of arrival: wheelchair <SERENA Mayo Last Filed: 12/03/19 10:52> Limitations: no limitations <SERENA Mayo Last Filed: 12/03/19 10:52> History of Present Illness HPI Narrative: This is a 78 year old male that presents to the ER for abdominal pain since this morning. Reports the pain is sharp and happens when he breaths. Reports it started in the right upper chest and then went into his abdomen. Reports feeling short of breath which is chronic for him since he was diagnosed with COVID last month. Denies fever, cough, or vomiting. <SERENA Mayo Last Filed: 12/03/19 10:52> Related Data Home Medications: Home Medications Medication Instructions Recorded Confirmed cephalexin 500 mg PO DAILY 11/04/19 11/28/19 <SERENA Mayo Last Filed: 12/03/19 10:52> Allergies/Adverse Reactions: Allergies Allergy/AdvReac Type Severity Reaction Status Date / Time No Known Allergies Allergy Verified 11/28/19 14:51 <SERENA Mayo Last Filed: 12/03/19 10:52> Review of Systems Review of Systems: Narrative: CONSTITUTIONAL: Denies fever CARDIOVASCULAR: Denies current chest pain, or edema. RESPIRATORY: Reports dyspnea. Denies cough GASTROINTESTINAL: Reports abdominal pain. Denies nausea, vomiting GENITOURINARY: Denies hematuria. <SERENA Mayo Last Filed: 12/03/19 10:52> All systems reviewed & are unremarkable except as noted in HPI and below <Sheridan Muñoz PA-C - Last Filed: 12/03/19 10:52> [facility] Social History Social History: Social History Social History: Patient quit smoking in 1979. He smoked about a pack a cigarettes a day for 20 years. Patient occasionally drinks a beer. He has 2 children. A boy and a girl. Power of truss builder is Carla Lam. He is a full code. He lives alone. He is retired from [employer]. he is . He denies any marijuana or illicit drugs. Smoking packs per day: 1 Smoking cigarettes per day: 20.0 Years smoked: 15 Smoking pack-years: 15.00 Smoking status: Former smoker Tobacco type: cigarettes Smoking end date: 03/08/79 Additional smoking assessment comments: 1979 Alcohol intake: former Substance use: never Gender identity (if verbalized by the patient): Male Spiritual care concerns: No Agree to blood products: Yes <Sheridan Muñoz PA-C - Last Filed: 12/03/19 10:52> Exam Narrative: Exam Narrative: GENERAL: Chronically ill-appearing, well-nourished, and in mild acute distress due to shortness of breath. HEAD: Normocephalic, atraumatic. EYES: EOMI. ENT: Mucous membranes moist. Oropharynx without tonsillar hypertrophy exudate or other lesions. NECK: Supple. No adenopathy or masses. CHEST: Tachypneic. Rales at the bases of the lungs. No wheezes or rhonchi HEART: Tachycardic, regular rhythm. No murmur heard. Normal peripheral pulses. ABDOMEN: Soft, nondistended, normal active bowel sounds. Tender to palpation in the right upper quadrant, without guarding EXTREMITIES: Normal range of motion. No edema. SKIN: Warm, dry, no rash. NEURO: No focal deficits. Alert and oriented x3. PSYCH: Normal mood and affect <Sheridan Muñoz PA-C - Last Filed: 12/03/19 10:52> Course OCEANIC SCIENCES PROFESSOR/PA Physician Supervision For this patient encounter, I reviewed the OCEANIC SCIENCES PROFESSOR or PA documentation, treatment plan, and medical decision making; and I had [id number] time with this patient. <Mone Zepeda MD - Last Filed: 12/03/19 12:51> Vital Signs Vi
[2019-12-03 10:57] LABS: Basophils Percent Auto 0.3 % (0.2-1.2); Eosinophils Percent Auto 0.2 % (0-4.4); Hematocrit 30.7 % (42.0-52.0); Hemoglobin 9.6 g/dL (14.0-18.0); Immature Granulocyte Absolute 0.07 K/mm3 (0.00-0.031); Immature Granulocyte Percent A 0.5 % (0-0.5); Lymphocytes Absolute Auto 0.31 K/mm3 (0.9-3.2); Lymphocytes Percent Auto 2.4 % (18.3-44.2); Mean Corpuscular HGB Conc 31.3 g/dl (32-36); Mean Corpuscular Hemoglobin 30.2 pg (26-34); Mean Corpuscular Volume 96.5 fl (80-100); Mean Platelet Volume 10.9 fl (7.4-10.4); Monocytes Absolute Auto 1.1 K/mm3 (0.1-0.6); Monocytes Percent Auto 8.8 % (2.6-8.5); Neutrophils Absolute Auto 11.4 K/mm3 (1.3-6.7); Neutrophils Percent Auto 87.8 % (45.5-73.1); Platelet Count Result 351 k/mm3 (150-375); Red Blood Count 3.18 M/mm3 (4.6-6.20); Red Cell Distribution Width 18.1 % (11.5-14.5)
[2019-12-03 11:09] LABS: Alveolar/Arterial O2 Gradient 457.3 mmHg; Base Excess ABG -7.7 mEq/l (+/-2.0); Carboxyhemoglobin 0.3 % THb (0-2.0); Fractional Inspired Oxygen 100 %; HCO3 ABG 15.5 mEq/l (22.0-26.0); Methemoglobin ABG 0.2 %THb (0-1.5); Oxygen Content ABG 15.3 %vol (16.0-22.0); Oxygen Saturation ABG 99.5 % (95.0-100.0); Oxyhemoglobin 98.7 % THb (90.0-100.0); PO2 ABG 230.7 mmHg (80.0-100.0); PO2 FiO2 Ratio Arterial Blood 2.31 %; Reduced Hemoglobin 0.8 %THb (0-5.0); Total Hemoglobin 10.6 g/dL (12.0-18.0)
[2019-12-03 11:10] LABS: Lactic Acid Reflex 2.3 mmol/L (0.7-2.1)
[2019-12-03 11:10] LABS: Device NON-REBREATHER MASK; Modified Allen's Test Pass; Site Drawn LEFT RADIAL
[2019-12-03 11:24] LABS: Alanine Aminotransferase 58 U/L (4-50); Albumin Level 3.2 g/dL (3.5-5.1); Alkaline Phosphatase 1173 U/L (38-126); Anion Gap 10 mmol/L (8-16); Aspartate Amino Transferase 62 U/L (17-59); Bilirubin,Total 0.7 mg/dL (0.2-1.3); Blood Urea Nitrogen 59 mg/dL (9-20); Calcium 8.8 mg/dL (8.4-10.2); Carbon Dioxide 18 mmol/L (22-30); Chloride 107 mmol/L (98-107); Estimated CRCL calculation 11 ml/min; Estimated Glomerular Filt Rate 12; Glucose 142 mg/dL (75-110); Lactate Dehydrogenase 531 U/L (313-618); Lipase 34 U/L (23-300); Potassium 5.8 mmol/L (3.4-5.0); Sodium 135 mmol/L (137-145)
[2019-12-03] MEDS: SODIUM CHLORIDE 0.9% IV 1,000 ML 999 ML IV CONT (11:36)
[2019-12-03 11:37] LABS: CRP 13.5 mg/dL (<1.0)
[2019-12-03 11:41] LABS: Add Urine Microscopic? YES; Appearance Urine Clear (Clear); Bacteria Urine Trace /hpf; Bilirubin Urine Negative (Negative); Blood Urine 2+ (Negative); Color Urine Yellow (Yellow); Glucose Urine UA Negative (Negative); Ketones Urine Negative (Negative); Leukocyte Esterase Ur 2+ LEU/UL (Negative); Nitrate Urine Negative (Negative); Protein Urine 1+ mg/dL (Negative); RBC Urine 51-75 /hpf (0-2); Specific Grav Ur 1.012 (1.001-1.035); Urobilinogen Urine Negative mg/dL (<2.0)
[2019-12-03 11:45] LABS: NT Pro B Type Natriuretic Pept 4880 PG/ML (5-100); Troponin I < 0.012 ng/mL (0.000-0.034)
[2019-12-03 13:54] LABS: Reflex Lactic Acid Yes or No Add Lactic
[2019-12-03] MEDS: INSULIN HUMAN REGULAR (*BKC) 100 UNITS/ML 10 UNITS IV PUSH (14:26)
[2019-12-03] MEDS: DEXTROSE 50% 25 GM/50 ML SYRINGE IV PUSH (14:26)
[2019-12-03 14:40] LABS: Lactic Acid 0.7 mmol/L (0.7-2.1)
--- NOTE | 2019-12-03 16:07 | WPDURCON ---
Assessment and Plan Assessment and plan (1) Acute renal failure superimposed on stage 3 chronic kidney disease: Qualifiers: Acute renal failure type: unspecified Qualified Code(s): N17.9 - Acute kidney failure, unspecified; N18.3 - Chronic kidney disease, stage 3 (moderate) Code(s): N17.9 - Acute kidney failure, unspecified; N18.3 - Chronic kidney disease, stage 3 (moderate) Status: Chronic Assessment and Plan: Agree with admission to Hospital Medicine, continue IV fluids. Avoid nephrotoxic agents Trend creatinine (2) Abnormal urinalysis: Code(s): R82.90 - Unspecified abnormal findings in urine Status: Acute Assessment and Plan: Urine is likely colonized given conduit, patient is afebrile with normal vital signs. Nonetheless, if suspicion for UTI, may treat with antibiotics, particularly given presence of stents. (3) History of ileal conduit: Code(s): Z98.890 - Other specified postprocedural states Status: Chronic Assessment and Plan: CT scan reviewed, stents appear in reasonable position, bilateral but stable hydronephrosis noted. Ventral hernia noted with loops of bowel present, worsened since [place] CT scan. Would consider General Surgery consultation, however by my exam, bowel is reducible. (4) Bladder cancer: Qualifiers: Bladder location: unspecified site Qualified Code(s): C67.9 - Malignant neoplasm of bladder, unspecified Code(s): C67.9 - Malignant neoplasm of bladder, unspecified Status: Chronic Assessment and Plan: Given history of bladder cancer with new liver lesion, he may require CT guided biopsy. Consider MRI depending on [facility] protocols for patients with elevated creatinine. Urology Consult Note HPI Date Seen: 12/03/19 Requesting Physician: Brianna Limon MD Primary Care Provider: Jeremy Jung MD Consult Narrative Reason for consult: Abdominal pain and possible UTI in a patient with ileal conduit. Narrative: Stu Raphael is a 78 year old male who presents to the ER with several days of abdominal pain. He has previously undergone radical cystectomy and ileal conduit and has required bilateral ureteral stents (last changed 09/2019) with Dr. Palomo. He reports he has had abdominal pain, not necessarily associated with diet for several days. He denies fevers. Recently treated for COVID-19. ER called and requested consultation for suspicion of UTI. I recommended a CT w/o contrast to evaluate his kidneys and known ventral hernia. Review of Systems Constitutional: Constitutional: Reports difficulty sleeping, Denies fever(s) and Reports lethargy Eyes: Eyes: Reports no additional eye complaints ENT: Reports system reviewed and no additional complaints, except as documented Cardiovascular: Cardiovascular: Reports no additional cardiovascular complaints Respiratory: Respiratory: Reports no additional respiratory complaints Gastrointestinal: Gastrointestinal: Reports abdominal pain, Denies melena, Denies hematochezia and Denies change in bowel habits Genitourinary: Genitourinary: Reports no additional male genitourinary complaints Musculoskeletal: Musculoskeletal: Reports back pain Integumentary/Breasts: Skin/Breast: Reports system reviewed and no additional complaints, except as docu Neurologic: Reports system reviewed and no additional complaints, except as documented Psychiatric: Psychiatric: Reports no additional psychiatric complaints [facility] Social History Social History Social History: Patient quit smoking in 1979. He smoked about a pack a cigarettes a day for 20 years. Patient occasionally drinks a beer. He has 2 children. A boy and a girl. Power of business attorney is Carla Lam. He is a full code. He lives alone. He is retired from [employer]. he is . He denies any marijuana or illicit drugs. Smoking packs per day:
--- NOTE | 2019-12-03 16:53 | ADMGEN ---
This patient, Stu Raphael, was admitted to IMU Room 203-01. Patient/family oriented to hospital policies and general routines including ID bracelet, bed and alarms, visiting hours, pain management, procedures, bathroom and other care routines, personal items, smoking policy, room service/diet, and visiting hours. Valuables list has been completed. Information on how to activate the Rapid Response Team has been discussed. Patient/Family are encouraged to report perceived risks to care and to ask questions if they do not understand what they are told or what they should do.
--- NOTE | 2019-12-03 17:19 | PM.CNGS ---
Assessment and Plan Assessment and plan (1) Ventral incisional hernia without obstruction or gangrene: Onset Date: Unknown Code(s): K43.2 - Incisional hernia without obstruction or gangrene Status: Acute Assessment and Plan: this seems reducible at this time and nontender. Repeat abdominal films in the morning. Since patient is not nauseated will allow clear liquids plus a b.i.d. Ensure for nutrition I showed the patient how to carefully massaged the area and reduce the hernia. Will follow with you for the next few days or until we know this is not a continuing problem (2) COVID-19: Code(s): U07.1 - COVID-19 Status: Acute (3) Port-A-Cath in place: Code(s): Z95.828 - Presence of other vascular implants and grafts Status: Chronic (4) History of ileal conduit: Code(s): Z98.890 - Other specified postprocedural states Status: Chronic (5) Bladder cancer: Onset Date: Unknown Qualifiers: Bladder location: unspecified site Qualified Code(s): C67.9 - Malignant neoplasm of bladder, unspecified Code(s): C67.9 - Malignant neoplasm of bladder, unspecified Status: Chronic Assessment and Plan: CT scan shows a new mass in the left lobe of the liver. May consider while in the hospital doing a ultrasound or CT-guided core biopsy this since this may be related to the above diagnosis. (Apparently this was not present on a September 2019 CT scan). (6) CKD (chronic kidney disease) stage 3, GFR 30-59 ml/min: Onset Date: ~11/2019 Code(s): N18.3 - Chronic kidney disease, stage 3 (moderate) Status: Chronic Assessment and Plan: this apparently worsened on 1 of his last admissions. Appreciate nephrology follow-up on this. Additional Plan In view the CT findings of a possible mass in left lobe of the liver which was not previously present consider core biopsy of same while hospitalized if his numbers improve in the morning. I ordered CBC, CMP and a lactate for the morning. History of Present Illness Consult details Consult date: 12/03/19 Reason for consult: abdominal pain ( Mainly ache and bloating and upper mid abdomen) Requesting physician: Khanh Palomo MD Narrative: CC: Abdominal pain and possible UTI in a patient with ileal conduit. Narrative: Mr Stu Raphael is a 78 year old white male who presented to the ER today with several days of abdominal pain. He has previously undergone radical cystectomy and ileal conduit and has required bilateral ureteral stents (last changed 09/2019) with Dr. Palomo. patient was also hospitalized earlier this month with COVID-19 but has recovered and has had a negative test since then according to the nurses. He reports he has had some upper mid abdominal pain, not necessarily associated with diet for several days. States this feels a little bit like bloating. He has not really had any vomiting. He denies fevers. Recently treated for COVID-19. ER called and requested consultation for signs of possible partial small-bowel obstruction in his ventral incisional hernia which has been known but reducible. Also noted on the CT same CT scan is a change in the liver with a mass in the left lobe that was not present in September of this year. Please see the report. Review of Systems Constitutional: Constitutional: Reports as per HPI and Denies headache(s) Eyes: Eyes: Denies loss of vision and Denies eye pain ENT: Reports Normal hearing present, Denies change in voice, Denies dizziness and Denies headache(s) Cardiovascular: Cardiovascular: Denies chest pain and Denies dyspnea Respiratory: Respiratory: Denies dyspnea and Denies wheezing Gastrointestinal: Gastrointestinal: Reports abdominal pain ( More of an achiness with some fullness in the upper mid abdomen), Denies nausea and Denies vomiting Comments: he may have had some decrease in appetite. His daughter states that he feels full f
--- NOTE | 2019-12-03 17:52 | PM.IMHP ---
H&P: HPI History of Present Illness Date/Time: 12/03/19 17:52 Chief complaint: Acute on chronic renal failure/SBO Narrative: Stu Raphael is a 78 year old male Who is well-known to me. I saw the patient last month on 11/04/2019 acute on chronic renal failure. The patient was just discharged prior to that on 10/09/2019. The patient has kidney stents placed in ileal conduit. 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 The patient follows with urology here. He has been seen by body stylist here as well. The patient has been chronically placed on Keflex due to his frequent UTIs. He has a history of having bladder cancer status post radical cystectomy with lymphadenopathy in ileal loop urinary diversion. The patient was positive for COVID 1 month ago. He since then has been retested is now negative. The patient's last chemotherapy was about a year and half ago. Patient was found to be positive for COVID on 11/07/2019. His negative was 11/29/2019. Patient still complains of shortness of breath. The patient had abdominal pelvis CT performed today which was read as abnormal thickening of the rectum suspicious for proctitis. Ventral abdominal wall hernia containing distal small bowel loops suspicious for obstruction. Postoperative changes consistent with cystectomy and ileal diversion. The patient came in today complaining of abdominal pain that started this morning. He said it was sharp and it is worse when he breathes. It is in the right upper chest and right upper abdomen. It is also short of breath from it. That is why the CT of the abdomen was performed. Also his urine but to be infected however he has had multiple UTIs and multiple antibiotics and he has drug resistant bacteria in his urine at times. Patient is chronically on Keflex for prevention of UTIs. He does see urologist and sees body stylist for his renal functions. It was advised that patient should be started on vancomycin however his renal function is worsening. We decided to just get a urine culture for now. Urology has seen the patient as well as surgery. The patient was found to have a liver mass and we decided to order an ultrasound guided liver biopsy per Interventional radiologist. Patient is not having any discomfort at this time. Initially he was placed on a non-rebreather now is on 2 L per nasal cannula. His creatinine is 4.6 and he is typically 3.2 and has been as high as 5.1 in the past. His GFR is 12 which is less than his last reading he is around 18 or 19. The patient was started on normal saline given IV fluids. He was given 10 units of insulin and 25 g of D50 for potassium of 5.8. I have spoken with Dr. Meyers concerning patient's hernia and the hernia was found to be reducible. Therefore no surgical intervention is needed at this time. Date of service is 12/03/2019 Review of Systems Review of Systems: All systems reviewed & are unremarkable except as noted in HPI and below Constitutional: Constitutional: Reports as per HPI and Reports no additional constitutional complaints Eyes: Eyes: Reports as per HPI and Reports no additional eye complaints ENT: Reports system reviewed and no additional complaints, except as documented and Reports Normal hearing present Cardiovascular: Cardiovascular: Reports no additional cardiovascular complaints Respiratory: Respiratory: Reports no additional respiratory complaints and Reports no additional respiratory complaints Gastrointestinal: Gastrointestinal: Reports as per HPI and Reports no additional gastrointestinal complaints Musculoskeletal: Musculoskeletal: Reports no additional musculoskeletal complaints Integumentary/Breasts: Skin/Breast: Reports system reviewed and no additional complaints, except as docu and Reports as per HPI Neurologic: Reports system reviewed and no additional complaints, except as documented, Reports as per HPI and Reports Normal hearing p
[2019-12-03 18:26] LABS: Anion Gap 10 mmol/L (8-16); Blood Urea Nitrogen 56 mg/dL (9-20); Calcium 8.3 mg/dL (8.4-10.2); Carbon Dioxide 16 mmol/L (22-30); Chloride 110 mmol/L (98-107); Estimated CRCL calculation 13 ml/min; Estimated Glomerular Filt Rate 14; Glucose 193 mg/dL (75-110); Potassium 4.9 mmol/L (3.4-5.0); Sodium 136 mmol/L (137-145)
[2019-12-03] MEDS: GABAPENTIN 300 MG CAPSULE PO (20:26)
[2019-12-03] MEDS: ACETAMINOPHEN 325 MG TABLET 650 MG PO (22:52)
[2019-12-04] VITALS (19 sets, daily range): BP systolic 119–132; BP diastolic 66–79; PULSE 84–108; RESP 16–20; TEMP 35.9–36.7; O2SAT 97–100
[2019-12-04 03:06] LABS: Creatinine Urine 64.1 mg/dL
[2019-12-04 03:16] LABS: Creatinine Urine 64.6 mg/dL; Total Protein Urine Random 23 mg/dL
[2019-12-04 03:18] LABS: Sodium Urine Random 39 meq/L
[2019-12-04] MEDS: ACETAMINOPHEN 325 MG TABLET 650 MG PO ×3 (03:55→20:35)
[2019-12-04 04:04] LABS: Basophils Percent Auto 0.3 % (0.2-1.2); Eosinophils Absolute Auto 0.1 K/mm3 (0-0.3); Hematocrit 25.7 % (42.0-52.0); Hemoglobin 8.1 g/dL (14.0-18.0); Immature Granulocyte Absolute 0.12 K/mm3 (0.00-0.031); Immature Granulocyte Percent A 1.1 % (0-0.5); Lymphocytes Absolute Auto 0.43 K/mm3 (0.9-3.2); Lymphocytes Percent Auto 3.8 % (18.3-44.2); Mean Corpuscular HGB Conc 31.5 g/dl (32-36); Mean Corpuscular Hemoglobin 30.2 pg (26-34); Mean Corpuscular Volume 95.9 fl (80-100); Mean Platelet Volume 10.7 fl (7.4-10.4); Monocytes Absolute Auto 1.6 K/mm3 (0.1-0.6); Monocytes Percent Auto 13.9 % (2.6-8.5); Neutrophils Absolute Auto 9.1 K/mm3 (1.3-6.7); Neutrophils Percent Auto 79.9 % (45.5-73.1); Platelet Count Result 303 k/mm3 (150-375); Red Blood Count 2.68 M/mm3 (4.6-6.20); White Blood Count 11.3 K/mm3 (4.5-10.0)
[2019-12-04 04:18] LABS: Lactic Acid Reflex 0.9 mmol/L (0.7-2.1)
[2019-12-04 04:19] LABS: Alanine Aminotransferase 43 U/L (4-50); Albumin Level 2.7 g/dL (3.5-5.1); Alkaline Phosphatase 892 U/L (38-126); Anion Gap 9 mmol/L (8-16); Aspartate Amino Transferase 49 U/L (17-59); Bilirubin,Total 0.7 mg/dL (0.2-1.3); Blood Urea Nitrogen 56 mg/dL (9-20); Calcium 8.4 mg/dL (8.4-10.2); Carbon Dioxide 18 mmol/L (22-30); Chloride 109 mmol/L (98-107); Estimated CRCL calculation 14 ml/min; Estimated Glomerular Filt Rate 16; Glucose 95 mg/dL (75-110); Magnesium 1.5 mg/dL (1.6-2.3); Sodium 136 mmol/L (137-145)
[2019-12-04 04:37] LABS: Platelet Estimate Adequate (Adequate)
[2019-12-04 04:38] LABS: Anisocytosis 1+ (NORMAL)
[2019-12-04 04:39] LABS: Ovalocytes 1+ (NORMAL)
--- NOTE | 2019-12-04 07:20 | WPDUROPN2 ---
Progress Note: A&P Assessment and Plan (1) Bladder cancer: Onset Date: Unknown Qualifiers: Bladder location: unspecified site Qualified Code(s): C67.9 - Malignant neoplasm of bladder, unspecified Code(s): C67.9 - Malignant neoplasm of bladder, unspecified Status: Chronic (2) Acute renal failure superimposed on stage 3 chronic kidney disease: Qualifiers: Acute renal failure type: unspecified Qualified Code(s): N17.9 - Acute kidney failure, unspecified; N18.3 - Chronic kidney disease, stage 3 (moderate) Code(s): N17.9 - Acute kidney failure, unspecified; N18.3 - Chronic kidney disease, stage 3 (moderate) Status: Chronic (3) Ventral incisional hernia without obstruction or gangrene: Onset Date: Unknown Code(s): K43.2 - Incisional hernia without obstruction or gangrene Status: Acute (4) Liver mass: Code(s): R16.0 - Hepatomegaly, not elsewhere classified Status: Acute Assessment and Plan: Atypical RUQ and right shoulder pain with deep inspiration -> unclear etiology. This does not seem to be associated with ventral hernia. NICANOR/CKD essentially unchanged - regresses whenever he's ill. Ureteral stents in position. Bilat. hydronephrosis to be expected with ileal-conduit and stents, both of which lead to reflux. Subjective Subjective Date/Time Seen: 12/04/19 07:20 Abdominal pain uncertain etiology Review of Systems Cardiovascular: Cardiovascular: Denies chest pain, Denies lightheadedness, Denies palpitations and Denies dyspnea Respiratory: Respiratory: Denies dyspnea Gastrointestinal: Gastrointestinal: Reports abdominal pain (RUQ), Denies diarrhea, Denies nausea and Denies vomiting Genitourinary: Genitourinary: Denies hematuria and Denies dysuria Endocrine: Endocrine: Denies palpitations Exam Const: General: no acute distress Resp: Effort & Inspection: normal respiratory effort GI: Inspection: non-distended GI Palp: No abdominal tenderness, No Guarding due to palpation present (GI) and Yes Hernia present (vental incision hernia reduced/non-tender) Auscultation: normal bowel sounds Rectal Exam: other (RLQ stoma pink) Objective Data Vital Signs Vital Signs: Vital Signs - 24 hr 12/03/19 10:00 12/03/19 10:01 12/03/19 10:15 Temperature Pulse Rate 120 H 117 H 110 H Respiratory Rate 20 24 H 28 H Blood Pressure 123/76 121/72 Pulse Oximetry 90 98 12/03/19 10:25 12/03/19 10:30 12/03/19 10:31 Temperature Pulse Rate 114 H 118 H 121 H Respiratory Rate 26 H 25 H 30 H Blood Pressure 105/62 Pulse Oximetry 86 L 12/03/19 10:46 12/03/19 11:05 12/03/19 11:22 Temperature 98.7 F Pulse Rate 123 H 111 H 115 H Respiratory Rate 25 H 31 H 30 H Blood Pressure 109/69 Pulse Oximetry 93 12/03/19 11:28 12/03/19 11:39 12/03/19 12:27 Temperature Pulse Rate 113 H 113 H 100 Respiratory Rate 24 H 25 H 23 H Blood Pressure 100/73 Pulse Oximetry 94 93 100 12/03/19 12:30 12/03/19 12:45 12/03/19 13:07 Temperature Pulse Rate 98 99 98 Respiratory Rate 21 H 16 20 Blood Pressure Pulse Oximetry 99 99 100 12/03/19 13:19 12/03/19 13:31 12/03/19 13:45 Temperature Pulse Rate 95 94 94 Respiratory Rate 18 22 H 21 H Blood Pressure Pulse Oximetry 100 100 95 12/03/19 13:47 12/03/19 14:05 12/03/19 14:15 Temperature Pulse Rate 97 92 95 Respiratory Rate 19 19 Blood Pressure 107/73 121/75 Pulse Oximetry 87 L 98 99 12/03/19 14:16 12/03/19 14:30 12/03/19 14:31 Temperature Pulse Rate 93 98 Respiratory Rate 18 Blood Pressure 116/56 L Pulse Oximetry 99 97 99 12/03/19 14:45 12/03/19 14:46 12/03/19 15:00 Temperature Pulse Rate 100 100 100 Respiratory Rate 24 H 23 H 17 Blood Pressure 115/69 129/72 Pulse Oximetry 98 99 99 12/03/19 15:01 12/03/19 15:38 12/03/19 15:47 Temperature Pulse Rate 99 94 95 Respiratory Rate 21 H 22 H 19 Blood Pressure Pulse Ox
[2019-12-04] MEDS: METOPROLOL SUCCINATE EXT REL 50 MG TABCR PO (08:12)
[2019-12-04] MEDS: CEPHALEXIN 500 MG CAPSULE PO (08:12)
[2019-12-04 08:33] LABS: INR 1.1; Prothrombin Time 13.8 Seconds (11.1-14.7)
[2019-12-04 08:34] LABS: Partial Thromboplastin Time 38.7 SECONDS (22.3-36.8)
[2019-12-04] MEDS: CENTRAL LINE FLUSH 10 ML IV PUSH ×2 (12:34→20:36)
--- NOTE | 2019-12-04 16:59 | PM.PNGS ---
Progress Note: A&P Assessment and Plan (1) Liver mass: Onset Date: ~11/2019 Code(s): R16.0 - Hepatomegaly, not elsewhere classified Status: Acute Assessment and Plan: Now status post core biopsy image guided of the lesion in the left lobe of the liver (2) Ventral incisional hernia without obstruction or gangrene: Onset Date: Unknown Code(s): K43.2 - Incisional hernia without obstruction or gangrene Status: Acute Assessment and Plan: Patient is not seem to be having symptoms related to his ventral incisional hernia which is reducible. He had a bowel movement today. I believe he will be trying a diet now that he is done with the core biopsy. I will check him again tomorrow and possibly sign off if everything is going well with his abdomen. Time Spent With Patient Time with patient: less than 15 minutes Subjective Subjective Date/Time Seen: 12/04/19 16:59 Patient is sitting up on the side of the bed when I entered the room. He has just returned from his image guided core biopsy of the left lobe of the liver. He states he is feeling well. Denies any pain in the area of the ventral incisional hernia. States he did have a bowel movement earlier today. Review of Systems Constitutional: Constitutional: Reports no additional constitutional complaints ENT: Reports other (Mucous Membranes moist.) Cardiovascular: Cardiovascular: Denies dyspnea Respiratory: Respiratory: Denies pain on inspiration and Denies dyspnea Gastrointestinal: Gastrointestinal: Reports as per HPI, Reports no additional gastrointestinal complaints and Reports abdominal pain (Occasional mid upper abdominal pain) Comments: Patient states that occasionally he has pain that hits him under the ribs on the right and radiates up to the right shoulder. Musculoskeletal: Musculoskeletal: Reports other (No calf swelling or edema) Integumentary/Breasts: Skin/Breast: Reports system reviewed and no additional complaints, except as docu Exam Const: General: cooperative, no acute distress, alert and awake Orientation/consciousness: patient oriented x3 HENMT: Mouth: Yes moist mucous membranes Resp: Effort & Inspection: normal respiratory effort Auscultation: clear to auscultation bilaterally Cardio: Jugular venous distension: no JVD Rate: regular rate Rhythm: regular rhythm GI: Inspection: scar (Upper midline) GI Palp: Yes Soft to palpation and Yes Hernia present (Upper midline, reducible, and nontender) Auscultation: normal bowel sounds Rectal Exam: deferred Neuro: General: patient oriented x3 and moves all extremities Speech: normal speech Objective Data Vital Signs Vital Signs: Vital Signs - 24 hr 12/03/19 17:27 12/03/19 18:00 12/03/19 20:00 Temperature 36.0 C L Pulse Rate 90 104 H 90 Respiratory Rate 20 Blood Pressure 128/68 Pulse Oximetry 100 100 12/03/19 20:08 12/03/19 22:00 12/04/19 00:00 Temperature 36.2 C L Pulse Rate 97 87 90 Respiratory Rate 18 Blood Pressure 105/70 Pulse Oximetry 100 99 12/04/19 00:07 12/04/19 02:00 12/04/19 03:28 Temperature 36.1 C L 35.9 C L Pulse Rate 95 91 101 H Respiratory Rate 18 20 Blood Pressure 120/69 125/66 Pulse Oximetry 99 97 12/04/19 04:00 12/04/19 08:00 12/04/19 08:12 Temperature 36.2 C L Pulse Rate 89 84 84 Respiratory Rate 20 Blood Pressure 127/79 Pulse Oximetry 97 99 12/04/19 10:00 12/04/19 10:10 12/04/19 10:11 Temperature Pulse Rate 89 92 87 Respiratory Rate 18 18 Blood Pressure 128/76 121/76 Pulse Oximetry 98 97 12/04/19 11:53 12/04/19 12:00 12/04/19 13:52 Temperature 36.4 C Pulse Rate 90 98 84 Respiratory Rate 16 Blood Pressure 131/73 Pulse Oximetry 100 12/04/19 14:25 12/04/19 16:00 Temperature 36.3 C L Pulse Rate 90 Respiratory Rate 20 Blood Pressure 128/73 Pulse Oximetry 98 100 Intake/Output Intake/Output: Intake & Output 12/01/19 12/02/19 12/03/19 09
--- NOTE | 2019-12-04 18:00 | PM.CNNEP ---
Assessment and Plan Assessment and plan (1) Chronic kidney disease, stage IV (severe): Code(s): N18.4 - Chronic kidney disease, stage 4 (severe) Status: Acute Assessment and Plan: unclear if admission creatinine an acute insult versus just random fluctuation in baseline CKD no critical electrolytes reasonably urine output follow trend of labs (2) Liver mass: Onset Date: ~11/2019 Code(s): R16.0 - Hepatomegaly, not elsewhere classified Status: Acute Assessment and Plan: etiology? s/p biopsy of liver lesion (3) Hypertension: Qualifiers: Hypertension type: unspecified Qualified Code(s): I10 - Essential (primary) hypertension Code(s): I10 - Essential (primary) hypertension Status: Chronic Assessment and Plan: reasonable control follow trend of hemodynamics (4) Bladder cancer: Onset Date: Unknown Qualifiers: Bladder location: unspecified site Qualified Code(s): C67.9 - Malignant neoplasm of bladder, unspecified Code(s): C67.9 - Malignant neoplasm of bladder, unspecified Status: Chronic Assessment and Plan: Urology following given complex anatomy following sirgery no new interventions needed/required (5) Chronic anemia: Code(s): D64.9 - Anemia, unspecified Status: Chronic Assessment and Plan: suspect due to CKD and chronic disease follow trend of H/H Will continue to follow. History of Present Illness Reason for Consult Consult date: 12/04/19 Reason for consult: acute renal failure (on chronic kidney disease stage IV) Chief Complaint Chief complaint: Acute on chronic renal failure/SBO History of Present Illness Narrative: The patient is a 78-year-old male with an extensive past medical history as outlined below who presented to [facility] Emergency room with complaints of abdominal pain. The abdominal pain started yesterday morning on the day of admission. He described as sharp and localized to the right upper quadrant with some radiation to the right upper chest. Nothing really makes it feel better but breathing apparently makes it worse and this has made him feel short of breath. Because of the persistence of these symptoms, he came to the ER for further evaluation. Workup and evaluation emergency room demonstrated the patient to be hemodynamically stable but in some distress secondary to the abdominal pain. initially, because of the shortness of breath that he had, he was a non-rebreather but this was quickly weaned down to 2 L by nasal cannula. Routine blood tests demonstrated labs consistent with his known history of chronic kidney disease although his creatinine was a bit higher than on his last hospitalization discharged. He had a CT scan of his abdomen pelvis for further evaluation of the abdominal pain which did not show any significant finding/changes and previous imaging aside from a new liver mass. Due to his complex medical history and constellation of symptoms that led to his presentation to the ER coupled with a change in his renal function, he was admitted the hospital for further evaluation and therapy. Since his admission, his kidney function is actually improved with just supportive therapy although he did receive a L of IV fluids in the emergency room. He has been seen by both Urology as well as General surgery with regard to his known history of bilateral ureteral stents and chronic bilateral hydronephrosis as well as frequent urinary tract infections and his known history of ventral hernias, respectively. At this time, no surgical intervention is to be reformed by either the services as these conditions are relatively stable. He did undergo a liver biopsy by Radiology for further evaluation of the aforementioned liver mass. Renal consultation was requested due to his chronic kidney disease. The patient had a baseline creatinine earlier this
[2019-12-04] MEDS: GABAPENTIN 300 MG CAPSULE PO (20:35)
--- NOTE | 2019-12-04 23:42 | PM.IMPN ---
Progress Note: A&P Assessment and Plan (1) Ventral incisional hernia without obstruction or gangrene: Onset Date: Unknown Code(s): K43.2 - Incisional hernia without obstruction or gangrene Status: Acute Assessment and Plan: the patient came in with abdominal pain and a CT was performed. Patient was found to have a ventral hernia . The hernia has been reducible manually and surgery has seen the patient who believes that this is a nonsurgical case. Will continue to monitor. His no longer having any discomfort. There is a bulging area above the umbilical area which is 2-3 cm wide that is reducible. Is soft and nontender. could been etiology of pain though doubt (2) Hyperkalemia: Code(s): E87.5 - Hyperkalemia Status: Acute Assessment and Plan: Patient's potassium was found to be 5.8 today. He was in ER and repeat potassium this a.m. 5.0 related to his kidney failure. (3) Acute renal failure superimposed on stage 3 chronic kidney disease: Qualifiers: Acute renal failure type: unspecified Qualified Code(s): N17.9 - Acute kidney failure, unspecified; N18.3 - Chronic kidney disease, stage 3 (moderate) Code(s): N17.9 - Acute kidney failure, unspecified; N18.3 - Chronic kidney disease, stage 3 (moderate) Status: Chronic Assessment and Plan: Patient was given IV fluids. and creatinine has fallen from 4.6 to 3.8 close to his baseline (4) Acute UTI: Code(s): N39.0 - Urinary tract infection, site not specified Status: Acute Assessment and Plan: Patient is chronically on Keflex so continue with that. Urology has seen the patient has a chronic ileal conduit he has had multiple UTIs he is chronically on Keflex. 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 urine and blood cultures are pending (5) Essential (primary) hypertension: Code(s): I10 - Essential (primary) hypertension Status: Chronic Assessment and Plan: Continue with metoprolol. (6) Cancer of overlapping sites of bladder: Code(s): C67.8 - Malignant neoplasm of overlapping sites of bladder Status: Chronic Assessment and Plan: Patient was found to have a liver mass and some spots on his lungs as well. liver biopsy by radiology performed this a.m.. He had chemotherapy approximately 1 and half years ago for his bladder cancer. He has an ileal conduit. (7) Liver mass: Onset Date: ~11/2019 Code(s): R16.0 - Hepatomegaly, not elsewhere classified Status: Acute Assessment and Plan: liver biopsy performed this a.m., probable metastatic lesion but alpha fetoprotein will be drawn also (8) D-dimer, elevated: Code(s): R79.89 - Other specified abnormal findings of blood chemistry Status: Acute Assessment and Plan: looks to be chronic. Probable from tumor load. Venous Doppler negative and V/Q scan intermediate but patient is not hypoxic and will not fully anticoagulated this time (9) DVT prophylaxis: Code(s): Z29.9 - Encounter for prophylactic measures, unspecified Status: Acute Assessment and Plan: mechanical initially with the liver biopsy Subjective Date/time seen: 12/04/19 23:42 Interval history: 78-year-old hypertensive male with chronic renal failure stage 4 admitted with right upper quadrant pain, worse with deep inspiration and found to a mass in the left lobe of his liver. D-dimer was also elevated with negative venous Doppler but intermediate probability ventilation perfusion scan. Had hepatic biopsy in Radiology this a.m. and feeling better Exam Narrative: Exam Narrative: blood pressure 130/72 pulse is 70 saturating 92% on room air afebrile lungs clear CV regular rate rhythm abdomen soft minimal tenderness if any right upper quadrant, reducible ventral hernia nontender extremities without edema distal pulses 2+ neuro
[2019-12-05] VITALS (14 sets, daily range): BP systolic 121–147; BP diastolic 59–86; PULSE 89–117; RESP 18–20; TEMP 35.9–36.6; O2SAT 97–100
[2019-12-05] MEDS: CENTRAL LINE FLUSH 10 ML IV PUSH ×3 (05:25→20:25)
[2019-12-05 05:51] LABS: Basophils Percent Auto 0.3 % (0.2-1.2); Eosinophils Absolute Auto 0.1 K/mm3 (0-0.3); Eosinophils Percent Auto 0.9 % (0-4.4); Hematocrit 25.6 % (42.0-52.0); Hemoglobin 8.3 g/dL (14.0-18.0); Immature Granulocyte Absolute 0.19 K/mm3 (0.00-0.031); Immature Granulocyte Percent A 1.6 % (0-0.5); Lymphocytes Absolute Auto 0.44 K/mm3 (0.9-3.2); Lymphocytes Percent Auto 3.7 % (18.3-44.2); Mean Corpuscular HGB Conc 32.4 g/dl (32-36); Mean Corpuscular Hemoglobin 30.6 pg (26-34); Mean Corpuscular Volume 94.5 fl (80-100); Mean Platelet Volume 10.9 fl (7.4-10.4); Monocytes Absolute Auto 1.5 K/mm3 (0.1-0.6); Monocytes Percent Auto 12.5 % (2.6-8.5); Neutrophils Absolute Auto 9.6 K/mm3 (1.3-6.7); Platelet Count Result 315 k/mm3 (150-375); Red Blood Count 2.71 M/mm3 (4.6-6.20); White Blood Count 11.8 K/mm3 (4.5-10.0)
[2019-12-05 06:08] LABS: Alanine Aminotransferase 45 U/L (4-50); Albumin Level 2.7 g/dL (3.5-5.1); Alkaline Phosphatase 853 U/L (38-126); Anion Gap 10 mmol/L (8-16); Aspartate Amino Transferase 60 U/L (17-59); Bilirubin,Total 0.7 mg/dL (0.2-1.3); Blood Urea Nitrogen 60 mg/dL (9-20); Calcium 8.6 mg/dL (8.4-10.2); Carbon Dioxide 18 mmol/L (22-30); Chloride 107 mmol/L (98-107); Estimated CRCL calculation 14 ml/min; Estimated Glomerular Filt Rate 16; Glucose 98 mg/dL (75-110); Phosphorus 3.7 mg/dL (2.5-4.5); Sodium 135 mmol/L (137-145)
[2019-12-05] MEDS: METOPROLOL SUCCINATE EXT REL 50 MG TABCR PO (09:34)
[2019-12-05] MEDS: CEPHALEXIN 500 MG CAPSULE PO (10:48)
--- NOTE | 2019-12-05 15:21 | PM.PNGS ---
Progress Note: A&P Assessment and Plan (1) Ventral incisional hernia without obstruction or gangrene: Onset Date: Unknown Code(s): K43.2 - Incisional hernia without obstruction or gangrene Status: Acute Assessment and Plan: Patient's ventral hernia is reducible and nontender. He is tolerating a diet at this time and having bowel movements. This time I would simply suggest observation. I will sign off at this time please call if I can be further of further assistance. (2) Liver mass: Onset Date: ~11/2019 Code(s): R16.0 - Hepatomegaly, not elsewhere classified Status: Acute Assessment and Plan: Preliminary pathology report back on this showing a carcinoma, however further details will be forthcoming in the next few days. Immuno stains will be done. Subjective Subjective Date/Time Seen: 12/05/19 15:21 Patient is sitting up in bed when I entered the room. He was happy to see me. He asked why he needed to be in the hospital today. I did bring the unfortunate news to him that the core biopsy done by ultrasound guidance yesterday of the left lobe of liver does show there is carcinoma present. However, we do not know the final results of this yet as to what type of tumor it may be. He will discuss this further with Dr. Ursula newton and the hospitalist. He is tolerating a diet. He does not have any pain at the level of his ventral incisional hernia and he has had a bowel movement. Review of Systems Constitutional: Constitutional: Reports no additional constitutional complaints ENT: Reports other (Mucous Membranes moist.) Cardiovascular: Cardiovascular: Denies dyspnea Respiratory: Respiratory: Denies pain on inspiration and Denies dyspnea Gastrointestinal: Gastrointestinal: Reports as per HPI, Denies belching, Denies diarrhea and Denies vomiting Musculoskeletal: Musculoskeletal: Reports other (No calf swelling or edema) Integumentary/Breasts: Skin/Breast: Reports system reviewed and no additional complaints, except as docu Exam Const: General: cooperative, no acute distress, alert and awake Orientation/consciousness: patient oriented x3 HENMT: Mouth: Yes moist mucous membranes Neck: Neck: normal visual inspection Chest: Chest palpation & inspection: normal inspection of the chest Cardio: Jugular venous distension: no JVD GI: Inspection: scar ( upper mid abdomen) and visible herniation ( reducible with palpation and nontender) GI Palp: No abdominal tenderness and Yes Soft to palpation Auscultation: normal bowel sounds Rectal Exam: deferred Urinary Catheter: Urinary Catheter: patent and draining ( Via the urostomy bag) and urine clear Neuro: General: patient oriented x3 and moves all extremities Speech: normal speech Extrem: General: normal exam except as noted Psych: Mental Status: mental status grossly normal Speech and movement: Normal speech and movement present Affect: normal affect Thought content: Yes Normal thought content present Objective Data Vital Signs Vital Signs: Vital Signs - 24 hr 12/04/19 16:00 12/04/19 18:00 12/04/19 20:00 Temperature 36.3 C L 36.6 C Pulse Rate 90 94 92 Respiratory Rate 20 18 Blood Pressure 128/73 132/75 Pulse Oximetry 100 99 12/04/19 22:00 12/04/19 23:24 12/05/19 00:00 Temperature 36.7 C Pulse Rate 108 H 101 H 93 Respiratory Rate 18 Blood Pressure 119/73 Pulse Oximetry 98 12/05/19 02:00 12/05/19 04:00 12/05/19 06:00 Temperature 36.4 C Pulse Rate 90 104 H 92 Respiratory Rate 18 Blood Pressure 132/74 Pulse Oximetry 100 12/05/19 08:00 12/05/19 09:34 12/05/19 10:00 Temperature 36.3 C L Pulse Rate 108 H 103 H 105 H Respiratory Rate 18 Blood Pressure 122/74 Pulse Oximetry 99 12/05/19 12:00 12/05/19 14:00 Temperature 36.2 C L Pulse Rate 96 89 Respiratory Rate 18 Blood Pressure 121/68 Pulse Oximetry 100 Intake/Output Intake/Output: Intake & Output
--- NOTE | 2019-12-05 16:28 | PM.IMPN ---
Progress Note: A&P Assessment and Plan (1) Acute renal failure superimposed on stage 3 chronic kidney disease: Qualifiers: Acute renal failure type: unspecified Qualified Code(s): N17.9 - Acute kidney failure, unspecified; N18.3 - Chronic kidney disease, stage 3 (moderate) Code(s): N17.9 - Acute kidney failure, unspecified; N18.3 - Chronic kidney disease, stage 3 (moderate) Status: Chronic Assessment and Plan: Cr 4.6 on admission. Patient has Cr about 1.7 last Spring but more elevated since. Cr most recently in the low 3 range. Renal bx on 10/09/19 showing acute tubular injury and arterial nephrosclerosis. Patient was given IV fluids in the ER but not continued. Creatinine has fallen from 3.7 today. He is close to his baseline. Dehydration? Related to ileal conduit/reflux? Discussed with nephrology; Appreciate their input. (2) Hyperkalemia: Code(s): E87.5 - Hyperkalemia Status: Acute Assessment and Plan: Patient's potassium was found to be 5.0 again today. [place] related to the NICANOR/CKD. Continue to monitor. (3) Liver mass: Onset Date: ~11/2019 Code(s): R16.0 - Hepatomegaly, not elsewhere classified Status: Acute Assessment and Plan: Liver biopsy performed 12/04/19. Possibly metastatic lesion. Alpha fetoprotein level pending. Biopsy results available tomorrow. (4) Acute UTI: Code(s): N39.0 - Urinary tract infection, site not specified Status: Acute Assessment and Plan: Patient is chronically on Keflex and this was continued. Urology following and has a chronic ileal conduit resulting in multiple urinary infections. 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 UCx negative. BCx NGTD. Continue to monitor. (5) Ventral incisional hernia without obstruction or gangrene: Onset Date: Unknown Code(s): K43.2 - Incisional hernia without obstruction or gangrene Status: Acute Assessment and Plan: Patient with abdominal pain and a CT was performed adn was found to have a ventral hernia. The hernia has been reducible manually and surgery has seen the patient who believes that this is a nonsurgical case. Will continue to monitor. (6) Essential (primary) hypertension: Code(s): I10 - Essential (primary) hypertension Status: Chronic Assessment and Plan: Patient's blood pressure was reviewed on 12/04 Blood pressure remains well controlled. Will continue current medications. Continue with metoprolol. (7) Cancer of overlapping sites of bladder: Code(s): C67.8 - Malignant neoplasm of overlapping sites of bladder Status: Chronic Assessment and Plan: Patient was found to have a liver mass and some spots on his lungs as well. He had chemotherapy approximately 1+ years ago for his bladder cancer. He has an ileal conduit. Follow up on pathology results. (8) D-dimer, elevated: Code(s): R79.89 - Other specified abnormal findings of blood chemistry Status: Acute Assessment and Plan: Looks to be chronic. Probable from tumor load. Venous Doppler negative and V/Q scan intermediate but patient is not hypoxic and will not fully anticoagulated this time. Continue to follow. (9) DVT prophylaxis: Code(s): Z29.9 - Encounter for prophylactic measures, unspecified Status: Acute Assessment and Plan: SCDs Additional Plan Anemia - appears to be chronic with Hgb mostly in the 7-9 range. [place] related to above. Continue to monitor. Elevated Alk Phos - bony mets? Levels trending down Subjective Date/time seen: 12/05/19 16:28 Interval history: Date of service: 12/04 78yo male with chronic renal failure stage 4 admitted with right upper quadrant pain found to a mass in the left lobe of his liver. Chart reviewed. Assuming care. Feels well today. Slept well last night. No CP or SO
--- NOTE | 2019-12-05 17:31 | PM.PNNEP ---
Progress Note: A&P Assessment and Plan (1) Chronic kidney disease, stage IV (severe): Code(s): N18.4 - Chronic kidney disease, stage 4 (severe) Status: Acute Assessment and Plan: unclear if admission creatinine an acute insult versus just random fluctuation in baseline CKD no critical electrolytes reasonably urine output follow trend of labs (2) Liver mass: Onset Date: ~11/2019 Code(s): R16.0 - Hepatomegaly, not elsewhere classified Status: Acute Assessment and Plan: etiology? s/p biopsy of liver lesion (3) Hypertension: Qualifiers: Hypertension type: unspecified Qualified Code(s): I10 - Essential (primary) hypertension Code(s): I10 - Essential (primary) hypertension Status: Chronic Assessment and Plan: reasonable control follow trend of hemodynamics (4) Bladder cancer: Onset Date: Unknown Qualifiers: Bladder location: unspecified site Qualified Code(s): C67.9 - Malignant neoplasm of bladder, unspecified Code(s): C67.9 - Malignant neoplasm of bladder, unspecified Status: Chronic Assessment and Plan: Urology following given complex anatomy following sirgery no new interventions needed/required (5) Chronic anemia: Code(s): D64.9 - Anemia, unspecified Status: Chronic Assessment and Plan: suspect due to CKD and chronic disease follow trend of H/H Will continue to follow. Subjective Date/time seen: 12/05/19 17:31 Feeling reasonably well -- eating and drinking okay but still has some RUQ pain; no apparent distress voiced and no events overnight or earlier this AM. Exam Narrative: Exam Narrative: General: WD/WN male in NAD Heart: normal S1 and S2; no rub Lungs: clear to auscultation Abdomen: soft, nontender, nondistended, positive bowel sounds Extremities: no cyanosis or clubbing; no edema Skin: warm and dry Objective Data Vital Signs Vital Signs: Vital Signs Temp Pulse Resp BP Pulse Ox 12/05/19 16:00 36.2 C L 92 20 122/59 L 100 12/05/19 14:00 89 12/05/19 12:00 36.2 C L 96 18 121/68 100 12/05/19 10:00 105 H 12/05/19 09:34 103 H Intake/Output Intake/Output: Intake & Output 12/03/19 12/04/19 12/05/1930/20 23:59 23:59 23:59 23:59 Intake Total 1796 600 600 400 Output Total 400 1000 1475 450 Balance 1396 -400 -875 -50 Meds/Results Medications: Active Medications Generic Name Dose Route Start Last Admin Trade Name Freq PRN Reason Stop Dose Admin Acetaminophen 650 mg 12/03/19 22:30 12/05/19 23:35 Tylenol Tablet PO 650 mg Q4H PRN Administration Mild Pain (1-3) or Fever Albuterol 2 puff 12/03/19 17:46 Proventil Hfa INHALATION QIDRT PRN Shortness Of Breath Cephalexin HCl 500 mg 12/04/19 09:00 12/05/19 10:48 Keflex Capsule PO 500 mg DAILY TANYA Administration Gabapentin 300 mg 12/03/19 21:00 12/05/19 20:25 Neurontin PO 300 mg HS TANYA Administration Heparin Sodium (Beef Lung) 50 units 12/04/19 09:00 12/05/19 09:35 Heparin Flush 50 Units/5 Ml IV PUSH 50 units QAM TANYA Administration Heparin Sodium (Beef Lung) 50 units 12/04/19 07:21 Heparin Flush 50 Units/5 Ml IV PUSH PRN PRN after intermittent infusion Heparin Sodium (Beef Lung) 50 units 12/04/19 07:21 Heparin Flush 50 Units/5 Ml IV PUSH PRN PRN after blood draws Heparin Sodium (Porcine) 500 units 12/04/19 07:21 Heparin Sod Flush 100 Units/Ml IV PUSH PRN PRN see comments below Metoprolol Succinate 50 mg 12/04/19 09:00 12/05/19 09:34 Toprol Xl PO 50 mg DAILY TANYA Administration Sodium Chloride 10 ml 12/04/19 14:00 12/06/19 05:02 Central Line Flush IV PUSH 10 ml Q8HR TANYA Administration Radiology Results: ITS Impressions Chest X-Ray 12/03/19 11:43 Impression: 1: Patchy bilateral airspace disease, consisten
[2019-12-05] MEDS: GABAPENTIN 300 MG CAPSULE PO (20:25)
[2019-12-05] MEDS: ACETAMINOPHEN 325 MG TABLET 650 MG PO (23:35)
[2019-12-06] MEDS: CENTRAL LINE FLUSH 10 ML IV PUSH (05:02)
[2019-12-06 05:20] LABS: Hematocrit 25.3 % (42.0-52.0); Hemoglobin 8.3 g/dL (14.0-18.0); Mean Corpuscular HGB Conc 32.8 g/dl (32-36); Mean Corpuscular Hemoglobin 30.5 pg (26-34); Mean Platelet Volume 10.7 fl (7.4-10.4); Platelet Count Result 317 k/mm3 (150-375); Red Blood Count 2.72 M/mm3 (4.6-6.20); Red Cell Distribution Width 17.6 % (11.5-14.5); White Blood Count 13.2 K/mm3 (4.5-10.0)
[2019-12-06 05:44] LABS: Albumin Level 2.7 g/dL (3.5-5.1); Anion Gap 5 mmol/L (8-16); Blood Urea Nitrogen 57 mg/dL (9-20); Calcium 8.2 mg/dL (8.4-10.2); Carbon Dioxide 19 mmol/L (22-30); Chloride 109 mmol/L (98-107); Estimated CRCL calculation 15 ml/min; Estimated Glomerular Filt Rate 17; Glucose 102 mg/dL (75-110); Potassium 4.9 mmol/L (3.4-5.0); Sodium 133 mmol/L (137-145)
--- NOTE | 2019-12-06 07:26 | WPDUROPN2 ---
Progress Note: A&P Assessment and Plan (1) Liver mass: Onset Date: ~11/2019 Code(s): R16.0 - Hepatomegaly, not elsewhere classified Status: Acute Assessment and Plan: Preliminary liver biopsy findings of carcinoma of uncertain origin discussed with pt. Discharge anytime from my standpoint. Subjective Subjective Date/Time Seen: 12/05/19 1700 - note entered following morning Unchanged RUQ discomfort with inspiration. Tolerated liver biopsy well. Review of Systems Cardiovascular: Cardiovascular: Denies chest pain, Denies lightheadedness, Denies palpitations and Denies dyspnea Respiratory: Respiratory: Denies dyspnea Gastrointestinal: Gastrointestinal: Denies diarrhea, Denies nausea and Denies vomiting Genitourinary: Genitourinary: Denies hematuria and Denies dysuria Endocrine: Endocrine: Denies palpitations Exam Const: General: no acute distress Resp: Effort & Inspection: normal respiratory effort GI: Inspection: non-distended GI Palp: No abdominal tenderness and No Guarding due to palpation present (GI) Auscultation: normal bowel sounds Objective Data Vital Signs Vital Signs: Vital Signs - 24 hr 12/05/19 08:00 12/05/19 09:34 12/05/19 10:00 Temperature 97.4 F L Pulse Rate 108 H 103 H 105 H Respiratory Rate 18 Blood Pressure 122/74 Pulse Oximetry 99 12/05/19 12:00 12/05/19 14:00 12/05/19 16:00 Temperature 97.2 F L 97.1 F L Pulse Rate 96 89 92 Respiratory Rate 18 20 Blood Pressure 121/68 122/59 L Pulse Oximetry 100 100 12/05/19 18:00 12/05/19 19:55 12/05/19 20:00 Temperature 96.7 F L Pulse Rate 95 93 93 Respiratory Rate 18 Blood Pressure 147/86 H Pulse Oximetry 100 12/05/19 23:47 Temperature 97.8 F Pulse Rate 103 H Respiratory Rate 20 Blood Pressure 141/72 H Pulse Oximetry 97 Intake/Output Intake/Output: Intake & Output 12/03/19 12/04/19 12/05/19 12/06/19 23:59 23:59 23:59 23:59 Intake Total 1796 600 600 400 Output Total 400 1000 1475 450 Balance 1396 -400 -875 -50 Meds/Results Medications: Active Medications Generic Name Dose Route Start Last Admin Trade Name Freq PRN Reason Stop Dose Admin Acetaminophen 650 mg 12/03/19 22:30 12/05/19 23:35 Tylenol Tablet PO 650 mg Q4H PRN Administration Mild Pain (1-3) or Fever Albuterol 2 puff 12/03/19 17:46 Proventil Hfa INHALATION QIDRT PRN Shortness Of Breath Cephalexin HCl 500 mg 12/04/19 09:00 12/05/19 10:48 Keflex Capsule PO 500 mg DAILY TANYA Administration Gabapentin 300 mg 12/03/19 21:00 12/05/19 20:25 Neurontin PO 300 mg HS TANYA Administration Heparin Sodium (Beef Lung) 50 units 12/04/19 09:00 12/05/19 09:35 Heparin Flush 50 Units/5 Ml IV PUSH 50 units QAM TANYA Administration Heparin Sodium (Beef Lung) 50 units 12/04/19 07:21 Heparin Flush 50 Units/5 Ml IV PUSH PRN PRN after intermittent infusion Heparin Sodium (Beef Lung) 50 units 12/04/19 07:21 Heparin Flush 50 Units/5 Ml IV PUSH PRN PRN after blood draws Heparin Sodium (Porcine) 500 units 12/04/19 07:21 Heparin Sod Flush 100 Units/Ml IV PUSH PRN PRN see comments below Metoprolol Succinate 50 mg 12/04/19 09:00 12/05/19 09:34 Toprol Xl PO 50 mg DAILY TANYA Administration Sodium Chloride 10 ml 12/04/19 14:00 12/06/19 05:02 Central Line Flush IV PUSH 10 ml Q8HR TANYA Administration Radiology Results: ITS Impressions Chest X-Ray 12/03/19 11:43 Impression: 1: Patchy bilateral airspace disease, consistent with pneumonia. Venous Doppler Study 12/03/19 12:21 IMPRESSION: 1: No lower extremity deep venous thrombosis. Upper Quadrant Ultrasound 12/03/19 12:22 IMPRESSION: 1: Complex 5.9 cm mass of the left hepatic lobe. Correlation with dynamic contrast-enhanced CT or MRI recommended. 2: Right hydronephrosis. Abdomen/Pelvis CT
[2019-12-06 08:00] VITALS: BP 124/79; PULSE 97; RESP 16; TEMP 36.2; O2SAT 97
[2019-12-06] MEDS: CEPHALEXIN 500 MG CAPSULE PO (08:36)
[2019-12-06 08:37] VITALS: PULSE 97
[2019-12-06] MEDS: METOPROLOL SUCCINATE EXT REL 50 MG TABCR PO (08:37)
[2019-12-06 12:00] VITALS: BP 122/74; PULSE 96; RESP 18; TEMP 36.4; O2SAT 100
--- NOTE | 2019-12-06 13:34 | PM.DS ---
DS: Admitting Diagnosis Admitting Diagnosis Admitting Diagnosis: Acute on chronic renal failure/SBO DS: Discharge Diagnosis Discharge Diagnosis (1) Acute renal failure superimposed on stage 3 chronic kidney disease: Qualifiers: Acute renal failure type: unspecified Qualified Code(s): N17.9 - Acute kidney failure, unspecified; N18.3 - Chronic kidney disease, stage 3 (moderate) Code(s): N17.9 - Acute kidney failure, unspecified; N18.3 - Chronic kidney disease, stage 3 (moderate) Status: Chronic Assessment and Plan: Patient had a Cr about 1.7 last Spring but more elevated since with Cr most recently in the low 3 range. Renal bx on 10/09/19 showing acute tubular injury and arterial nephrosclerosis. Cr 4.6 on admission. Patient was given IV fluids in the ER but not continued. Creatinine has fallen from 3.5 today. Dehydration? Related to ileal conduit/reflux? He is close to his baseline. Nephrology was involved in his care. (2) Hyperkalemia: Code(s): E87.5 - Hyperkalemia Status: Acute Assessment and Plan: Patient's potassium was 6.4 on admission. This improved with approrpiate treatment. Potassium in the 4.9-5 range and stable. [place] related to the NICANOR/CKD. (3) Liver mass: Onset Date: ~11/2019 Code(s): R16.0 - Hepatomegaly, not elsewhere classified Status: Acute Assessment and Plan: Liver biopsy performed 12/04/19. Possibly metastatic lesion. Alpha fetoprotein level pending. Biopsy results still pending. patient instructed personally to follow up with Dr Palomo for results. . (4) Acute UTI: Code(s): N39.0 - Urinary tract infection, site not specified Status: Acute Assessment and Plan: Patient is chronically on Keflex and this was continued. Urology consulted. He has a chronic ileal conduit resulting in multiple urinary infections. 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 UCx negative here. BCx NGTD.. (5) Ventral incisional hernia without obstruction or gangrene: Onset Date: Unknown Code(s): K43.2 - Incisional hernia without obstruction or gangrene Status: Acute Assessment and Plan: Patient with abdominal pain and a CT was performed in ER and was found to have a ventral hernia. The hernia was reducible manually and surgery has seen the patient who believes that this is a nonsurgical case. (6) Essential (primary) hypertension: Code(s): I10 - Essential (primary) hypertension Status: Chronic Assessment and Plan: Patient's blood pressure was monitored closely Blood pressure remained well controlled. We continued with his metoprolol. (7) Cancer of overlapping sites of bladder: Code(s): C67.8 - Malignant neoplasm of overlapping sites of bladder Status: Chronic Assessment and Plan: Patient was found to have a liver mass and some spots on his lungs as well. He had chemotherapy approximately 1+ years ago for his bladder cancer. He has an ileal conduit. Pathology results pending (8) D-dimer, elevated: Code(s): R79.89 - Other specified abnormal findings of blood chemistry Status: Acute Assessment and Plan: [place] related to tumor load. Venous Doppler negative and V/Q scan intermediate but patient is not hypoxic and it was decided to not fully anticoagulated this time. DS: Summary Hospital Course Reason for hospitalization: 78yo male here for SOB and abdominal pain. Please see H&P for details. Hospital Course: As above. Time Spent with Patient Time attestation: Total time spent providing and/or coordinating discharge services: 32 minutes Time spent: Greater than 30 minutes Exam Narrative: Exam Narrative: AF 97.1 124/79 97 16 97% Gen - NARD Chest - CTA bilaterally, nml RR CV - RRR S1/S2; Tele showing PVCs Abd - Soft, NT/ND, Positive BS. Urostomy in place with amisha
[2019-12-06] MEDS: HEPARIN SOD FLUSH 500 UNITS/5 ML SYRINGE IV PUSH (14:58)
[2019-12-07 07:22] LABS: Myoglobin, Urine <27 mcg/L (<28)
[2019-12-09 16:33] LABS: Chloride Rand Ur 30 mmol/L (32-290); Chloride/Creatinine Rand Ur 45 (23-275); Creatinine Random Urine 66 mg/dL (20-320)
[2019-12-11 18:32] LABS: Alpha Fetoprotein Tumor Marker 1.2 ng/mL (<6.1)
--- NOTE | 2019-12-12 15:33 | PC.NURSE ---
AFP- 1.2 Liver bx- metastatic cancer consistent with poorly differentiated urothelial primary. Report faxed to Dr. Jung and Dr. Randhawa aware.
== END 2019-12-06 14:58 | disposition home or self-care (01) | DRG 683 ==
LOC: ANHED 14:39 → ANHIMU 12-04 01:44
PROVIDERS: Internal Medicine; Internal Medicine Nephrology; Nurse Practitioner; Physician Assistant; Surgery; Admitting Provider Family Medicine; Emergency Provider Emergency Medicine; PCP Internal Medicine; Visit Provider Internal Medicine
DX: N17.0 Acute kidney failure with tubular necrosis (principal); C78.7 Secondary malignant neoplasm of liver and intrahepatic bile duct; K43.0 Incisional hernia with obstruction, without gangrene; C67.8 Malignant neoplasm of overlapping sites of bladder; Z86.19 Personal history of other infectious and parasitic diseases; R82.81 Pyuria; E87.5 Hyperkalemia; N13.30 Unspecified hydronephrosis; I12.9 Hypertensive chronic kidney disease with stage 1 through stage 4 chronic kidney disease, or unspecified chronic kidney disease; N18.4 Chronic kidney disease, stage 4 (severe); R16.0 Hepatomegaly, not elsewhere classified; D63.1 Anemia in chronic kidney disease; E86.0 Dehydration; Z87.891 Personal history of nicotine dependence
CPT/HCPCS: 36415; 36600; 47000; 71045; 74019; 74176; 76705; 76942; 78580; 80048; 80053; 80069; 80076; 81001; 81050; 82105; 82375; 82436; 82570; 82728; 82805; 83050; 83605; 83615; 83690; 83735; 83874; 83880; 84156; 84300; 84484; 85025; 85027; 85610; 85730; 85999; 86140; 87040; 87086; 88307; 88342; 93005; 93970; 96361; 96365; 99285; A9270; A9540; J0131; J1642; J1815; J7030

== ENCOUNTER 2019-12-13 06:38 | Inpatient (IN) | payer MEDICARE, SELFPAY ==
[2019-12-13] VITALS (11 sets, daily range): BP systolic 114–141; BP diastolic 60–101; PULSE 100–111; RESP 16–26; TEMP 36.1–37.2; O2SAT 94–100; BMI 21.4
--- NOTE | ~2019-12-13 | CT_ITS ---
EXAMINATION: CT abd pelvis lumbar wo con EXAM DATE: 12/13/2019 08:26 INDICATION: Flank pain, bladder and liver cancer. TECHNIQUE: Spiral CT of the lumbar spine and abdomen and pelvis was performed without contrast. Axi al, coronal and sagittal images were reviewed. Axial, coronal and sagittal images of the lumbar spine were reviewed. The dose-length product (DLP) for this examination was 372.83 mGy-cm. The exposure was tailored according to patient size (auto mA exposure control), and iterative reconstruction (ASI R) was used as additional dose reduction technique. Comparison is made to prior examination from 12/02. FINDINGS: There is severe chronic interstitial lung disease at the lung bases, appearance not signifi cant changed. Compared to prior study, superimposed subsegmental acute component in right lower lobe laterally. Small right pleural effusion. Small amount of ascites. Spleen, liver, pancreas are unremarkable. Adre nal glands and gallbladder are unremarkable. Bilateral ureteral tubes extending out of right lower qu adrant stoma. Bladder has been resected. Mild to moderate bilateral hydroureteronephrosis. Possible i dentification of a normal appendix. There is moderate amount of colonic stool. There is supraumbilica l hernia containing nonobstructed small bowel. Improvement in previously seen perirectal wall thicken ing, which could have been proctitis. No free intraperitoneal gas. The interventricular septum is per ceptible, suggesting patient is anemic. Heart is normal in size. Extensive right iliac osteosclerosis, smaller amount of sacral and left iliac sclerosis consistent wi th osteoblastic disease. Mild to moderate lumbar disc disease with moderate-sized bridging endplate o steophytes, diffuse idiopathic skeletal hyperostosis. The vertebral bodies are aligned in the AP dime nsion. There is no lumbar spondylolysis. Moderate left L5-S1 neural foraminal stenosis, the most narr owed level. There is severe facet arthropathy at L3-4 and L4-5, contributing to severe central canal stenosis at these 2 levels. IMPRESSION: 1. Small amount of acute right-sided airspace disease superimposed on severe chronic pulmonary fibro sis.. 2. Mild to moderate hydroureteronephrosis. Bilateral ureteral tubes in position. 3. Improvement in proctitis. 4. Pelvic osteoblastic disease. 5. Chronic severe interstitial lung disease. Small right pleural effusion. Reviewed, dictated and finalized at location B. IMPRESSION: 1. Small amount of acute right-sided airspace disease superimposed on severe c hronic pulmonary fibrosis.. 2. Mild to moderate hydroureteronephrosis. Bilateral ureteral tubes in positio n. 3. Improvement in proctitis. 4. Pelvic osteoblastic disease. 5. Chronic severe interstitial lung disease. Small right pleural effusion.
--- NOTE | ~2019-12-13 | XR_ITS ---
XR chest 1V portable DATE: 12/15/2019 01:46 INDICATION: Acute respiratory failure TECHNIQUE: Portable AP chest on 12/15/2019 at 0140 hours COMPARISON: 12/13/2019 AP and lateral chest FINDINGS: There is severe patchy bilateral pulmonary infiltrates throughout both lungs, dramatically increased since 12/13/2019. Right Port-A-Cath catheter tip overlies the upper right atrium. No pneumothorax. No pleural effusion is evident. Heart size appears normal. Diffuse idiopathic skeletal hyperostosis of the thoracic spine. IMPRESSION: Diffuse severe bilateral patchy pulmonary infiltrates, dramatically increased since 2019 Reviewed, dictated and finalized at location A. IMPRESSION: Diffuse severe bilateral patchy pulmonary infiltrates, dramatically increased since 12/13/2019
--- NOTE | ~2019-12-13 | NM_ITS ---
EXAMINATION: NM bone scan whole body DATE: 12/14/2019 15:08 INDICATION: Bone metastases TECHNIQUE: 22.11 mCi Tc-99m HDP was administered intravenously. Delayed whole-body scintigrams were obtained. COMPARISON: CT dated 12/13/2019 FINDINGS: There is increased bone uptake at the right superior pubic ramus, large region extending throughout t he right iliac wing, posterior right iliac spine and adjacent right sacral ala, small region at the c ephalad aspect of the left sacroiliac joint and at the base of the right L5 transverse process, all w ith corresponding sclerotic lesions on prior CT consistent with metastatic disease. No other suspicio us foci of increased bone uptake identified. IMPRESSION: 1. Multiple regions of increased bone uptake with corresponding sclerosis on prior CT in the pelvis a nd right L5 transverse process consistent with metastatic disease. Reviewed, dictated and finalized at location A. IMPRESSION: 1. Multiple regions of increased bone uptake with corresponding sclerosis on pr ior CT in the pelvis and right L5 transverse process consistent with metastatic disease.
--- NOTE | ~2019-12-13 | XR_ITS ---
XR chest 2V DATE: 12/13/2019 07:17 INDICATION: Shortness of breath, back pain with inspiration TECHNIQUE: AP and lateral views COMPARISON: 11/10/2019 portable AP chest 11/06/2019 CT chest FINDINGS: There are bilateral groundglass infiltrates involving the mid and lower lung zones, right g reater than left; previous CT examination demonstrated findings consistent with usual interstitial pn eumonia. No interval pulmonary consolidation or pleural effusion or pulmonary vascular congestion or pneumotho rax. Heart size appears within normal limits. Right Port-A-Cath catheter tip overlies the upper right atrium. Pigtail catheter overlying left abdomen on AP view. Degenerative changes of the thoracic and lumbar spine. IMPRESSION: Chronic bilateral infiltrates in pattern consistent with usual interstitial pneumonia; no new pulmonary consolidation is evident Right Port-A-Cath Reviewed, dictated and finalized at location A. IMPRESSION: Chronic bilateral infiltrates in pattern consistent with usual inte rstitial pneumonia; no new pulmonary consolidation is evident Right Port-A-Cath
--- NOTE | 2019-12-13 06:47 | ECG_ITS ---
Measurements Intervals [place] Rate: 112 P: 32 IA: 144 QRS: -28 QRSD: 121 T: 16 QT: 339 QTc: 463 Interpretive Statements SINUS TACHYCARDIA POSSIBLE LEFT ATRIAL ENLARGEMENT RIGHT BUNDLE BRANCH BLOCK BASELINE ARTIFACT- V1, V3-V6 ABNORMAL ECG Electronically Signed On 12-13-2019 8:10:17 CDT by Rajendra Parker D.O.
[2019-12-13 07:02] LABS: Basophils Absolute Auto 0.1 K/mm3 (0.0-0.1); Basophils Percent Auto 0.3 % (0.2-1.2); Eosinophils Percent Auto 0.1 % (0-4.4); Hematocrit 27.9 % (42.0-52.0); Hemoglobin 8.9 g/dL (14.0-18.0); Immature Granulocyte Absolute 0.35 K/mm3 (0.00-0.031); Immature Granulocyte Percent A 1.4 % (0-0.5); Lymphocytes Absolute Auto 0.31 K/mm3 (0.9-3.2); Lymphocytes Percent Auto 1.2 % (18.3-44.2); Mean Corpuscular HGB Conc 31.9 g/dl (32-36); Mean Corpuscular Volume 93.9 fl (80-100); Mean Platelet Volume 10.8 fl (7.4-10.4); Monocytes Absolute Auto 1.7 K/mm3 (0.1-0.6); Monocytes Percent Auto 6.7 % (2.6-8.5); Neutrophils Absolute Auto 22.7 K/mm3 (1.3-6.7); Neutrophils Percent Auto 90.3 % (45.5-73.1); Platelet Count Result 382 k/mm3 (150-375); Red Blood Count 2.97 M/mm3 (4.6-6.20); Red Cell Distribution Width 17.8 % (11.5-14.5); White Blood Count 25.2 K/mm3 (4.5-10.0)
[2019-12-13 07:12] LABS: INR 1.1; Prothrombin Time 13.5 Seconds (11.1-14.7)
[2019-12-13 07:14] LABS: Anion Gap 13 mmol/L (8-16); Blood Urea Nitrogen 80 mg/dL (9-20); Calcium 8.2 mg/dL (8.4-10.2); Carbon Dioxide 14 mmol/L (22-30); Chloride 106 mmol/L (98-107); Estimated CRCL calculation 11 ml/min; Estimated Glomerular Filt Rate 12; Glucose 116 mg/dL (75-110); Potassium 5.3 mmol/L (3.4-5.0); Sodium 133 mmol/L (137-145)
[2019-12-13 07:26] LABS: Troponin I 0.016 ng/mL (0.000-0.034)
--- NOTE | 2019-12-13 07:38 | ED.GENADULT ---
HPI - General Adult General Chief complaint: Chest Pain Stated complaint: CP WITH INSPIRATION Time Seen by Provider: 12/13/19 07:00 Source: patient Mode of arrival: ambulatory History of Present Illness HPI narrative: This patient is a 79 year old male with history of bladder cancer s/p chemotherapy and radiation who presents for evaluation mid back pain. Patient states he was admitted to [facility] over 1 week ago. During that hospitalization, he was found to have bladder metastasis in the liver. He states 2 days after discharge he developed mid back pain. He states this pain occurs with deep inspiration. He states he does not have any chest pain or abdominal pain. He also denies fever or chills. He states that he is dealing with constipation and diarrhea. His family at bedside states he has a decrease in appetite and he is not eating very much. He is due to get a PET scan tomorrow, and his oncologist is Dr. Dumont. complaint: back pain Related Data Home Medications Medication Instructions Recorded Confirmed cephalexin 500 mg PO DAILY 11/04/19 12/13/19 amlodipine 5 mg PO DAILY 12/13/19 12/13/19 Allergies Allergy/AdvReac Type Severity Reaction Status Date / Time No Known Allergies Allergy Verified 11/28/19 14:51 Review of Systems Review of Systems: All systems reviewed & are unremarkable except as noted in HPI and below Constitutional: Constitutional: Denies chills, Reports fatigue and Denies fever(s) Cardiovascular: Cardiovascular: Denies chest pain Respiratory: Respiratory: Reports dyspnea (since diagnosed with covid 1 month ago) Gastrointestinal: Gastrointestinal: Denies abdominal pain, Reports diarrhea, Denies nausea and Denies vomiting Musculoskeletal: Musculoskeletal: Reports back pain [facility] Social History Social History (Updated 12/03/19 @ 18:10 by Krysten Colon NP) Social History: Patient quit smoking in 1979. He smoked about a pack a cigarettes a day for 20 years. Patient occasionally drinks a beer. He has 2 children. A boy and a girl. Power of bankruptcy attorney is Carla . He is a full code. He lives alone. He is retired from [employer]. he is . He denies any marijuana or illicit drugs. Smoking packs per day: 1 Smoking cigarettes per day: 20.0 Years smoked: 15 Smoking pack-years: 15.00 Smoking status: Former smoker Tobacco type: cigarettes Smoking end date: 03/08/79 Additional smoking assessment comments: 1979 Alcohol intake: former Substance use: former Substance use type: does not use Gender identity (if verbalized by the patient): Male Spiritual care concerns: No Agree to blood products: Yes Exam Const: General: alert and ill appearing; No no acute distress Orientation/consciousness: patient oriented x3 Eyes: EOM: EOMs intact bilaterally Neck: Neck: no lymphadenopathy Chest: Chest palpation & inspection: normal inspection of the chest Resp: Effort & Inspection: normal respiratory effort, not labored and not tachypneic Auscultation: crackles bilateral and diffuse Cardio: Rate: tachycardic Rhythm: regular rhythm Heart sounds: no murmurs GI: GI Palp: Yes Soft to palpation, No Tenderness to palpation present (GI), No Guarding due to palpation present (GI) and No Rigid due to palpation Other: right lower abdomen with urostomy with yellow urine Back/Spine/Pelvis: Back: no CVA tenderness Skin: General skin exam: pallor Neuro: General: patient oriented x3 and moves all extremities Extrem: General: no pedal edema Psych: Mental Status: mental status grossly normal Affect: normal affect Course Consultations Consultation #1: I Discussed case with Dr. Dumont about patient and family concern about PET scan. He agrees with admitting patient for treatment of pneumonia. Dr. Limon of hospitalist accepts patient to service. Date: 12/13/19 Time: 10:00 Vital Signs Vital signs: Vital Signs Temperature 98.9 F 12/13/19 06:37
[2019-12-13 07:59] LABS: Alveolar/Arterial O2 Gradient 97.1 mmHg; Base Excess ABG -10.1 mEq/l (+/-2.0); Carboxyhemoglobin 0.7 % THb (0-2.0); Fractional Inspired Oxygen 28 %; HCO3 ABG 13.5 mEq/l (22.0-26.0); Oxygen Content ABG 12.8 %vol (16.0-22.0); Oxygen Saturation ABG 95.2 % (95.0-100.0); Oxyhemoglobin 94.3 % THb (90.0-100.0); PO2 ABG 75.2 mmHg (80.0-100.0); PO2 FiO2 Ratio Arterial Blood 2.69 %; Total Hemoglobin 9.6 g/dL (12.0-18.0); pH ABG 7.382 (7.350-7.450)
[2019-12-13 08:02] LABS: PCO2 ABG 23.2 mmHg (35.0-45.0)
[2019-12-13 08:03] LABS: Device NASAL CANNULA; Site Drawn RIGHT BRACHIAL
[2019-12-13 09:37] LABS: Alanine Aminotransferase 37 U/L (4-50); Albumin Level 2.8 g/dL (3.5-5.1); Alkaline Phosphatase 896 U/L (38-126); Aspartate Amino Transferase 57 U/L (17-59); Bilirubin,Total 0.9 mg/dL (0.2-1.3); Lipase 25 U/L (23-300)
[2019-12-13 09:46] LABS: NT Pro B Type Natriuretic Pept 5070 PG/ML (5-100)
[2019-12-13] MEDS: SODIUM CHLORIDE 0.9% IV 1,000 ML 999 ML IV CONT (09:50)
[2019-12-13 09:54] LABS: Lactic Acid Reflex 1.3 mmol/L (0.7-2.1)
[2019-12-13 11:57] LABS: Troponin I 0.017 ng/mL (0.000-0.034)
--- NOTE | 2019-12-13 13:28 | ADMGEN ---
This patient, Stu Raphael, was admitted to 2 Medical Room 260-01. Patient/family oriented to hospital policies and general routines including ID bracelet, bed and alarms, visiting hours, pain management, procedures, bathroom and other care routines, personal items, smoking policy, room service/diet, and visiting hours. Valuables list has been completed. Information on how to activate the Rapid Response Team has been discussed. Patient/Family are encouraged to report perceived risks to care and to ask questions if they do not understand what they are told or what they should do.
[2019-12-13 13:51] LABS: Troponin I 0.051 ng/mL (0.000-0.034)
--- NOTE | 2019-12-13 16:52 | PDONCCN ---
HPI - Date of Consult Date/Time: 12/13/19 16:52 Requesting Physician: Brianna Limon MD Primary Care Provider: Jeremy Jung MD - Consult Narrative Reason for consult: Metastatic bladder cancer Narrative: Stu Raphael is a 79 year old male was diagnosed to have early stage bladder cancer in December of 2017 is status post TURBT. Patient received chemotherapy with Gemzar and cis-quinault time for completed May of 2018. He had radical cystoprostatectomy done on February 09, 2019 that showed 1/20 lymph node positive. He seemed adjuvant radiation therapy in June of 2019. Recent imaging studies include CT chest done on November 05/showed new pulmonary nodules concerning for metastatic disease versus infection. CT abdomen done on December 02 showed ill-defined left hepatic lobe mass along with abnormal thickening of the rectum suspicious for proctitis. CT abdomen and pelvis from December 12 showed pelvic osteoblastic disease as well as bilateral [id number] hydroureteronephrosis. Week 2 scan done on December 03 showed intermediate probability for pulmonary embolism. Doppler studies were negative for blood clot in the lower extremity. 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 Patient now came into the hospital with significant midback pain is specially worse with the breathing deep. He denies any bleeding. He has been losing weight and has lost 20 lb weight in last couple of months duration with poor appetite. He has been complaining of tiredness and fatigue. Labs showed significant anemia. Review of Systems - Review of Systems All systems reviewed & are unremarkable except as noted in [facility] and [facility] Medical History: Medical History (Last Reviewed 12/03/19 @ 18:09 by Krysten Colon NP) Acute hyperkalemia Anemia Atrial tachycardia Bladder cancer Onset Date: Unknown history of chemotherapy approximately year and half ago with radiation treatment last time about July of 2019 Cancer of overlapping sites of bladder Cellulitis Chronic renal failure, stage 3 (moderate) Contact dermatitis Essential (primary) hypertension Gout, unspecified Hydronephrosis Hypertension Malignant neoplasm of dome of urinary bladder Mixed hyperlipidemia Port-A-Cath in place right chest Shingles Ventral incisional hernia without obstruction or gangrene Onset Date: Unknown Surgical History: Surgical History (Last Reviewed 12/03/19 @ 18:09 by Krysten Colon NP) History of cataract extraction History of ileal conduit History of inguinal hernia repair History of prostatectomy History of renal stent bilaterally History of tonsillectomy History of transurethral resection of prostate Family History: Family History (Last Reviewed 12/13/19 @ 13:31 by Adalberto Hyde RN) Father Family history of lung cancer Father Family history of cardiovascular disease Mother due to natural causes - Social History Social History: Social History (Last Updated 12/03/19 @ 18:10 by Krysten Colon NP) Gender Identity: Gender identity (if verbalized by the patient): Male Alcohol Use: Alcohol intake: former Substance Use: Substance use: former Substance use type: does not use Others: Spiritual care concerns: No Agree to blood products: Yes Smoking Status: Smoking status: Former smoker Tobacco type: cigarettes Smoking end date: 03/08/79 Approximate Smoking End Date: 1979 Smoking Pack-years: Smoking packs per day: 1 Smoking cigarettes per day: 20.0 Years smoked: 15 Smoking pack-years: 15.00 Comments: Additional smoking assessment comments: 1979 Meds Home Medications Medication Instructions Recorded Confirmed Type cephalexin 500 mg PO DAILY 11/04/19 12/13/19 History metoprolol succinate 50 mg 50 mg PO DAILY #90 tablet 11/28/19 12/13/19
--- NOTE | 2019-12-13 17:00 | PM.IMHP ---
H&P: HPI History of Present Illness Date/Time: 12/13/19 17:30 Chief complaint: Chest pain with inspiration. Narrative: Stu Raphael is a very pleasant 79-year-old male with history of synchronous primary cancers including stage 4 prostate and bladder cancer status post cysto prostatectomy with adjuvant chemotherapy and pelvic radiation, chronic kidney disease, hypertension, and anemia who presented to the emergency department earlier this morning for evaluation of chest pain with inspiration. He is known to the hospitalist service with several admissions in the past 6 months including those for Enterococcus bacteremia suspected to be from a urinary source, COVID-19, and acute on chronic kidney failure with a renal biopsy demonstrating acute tubular necrosis in addition to hypertensive/vascular disease. He also had a liver biopsy done within the last week or so showed evidence of disease in the liver consistent with poorly differentiated urothelial primary. In any regard, he has progressively declined over the last several months with unintentional weight loss of 20 lbs, poor appetite, fatigue, and shortness of breath with minimal exertion. Over the past 2 weeks he has had progressive mid back pain, only occurring with deep inspiration, that he describes as like I am being hit with a sledgehammer. The pain does not radiate and is not reproducible with palpation or movement, only with deep inspiration. To avoid the pain he has been breathing much more shallow than usual and appears increasingly short of breath. Additionally he has had uncontrollable loose stools in small amounts for the past 1.5 weeks, on average 10 to 12 times per day, and he is now having to wear adult depends due to frequent accidents. He believes there is some mucus in the stool but he has not noticed any blood present. He is on prophylactic Keflex for history of recurrent UTIs, but has not been on any other antibiotics recently that he can recall. He denies fever, sinus congestion, rhinorrhea, otalgia, odynophagia, cough, concerns for aspiration, and vomiting. Review of Systems Review of Systems: Narrative: Twelve systems were reviewed with pertinent positives and negatives as per HPI. He had COVID at the beginning of November 2019 in seems to be recuperating pretty well with regards to that however his overall health has continued to decline. His appetite is very poor but he has been trying to drink boost for nutrition. He denies lightheadedness and dizziness. No lower extremity edema. No history of venous thromboembolism. Except as documented, all other systems were reviewed and are negative. [facility] Past Medical History Medical History (Updated 12/13/19 @ 18:56 by Maggie Eli PA-C) Bacteremia due to Enterococcus (~06/2019) Presumed urinary source. Bladder cancer (Unknown) Pathologic stage IIIA high-grade urothelial carcinoma ([id number]) status post cysto-prostatectomy with ileal conduit, chemotherapy (completed 05/25/18) and adjuvant pelvic radiation which was completed on 06/16/2019. Liver biopsy 12/04/2019 showed evidence of metastatic carcinoma consistent with poorly differentiated urothelial primary. Chronic anemia Chronic interstitial lung disease Chronic kidney disease, stage IV (severe) Creatinine has progressively been increasing, with baseline now between 3.0 and 4.0. Renal biopsy on 10/09/2019 showed evidence of acute tubular necrosis on top of hypertensive and vascular disease. Contact dermatitis Essential hypertension Gout Hydronephrosis Status post bilateral ureteral stents in 09/2019. Mixed hyperlipidemia Prostate cancer Pathologic stage IIIB ([id number]) with a Claude score of 6, status post radical cystoprostatectomy. Osteoblastic disease of the pelvis noted on abdominal CT dated 12/13/2019. Shingles Ventral incisional hernia without obstruction or gangrene (Unknown) Surgical History Surgical History (Updated 12/13/19 @ 18:39 by Maggie Reyna
[2019-12-13 18:49] LABS: Add Urine Microscopic? YES; Appearance Urine Clear (Clear); Bacteria Urine Trace /hpf; Bilirubin Urine Negative (Negative); Blood Urine 2+ (Negative); Color Urine Yellow (Yellow); Glucose Urine UA Negative (Negative); Ketones Urine Negative (Negative); Leukocyte Esterase Ur 1+ LEU/UL (Negative); Mucus Urine Rare /lpf; Nitrate Urine Negative (Negative); Protein Urine Negative (Negative); Specific Grav Ur 1.012 (1.001-1.035); Urobilinogen Urine Negative mg/dL (<2.0)
[2019-12-13 18:56] LABS: Anion Gap 9 mmol/L (8-16); Blood Urea Nitrogen 75 mg/dL (9-20); Carbon Dioxide 16 mmol/L (22-30); Chloride 108 mmol/L (98-107); Creatine Kinase 40 U/L (55-170); Estimated CRCL calculation 11 ml/min; Estimated Glomerular Filt Rate 13; Glucose 140 mg/dL (75-110); Magnesium 1.5 mg/dL (1.6-2.3); Phosphorus 4.7 mg/dL (2.5-4.5); Potassium 5.1 mmol/L (3.4-5.0); Sodium 133 mmol/L (137-145)
[2019-12-13 19:09] LABS: D Dimer 5.68 ug/mL (<0.48)
[2019-12-13 19:13] LABS: Troponin I 0.771 ng/mL (0.000-0.034)
--- NOTE | 2019-12-13 19:15 | ECG_ITS ---
Measurements Intervals [place] Rate: 105 P: 22 CO: 145 QRS: -27 QRSD: 114 T: -5 QT: 333 QTc: 441 Interpretive Statements SINUS TACHYCARDIA INCOMPLETE RIGHT BUNDLE BRANCH BLOCK VOLTAGE CRITERIA FOR LVH MINIMAL Q WAVES- HIGH LATERAL LEADS BORDERLINE ST-T WAVE ABNORMALITY- ANT/INF LEADS ABNORMAL ECG Electronically Signed On 12-13-2019 20:51:19 CDT by Rajendra Parker D.O.
[2019-12-13] MEDS: LACTATED RINGERS 1,000 ML 80 ML IV CONT (19:46)
[2019-12-13] MEDS: CENTRAL LINE FLUSH 10 ML IV PUSH (21:07)
[2019-12-13] MEDS: MORPHINE SULFATE (*CRX) 15 MG TABCR PO (21:07)
[2019-12-13] MEDS: APIXABAN 5 MG TABLET PO (21:07)
[2019-12-14] VITALS (21 sets, daily range): BP systolic 82–126; BP diastolic 50–68; PULSE 82–123; RESP 18–36; TEMP 36.2–37.1; O2SAT 64–98; BMI 21.4
--- NOTE | 2019-12-14 | ECHO_ITS ---
Patient Info Name: Stu Raphael Age: 79 years : 1940 Gender: Male Ht: 66 in Wt: 132 lbs BSA: 1.67 m2 HR: 109 bpm BP: 119 / 68 mmHg Technical Quality: Good Exam Date: 12/14/2019 10:35 AM Exam Location: [facility] Patient Status: Inpatient Admit Date: 12/13/2019 Staff Ordering Physician: Rajiv Rosario MD Deputy Sheriff Generalist/Bailiff: Zaid Ordoñez RDCS, RT Attending Provider: Brianna Limon MD Referring Physician: Marlene BAHENA; Exam Type: CA echo doppler color flow Study Info Indications I26.99 - Other pulmonary embolism without acute cor pulmonale Complete two-dimensional, color flow and Doppler transthoracic echocardiogram is performed. Summary 1. Complete two-dimensional, color flow and Doppler transthoracic echocardiogram is performed. 2. Left ventricular chamber dimension is normal. 3. Ventricular septum is sigmoid shaped. No LVOT obstruction. 4. Left ventricular systolic function is normal, estimated at 65-70%. 5. There is mildly increased left ventricular wall thickness. 6. The left ventricular diastolic function is grade I diastolic dysfunction. 7. E/e' 6 is not elevated. 8. Global longitudinal strain is mildly abnormal at -16.2%. 9. Left atrial chamber dimension is mildly enlarged. 10. There is mild aortic valve regurgitation. 11. There is mild mitral valve regurgitation. 12. There is mild tricuspid valve regurgitation. 13. No pulmonary hypertension, estimated pulmonary arterial systolic pressure is 38 mmHg. Left Ventricle E/e' 6 is not elevated. Ventricular septum is sigmoid shaped. No LVOT obstruction. Global longitudinal strain is mildly abnormal at -16.2%. Left ventricular chamber dimension is normal. Left ventricular systolic function is normal, estimated at 65-70%. There is mildly increased left ventricular wall thickness. The left ventricular diastolic function is grade I diastolic dysfunction. Right Ventricle Right ventricular systolic function is normal and with normal TAPSE 1.9 cm. Right ventricular chamber dimension is normal. Left Atria Left atrial chamber dimension is mildly enlarged. Right Atria Right atrial chamber dimension is normal. Aortic Valve The aortic valve is trileaflet. There is no aortic valve stenosis. There is mild aortic valve regurgitation. Pulmonic Valve There is no pulmonic regurgitation. Mitral Valve There is no mitral valve stenosis. There is mild mitral valve regurgitation. Tricuspid Valve There is mild tricuspid valve regurgitation. No pulmonary hypertension, estimated pulmonary arterial systolic pressure is 38 mmHg. Pericardium/Pleural There is no pericardial effusion. Inferior Vena Cava Normal inferior vena cava with >50% collapse upon inspiration consistent with normal right atrial pressure, 5 mmHg. Aorta The aortic root size at the sinus of Valsalva is normal. Left Ventricular Outflow Tract Name Value Normal LVOT 2D LVOT Diameter 2.2 cm LVOT Doppler LVOT Peak Gradient 3 mmHg LVOT Mean Gradient 2 mmHg LVOT VTI 14 cm
[2019-12-14] MEDS: CENTRAL LINE FLUSH 10 ML IV PUSH ×3 (05:25→20:59)
[2019-12-14 06:39] LABS: Alanine Aminotransferase 30 U/L (4-50); Albumin Level 2.2 g/dL (3.5-5.1); Alkaline Phosphatase 688 U/L (38-126); Anion Gap 10 mmol/L (8-16); Aspartate Amino Transferase 52 U/L (17-59); Blood Urea Nitrogen 69 mg/dL (9-20); Calcium 7.9 mg/dL (8.4-10.2); Carbon Dioxide 16 mmol/L (22-30); Chloride 109 mmol/L (98-107); Estimated CRCL calculation 11 ml/min; Estimated Glomerular Filt Rate 13; Glucose 98 mg/dL (75-110); Potassium 4.5 mmol/L (3.4-5.0); Sodium 135 mmol/L (137-145); Troponin I 0.808 ng/mL (0.000-0.034)
[2019-12-14 06:43] LABS: Basophils Percent Auto 0.2 % (0.2-1.2); Eosinophils Absolute Auto 0.1 K/mm3 (0-0.3); Eosinophils Percent Auto 0.3 % (0-4.4); Hematocrit 23.1 % (42.0-52.0); Hemoglobin 7.5 g/dL (14.0-18.0); Immature Granulocyte Absolute 0.22 K/mm3 (0.00-0.031); Immature Granulocyte Percent A 0.9 % (0-0.5); Lymphocytes Absolute Auto 0.38 K/mm3 (0.9-3.2); Lymphocytes Percent Auto 1.6 % (18.3-44.2); Mean Corpuscular HGB Conc 32.5 g/dl (32-36); Mean Corpuscular Hemoglobin 29.5 pg (26-34); Mean Corpuscular Volume 90.9 fl (80-100); Mean Platelet Volume 10.7 fl (7.4-10.4); Monocytes Absolute Auto 1.7 K/mm3 (0.1-0.6); Monocytes Percent Auto 7.5 % (2.6-8.5); Neutrophils Absolute Auto 20.7 K/mm3 (1.3-6.7); Neutrophils Percent Auto 89.5 % (45.5-73.1); Platelet Count Result 351 k/mm3 (150-375); Red Blood Count 2.54 M/mm3 (4.6-6.20); Red Cell Distribution Width 17.7 % (11.5-14.5); White Blood Count 23.2 K/mm3 (4.5-10.0)
[2019-12-14 07:13] LABS: Iron 13 ug/dL (49-181)
[2019-12-14 07:15] LABS: Vitamin B12 > 1000.0 pg/mL (239-931)
[2019-12-14 07:22] LABS: Percent Iron Saturation 8 % (20-50)
[2019-12-14 07:47] LABS: Total Protein 5.6 g/dL (6.3-8.2)
--- NOTE | 2019-12-14 09:06 | PDRADONCCN ---
Recommendations 1. Agree with bone scan to rule out osseous metastatic cause of mid back pain. CT chest/T-spine may be helpful. 2. If metastatic disease is determined to be the cause of his pain and a target is identifiable, palliative radiotherapy would likely be recommended. 3. For another medical cause of his pain, management would be recommended per the primary team as appropriate. Impression Pulmonary and osseous metastatic bladder cancer and is admitted with significant mid back pain particularly with deep breathing. Etiology of pain could be pulmonary embolism, pleurisy, pleural effusion (malignant?), bone metastases. [facility] - Date/Time Seen 12/14/19 09:06 - Identifying Data Stu Raphael is a 79 y.o. male initially with synchronous primary cancers in 2019. 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 He is status post chemotherapy with cisplatin and gemcitabine x 4 cycles complete 05/25/2018. He then underwent radical cystoprostatectomy with ileal conduit on 02/09/2019. He completed a course of adjuvant pelvic radiotherapy between 04/27/2019 and 06/16/2019. He has since been found to have pulmonary and osseous metastatic bladder cancer and is admitted with significant mid back pain. Consultation is requested for consideration of his palliative radiotherapy options. - History of Present Illness Since Mr. Raphael completed treatment, he has been following with Dr. Dumont. CT scan on 11/06/2019 showed new pulmonary nodules concerning for metastatic disease versus infection. CT abdomen on 12/03/2019 showed ill-defined left hepatic lobe mass along with abnormal thickening of the rectum suspicious for proctitis. Biopsy of the liver mass on 12/04/2019 revealed metastatic poorly differentiated urothelial carcinoma. He has been admitted to the hospital now with significant midback pain which is much worse when he takes a deep breath. CT scan of the abdomen and pelvis yesterday showed pelvic osteoblastic disease as well as bilateral [id number] hydroureteronephrosis. He had an indeterminate V/Q scan and has beens started on Eloquis. Bone scan has been ordered. Other than his mid-back pain, he has been losing weight - about 20 lb over the last couple of months. He reports a poor appetite and fatigue. Labs showed significant anemia. He is having some fecal incontinence and wears depends. He denies numbness and weakness other than generalized weakness. He denies significant pain in the pelvis. - Medical History Medical History (Last Updated 12/13/19 @ 18:56 by Maggie Eli PA-C) Bacteremia due to Enterococcus Onset Date: ~06/2019 Presumed urinary source. Bladder cancer Onset Date: Unknown Pathologic stage IIIA high-grade urothelial carcinoma ([id number]) status post cysto-prostatectomy with ileal conduit, chemotherapy (completed 05/25/18) and adjuvant pelvic radiation which was completed on 06/16/2019. Liver biopsy 12/04/2019 showed evidence of metastatic carcinoma consistent with poorly differentiated urothelial primary. Chronic anemia Chronic interstitial lung disease Chronic kidney disease, stage IV (severe) Creatinine has progressively been increasing, with baseline now between 3.0 and 4.0. Renal biopsy on 10/09/2019 showed evidence of acute tubular necrosis on top of hypertensive and vascular disease. Contact dermatitis Essential hypertension Gout Hydronephrosis Status post bilateral ureteral stents in 09/2019. Mixed hyperlipidemia Prostate cancer Pathologic stage IIIB ([id number]) with a [place] score of 6, status post radical cystoprostatectomy. Osteoblastic disease of the pelvis noted on abdominal CT dated 12/13/2019. Shingles Ventral incisional hernia without obstruction or gangrene Onset Sandip
[2019-12-14] MEDS: LACTATED RINGERS 1,000 ML 80 ML IV CONT (09:33)
[2019-12-14] MEDS: MORPHINE SULFATE (*CRX) 15 MG TABCR PO (09:34)
[2019-12-14] MEDS: MEGESTROL ACETATE (*CHEMO) ORAL SUSP 40 MG/ML SYR 800 MG PO (09:34)
[2019-12-14] MEDS: amLODIPine BESYLATE 5 MG TABLET PO (09:35)
[2019-12-14] MEDS: APIXABAN 5 MG TABLET PO ×2 (09:35→20:59)
[2019-12-14] MEDS: CEPHALEXIN 500 MG CAPSULE PO (09:35)
[2019-12-14] MEDS: METOPROLOL SUCCINATE EXT REL 50 MG TABCR PO (09:35)
[2019-12-14 10:39] LABS: IFOB Positive Control Positive; Immunochemical Fecal Occult Bl Positive (N)
--- NOTE | 2019-12-14 15:01 | PM.IMPN ---
Progress Note: A&P Assessment and Plan (1) Back pain: Code(s): M54.9 - Dorsalgia, unspecified Status: Acute Assessment and Plan: flu retic pain and most likely pulmonary emboli. Seen by oncology and proceeding with anticoagulation with [facility] [place]. with his renal insufficiency unable to proceed with CTA (2) Acute on chronic kidney failure: Code(s): N17.9 - Acute kidney failure, unspecified; N18.9 - Chronic kidney disease, unspecified Status: Acute Assessment and Plan: monitor closely and follow. Recent sonogram showed some probable hydro but this to be expected with ileal conduit cultures drawn (3) Protein calorie malnutrition: Code(s): E46 - Unspecified protein-calorie malnutrition Status: Acute Assessment and Plan: supplements (4) Stage IV bladder cancer: Code(s): C67.9 - Malignant neoplasm of bladder, unspecified Status: Acute Assessment and Plan: oncology to start immunotherapy once discharged (5) Chronic anemia: Code(s): D64.9 - Anemia, unspecified Status: Acute Assessment and Plan: chronic disease possibly iron deficiency studies are pending and followed by oncology (6) Leukocytosis: Code(s): D72.829 - Elevated white blood cell count, unspecified Status: Acute Assessment and Plan: probably stress related although could be infectious or could be maybe from tumor load. Cultures are pending and if C diff negative and symptoms worsened would cover with broad-spectrum (7) Essential hypertension: Code(s): I10 - Essential (primary) hypertension Status: Acute Assessment and Plan: pressure still well controlled continue the beta-wilder and amlodipine (8) Chronic interstitial lung disease: Code(s): J84.9 - Interstitial pulmonary disease, unspecified Status: Acute Assessment and Plan: updrafts as needed. Pulmonary changes makes it more difficult to determine acute infectious process Subjective Date/time seen: 12/14/19 15:01 Interval history: Date of visit 12/13. 79-year-old white male with known metastatic bladder CA presented with increasing pleuritic back pain and leukocytosis. Has had some intermittent diarrhea also. Just recently hospitalized and venous Doppler at that time was negative with ventilation perfusion scan intermediate probability. Is not hypoxic again no indication on echo of any right ventricular strain so anticoagulation was not started. Has been seen by oncology and with his symptomatology is felt that should be initiated on treatment for probable PE. Exam Narrative: Exam Narrative: Blood pressure 120/70 pulse is 100 saturating 92% on room air afebrile pupils equal reactive light sclera anicteric lungs prolonged expiratory phase no wheezing or consolidation CV regular rate rhythm faint systolic murmur abdomen soft nontender no masses, ileal conduit extremities without edema dorsalis pedis posterior tibial 1+ neuro alert cooperative no focal deficits Objective Data Vital Signs Vital Signs: Vital Signs - 24 hr 12/13/19 20:00 12/13/19 22:00 12/14/19 00:00 Temperature 36.1 C L Pulse Rate 108 H 111 H 107 H Respiratory Rate 26 H Blood Pressure 128/68 Pulse Oximetry 96 12/14/19 04:00 12/14/19 05:44 12/14/19 08:00 Temperature 36.2 C L Pulse Rate 109 H 110 H 112 H Respiratory Rate 20 Blood Pressure 119/68 Pulse Oximetry 92 12/14/19 09:35 Temperature Pulse Rate 110 H Respiratory Rate Blood Pressure Pulse Oximetry Intake/Output Intake/Output: Intake & Output 12/11/19 12/12/19 12/13/19 12/14/19 23:59 23:59 23:59 23:59 Intake Total 1390 1490 Output Total 310 600 Balance 1080 890 Meds/Results Medications: Active Medications Generic Name Dose Route Start Last Admin Trade Name Freq PRN Reason Stop Dose Admin Amlodipine Besylate 5 mg 12/14/19 09:00 12/14/19 09:35 Calixto
[2019-12-14] MEDS: SODIUM CHLORIDE 0.9% IV 1,000 ML 999 ML IV CONT (15:46)
--- NOTE | 2019-12-14 16:51 | WPDONCPN ---
Progress Note: A/P - Additional Plan Metastatic urothelial carcinoma. Patient is not status post liver biopsy that came back positive for malignancy arising from urothelial carcinoma. Bone scan reviewed that showed metastatic involvement of L5 and pelvic bone. Case was discussed with Dr. Mcnair. Pulmonary embolism with intermediate probability of V/Q scan. Eliquis was started due to patient's symptoms. Bone pain. Continue morphine 15 mg q.12 hours with Dilaudid as needed. Patient seems to be somewhat comfortable today. Anorexia and weight loss. Magace started Multifactorial anemia. Hemoglobin has dropped to 7.5. We will transfuse 2 units of packed red blood cell. - Time Spent With Patient Total time spent is greater than 50% in coordination of care (as documented) at patient's floor/unit and/or counseling patient: 15 - 25 minutes Subjective Interval history: Metastatic urothelial carcinoma Pulmonary embolism Bone metastasis with back pain Anorexia and weight loss Review of Systems - Review of Systems All systems reviewed & are unremarkable except as noted in HPI and bel Exam Vital signs: Temp Pulse Resp BP Pulse Ox 36.2 C L 108 H 20 82/50 L 90 12/14/19 05:44 12/14/19 15:28 12/14/19 05:44 12/14/19 15:28 12/14/19 15:28 Narrative: Lungs are clear to auscultation bilaterally Cardiovascular regular rate rhythm no murmurs Abdomen soft nontender nondistended bowel sounds are positive Extremities no edema Neuro exam is grossly intact PN: Objective Data - Labs CBC & Chem 7: 12/14/19 05:39 12/14/19 05:39 Labs: Laboratory Results - last 24 hr 12/13/19 12/13/19 12/13/19 18:09 18:22 18:22 WBC RBC Hgb Hct MCV MCH MCHC RDW Plt Count MPV Immature Gran % (Auto) Neut % (Auto) Lymph % (Auto) [place] % (Auto) Eos % (Auto) Baso % (Auto) Lymph # (Auto) [place] # (Auto) Eos # (Auto) Baso # (Auto) Abs Immat Gran (auto) Absolute Neuts (auto) Absolute Nucleated RBC Nucleated RBC % D-Dimer 5.68 H Sodium Potassium Chloride Carbon Dioxide Anion Gap BUN Creatinine Estim Creat Clear Calc Estimated GFR Glucose Calcium Phosphorus Magnesium Iron TIBC % Saturation Ferritin Total Bilirubin AST ALT Alkaline Phosphatase Total Creatine Kinase Troponin I Total Protein Albumin Vitamin B12 Urine Color Yellow Urine Appearance Clear Urine pH 6.0 Ur Specific Franklin 1.012 Urine Protein Negative Urine Glucose (UA) Negative Urine Ketones Negative Ur Blood (Man) 2+ H Urine Nitrate Negative Urine Bilirubin Negative Urine Urobilinogen Negative Leukocyte Esterase Rfl 1+ H Urine RBC 11-20 H Urine WBC 7-9 H Urine Bacteria Trace Urine Mucus Rare Stl Occult Blood (IFOB) Positive H 12/13/19 12/13/19 12/14/19 18:22 18:22 05:39 WBC 23.2 H RBC 2.54 L Hgb 7.5 L Hct 23.1 L MCV 90.9 MCH 29.5 MCHC 32.5 RDW 17.7 H Plt Count 351 MPV 10.7 H Immature Gran % (Auto) 0.9 H Neut % (Auto) 89.5 H Lymph % (Auto) 1.6 L Highland % (Auto) 7.5 Eos % (Auto) 0.3 Baso % (Auto) 0.2 Lymph # (Auto) 0.38 L [place] # (Auto) 1.7 H Eos # (Auto) 0.1 Baso # (Auto) 0.0 Abs Immat Gran (auto) 0.22 H Absolute Neuts (auto) 20.7 H Absolute Nucleated RBC 0.0 Nucleated RBC % 0.0 D-Dimer Sodium 133 L Potassium 5.1 H Chloride 108 H Carbon Dioxide 16 L Anion Gap 9 BUN 75 H Creatinine 4.50 H Estim Creat Clear Calc 11 Estimated GFR 13 L Glucose 140 H Calcium 8.0 L Phosphorus 4.7 H Cancelled Magnesium 1.5 L Cancelled Iron TIBC % Saturation Ferritin Total Bilirubin AST ALT Alkaline Phosphatase Total Creatine Kinase 40 L Cancelled Troponin I 0.771 H* D To
[2019-12-14] MEDS: HYDROmorphone HCL INJ (*CRX) 1 MG/ML SYR IV PUSH (18:26)
[2019-12-14 19:55] LABS: Alveolar/Arterial O2 Gradient 475.2 mmHg; Base Excess ABG -10.8 mEq/l (+/-2.0); Carboxyhemoglobin 0.1 % THb (0-2.0); Device NON-REBREATHER MASK; Fractional Inspired Oxygen 80 %; HCO3 ABG 14.1 mEq/l (22.0-26.0); Methemoglobin ABG 0.4 %THb (0-1.5); Modified Allen's Test Pass; Oxygen Content ABG 13.4 %vol (16.0-22.0); Oxygen Saturation ABG 91.5 % (95.0-100.0); Oxyhemoglobin 89.6 % THb (90.0-100.0); PCO2 ABG 28.6 mmHg (35.0-45.0); PO2 ABG 65.2 mmHg (80.0-100.0); PO2 FiO2 Ratio Arterial Blood 0.81 %; Reduced Hemoglobin 9.9 %THb (0-5.0); Site Drawn LEFT RADIAL; Total Hemoglobin 10.6 g/dL (12.0-18.0); pH ABG 7.311 (7.350-7.450)
--- NOTE | 2019-12-14 20:07 | P.PNCROSS_ITS ---
Event Note Event Note Event Note: A rapid response was called on the patient because he was found to have an O2 saturation in the 60s. The patient stated that he felt fine. The patient recently had Dilaudid for discomfort. The patient was placed on a non- rebreather and gases were drawn. We had a long discussion in the patient stated that he is a DNR but would go on a BiPAP machine if need be. The patient did come up to 100% with the non-rebreather. He is talking in full sentences. 2 units of packed red blood cells have been ordered for the oncologist. ABGs were performed. the patient had a CT scan yesterday see the results below 1. Small amount of acute right-sided airspace disease superimposed on severe chronic pulmonary fibrosis.. 2. Mild to moderate hydroureteronephrosis. Bilateral ureteral tubes in position. 3. Improvement in proctitis. 4. Pelvic osteoblastic disease. 5. Chronic severe interstitial lung disease. Small right pleural effusion.
[2019-12-14] MEDS: SODIUM CHLORIDE 0.9% IV 250 ML 30 ML IV CONT (20:58)
[2019-12-15] VITALS: PULSE 122
[2019-12-15 00:05] VITALS: BP 111/67; PULSE 125; RESP 30; TEMP 36.4; O2SAT 90
[2019-12-15 01:00] VITALS: O2SAT 88
[2019-12-15 01:05] VITALS: PULSE 140; RESP 39; O2SAT 95
[2019-12-15] MEDS: FUROSEMIDE INJ 40 MG/4 ML VIAL IV PUSH (01:08)
[2019-12-15 01:40] VITALS: BP 129/72; PULSE 153; PULSE 154; RESP 22; TEMP 37.2; O2SAT 94
[2019-12-15] MEDS: LORazepam INJ (*CRX) 2 MG/ML VIAL 0.5 MG IV PUSH ×2 (02:05→02:23)
--- NOTE | 2019-12-15 02:07 | PC.NURSE ---
patient transfered to imu bed [address] javier's order. rapid response called on patient after shift change when patients sats found to be 64% on on 3l 02. rt placed on non rebreather and eventually high flow therapy and patient sats improved to 94-96%. however, patient became dyspneac after starting a unit of blood and called multiple times after 2300 with c/o sob/difficulty breathing, sats between 88-90, and mouth breathing, hr 125, r30, bp 126/60, lungs sounded course and wet bilaterally. blood paused at that time and called dr javier x4 to update status. also called rt to evalute patient's therapy. this verse writer placed patient on nonrebreather prior to rt arrival. and rt added high flow therapy in addition to the mask just to maintain patient's sats above 90. dr javier returned call and came to bedside and evaluated patient and decided to continue to pause blood tx , give iv lasix, place patient on bipap and tx to imu. report was called to imu rn and then call place to pt's daughter. and patient was transferred to room 205.
--- NOTE | 2019-12-15 02:14 | PM.EVENT ---
Event Note Event Note Event Note: Called to see this 79 year old male with known metastatic bladder CA presented who is being treated for increased back pain and was started on Eliquis secondary to intermediate probability of PE on V/Q scan. The patient dropped his Hgb from 8.9 to 7.5 and the patient was treated with a blood transfusion. Tonight the patient developed increased respiratory difficulty and hypoxia. He was placed on high flow oxygen although he continued to have worsening respiratory difficulty. When I arrived to bedside the patient was in milad respiratory distress with a respiratory rate of 36, diaphoretic, and had a heart rate in the 130s. The patient was transferred to the IMU and initiated on Bipap. I treated the patient with IV ativan for anxiety. He had diffuse bilateral crackles on lung auscultation. I treated him with IV lasix. CXR was obtained which demonstrated diffuse pulmonary edema bilaterally. The patient was not able to tolerate the Bipap and at that point I reevaluated the patient. He stated that he wanted to be made comfort care. I called the patient's daughter and explained in detail his condition and wishes. She decided to come to the hospital and see him. Shortly afterwards we made the patient comfort care and he was transferred back to the medical floor. A/P Acute Respiratory Failure secondary to pulmonary edema likely from blood transfusions with superimposed chronic lung disease. -Comfort Care measures -Morphine/Ativan/Glycopyrrolate as needed -Oxygen supplementation as needed Total critical care time spent this evening exceeded 32 minutes.
--- NOTE | 2019-12-15 02:42 | PC.NURSE ---
This patient, Stu Raphael, was received from room 260-01 on 12/15/19 at 0133. Personal belongings list checked and signed. Patient/family oriented to unit policies and routines. Pt placed on continous BIPAP per RT.
--- NOTE | 2019-12-15 03:16 | PC.NURSE ---
This patient, Stu Raphael, was transferred to room 260 on 12/15/19 at 0310 as comfort care. Pt's family at bedside and updated with comfort care plan Personal belongings sent with patient. Belongings list checked and signed with receiving. Report given to RENÉ Iqbal. Appropriate documentation sent with patient.
[2019-12-15] MEDS: MORPHINE SULFATE (*CRX) 4 MG/ML INJ 2 MG IV PUSH (03:55)
[2019-12-15] MEDS: GLYCOPYRROLATE INJ (*SP) 0.2 MG/ML VIAL IV PUSH (03:56)
[2019-12-15 04:54] VITALS: BP 76/55; PULSE 120; RESP 36; TEMP 34.9; O2SAT 75
--- NOTE | 2019-12-15 05:47 | PM.DDS ---
Discharge Sum: Prov Provider Primary care physician: Jeremy Jung MD Admitting provider: Brianna Limon MD Consults: 12/13/19 Consult to Physician Routine Comment: Consulting Provider: Ty Mcnair at home independent call center agent/MD group to consult: Consult for bone metastasis Reason for consultation: Bone metastasis Has provider been notified: Yes 12/13/19 10:09 Consult to Physician Routine Comment: Consulting Provider: George Dumont Reason for consultation: bladder cancer with mets Has provider been notified: Yes 12/15/19 Consult to Spiritual Care Services Routine Comment: patient placed on comfort measures. family request Discharge Sum: Diag Contributing Factors (1) Back pain: (2) Acute respiratory failure: (3) Chronic anemia: (4) Stage IV bladder cancer: (5) Acute on chronic kidney failure: (6) Metabolic acidosis with respiratory alkalosis: (7) Essential hypertension: (8) Liver mass: Discharge Sum: Summary Date and Time Date of admission: 12/13/19 10:08 Date of : 12/15/19 Time of : 05:15 Summary Details: This was a very pleasant 79-year-old male with history of synchronous primary cancers including stage 4 prostate and bladder cancer status post cysto prostatectomy with adjuvant chemotherapy and pelvic radiation, chronic interstitial lung disease, chronic kidney disease, hypertension, and anemia who was admitted to our Hospitalist service for dorsalgia, metabolic acidosis, and acute on chronic renal failure. The patient underwent V/Q scan as it was thought his back pain might have been secondary to an acute pulmonary embolus. He could not undergo CTA chest due to his poor renal function. He was initiated on Eliquis as his V/Q scan was intermediate probability. He was then treated with a pRBC transfusion from Oncology as his blood counts dropped. The patient developed flash pulmonary edema and volume overload secondary to blood transfusion which was stopped. He was put on high flow oxygen and ultimately needed to be initiated on Bipap for milad respiratory failure and treated with Lasix IV. The patient could not tolerate the Bipap and was a DNR/DNI code status. He asked that we make him comfort care. His daughter was contacted and the patient was made comfort care. He at 05:15 hrs this morning. I met with his family at bedside and all questions were answered to their satisfaction. Additional Data Confirmation of as documented by pronouncing clinician: no pulse, no respirations, no heart sounds and pupils fixed and dilated Family: at bedside Attending physician: Brianna Limon MD Was code activated?: No Hospice patient?: Yes
--- NOTE | 2019-12-15 07:34 | PC.NURSE ---
respirations ceased and no heart beat noted at 0515. daughter and son at bedside. notified dr javier and kwabena, tobacco warehouse agent. patient prepped and taken to [facility] after proper paperwork filled out including home info.
== END 2019-12-15 08:25 | disposition expired | DRG 175 ==
LOC: ANHED 07:00 → ANH2MED 18:01 → ANHIMU 12-18 17:26
PROVIDERS: Emergency Medicine; Internal Medicine Hematology & Oncology; Nurse Practitioner; Physician Assistant; Admitting Provider Family Medicine; Emergency Provider General Practice; PCP Internal Medicine; Visit Provider Family Medicine
DX: I26.99 Other pulmonary embolism without acute cor pulmonale (principal); J96.01 Acute respiratory failure with hypoxia; J81.0 Acute pulmonary edema; N17.9 Acute kidney failure, unspecified; E87.2 Acidosis; C78.7 Secondary malignant neoplasm of liver and intrahepatic bile duct; N18.4 Chronic kidney disease, stage 4 (severe); E46 Unspecified protein-calorie malnutrition; J84.9 Interstitial pulmonary disease, unspecified; N13.30 Unspecified hydronephrosis; C79.51 Secondary malignant neoplasm of bone; C67.9 Malignant neoplasm of bladder, unspecified; T45.8X5A Adverse effect of other primarily systemic and hematological agents, initial encounter; R91.8 Other nonspecific abnormal finding of lung field; Z86.19 Personal history of other infectious and parasitic diseases; E78.2 Mixed hyperlipidemia; I12.9 Hypertensive chronic kidney disease with stage 1 through stage 4 chronic kidney disease, or unspecified chronic kidney disease; D64.9 Anemia, unspecified; R63.0 Anorexia; E87.5 Hyperkalemia; D72.829 Elevated white blood cell count, unspecified; Z87.891 Personal history of nicotine dependence; Z98.42 Cataract extraction status, left eye; Z98.41 Cataract extraction status, right eye; Z68.21 Body mass index [BMI] 21.0-21.9, adult; Z85.46 Personal history of malignant neoplasm of prostate; Z66 Do not resuscitate
CPT/HCPCS: 36415; 36430; 36600; 71045; 71046; 72133; 74176; 78306; 80048; 80053; 80076; 81001; 82274; 82375; 82550; 82607; 82728; 82805; 83050; 83540; 83550; 83605; 83690; 83735; 83880; 84100; 84484; 85025; 85380; 85610; 85730; 86850; 86900; 86901; 86923; 87015; 87040; 87045; 87046; 87086; 87269; 87272; 87427; 93005; 93306; 94002; 99291; A9270; A9561; J1170; J1642; J1940; J2060; J2270; J2543; J7030; J7050; J7120; P9016